=== PATIENT | female | born 1960 | race Caucasian/White ===

== ENCOUNTER 2022-10-20 10:47 | Outpatient (OUT) | payer OTHER, SELFPAY ==
--- NOTE | 2022-10-20 10:50 | MM_ITS ---
Patient: EDVIN TRISTAN Exam Date: 10/20/2022 : 1960 Gender:F Ordering : DR DYANA REINOSO M.D. Admission #: [id number] Family : Order #: [id number] CLICK HERE TO VIEW EXAM RADIOLOGY REPORT PROCEDURE: MM TOMOSYNTHESIS SCREENING BI COMPARISON: MG MAMM SCREEN 3D WILL CAD, 10/19/2021. MG MAMM SCREEN 3D WILL CAD, 10/07/2020. INDICATIONS: Calculator Name NCI Breast Cancer Risk Assessment Tool 5 Year Breast Cancer Risk 4.30% Lifetime Breast Cancer Risk 18.20% Personal Breast Cancer No Personal Ovarian Cancer No Treatments None Family Cancers None LOCATION: [facility] BREAST COMPOSITION: Heterogeneously dense,which may obscure small masses. FINDINGS: DIAGNOSTIC CATEGORY 2--BENIGN FINDING. NO CHANGE FROM COMPARISON. Scattered benign-appearing nodules are present. Scattered benign-appearing calcifications are present. Scattered benign-appearing lymph nodes are present. RIGHT BREAST: No significant suspicious finding. LEFT BREAST: No significant suspicious finding. RECOMMENDATIONS: ROUTINE MAMMOGRAM AND CLINICAL EVALUATION IN 12 MONTHS. PLEASE NOTE: A NORMAL MAMMOGRAM DOES NOT EXCLUDE THE POSSIBILITY OF BREAST CANCER. A CLINICALLY SUSPICIOUS PALPABLE LUMP SHOULD BE BIOPSIED. Dictated by: Chavez Hinojosa MD on 10/20/2022 at 14:48 Approved by: Chavez Hinojosa MD on 10/20/2022 at 14:49
== END 2022-10-20 10:48 | disposition home or self-care (01) ==
LOC: MAMMO 10:47
PROVIDERS: PCP Internal Medicine; Visit Provider Obstetrics & Gynecology
DX: Z12.31 Encounter for screening mammogram for malignant neoplasm of breast (principal)
CPT/HCPCS: 77063; 77067

== ENCOUNTER 2023-01-24 15:11 | Outpatient (OUT) | payer OTHER, SELFPAY ==
--- NOTE | 2023-01-24 | XR_ITS ---
The [address] [address] Patient Name: EDVIN TRISTAN MRN: [id number] date: 1960 Sex: F Assigned Patient Location: LAB Current Patient Location: Accession/Order Number: [id number] Exam Date: 01/24/2023 15:22 Report Date: 01/26/2023 06:42 At the request of: WYATT GARCIA Procedure: XR hip BI w PEL 1V EXAMINATION: XR hip BI w PEL 1V HISTORY: Bilateral hip pain ; no known injury COMPARISON: No relevant comparison available. FINDINGS: RIGHT FINDINGS: BONES: No significant arthropathy or acute abnormality. SOFT TISSUES: No visible soft tissue swelling. OTHER: Negative. LEFT FINDINGS: BONES: Small degenerative osteophyte along superior rim of acetabulum. No articular surface irregularity or significant joint space narrowing. SOFT TISSUES: No visible soft tissue swelling. OTHER: Negative. XR/XR hip BI w PEL 1V IMPRESSION: RIGHT CONCLUSION: No significant degenerative changes. LEFT CONCLUSION: Minimal degenerative changes. Electronically authenticated by: JONAH STANTON Date: 01/26/2023 06:42
== END 2023-01-24 15:12 | disposition home or self-care (01) ==
LOC: LAB 15:14
PROVIDERS: PCP Internal Medicine; Visit Provider Internal Medicine
DX: M25.552 Pain in left hip (principal); M25.551 Pain in right hip
CPT/HCPCS: 73523

== ENCOUNTER 2023-07-26 14:56 | Outpatient (OUT) | payer OTHER, SELFPAY ==
--- NOTE | 2023-07-26 | XR_ITS ---
The [address] [address] Patient Name: EDVIN TRISTAN MRN: [id number] date: 1960 Sex: F Assigned Patient Location: Current Patient Location: Accession/Order Number: [id number] Exam Date: 07/26/2023 14:58 Report Date: 07/28/2023 05:21 At the request of: CIRO BARKER Procedure: XR foot RT min 3V PROCEDURE: XR foot RT min 3V HISTORY: RIGHT FOOT PAIN , 5th metatarsal pain COMPARISON: None. FINDINGS: BONES:Tiny rounded ossification medial to the 5th metatarsophalangeal joint favoring sequela of remote injury. No acute fracture, dislocation, bone lesion. No significant joint space narrowing. Large calcaneal plantar spur. SOFT TISSUES:No visible soft tissue swelling. EFFUSION:None visible. OTHER: Negative. XR/XR foot RT min 3V IMPRESSION: 1. No acute bone abnormality or significant degenerative joint disease. Electronically authenticated by: JONAH STANTON Date: 07/28/2023 05:21
--- OUTSIDE RECORDS SUMMARY | 2023-07-26 15:01 | XMS_ITS | CCD ---
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 Name Role Phone UBALDO LOPEZ Unavailable Unavailable BALL, ETHAN Singh Unavailable Unavailable UBALDO LOPEZ Unavailable Unavailable BALL, ETHAN E Unavailable Unavailable Christian Celine Unavailable Ethan Hines Unavailable RADHA, DR SCHNEIDER Admitting Unavailable BALL, DR SCHNEIDER Attending Unavailable BALL, DR SCHNEIDER Consulting Unavailable BALL, DR SCHNEIDER Primary Care Unavailable BALL, DR SCHNEIDER Primary Care Unavailable BALL, DR SCHNEIDER Admitting Unavailable BALL, DR SCHNEIDER Attending Unavailable BALL, DR SCHNEIDER Consulting Unavailable KARASIK ., DR SHEEHAN Primary Care Unavailabl e BALL, DR SCHNEIDER Admitting Unavailable BALL, DR SCHNEIDER Attending Unavailable BALL, DR SCHNEIDER Consulting Unavailable ZIEBER, DR ABE Way Consulting Unavailable MISC, DR CASTRO Admitting Unavailable BALL, DR SCHNEIDER Primary Care Unavailable MISC, DR CASTRO Attending Unavailable BALL, DR SCHNEIDER Primary Care Unavailable EMILY, YOVANI Admitting Unavailable EMILY, YOVANI Attending Unavailable EMILY, YOVANI Consulting Unavailable BALL, DR SCHNEIDER Primary Care Unavailable EMILY, YOVANI Admitting Unavailable EMILY, YOVANI Attending Unavailable EMILY, YOVANI Consulting Unavailable REQUEST, NONE LISTED Attending Unavaila ble RADHA, DR SCHNEIDER Primary Care Unavailable REQUEST, NONE LISTED Consulting Unavaila ble REQUEST, DR FUNG LISTED Admitting Unavaila ble BALL, DR SCHNEIDER Primary Care Unavailable BALL, DR SCHNEIDER Consulting Unavailable REQUEST, NONE LISTED Admitting Unavaila ble REQUEST, NONE LISTED Attending Unavaila ble REQUEST, NONE LISTED Consulting Unavaila ble RADHA, DR SCHNEIDER Primary Care Unavailable REQUEST, NONE LISTED Admitting Unavaila ble REQUEST, DR FUNG LISTED Attending Unavaila ble ETHAN HINES Primary Care Physician [phone] Robin Zelaya Attending Unavailable Robin Zelaya Admitting Unavailable Allergies Allergy Classification Reported Allergen(s) Allergy Type Date of Onset Reaction(s) Facility (14 sources) traMADol Drug Allergy rash Lomography Other (1 source) Erythromycin Drug Allergy 5 [facility] Repository (1 source) Sulfonamides (Antibiotic) Drug allergy (disorder) 5 [facility] Repository (1 source) traMADol Drug Allergy 5 [facility] Repository (6 sources) Erythromycin Drug Allergy Unknown Lomography Other Medications Current Medications Medication Drug Class(es) Dates Sig (Normalized) Sig (Original) 0.5 ML tirzepatide 10 MG/ML Auto-Injector [Mounjaro] (12 sources) Start: 04-13-2022 inject 5 mg by subcutaneous injection every week Mounjaro 5 MG/0.5ML 5mg Subcutaneous weekly for 28 days Apr, Active inject 5 mg by subcu taneous injection every week Mounjaro 5 MG/0.5ML 5 MG Subcutaneous weekly Active inject 5 mg by subcu taneous injection every week Mounjaro 5 MG/0.5ML 5 MG Subcutaneous weekly for 28 days Active famotidine 20 mg oral tablet (13 sources) Histamine-2 Receptor Antagonist take 1 tablet by mouth twice daily at breakfast Famotidine 20 MG TAKE 1 TABLET BY MOUTH TWICE DAILY, AT BREAKFAST AND SUPPER Active lisinopril 5 mg oral tablet (14 sources) Angiotensin Converting Enzyme Inhibitor take 1 tablet by mouth every twenty-four hours Lisinopril 5 MG 1 tablet Orally Once a day for 30 days Active take 0.5 tablet by mouth once da rikki Lisinopril 10 MG 1/2 tablet Orally Once a day Active take 1 tablet by mouth once donna y Lisinopril 10 MG TAKE 1 TABLET BY MOUTH EVERY DAY Active Lisinopril Activ e metFORMIN hydrochloride 500 mg oral tablet (14 sources) Biguanide Start: 04-10-2022 metFORMIN HCl 500 MG 1 Orally Once a day Apr, Active mounjaro 5 mg/0.5ml solution pen-injector (1 source) inject 5 mg by subcutaneous injection every week Mounjaro 5 MG/0.5ML 5 MG Subcutaneous weekly Active nabumetone 750 mg oral tablet (2 sources) Nonsteroidal Anti-inflammatory Drug Start: 02-06-2023 take 750 mg by mouth twice daily Nabumetone 750 MG as directed Orally Twice a day for 30 days Feb, Active Completed/Discontinued Medications Medication Drug Class(es) Dates Sig (Normalized) Sig (Original) azithromycin 250 mg oral tablet (8 sources) Macrolide Antimicrobial Start: 08-10-2022 Azithromycin 250 MG as directed Orally daily for 5 days August, Not-Taking/PRN Problems Active Problems Problem Classification Problem Date Documented Da te Episodic/Chronic Calculus of urinary tract (14 sources) Unspecified renal colic; 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: [H/O: urinary stone] Onset: 04-13-2017 Episodic Diabetes mellitus with complications (20 sources) Type 2 diabetes mellitus; 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: [Type 2 diabetes mellitus with hyperglycemia] Chronic Esophageal disorders (6 sources) Gastro-esophageal reflux disease with esophagitis; 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: [Gastroesophageal reflux disease with esophagitis without hemorrhage] Chronic Essential hypertension (16 sources) Essential hypertension; 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: [Essential (primary) hypertension] Chronic Genitourinary symptoms and ill-defined conditions (3 sources) Dysuria; 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: [Frequency of micturition] Onset: 04-13-2017 Episodic Nonmalignant breast conditions (15 sources) Benign mammary dysplasia; 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: [Unspecified benign mammary dysplasia of unspecified breast] Episodic Other bone disease and musculoskeletal deformities (14 sources) Other specified disorders of bone density and structure, other site; 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: [Osteopenia of lumbar spine] Episodic Other non-traumatic joint disorders (2 sources) Pain in right hip Episodic Other non-traumatic joint disorders (2 sources) Pain in left hip Episodic Other nutritional; endocrine; and metabolic disorders (13 sources) Obesity; 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: [Obesity, unspecified] Chronic Other nutritional; endocrine; and metabolic disorders (13 sources) Body mass index 40+ - severely obese; 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: [Body mass index (BMI) 40.0-44.9, adult] Chronic Other nutritional; endocrine; and metabolic disorders (1 source) Body mass index (BMI) 40.0-44.9, adult Chronic Other screening for suspected conditions (not mental disorders or infectious disease) (5 sources) Encounter for screening mammogram for malignant neoplasm of breast; 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: [Encounter for screening for malignant neoplasm of colon] Onset: 10-19-2021 Episodic Other upper respiratory disease (14 sources) Seasonal allergic rhinitis; 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: [Other seasonal allergic rhinitis] Chronic Other upper respiratory disease (1 source) Other seasonal allergic rhinitis; 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: [Seasonal allergic rhinitis, unspecified trigger J30.2] Onset: 01-10-2021 Resolved: 01-10-2021 Chronic Other upper respiratory infections (1 source) Acute maxillary sinusitis, unspecified Episodic Rheumatoid arthritis and related disease (14 sources) Inflammatory polyarthropathy; 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: [Inflammatory polyarthropathy] Chronic Spondylosis; intervertebral disc disorders; other back problems (14 sources) Lumbosacral spondylosis without myelopathy; 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: [Spondylosis without myelopathy or radiculopathy, lumbar region] Chronic Unclassified (3 sources) CONTACT W/AND (SUSP) EXPOS COVID-19; 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: [CONTACT W/AND (SUSP) EXPOS COVID-19] Onset: 03-19-2022 Past or Other Problems Problem Classification Problem Date Documented Date Episodic/Chronic Esophageal disorders (10 sources) Esophageal disorders; 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: [Gastroesophageal reflux disease with esophagitis without hemorrhage] Immunizations and screening for infectious disease (1 source) Contact with and (suspected) exposure to other viral communicable diseases; 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: [Contact with and (suspected) exposure to other viral communicable diseases Z20.828] Onset: 01-10-2021 Resolved: 01-10-2021 Episodic Other acquired deformities (4 sources) Spondylolisthesis, lumbar region; 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: [SPONDYLOLISTHESIS LUMBAR REGION] Onset: 08-26-2021 Episodic Other aftercare (1 source) 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; 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: [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] Onset: 08-20-2021 Episodic Other connective tissue disease (1 source) Pain in right leg; 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: [PAIN IN RIGHT LEG] Onset: 10-12-2021 Episodic Residual codes; unclassified (2 sources) Other specified postprocedural states; 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: [OTH SPECIFIED POSTPROCEDURAL STATES] Onset: 08-20-2021 Episodic Spondylosis; intervertebral disc disorders; other back problems (7 sources) Dorsalgia, unspecified; 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: [Sciatica, left side] Onset: 08-18-2021 Episodic Unclassified (1 source) CONTACT W/AND (SUSP) EXPOS COVID-19; 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: [CONTACT W/AND (SUSP) EXPOS COVID-19] Onset: 03-16-2022 Unclassified (1 source) Acute bilateral low back pain without sciatica M54.50 Urinary tract infections (1 source) Acute cystitis with hematuria; 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: [Acute cystitis with hematuria] Onset: 04-13-2017 Episodic Results Test Name Value Interpretation Reference Range Facility PAP [id number] 10-18-2022 Cytology report Cyto stain Doc (Cvx/Vag) Note Invalid Interpretation Code [facility]il[facility]to [facility] Comment on above: Result Comment: TEST S RESULT FLAG UNITS REF RANGE LAB Clinician Provided Cytology Information Source.............Endocervix No. of containers..01 ThinPrep Vial DIAGNOSIS: 01 NEGATIVE FOR INTRAEPITHELIAL LESION OR MALIGNANCY. Specimen adequacy: 01 Satisfactory for evaluation. Endocervical and/or squamous metaplastic cells (endocervical component) are present. Performed by: 01 Martha Barron Special Agent Secret Service (ASCP) . 01 Note: Note 01 The Pap smear is a screening test designed to aid in the detection of premalignant and malignant conditions of the uterine cervix. It is not a diagnostic procedure and should not be used as the sole means of detecting cervical cancer. Both false-positive and false-negative reports do occur. Test Methodology: Note 01 This liquid based ThinPrep(R) pap test was screened with the use of an image guided system. FLAG LEGEND: L-Low Normal,H-High Normal,LL-Alert Low,HH-Alert High <-Panic Low,>-Panic High,A-Abnormal,AA-Critical Abnormal Performed at: [facility] [address] [id number] Edith Barnes MD, Performed By: #### 3 [id number] #### [facility] [address] [id number] HPV 16+18+31+33+35+39+45+ 51+52+56+58+59+66+68 DNA Probe+sig amp Ql (Cvx) Negative Invalid Interpretation Code Negative [facility] Comment on above: Result Comment: This nucleic acid amplification test detects fourteen high-risk HPV types (16,18,31,33,35,39,45,51,52,56,58,59,66,68) without differentiation. Performed at: [facility] [id number] MD Cameron Sharma Performed at: =[facility] [id number] MD Cameron Sharma Performed By: #### 3 [id number] #### [facility] [address] [id number] PAP [id number] 10-13-2022 Collection Technique BRUSH-SPATULA Normal F [facility] Comment on above: Performed By: #### 3 [id number] #### [facility] [address] [place] [address] Gynecological Body Site ENDOCERVIX Normal [facility] Comment on above: Performed By: #### 3 [id number] #### [facility] [address] [place] [address] Previous Treatment NONE Normal [facility] Comment on above: Performed By: #### 3 [id number] #### [facility] [address] [id number] Physician Orderon 10-12-2022 Physician Order [id number] #[id number]:127 Normal [facility] GLYCOHEMOGLOBIN A1Con 2022 ADA RECOMMENDATION SEE BELOW Normal [facility] Comment on above: Result Comment: ADA RECOMMENDED LIMIT 4.0 - 6.0 ADA THERAPEUTIC TARGET < 7.0 ACTION SUGGESTED > 7.0 Performed By: #### D ATA1C #### [facility] [address] [place] [address] Dr. María Adorno Glucose [Mass/Vol] 114 mg/dL Normal [facility] Comment on above: Performed By: #### D ATA1C #### [facility] [address] [place] [address] Dr. María Adorno HbA1c (Bld) [Mass fraction] 5.6 % Normal 4.5-6.[address] [facility] Comment on above: Performed By: #### D ATA1C #### [facility] [address] [place] [address] Dr. María Adorno GLYCOHEMOGLOBIN A1Con 2022 ADA RECOMMENDATION SEE BELOW Normal [facility] Comment on above: Result Comment: ADA RECOMMENDED LIMIT 4.0 - 6.0 ADA THERAPEUTIC TARGET < 7.0 ACTION SUGGESTED > 7.0 Performed By: #### D ATA1C #### [facility] [address] [place] [address] Dr. María Adorno Glucose [Mass/Vol] 131 mg/dL Normal [facility] Comment on above: Performed By: #### D ATA1C #### [facility] [address] [place] [address] Dr. María Adorno HbA1c (Bld) [Mass fraction] 6.2 % Normal 4.5-6.[address] [facility] Comment on above: Performed By: #### D ATA1C #### [facility] [address] [place] [address] Dr. María Adorno Covid-19 PCR (CVDTBH)on 03-03 SARS-CoV-2 (COVID-19) RNA MARIELLA+probe Ql (Unsp spec) Not detected Normal NOT DETECTED [facility] Comment on above: Result Comment: This test is not yet approved or cleared by the [place] FDA. When there are no FDA-approved or cleared tests available, and other criteria are met, FDA can make tests available under an emergency access mechanism called an Emergency Use Authorization (EUA). The EUA for this test is supported by the [employer] of Health and Human Service's (HHS's) declaration that circumstances exist to justify the emergency use of in vitro diagnostics for the detection and/or diagnosis of the virus that causes COVID-19. This EUA will remain in effect (meaning this test can be used) for the duration of the COVID-19 declaration justifying emergency of IVDs, unless it is terminated or revoked by FDA (after which the test may no longer be used). When diagnostic testing is negative, the possibility of a false negative should be considered in the context of a patient's recent exposures and the presence of clinical signs and symptoms consistent with SARS-CoV-2. Performed By: #### C VDTBH #### [facility] [address] [place] [address] Dr. María Adorno GLYCOHEMOGLOBIN A1Con 2021 ADA RECOMMENDATION SEE BELOW Normal [facility] Comment on above: Result Comment: ADA RECOMMENDED LIMIT 4.0 - 6.0 ADA THERAPEUTIC TARGET < 7.0 ACTION SUGGESTED > 7.0 Performed By: #### D ATA1C #### [facility] [address] [place] [address] Dr. María Adorno Glucose [Mass/Vol] 140 mg/dL Normal [facility] Comment on above: Performed By: #### D ATA1C #### [facility] [address] [place] [address] Dr. María Adorno HbA1c (Bld) [Mass fraction] 6.5 % Critically high 4.5-6.2 [facility] Comment on above: Performed By: #### D ATA1C #### [facility] [address] [place] [address] Dr. María Adorno [facility] CBC AUTO DIFFon 11-18-2021 BASO # 0.1 103/ul Normal 0.0-0.1 [facility] Comment on above: Performed By: #### C RP, BMP #### [facility] [address] [place] [address] Dr. María Adorno Basophils/100 WBC (Bld) 0.9 % Normal 0.2-2.[address] [facility] Comment on above: Performed By: #### C RP, BMP #### [facility] [address] [place] [address] Dr. María Adorno EO # 0.3 103/ul Normal 0.0-0.[address] [facility] Comment on above: Performed By: #### C RP, BMP #### [facility] [address] [place] [address] Dr. María Adorno Eosinophils/100 WBC (Bld) 3.0 % Normal 0.9-7.[address] [facility] Comment on above: Performed By: #### C RP, BMP #### [facility] [address] [place] [address] Dr. María Adorno Erythrocyte distribution width (RBC) [Ratio] 11.9 % Normal 11.0-15.[address] [facility] Comment on above: Performed By: #### C RP, BMP #### [facility] [address] [place] [address] Dr. María Adorno Hematocrit (Bld) [Volume fraction] 45.3 % Normal 36.0-48.[address] [facility] Comment on above: Performed By: #### C RP, BMP #### [facility] [address] [place] [address] Dr. María Adorno Hemoglobin (Bld) [Mass/Vol] 14.7 g/dL Normal 12.0-16.[address] [facility] Comment on above: Performed By: #### C RP, BMP #### [facility] [address] [place] [address] Dr. María Adorno IG # 0.04 10e3/ul Critically high 0.00-0.03 [facility] Comment on above: Performed By: #### C RP, BMP #### [facility] [address] [place] [address] Dr. María Adorno IG % 0.4 % Normal 0.0-0.5 [facility] Comment on above: Performed By: #### C RP, BMP #### [facility] [address] [place] [address] Dr. María Adorno LYMPH # 3.1 103/ul Normal 1.2-3.8 [facility] Comment on above: Performed By: #### C RP, BMP #### [facility] [address] [place] [address] Dr. María Adorno Lymphocytes/100 WBC (Bld) 32.3 % Normal 20.5-60.[address] [facility] Comment on above: Performed By: #### C RP, BMP #### [facility] [address] [place] [address] Dr. María Adorno MCH (RBC) [Entitic mass] 28.9 pg Normal 26.7-34.[address] [facility] Comment on above: Performed By: #### C RP, BMP #### [facility] [address] [place] [address] Dr. María Adorno MCHC (RBC) [Mass/Vol] 32.5 g/dL Normal 29.9-35.2 [facility] Comment on above: Performed By: #### C RP, BMP #### [facility] [address] [place] [address] Dr. María Adorno MCV (RBC) [Entitic vol] 89.2 fL Normal 81.0-99.[address] [facility] Comment on above: Performed By: #### C RP, BMP #### [facility] [address] [place] [address] Dr. María Adorno MONO # 0.8 103/ul Normal 0.3-0.[address] [facility] Comment on above: Performed By: #### C RP, BMP #### [facility] [address] [place] [address] Dr. María Adorno Monocytes/100 WBC (Bld) 8.6 % Normal 1.7-12.[address] [facility] Comment on above: Performed By: #### C RP, BMP #### [facility] [address] [place] [address] Dr. María Adorno NEUT # 5.3 103/ul Normal 1.4-6.[address] [facility] Comment on above: Performed By: #### C RP, BMP #### [facility] [address] [place] [address] Dr. María Adorno Neutrophils/100 WBC (Bld) 54.8 % Normal 43.0-75.0 [facility] Comment on above: Performed By: #### C RP, BMP #### [facility] [address] [address] [address] María Adorno Platelet mean volume (Bld) [Entitic vol] 12.2 fL Normal 9.5-13.[address] [facility] Comment on above: Performed By: #### C RP, BMP #### [facility] [address] [place] [address] Dr. María Adorno PLT 200 103/ul Normal 150-[address] [facility] Comment on above: Performed By: #### C RP, BMP #### [facility] [address] [place] [address] Dr. María Adorno RBC 5.08 106/ul Normal 4.20-5.[address] [facility] Comment on above: Performed By: #### C RP, BMP #### [facility] [address] [place] [address] Dr. María Adorno WBC 9.7 103/ul Normal 4.0-11.[address] [facility] Comment on above: Performed By: #### C RP, BMP #### [facility] [address] [place] [address] Dr. María Adorno [facility] PROFILEon 022 Albumin [Mass/Vol] 3.7 g/dL Normal 3.4-5.0 [facility] Comment on above: Performed By: #### H FPF #### [facility] [address] [place] [address] Dr. María Adorno Albumin/Globulin [Mass ratio] 1.1 {ratio} Normal [facility] Comment on above: Performed By: #### H FPF #### [facility] [address] [place] [address] Dr. María Adorno ALP [Catalytic activity/Vol] 99 U/L Normal 46-[address] [facility] Comment on above: Performed By: #### H FPF #### [facility] [address] [place] [address] Dr. María Adorno ALT [Catalytic activity/Vol] 18 U/L Normal 14-[address] [facility] Comment on above: Performed By: #### H FPF #### [facility] [address] [address] [address] María Adorno AST [Catalytic activity/Vol] 18 U/L Normal 15-[address] [facility] Comment on above: Performed By: #### H FPF #### [facility] [address] [address] [address] María Adorno Bilirubin [Mass/Vol] 0.6 mg/dL Normal 0.2-1.[address] [facility] Comment on above: Performed By: #### H FPF #### [facility] [address] [address] [address] María Adorno Calcium [Mass/Vol] 9.3 mg/dL Normal 8.5-10.1 [facility] Comment on above: Performed By: #### H FPF #### [facility] [address] [place] [address] Dr. María Adorno Chloride [Moles/Vol] 103 mmol/L Normal 98-[address] [facility] Comment on above: Performed By: #### H FPF #### [facility] [address] [place] [address] Dr. María Adorno CHOL-HDL RATIO NORM SEE BELOW Normal [facility] Comment on above: Result Comment: 3.3 - 4.4 LOW RISK 4.4 - 7.1 AVERAGE RISK 7.1 - 11.0 MODERATE RISK >11.0 HIGH RISK Performed By: #### H FPF #### [facility] [address] [address] [address] María Adorno Cholesterol [Mass/Vol] 160 mg/dL Normal <=[address] [facility] Comment on above: Performed By: #### H FPF #### [facility] [address] [place] [address] Dr. María Adorno Cholesterol in HDL [Mass/Vol] 40 mg/dL Normal 40-[address] [facility] Comment on above: Performed By: #### H FPF #### [facility] [address] [address] [address] María Adorno Cholesterol in LDL [Mass/Vol] 92.0 mg/dL Normal [facility] Comment on above: Performed By: #### H FPF #### [facility] [address] [address] [address] María Adorno Cholesterol.total/Cho lesterol in HDL [Mass ratio] 4.0 {ratio} Normal [facility] Comment on above: Performed By: #### H FPF #### [facility] [address] [address] [address] María Adorno CO2 [Moles/Vol] 24.6 mmol/L Normal 21.0-32.0 [facility] Comment on above: Performed By: #### H FPF #### [facility] [address] [place] [address] Dr. María Adorno Creatinine [Mass/Vol] 1.00 mg/dL Normal 0.55-1.[address] [facility] Comment on above: Performed By: #### H FPF #### [facility] [address] [address] [address] María Adorno Globulin (S) [Mass/Vol] 3.5 g/dL Normal [facility] Comment on above: Performed By: #### H FPF #### [facility] [address] [place] [address] Dr. María Adorno Glucose [Mass/Vol] 132 mg/dL Critically high 74-106 [facility] Comment on above: Performed By: #### H FPF #### [facility] [address] [address] [address] María Adorno HDL NORMAL > or = 60 mg/dl - LOW CARDIOVASCULAR RISK <40 mg/dl - HIGH CARDIOVASCULAR RISK Normal [facility] Comment on above: Performed By: #### H FPF #### [facility] [address] [place] [address] Dr. María Adorno LDL CALC NORMAL SEE BELOW Normal [facility] Comment on above: Result Comment: <100 mg/dl OPTIMAL 100 - 129 mg/dl NEAR OR ABOVE OPTIMAL 130 - 159 mg/dl BORDERLINE HIGH 160 - 189 mg/dl HIGH >190 mg/dl VERY HIGH Performed By: #### H FPF #### [facility] [address] [address] [address] María Adorno Potassium [Moles/Vol] 4.0 mmol/L Normal 3.5-5.[address] [facility] Comment on above: Performed By: #### H FPF #### [facility] [address] [address] [address] María Adorno Protein [Mass/Vol] 7.2 g/dL Normal 6.4-8.2 [facility] Comment on above: Performed By: #### H FPF #### [facility] [address] [address] [address] María Adorno Sodium [Moles/Vol] 138 mmol/L Normal 136-145 [facility] Comment on above: Performed By: #### H FPF #### [facility] [address] [address] [address] María Adorno Triglyceride [Mass/Vol] 140 mg/dL Normal <=[address] [facility] Comment on above: Performed By: #### H FPF #### [facility] [address] [address] [address] María Adorno TSH 2.537 uIU/mL Normal 0.358-3.740 [facility] Comment on above: Performed By: #### H FPF #### [facility] [address] [address] [address] María Adorno Urea nitrogen [Mass/Vol] 17.0 mg/dL Normal 7.0-18.[address] [facility] Comment on above: Performed By: #### H FPF #### [facility] [address] [address] [address] María Adorno Urea nitrogen/Creatinine [Mass ratio] 17.0 mg/mg Normal [facility] Comment on above: Performed By: #### H FPF #### [facility] [address] [address] [address] María Adorno VLDL CALC 28.0 mg/dL Normal [facility] Comment on above: Performed By: #### H FPF #### [facility] [address] [address] [address] María Adorno MG MAMM SCREEN 3D CHINO CADon 10-19-2021 MG MAMM SCREEN 3D CHINO CAD Patient: EDVIN TRISTAN Exam Date: 10/19/2021 : 1960 Gender:F Ordering : DR ETHAN HINES D.O. Admission #: [id number] Family : Order #: [id number] CLICK HERE TO VIEW EXAM RADIOLOGY REPORT PROCEDURE: MAMMOGRAM SCREENING 3D BILATERAL CAD COMPARISON: MG MAMM SCREEN 3D CHINO CAD, 10/07/2020. MG MAMM SCREEN CHINO W CAD, 10/03/2019. INDICATIONS: Screening mammography Calculator Name NCI Breast Cancer Risk Assessment Tool 5 Year Breast Cancer Risk 4.10% Lifetime Breast Cancer Risk 18.70% Personal Breast Cancer No Personal Ovarian Cancer No Treatments None Family Cancers None LOCATION: [facility] BREAST COMPOSITION: Heterogeneously dense,which may obscure small masses. FINDINGS: DIAGNOSTIC CATEGORY 2--BENIGN FINDING: RIGHT BREAST: No significant suspicious finding. Scattered benign-appearing calcifications are present. Stable biopsy marker clip within anterior upper-outer quadrant. No significant change has occurred. LEFT BREAST: No significant suspicious finding. Scattered benign-appearing calcifications are present. Stable scarring within posterior upper-outer quadrant. No significant change has occurred. RECOMMENDATIONS: ROUTINE MAMMOGRAM AND CLINICAL EVALUATION IN 12 MONTHS. PLEASE NOTE: A NORMAL MAMMOGRAM DOES NOT EXCLUDE THE POSSIBILITY OF BREAST CANCER. A CLINICALLY SUSPICIOUS PALPABLE LUMP SHOULD BE BIOPSIED. Dictated by: Abe Mcqueen M.D. on 10/20/2021 at 14:50 Approved by: Abe Mcqueen M.D. on 10/20/2021 at 14:56 Normal [facility] CBC AUTO DIFFon 09-28-2021 BASO # 0.1 103/ul Normal 0.0-0.1 [facility] Comment on above: Performed By: #### C BC #### [facility] [address] [address] [address] María Adorno Basophils/100 WBC (Bld) 0.8 % Normal 0.2-2.[address] [facility] Comment on above: Performed By: #### C BC #### [facility] [address] [address] [address] María Adorno EO # 0.3 103/ul Normal 0.0-0.[address] [facility] Comment on above: Performed By: #### C BC #### [facility] [address] [place] [address] Dr. María Adorno Eosinophils/100 WBC (Bld) 2.5 % Normal 0.9-7.[address] [facility] Comment on above: Performed By: #### C BC #### [facility] [address] [place] [address] Dr. María Adorno Erythrocyte distribution width (RBC) [Ratio] 12.1 % Normal 11.0-15.[address] [facility] Comment on above: Performed By: #### C BC #### [facility] [address] [place] [address] Dr. María Adorno Hematocrit (Bld) [Volume fraction] 42.6 % Normal 36.0-48.[address] [facility] Comment on above: Performed By: #### C BC #### [facility] [address] [place] [address] Dr. María Adorno Hemoglobin (Bld) [Mass/Vol] 14.1 g/dL Normal 12.0-16.[address] [facility] Comment on above: Performed By: #### C BC #### [facility] [address] [place] [address] Dr. María Adorno IG # 0.04 10e3/ul Critically high 0.00-0.03 [facility] Comment on above: Performed By: #### C BC #### [facility] [address] [place] [address] Dr. María Adorno IG % 0.3 % Normal 0.0-0.5 [facility] Comment on above: Performed By: #### C BC #### [facility] [address] [place] [address] Dr. María Adorno LYMPH # 3.3 103/ul Normal 1.2-3.[address] [facility] Comment on above: Performed By: #### C BC #### [facility] [address] [place] [address] Dr. María Adorno Lymphocytes/100 WBC (Bld) 24.4 % Normal 20.5-60.[address] [facility] Comment on above: Performed By: #### C BC #### [facility] [address] [place] [address] Dr. María Adorno MANUAL DIFF REQ NO Normal [facility] Comment on above: Performed By: #### C BC #### [facility] [address] [place] [address] Dr. María Adorno MCH (RBC) [Entitic mass] 29.6 pg Normal 26.7-34.[address] [facility] Comment on above: Performed By: #### C BC #### [facility] [address] [place] [address] Dr. María Adorno MCHC (RBC) [Mass/Vol] 33.1 g/dL Normal 29.9-35.[address] [facility] Comment on above: Performed By: #### C BC #### [facility] [address] [place] [address] Dr. María Adorno MCV (RBC) [Entitic vol] 89.5 fL Normal 81.0-99.[address] [facility] Comment on above: Performed By: #### C BC #### [facility] [address] [place] [address] Dr. María Adorno MONO # 1.0 103/ul Critically high 0.3-0.8 [facility] Comment on above: Performed By: #### C BC #### [facility] [address] [place] [address] Dr. María Adorno Monocytes/100 WBC (Bld) 7.8 % Normal 1.7-12.[address] [facility] Comment on above: Performed By: #### C BC #### [facility] [address] [place] [address] Dr. María Adorno NEUT # 8.6 103/ul Critically high 1.4-6.5 [facility] Comment on above: Performed By: #### C BC #### [facility] [address] [place] [address] Dr. María Adorno Neutrophils/100 WBC (Bld) 64.2 % Normal 43.0-75.[address] [facility] Comment on above: Performed By: #### C BC #### [facility] [address] [place] [address] Dr. María Adorno Platelet mean volume (Bld) [Entitic vol] 11.7 fL Normal 9.5-13.[address] [facility] Comment on above: Performed By: #### C BC #### [facility] [address] [place] [address] Dr. María Adorno PLT 197 103/ul Normal 150-[address] [facility] Comment on above: Performed By: #### C BC #### [facility] [address] [place] [address] Dr. María Adorno RBC 4.76 106/ul Normal 4.20-5.[address] [facility] Comment on above: Performed By: #### C BC #### [facility] [address] [place] [address] Dr. María Adorno WBC 13.3 103/ul Critically high 4.0-11.0 [facility] Comment on above: Performed By: #### C BC #### [facility] [address] [place] [address] Dr. María Adorno CRPon 09-28-2021 CRP 0.3 mg/dL Normal <=1.[address] [facility] Comment on above: Performed By: #### C RP, BMP #### [facility] [address] [place] [address] Dr. María Adorno PROF CHEM 8 (BAS METB)on Anion gap [Moles/Vol] 11.6 mmol/L Normal [facility] Comment on above: Performed By: #### C RP, BMP #### [facility] [address] [place] [address] Dr. María Adorno Calcium [Mass/Vol] 9.6 mg/dL Normal 8.5-10.1 [facility] Comment on above: Performed By: #### C RP, BMP #### [facility] [address] [place] [address] Dr. María Adorno Chloride [Moles/Vol] 105 mmol/L Normal 98-[address] [facility] Comment on above: Performed By: #### C RP, BMP #### [facility] [address] [place] [address] Dr. María Adorno CO2 [Moles/Vol] 27.6 mmol/L Normal 21.0-32.0 [facility] Comment on above: Performed By: #### C RP, BMP #### [facility] [address] [place] [address] Dr. María Adorno Creatinine [Mass/Vol] 1.12 mg/dL Critically high 0.55-1.[address] [facility] Comment on above: Performed By: #### C RP, BMP #### [facility] [address] [place] [address] Dr. María Adorno EGFR-AF SIERRA LEONEAN 60 mL/min/1.73m2 Normal >=60 [facility] Comment on above: Performed By: #### C RP, BMP #### [facility] [address] [place] [address] Dr. María Adorno EGFR-NON AF SIERRA LEONEAN 49 mL/min/1.73m2 Critically low >=[address] [facility] Comment on above: Performed By: #### C RP, BMP #### [facility] [address] [place] [address] Dr. María Adorno Glucose [Mass/Vol] 151 mg/dL Critically high 74-106 [facility] Comment on above: Performed By: #### C RP, BMP #### [facility] [address] [place] [address] Dr. María Adorno Potassium [Moles/Vol] 4.2 mmol/L Normal 3.5-5.[address] [facility] Comment on above: Performed By: #### C RP, BMP #### [facility] [address] [place] [address] Dr. María Adorno Sodium [Moles/Vol] 140 mmol/L Normal 136-145 [facility] Comment on above: Performed By: #### C RP, BMP #### [facility] [address] [place] [address] Dr. María Adorno Urea nitrogen [Mass/Vol] 19.0 mg/dL Critically high 7.0-18.[address] [facility] Comment on above: Performed By: #### C RP, BMP #### [facility] [address] [place] [address] Dr. María Adorno Urea nitrogen/Creatinine [Mass ratio] 17.0 mg/mg Normal [facility] Comment on above: Performed By: #### C RP, BMP #### [facility] [address] [place] [address] Dr. María Adorno SED RATE WESTERGRENon 2021 SED RATE 47 mm/hr Critically high <=30 [facility] Comment on above: Performed By: #### C RP, BMP #### [facility] [address] [place] [address] Dr. María Adorno CBC AUTO DIFFon 08-18-2021 BASO # 0.1 103/ul Normal 0.0-0.[address] [facility] Comment on above: Performed By: #### C RP, BMP #### [facility] [address] [place] [address] Dr. María Adorno Basophils/100 WBC (Bld) 0.7 % Normal 0.2-2.[address] [facility] Comment on above: Performed By: #### C RP, BMP #### [facility] [address] [place] [address] Dr. María Adorno EO # 0.3 103/ul Normal 0.0-0.7 [facility] Comment on above: Performed By: #### C RP, BMP #### [facility] [address] [place] [address] Dr. María Adorno Eosinophils/100 WBC (Bld) 2.4 % Normal 0.9-7.0 [facility] Comment on above: Performed By: #### C RP, BMP #### [facility] [address] [place] [address] Dr. María Adorno Erythrocyte distribution width (RBC) [Ratio] 12.4 % Normal 11.0-15.[address] [facility] Comment on above: Performed By: #### C RP, BMP #### [facility] [address] [place] [address] Dr. María Adorno Hematocrit (Bld) [Volume fraction] 40.6 % Normal 36.0-48.[address] [facility] Comment on above: Performed By: #### C RP, BMP #### [facility] [address] [place] [address] Dr. María Adorno Hemoglobin (Bld) [Mass/Vol] 13.2 g/dL Normal 12.0-16.[address] [facility] Comment on above: Performed By: #### C RP, BMP #### [facility] [address] [place] [address] Dr. María Adorno IG # 0.04 10e3/ul Critically high 0.00-0.03 [facility] Comment on above: Performed By: #### C RP, BMP #### [facility] [address] [place] [address] Dr. María Adorno IG % 0.3 % Normal 0.0-0.[address] [facility] Comment on above: Performed By: #### C RP, BMP #### [facility] [address] [place] [address] Dr. María Adorno LYMPH # 3.1 103/ul Normal 1.2-3.[address] [facility] Comment on above: Performed By: #### C RP, BMP #### [facility] [address] [place] [address] Dr. María Adorno Lymphocytes/100 WBC (Bld) 25.8 % Normal 20.5-60.[address] [facility] Comment on above: Performed By: #### C RP, BMP #### [facility] [address] [place] [address] Dr. María Adorno MANUAL DIFF REQ NO Normal [facility] Comment on above: Performed By: #### C RP, BMP #### [facility] [address] [place] [address] Dr. María Adorno MCH (RBC) [Entitic mass] 29.9 pg Normal 26.7-34.[address] [facility] Comment on above: Performed By: #### C RP, BMP #### [facility] [address] [place] [address] Dr. María Adorno MCHC (RBC) [Mass/Vol] 32.5 g/dL Normal 29.9-35.[address] [facility] Comment on above: Performed By: #### C RP, BMP #### [facility] [address] [place] [address] Dr. María Adorno MCV (RBC) [Entitic vol] 91.9 fL Normal 81.0-99.[address] [facility] Comment on above: Performed By: #### C RP, BMP #### [facility] [address] [place] [address] Dr. María Adorno MONO # 1.1 103/ul Critically high 0.3-0.8 [facility] Comment on above: Performed By: #### C RP, BMP #### [facility] [address] [place] [address] Dr. María Adorno Monocytes/100 WBC (Bld) 9.1 % Normal 1.7-12.[address] [facility] Comment on above: Performed By: #### C RP, BMP #### [facility] [address] [place] [address] Dr. María Adorno NEUT # 7.3 103/ul Critically high 1.4-6.5 [facility] Comment on above: Performed By: #### C RP, BMP #### [facility] [address] [place] [address] Dr. María Adorno Neutrophils/100 WBC (Bld) 61.7 % Normal 43.0-75.0 [facility] Comment on above: Performed By: #### C RP, BMP #### [facility] [address] [place] [address] Dr. María Adorno Platelet mean volume (Bld) [Entitic vol] 11.5 fL Normal 9.5-13.[address] [facility] Comment on above: Performed By: #### C RP, BMP #### [facility] [address] [place] [address] Dr. María Adorno PLT 198 103/ul Normal 150-450 [facility] Comment on above: Performed By: #### C RP, BMP #### [facility] [address] [place] [address] Dr. María Adorno RBC 4.42 106/ul Normal 4.20-5.[address] [facility] Comment on above: Performed By: #### C RP, BMP #### [facility] [address] [place] [address] Dr. María Adorno WBC 11.8 103/ul Critically high 4.0-11.0 [facility] Comment on above: Performed By: #### C RP, BMP #### [facility] [address] [place] [address] Dr. María Adorno CRPon 08-18-2021 CRP 1.5 mg/dL Critically high <=1.0 [facility] Comment on above: Performed By: #### B MP, CRP #### [facility] [address] [place] [address] Dr. María Adorno PROF CHEM 8 (BAS METB)on Anion gap [Moles/Vol] 12.8 mmol/L Normal [facility] Comment on above: Performed By: #### C RP, BMP #### [facility] [address] [place] [address] Dr. María Adorno Calcium [Mass/Vol] 9.2 mg/dL Normal 8.5-10.1 [facility] Comment on above: Performed By: #### C RP, BMP #### [facility] [address] [place] [address] Dr. María Adorno Chloride [Moles/Vol] 102 mmol/L Normal 98-[address] [facility] Comment on above: Performed By: #### C RP, BMP #### [facility] [address] [place] [address] Dr. María Adorno CO2 [Moles/Vol] 28.2 mmol/L Normal 21.0-32.0 [facility] Comment on above: Performed By: #### C RP, BMP #### [facility] [address] [place] [address] Dr. María Adorno Creatinine [Mass/Vol] 0.91 mg/dL Normal 0.55-1.[address] [facility] Comment on above: Performed By: #### C RP, BMP #### [facility] [address] [place] [address] Dr. María Adorno EGFR-AF SIERRA LEONEAN >60 Normal >=60 [facility] Comment on above: Performed By: #### C RP, BMP #### [facility] [address] [place] [address] Dr. María Adorno EGFR-NON AF SIERRA LEONEAN >60 Normal >=[address] [facility] Comment on above: Performed By: #### C RP, BMP #### [facility] [address] [place] [address] Dr. María Adorno Glucose [Mass/Vol] 150 mg/dL Critically high 74-106 [facility] Comment on above: Performed By: #### C RP, BMP #### [facility] [address] [place] [address] Dr. María Adorno Potassium [Moles/Vol] 4.0 mmol/L Normal 3.5-5.[address] [facility] Comment on above: Performed By: #### C RP, BMP #### [facility] [address] [place] [address] Dr. María Adorno Sodium [Moles/Vol] 139 mmol/L Normal 136-145 [facility] Comment on above: Performed By: #### C RP, BMP #### [facility] [address] [place] [address] Dr. María Adorno Urea nitrogen [Mass/Vol] 23.0 mg/dL Critically high 7.0-18.[address] [facility] Comment on above: Performed By: #### C RP, BMP #### [facility] [address] [place] [address] Dr. María Adorno Urea nitrogen/Creatinine [Mass ratio] 25.3 mg/mg Normal [facility] Comment on above: Performed By: #### C RP, BMP #### [facility] [address] [place] [address] Dr. María Adorno Orthopedic Progress Noteon 0 08-10-2021 Orthopedic Progress Note This is a preliminary report only. This report will be final only after practitioner review and authentication has occurred. [facility] Patient: EDVIN TRISTAN [address] [place], [place] [id number] MR#: [id number] PROGRESS NOTE - Orthopedic : 58 Service Date: 08/10/21 1649 Assessment and Plan - ICD10 Problem List 1. Status post lumbar spine surgery for decompression of spinal cord 2. S/P lumbar laminectomy Electronically Signed eSign Date and Time Mark Harp Normal [facility] BASIC MET PANELon 08-08-2021 Anion gap [Moles/Vol] 7 mmol/L Normal 6-18 [facility] Comment on above: Performed By: #### L 500.26739, L500.43517 ####Test performed at: [address] [address] Calcium [Mass/Vol] 8.5 mg/dL Normal 8.5-10.1 [facility] Comment on above: Performed By: #### L 500.70949, L500.54455 ####Test performed at: [address] [address] Chloride [Moles/Vol] 108 mmol/L High 98-107 [facility] Comment on above: Performed By: #### L 500.55065, L500.18353 ####Test performed at: [address] [address] CO2 [Moles/Vol] 29 mmol/L Normal 21-32 [facility] Comment on above: Performed By: #### L 500.30602, L500.86109 ####Test performed at: [address] [address] Creatinine [Mass/Vol] 0.862 mg/dL Normal 0.550-1.020 [facility] Comment on above: Performed By: #### L 500.51992, L500.92454 ####Test performed at: [address] [address] Glucose [Mass/Vol] 123 mg/dL High 70-99 [facility] Comment on above: Result Comment: Fast ing GLUCOSE reference range has been updated per (ADA) [place] [employer]'s recommendation. 06/26/2018 Performed By: #### L 500.74424, L500.22058 ####Test performed at: [address] [address] OSM 295 mosm/kg Normal 270-300 [facility] Comment on above: Performed By: #### L 500.89868, L500.97811 ####Test performed at: [address] [address] Potassium [Moles/Vol] 4.4 mmol/L Normal 3.5-5.1 [facility] Comment on above: Performed By: #### L 500.05300, L500.61270 ####Test performed at: [address] [address] Sodium [Moles/Vol] 140 mmol/L Normal 136-145 [facility] Comment on above: Performed By: #### L 500.89896, L500.51124 ####Test performed at: [address] [address] Urea nitrogen [Mass/Vol] 22 mg/dL High 7-18 [facility] Comment on above: Performed By: #### L 500.51367, L500.99100 ####Test performed at: [address] [address] CBC W/DIFFon 08-08-2021 BASO ABS 0.0 K/uL Normal 0.0-0.2 [facility] Comment on above: Performed By: #### L 200.63174 ####Test performed at: [address] [address] Basophils/100 WBC (Bld) 0.2 % Normal [facility] Comment on above: Performed By: #### L 200.58480 ####Test performed at: [address] [address] EOS ABS 0.0 K/uL Normal 0.0-0.5 [facility] Comment on above: Performed By: #### L 200.68015 ####Test performed at: [address] [address] Eosinophils/100 WBC (Bld) 0.2 % Normal [facility] Comment on above: Performed By: #### L 200.86557 ####Test performed at: [address] [address] Erythrocyte distribution width (RBC) [Ratio] 12.6 % Normal 11.5-14.5 [facility] Comment on above: Performed By: #### L 200.96149 ####Test performed at: [address] [address] Hematocrit (Bld) [Volume fraction] 32.5 % Low 36.0-48.0 [facility] Comment on above: Performed By: #### L 200.13589 ####Test performed at: [address] [address] Hemoglobin (Bld) [Mass/Vol] 10.9 g/dL Low 12.0-15.0 [facility] Comment on above: Performed By: #### L 200.84551 ####Test performed at: [address] [address] IG % 0.3 % Normal [facility] Comment on above: Performed By: #### L 200.41727 ####Test performed at: [place] [address] IG ABS 0.04 K/uL Normal 0-0.05 [facility] Comment on above: Performed By: #### L 200.21946 ####Test performed at: [address] [address] Lymphocytes (Bld) [#/Vol] 2.7 10*3/uL Normal 1.2-3.5 [facility] Comment on above: Performed By: #### L 200.08043 ####Test performed at: [place] [id number] Lymphocytes/100 WBC (Bld) 22.4 % Normal [facility] Comment on above: Performed By: #### L 200.88638 ####Test performed at: [place] [address] MCH (RBC) [Entitic mass] 29.9 pg Normal 25.4-34.6 [facility] Comment on above: Performed By: #### L 200.20282 ####Test performed at: [place] [id number] MCHC (RBC) [Mass/Vol] 33.5 g/dL Normal 31.5-36.5 [facility] Comment on above: Performed By: #### L 200.59938 ####Test performed at: [address] [address] MCV (RBC) [Entitic vol] 89.3 fL Normal 79.0-98.0 [facility] Comment on above: Performed By: #### L 200.40655 ####Test performed at: [address] [address] MONO ABS 1.1 K/uL High 0.0-1.0 [facility] Comment on above: Performed By: #### L 200.75697 ####Test performed at: [address] [address] Monocytes/100 WBC (Bld) 9.4 % Normal [facility] Comment on above: Performed By: #### L 200.63809 ####Test performed at: [address] [address] NEUTROPHIL ABS 8.1 K/uL High 1.4-6.6 [facility] Comment on above: Performed By: #### L 200.62220 ####Test performed at: [address] [address] Neutrophils/100 WBC (Bld) 67.5 % Normal [facility] Comment on above: Performed By: #### L 200.37252 ####Test performed at: [address] [address] NRBC # 0.000 K/uL Normal 0-0.012 [facility] Comment on above: Performed By: #### L 200.62695 ####Test performed at: [address] [address] NRBC % 0.0 /100 WBC Normal 0-0.2 [facility] Comment on above: Performed By: #### L 200.02487 ####Test performed at: [address] [address] Platelet mean volume (Bld) [Entitic vol] 12.5 fL High 8.7-12.4 [facility] Comment on above: Performed By: #### L 200.56397 ####Test performed at: [address] [address] Platelets (Bld) [#/Vol] 122 10*3/uL Low 140-440 [facility] Comment on above: Performed By: #### L 200.42064 ####Test performed at: [address] [place] [address] RBC (Bld) [#/Vol] 3.64 10*6/uL Normal 3.5-5.5 [facility] Comment on above: Performed By: #### L 200.47572 ####Test performed at: [address] [address] WBC (Bld) [#/Vol] 12.1 10*3/uL High 3.9-11.0 [facility] Comment on above: Performed By: #### L 200.31246 ####Test performed at: [place] [address] Discharge CCD Assessmenton 0 08-08-2021 Discharge CCD Assessment [facility] Patient: EDVIN TRISTAN [address] [place] [address] MR#: [id number] DISCHARGE CCD ASSESSMENT : 59 Service Date: 08/08/21 112 Discharge CCD Assessment Assessment Patient discharged home to continue pain control, wound care, and exercises. Electronically Signed eSign Date and Time Mark Harp 08/08/211121 Santi Roldan MD Normal [facility] GFR ESTIMATEon 08-08-2021 IF AMER > 60 Normal > 60 [facility] Comment on above: Result Comment: eGFR (Estimated GFR) Units of measure:mL/min/1.73 meters sq. *CALCULATION REVISED 01/20/2015;IDMS-traceable MDRD equation eGFR is derived from the reexpressed MDRD Study equation using the following parameters: serum creatinine, age, gender and race. An eGFR<60 mL/min/1.73m2 for >3 months is consistent with chronic kidney disease. Refer to KDOQI guidelines for clinical interpretation. Performed By: #### L 500.55010, L500.50228 ####Test performed at: [place] [address] IF non-AFR AMER > 60 Normal > 60 [facility] Comment on above: Performed By: #### L 500.78000, L500.93771 ####Test performed at: [place] [id number] [place] [address] Internal Med Progress Noteon 08-08-2021 Internal Med Progress Note [facility] Patient: EDVIN TRISTAN [address] [address] MR#: [id number] PROGRESS NOTE - Internal Medicine : 59 Service Date: 08/08/21 0716 Subjective Summary of Stay Ms. Tristan is a 60 y/o F with a PMHx of HTN, GERD and S/p cholecystectomy who is now s /p bilteral lumbar L 2-L 5 decompressive laminectomy POD# 2. Pt has [address] with 160 cc drained for the past 24 hrs. Has no uriarte. She was able to get out of bed and amultate last with PT help yesterday. C/o post back pain 5/10 with movemnt, at rest it feels sore. Passes gas, but no BM yet. Denies chest pain, shortness of breath, palpitations, nausea, vomiting, abdominal pain. Dr. Beckford had no further reccomendations regarding inrtraoperatively cardiac event. Pt has been vitally stable, SBP runs on the low 100's and 90's. Events since last encounter No acute events Subjective Pt c/o 5/10 back pain with movement. Still has the tingling in her toes B/L. General Denies Chills, Denies Night sweats, Denies Fatigue, Denies Malaise HEENT Denies Head Aches, Denies Eye Pain, Denies Sinus Congestion, Denies Post Nasal Drip, Denies Sore Throat Pulmonary Denies Dyspnea, Denies Cough, Denies Pleuritic Chest Pain Cardiovascular Denies Chest Pain, Denies Palpitations, Denies Orthnopnea, Denies Edema Gastrointestinal Constipation, Denies Nausea, Denies Vomiting, Denies Abdominal Pain, Denies Diarrhea Genitourinary Denies Dysuria, Denies Incontinence Musculoskeletal Denies Neck Pain, Denies Back Pain Neurological Denies Weakness, Denies Numbness Objective Exam Vitals and I/O Vital Signs Verdana 4d Result Date Time Pulse Ox 96 08/09 751 B/P 104/51 08/09 751 O2 Delivery ROOM AIR 08/09 751 Temp 36.4 08/09 751 Pulse 55 08/09 751 Resp 16 08/09 751 O2 Flow Rate 3 08/06 1803 Intake AND Output Verdana 4d 08/08 2300 08/07 2300 Intake Total 240 1490 Output Total 340 1920 Balance -100 -430 Intake, IV 890 Oral 240 600 utput, 40 120 rainage Output, Urine 300 1800 General Appearance Alert, Oriented X3, Cooperative, No Acute Distress HEENT Atraumatic, EOMI, Mucous Membr. moist/pink Lungs Clear to Auscultation, Normal Air Movement Neck Supple Cardiovascular Regular Rate, Normal S1, Normal S2, No Murmurs Abdomen Normal Bowel Sounds, Soft, No Tenderness Extremities No Clubbing, No Edema, Normal Pulses, No Tenderness/Swelling Skin No Significant Lesion Neurological Normal Gait, Normal Tone, Sensation Intact Psych/Mental Status Mental Status NL Assessment/Plan-Inte rnal Med Problem List 1. Status post lumbar spine surgery for decompression of spinal cord 2. S/P lumbar laminectomy Med Reasons/Tx for Con't stay S/p lumbar surgery POD # 2 Assessment # S/p bilteral lumbar L 2-L 5 decompressive laminectomy POD# 2 # Leukocytosis likley 2/2 steroid use # Acute blood loss anemia * C/o post op back pain at a 5/10 with movement and soreness. Denies chest pain, shortness of breath, palpitations, nausea, vomiting, abdominal pain. * VS: 36.4, HR 55, BP 104/51, RR 16 , SO2 96 % on RA * P/E: surgical dressing in place on lumbar area, dry and intact. 2 JUANCHO surgical drains in situ, had 160 cc drain for past 24 hrs. No Uriarte * Labs: Hgb 12.4 -> 10.9 , leukocytes 12. 4 -> 12.1 * BMP: non contributory * S/p Decadron 10 mg Q8 IV for 2 doses Plan: * Encourage incentive spirometry * Encourage ambulation * Physical therapy consult * Feratab po dialy #Pain management #Nausea and vomiting #Bowel care Perocet 1 and 2 tabs Q4 prn Tylenol 650 mg q4 prn Carioprodol 350 mg po tidprn Docusate 100 mg PO BID Milk of Magnesia 30mg QHS PRN Dulcolax 10 mg rectal QD PRN Zofran 4 mg Q8 PRN # HTN # Dropped QRS complexes intraoperatively * Itraoperatively pt developed a few missed QRS complexes, and HR dropped from 90s to 60 - >50 s. * Has no chest pain, palpitations, dizziness, no LOC. * No cardiac events on Tele monitoring * Most like 2/2 anesthesia induced * Dr. Beckford did not have any further reccomedations * SBP runs low 100's and 90's Plan: * Lisinopril 10 mg po * Vasotec PRN for SBP > 170 * Encouraged po hydration * Continuous tele monitoring. #DVT prophylaxis * Management as per Orthopedics team Be sure to note changes Be sure to note changes DVT Prophylaxis PCDs Does Patient have Central Line? No Does Patient have a Uriarte? No *Attending Attestation Attending Attestation Attending Attestation All pertinent elements of history and physical exam were confirmed by me. Agree with above documentation. The [resident's, PA's, MALTER OPERATOR's] assessment and plan reflect my input. Discussed with documenting provider and patient. Plan is as outlined above. Electronically Signed eSign Date and Time [place] Sánchez Donald E. MD 08/08/21 1603 Normal [facility] z PT Inpatient Progress Note on 08-08-2021 z PT Inpatient Progress Note [facility] Patient: EDVIN TRISTAN [facility] [place] [address] MR#: [id number] PT INPATIENT PROGRESS NOTE : 59 Service Date: 08/08/21 1050 Inpatient PT HPI Date of Service 08/08/21 Time In: 1001 Time Out: 1035 Total Treatment Time (Mins) 51 Room Number 534 Current Visit Originally in the patient room from and took the patient for a short walk, patient citing increased pain and would like CLINICAL IMPLEMENTATION SPECIALIST to return after breakfast. CLINICAL IMPLEMENTATION SPECIALIST returned at above stated times for completion of session. Surgery Type: [place] L2-S1 decompression lami Surgery Date: 08/06/21 Tx Diagnosis: LOW BACK PAIN Objective Pain Pain Scale 7 Pain Character Ache Pain Location Back Comments At initial visit pain is 7/10 down to 5/10 upon return, meds taken. Precautions Back Brace, Spinal Treatment Inpatient PT Transfers Sit to Stand Standby Assist Stand to Sit Standby Assist Weight Bearing No Restrictions Comments Patient completing multiple sit<>stand transfers from the chair with no hands on assist just increased time for completion of all. Verbal review of logroll but patient wanting to remain in the chair. Patient given min A to austen brace prior to ambulation, left on in sitting and states the support feels good. Patient also brushing teeth at supervision level. Gait Patient ambulated With Standby Assist With Assistive Device Wheeled Walker For (Feet) 50' x 2; 70' x 2 Comments Patient ambulating with a slow, reciprocal gait with decreased step height/length. Patient reports still feeling some tingling in RLE but no buckling or unsteadiness noted this session. Stairs Comments Patient states feeling comfortable with training provided. Exercises Seated Exercises Toe Raises, Long Arc Quads, Hamstring Curl Comments x10ea BLE Balance Exercises Sidestep, Retro Walking Balance Activities Good balance noted advised to continue using WW during recovery. Treatment Remained in Chair All Needs Within Reach Yes Treatment Time-Minutes Therapeutic Exercise 10 Gait Training 20 Therapeutic Activities 21 Total Treatment Time (Minutes) 51 Assessment/Plan for Inpt PT Discharge Recommendations Home-No Home Health Care Topic #1 Patient educated in gait, transfers, therex and precautions. Teaching Method: TEACHBACK Outcome: RETURN SKILL DEMO Problems Decreased Strength, Decreased Transfers, Decreased Ambulation, Decreased Balance, Decreased ROM, Difficulty with Stairs, Decreased Endurance, Pain Rehab Potential Good Treatment Tolerance Good Assessment Patient continues to make progress toward all goals. She reports her spouse has gotten her a WW for discharge. Patient appears to be more steady with ambulation this session but advised to still use the WW for safety. Patient asking numerous questions regarding POC and answered as able. Patient emotional and anxious today but appears calmer once pain is under control. Safely transfer sup to sit: MOD I (logroll) Safely transfer sit to stand: MOD I Safely Ambulate: MOD I (125'brace, AD, cont.steps) Patient will perform stairs: Supervision (3steps, brace, AD,nonrecip) Pt. will increase strength for improved lumbar protocol Pt. will have: improved balance (F+ all dynamic standing) Pt. will tolerate dynamic activity as demo by tolerating PT sessions at least 35min, VSS Patient Stated Goal: to walk better Goals discussed with: Patient Frequency of Therapy: 1-2 Follow Up sessions Duration: UNTIL DISCHARGE Patient Status ACTIVE Treatment Performed Yes Comments Continue with POC Electronically Signed eSign Date and Time [place] CLINICAL IMPLEMENTATION SPECIALIST 08/08/21 1101 Norma Diaz PT Normal [facility] Anesthesia Noteon 08-07-2021 Anesthesia Note [facility] Patient: EDVIN TRISTAN [address] [place] [address] MR#: [id number] ANESTHESIA NOTE : Service Date: 08/07/21 0755 Post-anesthesia Note Note Patient assessed post operatively for the following: [x ] Respiratory function, including respiratory rate, airway patency and oxygen saturation [x ] Cardiovascular function, including pulse rate and blood pressure [x ] Mental status [x ] Temperature [x ] Pain [x ] Nausea and vomiting [x ] Postoperative hydration [x ] No Visual Changes Due to the following condition(s) additional monitoring may be necessary: [ ] [x ] No apparent anesthesia complications noted. [x ] Status as per pre-op Electronically Signed eSign Date and Time Jon Pradhan AA 08/07/21 0755 Marsha Miller MD Normal [facility] BASIC MET PANELon 08-07-2021 Anion gap [Moles/Vol] 8 mmol/L Normal 6-18 [facility] Comment on above: Performed By: #### L 500.07919, L500.14613 ####Test performed at: [place] [address] Calcium [Mass/Vol] 8.8 mg/dL Normal 8.5-10.1 [facility] Comment on above: Performed By: #### L 500.18319, L500.94015 ####Test performed at: [place] [address] Chloride [Moles/Vol] 109 mmol/L High 98-107 [facility] Comment on above: Performed By: #### L 500.47082, L500.53554 ####Test performed at: [address] [address] CO2 [Moles/Vol] 27 mmol/L Normal 21-32 [facility] Comment on above: Performed By: #### L 500.51292, L500.70952 ####Test performed at: [address] [address] Creatinine [Mass/Vol] 0.967 mg/dL Normal 0.550-1.020 [facility] Comment on above: Performed By: #### L 500.20533, L500.34997 ####Test performed at: [address] [address] Glucose [Mass/Vol] 178 mg/dL High 70-99 [facility] Comment on above: Result Comment: Fast ing GLUCOSE reference range has been updated per (ADA) [place] [employer]'s recommendation. 06/26/2018 Performed By: #### L 500.88469, L500.28733 ####Test performed at: [address] [address] OSM 296 mosm/kg Normal 270-300 [facility] Comment on above: Performed By: #### L 500.36403, L500.96674 ####Test performed at: [address] [address] Potassium [Moles/Vol] 4.5 mmol/L Normal 3.5-5.1 [facility] Comment on above: Performed By: #### L 500.16700, L500.19612 ####Test performed at: [address] [address] Sodium [Moles/Vol] 140 mmol/L Normal 136-145 [facility] Comment on above: Performed By: #### L 500.28405, L500.81356 ####Test performed at: [address] [address] Urea nitrogen [Mass/Vol] 18 mg/dL Normal 7-18 [facility] Comment on above: Performed By: #### L 500.71217, L500.81813 ####Test performed at: [address] [address] CBC W/DIFFon 08-07-2021 BASO ABS 0.0 K/uL Normal 0.0-0.2 [facility] Comment on above: Performed By: #### L 200.02454 #### Test performed at: [address] [address] Basophils/100 WBC (Bld) 0.1 % Normal [facility] Comment on above: Performed By: #### L 200.56597 #### Test performed at: [address] [address] EOS ABS 0.0 K/uL Normal 0.0-0.5 [facility] Comment on above: Performed By: #### L 200.76652 #### Test performed at: [address] [address] Eosinophils/100 WBC (Bld) 0.0 % Normal [facility] Comment on above: Performed By: #### L 200.45755 #### Test performed at: [address] [address] Erythrocyte distribution width (RBC) [Ratio] 12.0 % Normal 11.5-14.5 [facility] Comment on above: Performed By: #### L 200.07713 #### Test performed at: [address] [address] Hematocrit (Bld) [Volume fraction] 35.2 % Low 36.0-48.0 [facility] Comment on above: Performed By: #### L 200.74247 #### Test performed at: [address] [address] Hemoglobin (Bld) [Mass/Vol] 12.1 g/dL Abnormal 12.0-15.0 [facility] Comment on above: Result Comment: Delt a: 14.9 on 08/03/21 Performed By: #### L 200.91159 #### Test performed at: [address] [address] IG % 0.5 % Normal [facility] Comment on above: Performed By: #### L 200.40871 #### Test performed at: [address] [address] IG ABS 0.06 K/uL High 0-0.05 [facility] Comment on above: Performed By: #### L 200.03628 #### Test performed at: [address] [address] Lymphocytes (Bld) [#/Vol] 1.0 10*3/uL Low 1.2-3.5 [facility] Comment on above: Performed By: #### L 200.42777 #### Test performed at: [address] [address] Lymphocytes/100 WBC (Bld) 7.7 % Normal [facility] Comment on above: Performed By: #### L 200.54397 #### Test performed at: [address] [address] MCH (RBC) [Entitic mass] 30.2 pg Normal 25.4-34.6 [facility] Comment on above: Performed By: #### L 200.00232 #### Test performed at: [address] [address] MCHC (RBC) [Mass/Vol] 34.4 g/dL Normal 31.5-36.5 [facility] Comment on above: Performed By: #### L 200.39490 #### Test performed at: [address] [address] MCV (RBC) [Entitic vol] 87.8 fL Normal 79.0-98.0 [facility] Comment on above: Performed By: #### L 200.10425 #### Test performed at: [address] [address] MONO ABS 0.3 K/uL Normal 0.0-1.0 [facility] Comment on above: Performed By: #### L 200.76551 #### Test performed at: [place] [id number] Monocytes/100 WBC (Bld) 2.7 % Normal [facility] Comment on above: Performed By: #### L 200.65723 #### Test performed at: [place] [id number] NEUTROPHIL ABS 11.0 K/uL High 1.4-6.6 [facility] Comment on above: Performed By: #### L 200.84257 #### Test performed at: [address] [address] Neutrophils/100 WBC (Bld) 89.0 % Normal [facility] Comment on above: Performed By: #### L 200.49769 #### Test performed at: [address] [address] NRBC # 0.000 K/uL Normal 0-0.012 [facility] Comment on above: Performed By: #### L 200.36157 #### Test performed at: [address] [address] NRBC % 0.0 /100 WBC Normal 0-0.2 [facility] Comment on above: Performed By: #### L 200.38407 #### Test performed at: [address] [address] Platelet mean volume (Bld) [Entitic vol] 12.1 fL Normal 8.7-12.4 [facility] Comment on above: Performed By: #### L 200.27172 #### Test performed at: [address] [address] Platelets (Bld) [#/Vol] 140 10*3/uL Normal 140-440 [facility] Comment on above: Performed By: #### L 200.53629 #### Test performed at: [address] [address] RBC (Bld) [#/Vol] 4.01 10*6/uL Normal 3.5-5.5 [facility] Comment on above: Performed By: #### L 200.09270 #### Test performed at: [address] [address] WBC (Bld) [#/Vol] 12.4 10*3/uL High 3.9-11.0 [facility] Comment on above: Performed By: #### L 200.56846 #### Test performed at: [address] [address] GFR ESTIMATEon 08-07-2021 IF AMER > 60 Normal > 60 [facility] Comment on above: Result Comment: eGFR (Estimated GFR) Units of measure:mL/min/1.73 meters sq. *CALCULATION REVISED 01/20/2015;IDMS-traceable MDRD equation eGFR is derived from the reexpressed MDRD Study equation using the following parameters: serum creatinine, age, gender and race. An eGFR<60 mL/min/1.73m2 for >3 months is consistent with chronic kidney disease. Refer to KDOQI guidelines for clinical interpretation. Performed By: #### L 500.71569, L500.21598 ####Test performed at: [place] [address] IF non-AFR AMER 59 Low > 60 [facility] Comment on above: Performed By: #### L 500.63352, L500.47442 ####Test performed at: [place] [address] Internal Med Progress Noteon 08-07-2021 Internal Med Progress Note [facility] Patient: EDVIN TRISTAN [address] [place] [address] MR#: [id number] PROGRESS NOTE - Internal Medicine : 59 Service Date: 08/07/21 0703 Subjective Summary of Stay Ms. Tristan is a 60 y/o F with a PMHx of HTN, GERD and S/p cholecystectomy who is now s /p bilteral lumbar L 2-L 5 decompressive laminectomy POD# 1. Pt has [address] with 30 cc drained overnight, uriarte was removed. She was able to get out of bed and amultate last nign. Escobar an episode of vomiting, butthis morning she denied any nausea. C/o post op pain 08/10. There were no cardiac events on the event strip overnight. Denies chest pain, shortness of breath, palpitations, nausea, vomiting, abdominal pain. Passes gas, but no BM yet. Events since last encounter Had an episode of vomiting last night Subjective c/o post op pain at a 5/10. Denies chest pain, shortness of breath, palpitations, nausea, vomiting, abdominal pain. C/o tingling in her toes B/L. General Denies Chills, Denies Night sweats, Denies Fatigue HEENT Sore Throat, Denies Head Aches, Denies Sinus Congestion, Denies Post Nasal Drip Pulmonary Denies Dyspnea, Denies Cough, Denies Pleuritic Chest Pain Cardiovascular Denies Chest Pain, Denies Palpitations, Denies Orthnopnea, Denies Paroxysmal Noc. Dyspnea, Denies Edema Gastrointestinal Denies Nausea, Denies Vomiting, Denies Abdominal Pain, Denies Diarrhea, Denies Constipation Genitourinary Denies Dysuria, Denies Retention Musculoskeletal Back Pain, Denies Neck Pain Neurological Denies Weakness, Denies Numbness Objective Exam Vitals and I/O Vital Signs Verdana 4d Result Date Time Pulse Ox 96 08/07 699 B/P 106/56 08/07 699 O2 Delivery NASAL CANNULA 08/07 699 Temp 36.6 08/07 699 Pulse 64 08/07 699 Resp 18 08/07 699 O2 Flow Rate 3 08/06 1803 Intake AND Output Verdana 4d 08/07 2300 08/06 2300 Intake Total 870 Output Total 255 Balance 615 Intake, IV 480 Oral 390 utput, 30 rainage Output, 75 mesis Output, Urine 150 Patient 109 kg eight General Appearance Alert, Oriented X3, Cooperative, No Acute Distress HEENT Atraumatic, EOMI, Mucous Membr. moist/pink Lungs Clear to Auscultation, Normal Air Movement Neck Supple, No LAD Cardiovascular Regular Rate, Normal S1, Normal S2, No Murmurs Abdomen Soft, No Tenderness Extremities No Edema, Normal Pulses, No Tenderness/Swelling Skin No Significant Lesion, Dressing is intact on lumbar area Neurological Normal Tone, Sensation Intact Psych/Mental Status Mental Status NL Results Results All Laboratory Tests 08/06 0829 Chemistry POC Glucose (70 - 99 mg/dL) 123 Assessment/Plan-Inte rnal Med Problem List 1. Status post lumbar spine surgery for decompression of spinal cord 2. S/P lumbar laminectomy Med Reasons/Tx for Con't stay S/p bilteral lumbar L 2-L 5 decompressive laminectomy POD# 1 Assessment # S/p bilteral lumbar L 2-L 5 decompressive laminectomy POD# 1 # Leukocytosis [facility] 2/2 steroid use * c/o post op pain at a 5/10. Denies chest pain, shortness of breath, palpitations, nausea, vomiting, abdominal pain. * VS: 36.6, BP 106/56, RR 18 ,SO2 96 % on 3 L NC * P/E: surgical dressing in place on lumbar area, dry and intact. 2 JUANCHO surgical drains in situ, minmal discharge. No Uriarte * labs: Hgb 14.9 -> 12.4, leukocytes 12. 1 * BMP: Creat 1.08 -> 1.09. GB 178 elevated 2/2 steroids * No cardiac events on Tele overnight * S/p Decadron 10 mg Q8 IV for 2 doses Plan: * Encourage incentive spirometry * Encourage ambulation * Physical therapy consult * Lactated Ringers @ 100ml/hr #Pain management #Nausea and vomiting #Bowel care Perocet 1 and 2 tabs Q4 prn Tylenol 650 mg q4 prn Carioprodol 350 mg po tidprn Docusate 100 mg PO BID Milk of Magnesia 30mg QHS PRN Dulcolax 10 mg rectal QD PRN Zofran 4 mg Q8 PRN # HTN # Dropped QRS complexes intraoperatively * Itraoperatively pt developed a few missed QRS complexes, and HR dropped from 90s to 60 - >50 s. * Has no chest pain, palpitations, dizziness, no LOC. * No cardiac events on Tele monitoring overnight * Most like 2/2 anesthesia induced Plan: * Resumed Lisinopril 10 mg po * Vasotec PRN for SBP > 170 * Cardiology is on board, Dr. Beckford * Continuous tele monitoring. #DVT prophylaxis * Management per Orthopedics team Be sure to note changes Be sure to note changes DVT Prophylaxis PCDs Does Patient have Central Line? No Does Patient have a Uriarte? No *Attending Attestation Attending Attestation Attending Attestation All pertinent elements of history and physical exam were confirmed by me. Agree with above documentation. The [resident's, PA's, MALTER OPERATOR's] assessment and plan reflect my input. Discussed with documenting provider and patient. Plan is as outlined above. Electronically Signed eSign Date and Time Montana Sánchez (more content not included)... Normal [facility] OT Therapy Recommendationson 08-07-2021 OT Therapy Recommendations [facility] Patient: EDVIN TRISTAN [address] [place] [address] MR#: [id number] OT THERAPY RECOMMENDATIONS : 59 Service Date: 08/07/21 1323 Therapy Recommendations Therapy Recommendations Recommendations Recommend pt d/c home with increased assist from spouse once medically cleared. Pt able to verbalize and demonstrate precautions and adapted techniques for management of ADLs. Electronically Signed eSign Date and Time Kourtney Singh 08/07/21 1324 Normal [facility] Orthopedic Progress Noteon 0 08-07-2021 Orthopedic Progress Note [facility] Patient: EDVIN TRISTAN [address] [place] [address] MR#: [id number] PROGRESS NOTE - Orthopedic : 59 Service Date: 08/07/21 1228 Subjective Summary of Stay s/p bilteral lumbar L 2-L 5 decompressive laminectomy POD#1 Events since last encounter none Subjective This is a 60 y/o F with a PMHx of HTN, GERD and S/p cholecystectomy who is now s/p bilteral lumbar L 2-L 5 decompressive laminectomy POD#1. Pt c/o post op pain at a 5/10. She states she has not ambulated much today besides getting up to go to the bathroom. Pt denied chest pain, shortness of breath, palpitations, nausea, vomiting, abdominal pain. General Denies Chills, Denies Night sweats, Denies Fatigue HEENT Denies Head Aches, Denies Visual Changes, Denies Sore Throat Pulmonary Denies Dyspnea, Denies Cough, Denies Pleuritic Chest Pain Cardiovascular Denies Chest Pain, Denies Palpitations, Denies Lt Headedness Gastrointestinal Denies Nausea, Denies Vomiting, Denies Abdominal Pain Genitourinary Denies Dysuria, Denies Frequency Musculoskeletal Back Pain, Denies Neck Pain, Denies Shoulder Pain, Denies Arm Pain, Denies Hand Pain, Denies Leg Pain, Denies Foot Pain Neurological Denies Weakness, Denies Numbness, Denies Seizures Objective Exam Vitals and I/O Vital Signs Verdana 4d Result Date Time Pulse Ox 96 08/07 699 B/P 106/56 08/07 699 O2 Delivery NASAL CANNULA 08/07 699 Temp 36.6 08/07 699 Pulse 64 08/07 699 Resp 18 08/07 699 O2 Flow Rate 3 08/06 1803 Intake AND Output Verdana 4d 08/07 2300 08/06 2300 Intake Total 1250 870 Output Total 1150 255 Balance 100 615 Intake, IV 890 480 Oral 360 390 utput, 50 30 rainage Output, 75 mesis Output, Urine 1100 150 Patient 109 kg eight General Appearance Alert, Oriented X3, Cooperative, No Acute Distress HEENT Atraumatic Lungs Normal Air Movement Neck Supple Cardiovascular Regular Rate Abdomen No Tenderness Extremities Normal Pulses Skin No Rashes, No Breakdown Neurological Normal Tone, Sensation Intact Psych/Mental Status Mental Status NL, Mood NL Assessment and Plan - ICD10 Problem List 1. Status post lumbar spine surgery for decompression of spinal cord 2. S/P lumbar laminectomy Med Reasons/Tx for Con't stay Continue to progress towards mobility goals with PT/OT Assessment Assessment: Pt sitting up comfortably in chair. A AND Ox3. Lumbar surgical dressing to back with JUANCHO drains (2) incorporated. Mariana. Dorsi/plantarflexion /. Neurovascularly intact. Sensations intact. Plan: Pt to stay another night tocontinue to progress towards mobility goals with PT/OT. Pt will be reassessed tomorrow morning with plans for possible discharge at that time. Pt and Dr. Roldan are both aware and agree to this plan. IM: continue monitoring PT/OT: continue evaluating and treating DVT PPx: ankle pumps, ambulation, SCDs Pain control: Percocet Electronically Signed eSign Date and Time Mark Harp 08/07/21 1235 Santi Roldan MD Normal [facility] z OT Inpatient Evaluationon 08-07-2021 z OT Inpatient Evaluation [facility] Patient: EDVIN TRISTAN [address] [place] [address] MR#: [id number] OT INPATIENT EVALUATION : 59 Inpatient OT HPI Date of Service 08/07/21 Time In: 1053 Time Out: 1137 Total Treatment Time (Mins) 42 Visit Reason LUMBAR STENOSIS Surgery Type/Date s/p bilAteral lumbar L 2-L 5 decompressive laminectomy Referral Date 08/06/21 Tx Diagnosis: LOW BACK PAIN Insurance Name [facility] This is a 60 y/o F with a PMHx of HTN, GERD and S/p cholecystectomy who is now s/p bilteral lumbar L 2-L 5 decompressive laminectomy POD#1. Pt c/o post op pain at a 08/10. She states she has not ambulated much today besides getting up to go to the bathroom. Pt denied chest pain, shortness of breath, palpitations, nausea, vomiting, abdominal pain. Past Medical/Social History Problem List Surgical Problems S/P lumbar laminectomy Status post lumbar spine surgery for decompression of spinal cord Living Arrangements Home Lives With Spouse Steps to Enter House 4 Stairs Inside House 10 Railings None Adaptive Equipment Single Point Cane ADL Equipment Hand Held Shower Hose, Shower Chair Bedroom Location 1st Floor Bathroom Location 1st Floor Shower Tub Comments Pt with 4 ITALO at front w/o rail, 2 + 1 at side with rail, however this pathway blocked by camper and difficult to navigate. Pt states she recently purchased shower chair for tub, laundry in basement. 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 Pt has large dog and spouse works FT, no other assist available. Uses wall/ furniture for ambulating. Objective Precautions Back Brace, Lumbar Spine Pain Scale 4 Pain Character Ache Pain Location Back Comments Pt states pain is tolerable, back feels pulling sensation Equipment Drain, Peripheral IV Orientation Person, Place, Time, Situation Behavior Within Functional Limits Comments Pt states feelings of numbness and tingling in BLE, R worse than L, both worse than baseline. Coordination Fine Motor Coordination Within Functional Limits Gross Motor Coordination Within Functional Limits ROM RUE ROM Within Functional Limits LUE ROM Within Functional Limits Strength RUE Strength Within Functional Limits LUE Strength Within Functional Limits Outcome Measures Tyler Score Tyler Score Response Value Feeding Independent 10 Bathing Needs Help 0 Grooming Independent 5 Dressing Needs Help/Half unaided 5 Bowels Continent 10 Bladder Continent 10 Toilet Independent 10 ransfer(Bed to Chair and Back) Minor Help 10 obility (On Level Surfaces) Walks w/Help of 1 Person 10 tairs Needs Help 5 otal 75 AM-PAC Inpt Daily Activity AM-PAC Inpt Daily Activity Response Value Lower Body Clothing A Little 3 Bathing A Little 3 Toileting None 4 Upper Body Clothing None 4 Personal Grooming None 4 Eating Meals None 4 Total 22 Comments 25 % disability based on the Tyler Index ADL Function ADL Function Upper Body Dressing Setup Lower Body Dressing Min Assist Lower Body Bathing Min Assist Toileting Standby Assist Grooming Setup Transfers Transfers Supine to Sit Contact Guard Assist Sit to Stand Contact Guard Assist Stand to Sit Contact Guard Assist Bed to Chair Contact Guard Assist Treatment Additional Minutes of Tx Performed 27 Remained in Chair All Needs Within Reach Yes Comments pt completed LB ADLs including bathing and dressing. Pt completed bed mobility, STS transfers, functional mobility, and demo log roll technique. Assessment/Plan for Inpt OT DC Recommendations Home-No Home Health Care, Family Assistance Recommendations recommend pt return home once medically cleared, with increased family assist Topic #1 Rehabilitation Techniques Precautions Log roll Safety Use of back brace Adapted ADL techniques Functional mobility Transfers Discharge recommendations Importance of OOB in hospital Role of OT Teaching Method: TEACHBACK Teaching Method: VERBAL EXPLANATION Teaching Method: WRITTEN MATERIALS Outcome: NEEDS REINFORCEMENT Comments Post Op precautions/issued packet with home going instructions and information regarding adaptive equipment and bathroom DME. Problems ADL Skills, Activity Tolerance, Functional Mobility, Functional Balance Rehab Potential Good Treatment Tolerance Good Assessment Patient demonstrates limitations and decline from functional baseline due to post operative pain, weakness, and precautions. Skilled OT services are indicated to address patient deficits and to increase patient safety/independence with ADL management and functional mobility tasks. Patient was pleasant, alert, and cooperativ (more content not included)... Normal [facility] z PT Inpatient Evaluationon 08-07-2021 z PT Inpatient Evaluation [facility] Patient: EDVIN TRISTAN [address] [place] [address] MR#: [id number] PT INPATIENT EVALUATION : 59 Service Date: 08/07/21 1127 Inpatient PT HPI Date of Service 08/07/21 Time In: 0945 Time Out: 1025 Total Treatment Time (Mins) 40 Room Number 534 Visit Reason LUMBAR STENOSIS Surgery Type: [place] L2-S1 decompression lami Surgery Date: 08/06/21 Referral Date 08/06/21 Tx Diagnosis: LOW BACK PAIN Insurance Name [facility] 60 y.o female at [facility] for above sx d/t lumbar stenosis /c neurogenic claudication. Cardiology consulted d/t intraoperatively pt developed a few missed QRS complexes, and HR dropped from 90s to 60 ->50 s. Per cardio: Irregular rhythm 2/2 ectopic atrial beats/ premature atrial contractions, plan to monitor on tele floor. PT orders received eval/tx, encourage ambulation, logroll, ad saba /c assist, brace OOR. Pt sitting in chair, agreeable to session. Past Medical/Social History Problem List Surgical Problems S/P lumbar laminectomy Status post lumbar spine surgery for decompression of spinal cord Living Arrangements Home Lives With Spouse Mobility Aids Single Point Cane ADL Equipment Shower Chair Steps to Enter House 3 Stairs Inside House 0 Railings None Functional Level Pt denies AD use prior, but has access to above. Reports 1 fall in April d/t misjudging a step in the snow. +drives. Mod I /c ADL/IADLs, but increased time/effort 2nd back pain. Pt reports her spouse still works, but can provide some assist upon d/c and her alevism friends may assist /c some meals. Objective Vital Signs HR 67 BP 112/55 Comments sitting;pt reports slight wooziness Pain Pain Scale 4 Pain Character Ache Pain Location Back Comments Pt reports constant pain, states pain meds recently received. End of session pt assisted / c repositioning in bed/sidelying and reports some pain relief Precautions Back Brace, Spinal Equipment Drain, Peripheral IV, Telemetry Dynamic Sitting Balance Good Dynamic Standing Balance Fair Orientation Person, Place, Time, Situation Behavior Cooperative Sensation Impaired Endurance Fair Posture Rounded Shoulders (5'4 240#) Wound/Skin WFL;lumbar dressing and drains x2 in place Comments Pt cooperative throughout. Reports slight wooziness, states she has been sitting up awhile. Reports her legs feel weak since sx. Pt reports some n/t to chino feet while seated in chair. Coordination Coordination Within Functional Limits ROM Comments WFL Strength Comments At least 3/5 throughout Outcome Measures AM-PAC Inpatient Mobility AM-PAC Inpatient Mobility Response Value Turn Back/Side While Flat WO Bedrails None 4 Move From Lying to Side of Bed WO Bedrails None 4 Move To/From Bed to Chair A Little 3 Stand Up From Chair Using Arms None 4 alk in Hospital Room A Little 3 limb 3-5 Steps W Railing A Little 3 otal 21 Mobility Transfers Sit to Supine Standby Assist Sit to Stand Contact Guard Assist, Standby Assist Stand to Sit Standby Assist Rolling Standby Assist Weight Bearing No Restrictions Comments Sit-stands from chair and EOB, all /c min VCs for technique. Pt /c wide MAGDI, slight increase in forward lean and use of momentum to assist. Pt assisted in fitting and donning of brace at EOB, states understanding of doff/donning and when to wear the brace. Sit-supine /c min VCs for logroll;good return demo. Pt remains in R sidelying, pillows placed for comfort. Gait Patient ambulated With Contact Guard Assist With Assistive Device Wheeled Walker For (Feet) 5 Comments Pt ambulating at bedside /c foot flat pattern, step to gait, slightly guarded posture, cautious movements. Pt cued for eyes open, relaxation breathing;fair return demo. Pt reports everything feels stiff. Distance limited d/t low BP and pt s/s. Pt may benefit from AD being vended prior to home going. Will continue to trial. Treatment Additional Minutes of Tx Performed 25 Remained in Bed All Needs Within Reach Yes Comments Pt instructed on postop protocol, precautions, logroll, POC. Pt completed seated BLE antiembolics x10 /c review of written handout. Additional discussion of activity recs, posture, walking schedule upon d/c. All pt questions addressed as able. Assessment/Plan for Inpt PT Discharge Recommendations Home-No Home Health Care Topic #1 Role of PT, HEP, precautions Teaching Method: TEACHBACK Outcome: NEEDS REINFORCEMENT Problems Decreased Strength, Decreased Transfers, Decreased Ambulation, Decreased Balance, Decreased ROM, Difficulty with Stairs, Decreased Endurance, Pain Rehab Potential Good Treatment Tolerance Good Assessment Pt presents /c above problem list s/p lumbar sx /c postop pain, precautions, deconditioning and altered mobility patterns. After instruction pt demonstrates ability to (more content not included)... Normal [facility] z PT Inpatient Progress Note on 08-07-2021 z PT Inpatient Progress Note [facility] Patient: EDVIN TRISTAN [address] [place] [address] MR#: [id number] PT INPATIENT PROGRESS NOTE : 59 Service Date: 08/07/21 1304 Inpatient PT HPI Date of Service 08/07/21 Time In: 1150 Time Out: 1215 Total Treatment Time (Mins) 25 Room Number 534 Current Visit Patient is seated in the bedside chair upon arrival and pleasant. Patient is cleared for PT by nursing and identified by name and . Surgery Type: Ch[place] L2-S1 decompression lami Surgery Date: 08/06/21 Tx Diagnosis: LOW BACK PAIN Objective Pain Pain Scale 7 Pain Character Ache Pain Location Back Comments Patient c/o increased pain and tingling in BLE but R>L. Meds not due for another hr. Precautions Back Brace, Spinal Treatment Inpatient PT Transfers Sit to Stand Contact Guard Assist, Standby Assist Stand to Sit Contact Guard Assist, Standby Assist Weight Bearing No Restrictions Comments Patient is mildly unsteady with transfers but denies dizziness. Patient given CGA for safety with verbal cues for technique. Patient needing min A to austen brace in standing due to need to hold onto the WW. Gait Patient ambulated With Contact Guard Assist, With Standby Assist With Assistive Device Wheeled Walker For (Feet) 60' x 2 Comments Patient ambulating with a slow, reciprocal gait with decreased step height/length. Patient c/o RLE tingling throughout gait and mildly unsteady but no LOB or buckling noted. Stairs Steps Up 2 Inch Steps 6 Steps Down 2 Inch Steps 6 Device Wheeled Walker Pattern Non-Reciprocating Assistance Required With Contact Guard Assist Comments Patient completing stair training with use of WW to mimic handrail stating she does have an entrance with two steps and one handrail. Exercises Seated Exercises Toe Raises, Long Arc Quads, Hamstring Curl Comments x10ea BLE with verbal review of supine ther ex. Balance Exercises Sidestep, Retro Walking Balance Activities Patient has times of mild unsteadiness noted but no overt LOB or buckling noted this session. Patient advised to use a WW for time being until BLE feel stronger. Treatment Remained in Chair All Needs Within Reach Yes Treatment Time-Minutes Therapeutic Exercise 8 Gait Training 9 Therapeutic Activities 8 Total Treatment Time (Minutes) 25 Assessment/Plan for Inpt PT Discharge Recommendations Home-No Home Health Care Topic #1 Patient educated in gait, transfers, ther ex, stair training and precautions. Teaching Method: TEACHBACK Outcome: NEEDS REINFORCEMENT Problems Decreased Strength, Decreased Transfers, Decreased Ambulation, Decreased Balance, Decreased ROM, Difficulty with Stairs, Decreased Endurance, Pain Rehab Potential Good Treatment Tolerance Good Assessment Patient is making progress toward goals but having occasional instances of mild unsteadiness. Patient c/o BLE feeling tingly but R>L. Patient given education for HEP and precautions. Patient also inquiring about need for WW and advised at this time to use for increased safety until BLE feel stronger. Patient is able to complete stair training with minimal assist and states spouse is available to help. Per ortho patient to stay an additional night for drainage and further PT. Safely transfer sup to sit: MOD I (logroll) Safely transfer sit to stand: MOD I Safely Ambulate: MOD I (125'brace, AD, cont.steps) Patient will perform stairs: Supervision (3steps, brace, AD,nonrecip) Pt. will increase strength for improved lumbar protocol Pt. will have: improved balance (F+ all dynamic standing) Pt. will tolerate dynamic activity as demo by tolerating PT sessions at least 35min, VSS Patient Stated Goal: to walk better Goals discussed with: Patient Frequency of Therapy: 1-2 Follow Up sessions Duration: UNTIL DISCHARGE Patient Status ACTIVE Treatment Performed Yes Comments Continue with POC Electronically Signed eSign Date and Time [place] CLINICAL IMPLEMENTATION SPECIALIST 08/07/21 1315 Norma Diaz PT Normal [facility] Cardiology Consultationon Cardiology Consultation [facility] Patient: EDVIN TRISTAN [address] [place] [address] MR#: [id number] CONSULTATION - Cardiology : Service Date: 08/06/21 1550 History of Present Illness Referring Physician Santi Roldan MD Consulted Physician Tim Beckford MD HPI This is a 60 YO female patient with PMHx of HTN who is s/p bilteral lumbar L 2-L 5 decompressive laminectomy (POD 0). Cardiology was consulted as telemetry during the surgery showed irregular beats. Surgery was done under general anesthesia which was well tolerated, EBL was 425 cc in which 210 were returned via cell saver. Patient was seen and examined in PACU, she was sleepy but arousable, she denied chest pain, SOB or palpitations. EKG showed inverted P waves, regular rhythm, no ST-T wave changes Medical/Surgical History Past Medical History Transfusion Status CONSERVATION Allergies/Home Medications Allergies Coded Allergies: TRAMADOL (Intermediate, NAUSEA, VOMITING 08/06/21) SULFA (SULFONAMIDE ANTIBIOTICS) (08/06/21) Reconcile Medications Scheduled Medications Lisinopril * (Prinivil *) 10 MG TABLET 10 MG PO DAILY@12N, Ref 0 (Reported) Entered as Reported by GA ATKINSON on 08/06/21 0708 Last Action: Continued on 08/06/21 1500 by MONTANA SÁNCHEZ Review of Systems Review of Systems Constitutional Denies: Fever, Fatigue, Chills. EENT Denies: Dysphagia, Odynophagia. Cardiovascular Denies: Chest Pain, Orthopnea, Palpitations. Pulmonary Denies: Pleuritic Chest Pain, Dyspnea, Cough. GI Denies: Abdominal Pain, Nausea, Vomiting. Musculoskeletal Reports: Back Pain. Skin Reports: Back Pain. Peripheral Venous/Lymphatics Denies Leg Swelling Neuro Denies: Numbness, Weakness. Physical Exam Vital Signs Vital Signs Vital Signs Verdana 4d Result Date Time Pulse Ox 100 08/06 713 B/P 117/57 08/06 713 Temp 36.0 08/06 713 Pulse 68 08/06 713 Resp 20 08/06 713 Appearance Appearance Appears well, Awake, Alert, No distress Cm: 162.56 Wt-K.000 BMI 41 Patient is Morbidly Obese Pain Scale 0 Neck Neck Normal inspection CVS Cardiovascular Rate WNL, Rhythm regular, Normal heart sounds, Pulses full, equal Neuro * Document results of Cranial Nerve Asmt for all pts. Assessment/Plan Lab Laboratory Tests 08/06 08/06 1000 0829 Chemistry POC Glucose (70 - 99 mg/dL) 123 H Hemoglobin A1c (%) 6.1 Assessment and Plan #Irregular rhythm 2/2 ectopic atrial beats/premature atrial contractions -VS: afebrile, pulse rate 60s, RR 20, BP 117/57, SO2 100% -CBC: WNL -Chemistry: electrolytes and kidney function are WNL -EKG showed inverted p waves, no ST-T wave changes -Plan: monitor patient at telemtry floor, will continue to follow Electronically Signed eSign Date and Time Cassandra Caruso RES, Robert J. MD 08/07/21 1100 Normal [facility] EKGon 08-06-2021 Electrocardiogram Acquired on 08/06/2021 1411 Vent. Rate : 101 BPM Atrial Rate : 101 BPM P-R Int : 000 ms QRS Dur : 086 ms QT Int : 356 ms P-R-T Axes : 126 -05 -02 degrees QTc Int : 461 ms Poor data quality, interpretation may be adversely affected Unusual P axis, possible ectopic atrial tachycardia Septal infarct Possible Inferior infarct Abnormal ECG No previous ECGs available Confirmed by EDUARDO MARCELO, BRUNO León ([id number]) on 08/12/2021 2:43:36 PM Referred By: QUINCY Confirmed By:BRUNO CLARK MD [id number] 2021 --- [facility] PT NAME: EDVIN TRISTAN MR#: [id number] [address] [place] [address] ACCT: [id number] : 59 EKG REPORT Normal [facility] GLUCOSE METERon 08-06-2021 Glucose [Mass/Vol] 123 mg/dL High 70-99 [facility] Comment on above: Result Comment: Fast ing GLUCOSE reference range has been updated per (ADA) [place] [employer]'s recommendation. 06/26/2018 Performed By: #### L [id number] #### Test performed at: [place] [address] GLYCO HEMOon 08-06-2021 HbA1c (Bld) [Mass fraction] 6.1 % Normal [facility] Comment on above: Order Comment: CBN: YES Comments To Phleb: WILL DRAW IN PACU AFTER SURGERY [place]: MAIN Result Comment: Maximino cash Diagnosis HbA1c (%) --------- Diabetic > 6.4 Prediabetes 5.7-6.4 Normal < 5.7 Performed By: #### L [id number] #### Test performed at: [place] [address] Internal Medicine Consultati onon 08-06-2021 Internal Medicine Consultation [facility] Patient: EDVIN TRISTAN [address], [place] [id number] MR#: [id number] CONSULTATION - Internal Medicine : 59 Service Date: 08/06/21 1433 History of Present Illness Referring Physician Santi Roldan MD Consulted Physician Paulo Paul MD Reason for Consult post op management HPI This is a60 y/o F with a PMHx of HTN, GERD and S/p cholecystectomy who is now s/p bilteral lumbar L 2-L 5 decompressive laminectomy POD#0. Internal medicine was consulted for postoperative medical management. The procedure was performed under GA and was tolerated well. Intraoperative EBL was 425cc, 210 returned through cell saver. Received 2800 cc IVF. Post-op drainage is minimal, has [address], uriarte in place. Pt is borderline tachycardic, and c/o post op pain at a 7 /10. Itraoperatively pt developed a few missed QRS complexes, and HR dropped from 90s to 60 -> 50 s. In pacu patient denied chest pain, shortness of breath, palpitations, nausea, vomiting, abdominal pain. Medical/Surgical History Past Medical History Transfusion Status CONSERVATION Allergies/Home Medications Allergies Coded Allergies: TRAMADOL (Intermediate, NAUSEA, VOMITING 08/06/21) SULFA (SULFONAMIDE ANTIBIOTICS) (08/06/21) Reconcile Medications Scheduled Medications Lisinopril * (Prinivil *) 10 MG TABLET 10 MG PO DAILY@12N, Ref 0 (Reported) Entered as Reported by GA ATKINSON on 08/06/21 0708 Last Action: Continued on 08/06/21 1500 by MONTANA SÁNCHEZ Review of Systems Review of Systems Constitutional Denies: Fever, Fatigue, Chills. EENT Denies: Dysphagia, Odynophagia. Cardiovascular Denies: Chest Pain, Orthopnea, Palpitations. Pulmonary Denies: Pleuritic Chest Pain, Dyspnea, Cough. GI Denies: Abdominal Pain, Nausea, Vomiting. Musculoskeletal Reports: Back Pain. Skin Reports: Back Pain. Peripheral Venous/Lymphatics Denies Leg Swelling Neuro Denies: Numbness, Weakness. Physical Exam Vital Signs Vital Signs Vital Signs Verdana 4d Result Date Time Pulse Ox 100 08/06 713 B/P 117/57 08/06 713 Temp 36.0 08/06 713 Pulse 68 08/06 713 Resp 20 08/06 713 Appearance Appearance Alert, Recovering from anesthesia, drowsy, in moderate distress due to pain Cm: 162.56 Wt-K.000 BMI 41 Patient is Morbidly Obese Pain Scale 0 Neck Neck Normal inspection, No JVD, Supple HEENT HEENT Head atraumatic, No signs of dehydration, Mucosa moist Respiratory Respiratory Lungs sound clear, Respirations non-labored CVS Cardiovascular Tachicardic Neuro * Document results of Cranial Nerve Asmt for all pts. Neurological No motor deficit, No sensory deficit, Drowsy Add Neuro Comment Has [address] Abdomen/Pelvis Abdomen Abdomen soft, Non-tender Extremity Extremity Normal appearance Assessment/Plan Lab Laboratory Tests 08/06 08/06 1000 0829 Chemistry POC Glucose (70 - 99 mg/dL) 123 H Hemoglobin A1c (%) 6.1 Problem List 1. Status post lumbar spine surgery for decompression of spinal cord 2. S/P lumbar laminectomy Assessment and Plan # S/p bilteral lumbar L 2-L 5 decompressive laminectomy POD#0 * The patient was seen and examined in the PACU while recovering from anesthesia. * c/o post op pain at a 7 /10. * In pacu patient denied chest pain, shortness of breath, palpitations, nausea, vomiting, abdominal pain. * Bedside VS: pulse low 100's, BP 134/71, RR 19 ,SO2 99 % on 8 L face mask. * Pre op labs: H AND H 14.9/44.5 * BUN 16, Creat 1.08 * PE: surgical dressing in place on lumbar area 2 JUANCHO surgical drains in situ. Pt has * Pre-op EKG: was poor quality, showed NSR, no blocks, no ST changes. * EKG in PACU: No ST -T wave abnormalities, low voltage EKG. Possible led error. Will repeat one on the floor. * CXR: Mild cardiomegaly Plan: * Encourage incentive spirometry * Encourage ambulation * Physical therapy consult * Post-operative antibiotics: Cefazolin 2g x2 doses * Decadron 10 mg Q8 IV * Lactated Ringers @ 100ml/hr * Labs in the AM #Pain management #Nausea and vomiting #Bowel care Monitoring closely Perocet 1 and 2 tabs Q4 prn Tylenol 650 mg q4 prn Carioprodol 350 mg po tidprn Docusate 100 mg PO BID Milk of Magnesia 30mg QHS PRN Dulcolax 10 mg rectal QD PRN Zofran 4 mg Q8 PRN # HTN # Dropped QRS complexes intraoperatively * Itraoperatively pt developed a few missed QRS complexes, and HR dropped from 90s to 60 - >50 s. * VS were stable in PACU * Pt denied any chest apin or SOB, but she is also on pain medication Plan: * resumed Lisinopril 10 mg po starting tomorrow * Vasotec PRN for SBP > 170 * Cardiology was consulted Dr. Beckford, waiting for further reccomendations * Continuous tele monitoring. #DVT prophylaxis * Management per Orthopedics team *Attending Attestation Attending Attestation Attending Attest (more content not included)... Normal [facility] OPERATIVE REPORTon OPERATIVE REPORT NAME: EDVIN TRISTAN MR#: [id number] SURGEON: Santi Roldan MD DATE OF SURGERY: 08/06/2021 OPERATIVE REPORT PREOPERATIVE DIAGNOSIS: Stenosis with neurogenic claudication. POSTOPERATIVE DIAGNOSIS: Stenosis with neurogenic claudication. PROCEDURE: Bilateral L2-3, L3-4, L4-5, and L5-S1 decompressive laminectomy. FLOORWALKER: Bettie. PROCEDURE IN DETAIL: After anesthesia, the patient was placed prone on a spine frame. Care was taken to avoid injury to the eyes, the axillae, and the median and ulnar nerves. The back was prepped and draped in usual fashion. The incision was planned using needles and C-arm. A longitudinal midline incision was made with sharp dissection of subcutaneous tissues and fascia. Hemostasis was maintained with electrocautery. The paraspinal muscles were elevated subperiosteally. A Gilmar was then used to mynor the interspinous process ligament at L2-3 and L3-4, and x-ray confirmed this. The rongeur was used to mynor these and we developed L4-5 and L5-S1. The spine was then skeletonized and hemostasis achieved. Beginning at L5-S1, the spinous process of L5 was removed with a rongeur. The lamina and medial facets were thinned with a isela. Beginning on the right side, the laminectomy was performed with Kerrison rongeurs. Lysis of adhesions was performed with curette. Partial medial facetectomy was performed with chisel and Kerrison rongeurs. The superior aspect of the S1 lamina was removed with Kerrison rongeurs. The ligamentum was dissected free from the dura, removed with Kerrison rongeurs. Foraminotomy was performed on the right with straight and curved Kerrison rongeurs. The lateral recess was decompressed with straight and curved Kerrison rongeurs. After thorough decompression on the right at L5-S1, the epidural space was palpated with a Eden hook. The foramen was patent. The exiting L5 root well decompressed. The lateral recess was well decompressed and the traversing S1 root was well decompressed. The L4 spinous process was then removed with a rongeur. The lamina and medial facets were thinned with a isela. Beginning on the right side, the laminectomy was performed with Kerrison rongeurs. The ligamentum was dissected free with curettes with lysis of adhesions and removed Kerrison rongeurs. Partial medial facetectomy was performed with chisel and Kerrison rongeurs. Foraminotomy was performed with straight and curved Kerrison rongeurs and the lateral recess was decompressed with straight and curved Kerrison rongeurs. After thorough decompression on the right at L4-5, the epidural space was palpated with a Eden hook. The foramen was patent. The exiting L4 root well decompressed. The lateral recess was well decompressed and the traversing L5 root was well decompressed. [facility] PT NAME: EDVIN TRISTAN MR#: [id number] [address] [place] [address] ACCT: [id number] : 58 OPERATIVE REPORT At L3-4, the spinous process of L3 was removed with a rongeur. The lamina and medial facets were thinned with a isela. Laminectomy performed on the right with Kerrison rongeurs. The lysis of adhesions was performed with curettes and the ligamentum was removed with Kerrison rongeurs. Partial medial facetectomy was performed with chisel and Kerrison rongeurs. Foraminotomy was performed with straight and curved Kerrison rongeurs. The lateral recess was decompressed with straight and curved Kerrison rongeurs. After thorough decompression on the right at L3-4, the epidural space was palpated with a Eden hook. The foramen was patent. The exiting L3 root well decompressed. The lateral recess was well decompressed and the traversing L4 root was well decompressed. At L2-3, a subtotal removal of the spinous process was performed. The medial facets were thinned with a isela. Subtotal laminectomy performed on the right with Kerrison rongeurs. The ligamentum was dissected free with lysis of adhesions, removed with Kerrison rongeurs. Partial medial facetectomy was performed with a chisel and Kerrison rongeurs. Foraminotomies were performed with straight and curved Kerrison rongeurs and the lateral recess was decompressed with straight and curved Kerrison rongeurs. After thorough decompression on the right, the epidural space was palpated with a Eden hook. The foramen was patent and the exiting L2 root was well decompressed. The lateral recess was well decompressed and the traversing L3 root was well decompressed. Attention was then turned to the left side where at L5-S1, the remaining lamina was removed with Kerrison rongeurs. The ligamentum was dissected free with lysis of adhesions using curettes and removed with Kerrison rongeurs. A partial medial facetectomy was performed with chisel and Kerrison rongeurs. Foraminotomy was performed with straight and curved Kerrison rongeurs. The lateral recess was decompressed with st (more content not included)... Normal [facility] Primary Residenton 2 Primary Resident [facility] Pt Name: EDVIN TRISTAN MR#: [id number] [address] [place] [address] ACCT: [id number] [place] [address] : 58 Service Date: 08/06/21 1433 Primary Resident/Call Primary Resident: [id number] Princess After Hours Call: [phone] Blue Team Electronically Signed eSign Date and Time [place] Sánchez Resident 08/06/21 1433 Normal [facility] LUMBAR SPINE 2 OR 3 VIEWSon 08-05-2021 LUMBAR SPINE 2 OR 3 VIEWS STUDY: LUMBAR SPINE 2 OR 3 VIEWS; 08/06/2021 12:51 pm INDICATION: L2-S1 DECOMPRESSION, LAMINECTOMY. COMPARISON: None. ACCESSION NUMBER(S): [id number] ORDERING CLINICIAN: Santi Roldan FINDINGS: Intraoperative fluoroscopy lumbar spine for localization. IMPRESSION: As above Normal [facility] CBC W/DIFFon 08-03-2021 BASO ABS 0.1 K/uL Normal 0.0-0.2 [facility] Comment on above: Performed By: #### L 200.02699 #### Test performed at: [address] [address] Basophils/100 WBC (Bld) 0.9 % Normal [facility] Comment on above: Performed By: #### L 200.20126 #### Test performed at: [address] [address] EOS ABS 0.2 K/uL Normal 0.0-0.5 [facility] Comment on above: Performed By: #### L 200.37628 #### Test performed at: [address] [address] Eosinophils/100 WBC (Bld) 3.0 % Normal [facility] Comment on above: Performed By: #### L 200.23905 #### Test performed at: [address] [address] Erythrocyte distribution width (RBC) [Ratio] 12.3 % Normal 11.5-14.5 [facility] Comment on above: Performed By: #### L 200.46873 #### Test performed at: [address] [address] Hematocrit (Bld) [Volume fraction] 44.5 % Normal 36.0-48.0 [facility] Comment on above: Performed By: #### L 200.88611 #### Test performed at: [address] [address] Hemoglobin (Bld) [Mass/Vol] 14.9 g/dL Normal 12.0-15.0 [facility] Comment on above: Performed By: #### L 200.56444 #### Test performed at: [place] [id number] IG % 0.3 % Normal [facility] Comment on above: Performed By: #### L 200.35511 #### Test performed at: [place] [id number] IG ABS 0.02 K/uL Normal 0-0.05 [facility] Comment on above: Performed By: #### L 200.17371 #### Test performed at: [address] [address] Lymphocytes (Bld) [#/Vol] 2.0 10*3/uL Normal 1.2-3.5 [facility] Comment on above: Performed By: #### L 200.44901 #### Test performed at: [address] [address] Lymphocytes/100 WBC (Bld) 27.0 % Normal [facility] Comment on above: Performed By: #### L 200.53005 #### Test performed at: [address] [address] MCH (RBC) [Entitic mass] 29.7 pg Normal 25.4-34.6 [facility] Comment on above: Performed By: #### L 200.89261 #### Test performed at: [address] [address] MCHC (RBC) [Mass/Vol] 33.5 g/dL Normal 31.5-36.5 [facility] Comment on above: Performed By: #### L 200.67729 #### Test performed at: [address] [address] MCV (RBC) [Entitic vol] 88.8 fL Normal 79.0-98.0 [facility] Comment on above: Performed By: #### L 200.49346 #### Test performed at: [address] [address] MONO ABS 0.7 K/uL Normal 0.0-1.0 [facility] Comment on above: Performed By: #### L 200.15033 #### Test performed at: [address] [address] Monocytes/100 WBC (Bld) 8.9 % Normal [facility] Comment on above: Performed By: #### L 200.73458 #### Test performed at: [place] [id number] NEUTROPHIL ABS 4.5 K/uL Normal 1.4-6.6 [facility] Comment on above: Performed By: #### L 200.00032 #### Test performed at: [address] [address] Neutrophils/100 WBC (Bld) 59.9 % Normal [facility] Comment on above: Performed By: #### L 200.27496 #### Test performed at: [address] [address] NRBC # 0.000 K/uL Normal 0-0.012 [facility] Comment on above: Performed By: #### L 200.69571 #### Test performed at: [address] [address] NRBC % 0.0 /100 WBC Normal 0-0.2 [facility] Comment on above: Performed By: #### L 200.26871 #### Test performed at: [address] [address] Platelet mean volume (Bld) [Entitic vol] 12.4 fL Normal 8.7-12.4 [facility] Comment on above: Performed By: #### L 200.41900 #### Test performed at: [address] [address] Platelets (Bld) [#/Vol] 180 10*3/uL Normal 140-440 [facility] Comment on above: Performed By: #### L 200.10144 #### Test performed at: [address] [address] RBC (Bld) [#/Vol] 5.01 10*6/uL Normal 3.5-5.5 [facility] Comment on above: Performed By: #### L 200.90812 #### Test performed at: [address] [address] WBC (Bld) [#/Vol] 7.6 10*3/uL Normal 3.9-11.0 [facility] Comment on above: Performed By: #### L 200.08720 #### Test performed at: [address] [address] CHEST PA/AP & LATERALon CHEST PA/AP & LATERAL STUDY: CHEST PA/AP LATERAL; 08/03/2021 2:07 pm INDICATION: PREOP. COMPARISON: None. ACCESSION NUMBER(S): [id number] ORDERING CLINICIAN: Sari Bueno FINDINGS: The lungs are clear without apparent pleural effusion. Mild cardiomegaly. Otherwise unremarkable mediastinum, lamin, and pulmonary vasculature. IMPRESSION: No active disease in the chest. Normal [facility] COMP META PANELon 08-03-2021 Albumin [Mass/Vol] 3.6 g/dL Normal 3.4-5.0 [facility] Comment on above: Performed By: #### L 500.94049, L500.46088 #### Test performed at: [address] [address] ALK PHOS TOTAL 102 U/L Normal 45-117 [facility] Comment on above: Performed By: #### L 500.98037, L500.10046 #### Test performed at: [address] [address] ALT [Catalytic activity/Vol] 29 U/L Normal 13-61 [facility] Comment on above: Performed By: #### L 500.28638, L500.49048 #### Test performed at: [address] [address] AST [Catalytic activity/Vol] 19 U/L Normal 15-37 [facility] Comment on above: Performed By: #### L 500.38239, L500.22305 #### Test performed at: [address] [address] BILI TOTAL 0.5 mg/dL Normal 0.2-1.0 [facility] Comment on above: Performed By: #### L 500.73394, L500.06533 #### Test performed at: [address] [address] Calcium [Mass/Vol] 9.4 mg/dL Normal 8.5-10.1 [facility] Comment on above: Performed By: #### L 500.17845, L500.96177 #### Test performed at: [address] [address] Chloride [Moles/Vol] 108 mmol/L High 98-107 [facility] Comment on above: Performed By: #### L 500.79835, L500.96153 #### Test performed at: [address] [address] CO2 [Moles/Vol] 29 mmol/L Normal 21-32 [facility] Comment on above: Performed By: #### L 500.94695, L500.04420 #### Test performed at: [address] [address] Creatinine [Mass/Vol] 1.080 mg/dL High 0.550-1.020 [facility] Comment on above: Performed By: #### L 500.90200, L500.69094 #### Test performed at: [address] [address] Glucose [Mass/Vol] 169 mg/dL High 70-99 [facility] Comment on above: Result Comment: Fast ing GLUCOSE reference range has been updated per (ADA) [place] [employer]'s recommendation. 06/26/2018 Performed By: #### L 500.73780, L500.86874 #### Test performed at: [address] [address] Potassium [Moles/Vol] 4.2 mmol/L Normal 3.5-5.1 [facility] Comment on above: Performed By: #### L 500.06945, L500.81826 #### Test performed at: [address] [address] Protein [Mass/Vol] 7.0 g/dL Normal 6.4-8.2 [facility] Comment on above: Performed By: #### L 500.86914, L500.67462 #### Test performed at: [address] [address] Sodium [Moles/Vol] 140 mmol/L Normal 136-145 [facility] Comment on above: Performed By: #### L 500.78717, L500.23456 #### Test performed at: [address] [address] Urea nitrogen [Mass/Vol] 16 mg/dL Normal 7-18 [facility] Comment on above: Performed By: #### L 500.68235, L500.81399 #### Test performed at: [place] [id number] [place] [address] CONSULTATION REPORTon 2021 CONSULTATION REPORT NAME: EDVIN TRISTAN MR#: [id number] MANUFACTURING ENGINEER PAINT: Sari Bueno MD DATE OF CONSULTATION: 08/03/2021 CONSULTATION HISTORY OF PRESENT ILLNESS: Ms. Tristan is a 60-year-old female and I have been consulted by Dr. Roldan for preoperative clearance before undergoing bilateral L2-L3, L3-L4, L4-L5, and L5-S1 decompression laminectomy. She has been having a lot of back pain radiating to the legs and she is going for surgery and she is coming here for medical clearance. Her functional capacity is around 4 METS. She has history of hypertension. She denies chest pain, shortness of breath, nausea, vomiting, diarrhea, or constipation. No blood in the stools or black stools. PAST HISTORY: Significant for chronic back pain and hypertension. SOCIAL HISTORY: She denies smoking, alcohol, or drugs. ALLERGIES: Tramadol and sulfa. She does not have sleep apnea. MEDICATION LIST: Includes lisinopril 10 mg daily. PREVIOUS SURGERIES: Include cholecystectomy and right knee meniscus repair. PHYSICAL EXAMINATION: VITAL SIGNS: She is 5 feet 4 inches tall, 240 pounds. 98.2, 74, 18, 100/70, pulse ox is 98% on room air. HEENT: Atraumatic head. Pupils are equal and reactive. Oral mucosa is normal. NECK: Supple. No thyromegaly. No carotid bruit. LUNGS: Clear. HEART: S1, S2 present. Regular rate and rhythm. ABDOMEN: Soft, nontender. Bowel sounds are present. She has her gallbladder removed. NEUROLOGIC: She is awake, alert, oriented x3. Cranial nerves, motor, sensory, reflexes, cerebellum are within normal limits. She has chronic back pain radiating to the right leg also. DIAGNOSTIC DATA: EKG reviewed, normal sinus rhythm. No acute ST-T changes, within normal limits. IMPRESSION: Preop clearance for L2-S1 decompressive laminectomy and hypertension. PLANS: The patient's EKG is within normal limits. I am going to do a chest x- [facility] PT NAME: EDVIN TRISTAN MR#: [id number] [address] [place], [place] [address] ACCT: [id number] : 58 CONSULTATION ray, CBC and diff, and a CMP on her and her functional capacity is around 4 METS. Surgical risk is [id number], higher exam is within acceptable limits. Pending the labs, she is cleared for anesthesia with acceptable risk. Thank you for the courtesy of this consultation. SARI BUENO MD MS/MODL/[id number] E/S: Sari Bueno MD 08/04/21 1514 Electronically Signed [facility] PT NAME: EDVIN TRISTAN MR#: [id number] [address] [place], [place] [address] ACCT: [id number] : 58 CONSULTATION Normal [facility] CORONAVIRUSon 08-03-2021 SARS-CoV-2 (COVID-19) RNA MARIELLA+probe Ql (Unsp spec) Methodology: PCR Negative results do not preclude SARS-CoV-2 infection and should not be used as the sole basis for patient management decisions. Negative results must be combined with clinical observations, patient history, and epidemiological information. False-negative results may occur if the viruses are present at a level that is below the analytical sensitivity of the assay or if the virus has genomic mutations, insertions, deletions, or rearrangements or if performed very early in the course of illness. Results may be affected by the quality of the sample collected. Simplexa COVID-19 Direct is only for use under the Food and Drug Administration's Emergency Use Authorization. The Simplexa COVID-19 Direct Letter of Authorization, along with the authorized Fact Sheet for Healthcare Providers, the authorized Fact Sheet for Patients, and authorized labeling are available on the FDA website: https://www.fda.gov/ MedicalDevices/Safet y/ EmergencySituations/ qdq204338.htm COVID-19 Negative for COVID-19 (SARS-CoV-2 RNA) Normal [facility] Comment on above: Order Comment: CBN: YES [place]: MAIN COVID Testing: PRE-OP/PROCEDURE SCREEN AGE at Spec DOMI 60 Report age at specimen DOMI? Y First test: YES Employed in Healthcare: NO Symptomatic as defined by CDC: NO Hospitalized for COVID-19? NO ICU: NO Resident in a Congregated Care Setting: NO Order Date: 08/03/21 : Not Performed By: #### M 400.32438 #### Test performed at: [place] [address] GFR ESTIMATEon 08-03-2021 IF AMER > 60 Normal > 60 [facility] Comment on above: Result Comment: eGFR (Estimated GFR) Units of measure:mL/min/1.73 meters sq. *CALCULATION REVISED 01/20/2015;IDMS-traceable MDRD equation eGFR is derived from the reexpressed MDRD Study equation using the following parameters: serum creatinine, age, gender and race. An eGFR<60 mL/min/1.73m2 for >3 months is consistent with chronic kidney disease. Refer to KDOQI guidelines for clinical interpretation. Performed By: #### L 500.41799, L500.24131 #### Test performed at: [place] [address] IF non-AFR AMER 52 Low > 60 [facility] Comment on above: Performed By: #### L 500.31272, L500.20959 #### Test performed at: [place] [address] COVID Quick Testingon 2020 Result Negative Lomography Other Cult,Urine,CCon 07-25-2017 Cult,Urine,CC Specimen Description .URINE Performed at [address] [place] [address] Special Requests .CLEAN CATCH URINE Performed at [address] [place] [address] Culture NO SIGNIFICANT GROWTH Performed at [facility] [address] [place] [address] Report Status FINAL 07/25/2017 [facility] Comment on above: Performed By: #### C LAISHA ####[place] [address] [place] [phone] [place] [address] Progress Noteon 07-25-2017 HIM IP Note OR [facility] [place] Normal [facility] Urinalysis w/ Microon 2017 ----- Normal [facility] Comment on above: Performed By: #### U AMIC ####[address] [place] [address] Acetaminophen mass conc Negative Normal NEG [facility] Comment on above: Performed By: #### U AMIC ####[address] [place] [address] Bilirubin (direct) Negative Normal NEG [facility] Comment on above: Performed By: #### U AMIC ####[address] [place] [address] Hemoglobin mass conc (Bld) Negative Normal NEG [facility] Comment on above: Performed By: #### U AMIC ####[address] [place] [address] Nitrite,Ur Negative Normal NEG [facility] Comment on above: Performed By: #### U AMIC ####[address] [place] [address] Turbidity TURBID Abnormal CLEAR [facility] Comment on above: Performed By: #### U AMIC ####[address] [place] [address] Urine WBC's 0 TO 2 Normal 0-5 [facility] Comment on above: Performed By: #### U AMIC ####[address] [place] [address] Urine, amorphous sediment presence in sediment 4+ Abnormal NONE [facility] Comment on above: Result Comment: Perf ormed at [address] [place] [address] Performed By: #### U AMIC ####[address] [place] [address] Urine, color YELLOW Normal YEL [facility] Comment on above: Performed By: #### U AMIC ####[address] [place] [address] Urine, epithelial cells in sediment 0 TO 2 Normal 0-25 [facility] Comment on above: Performed By: #### U AMIC ####[address] [place] [address] Urine, erythrocytes None Normal 0-2 [facility] Comment on above: Performed By: #### U AMIC ####[address] [place] [address] Urine, glucose presence Negative Normal NEG [facility] Comment on above: Performed By: #### U AMIC ####[address] [place] [address] Urine, leukocyte esterase presence Negative Normal NEG [facility] Comment on above: Performed By: #### U AMIC ####[address] [place] [address] Urine, pH 6.0 [pH] Normal 5.0-9.0 [facility] Comment on above: Performed By: #### U AMIC ####[address] [place] [address] Urine, protein presence Negative Normal NEG [facility] Comment on above: Performed By: #### U AMIC ####[address] [place] [address] Urine, specific gravity >1.030 High 1.010-1.020 [facility] Comment on above: Performed By: #### U AMIC ####[address] [place] [address] Urobilinogen,Ur Normal Normal NORM [facility] Comment on above: Performed By: #### U AMIC ####[address] [place] [address] Comment NOT REPORTED Normal [facility] Comment on above: Performed By: #### U AMIC ####[address] [place] [address] Epithelial, Renal NOT REPORTED Normal 0 [facility] Comment on above: Performed By: #### U AMIC ####[address] [place] [address] Mucus Strands NOT REPORTED Normal NONE [facility] Comment on above: Performed By: #### U AMIC ####[address] [place] [address] Other Observations NOT REPORTED Normal NREQ [facility] Comment on above: Performed By: #### U AMIC ####[address] [place] [address] Trichomonas NOT REPORTED Normal NONE [facility] Comment on above: Performed By: #### U AMIC ####[address] [place] [address] Urine, bacteria in sediment NOT REPORTED Normal NONE [facility] Comment on above: Performed By: #### U AMIC ####[address] [place] [address] Urine, casts in sediment NOT REPORTED Normal [facility] Comment on above: Performed By: #### U AMIC ####[address] [place] [address] Urine, crystals in sediment NOT REPORTED Normal NONE [facility] Comment on above: Performed By: #### U AMIC ####[address] [place] [address] Urine, yeast presence in sediment NOT REPORTED Normal NONE [facility] Comment on above: Performed By: #### U AMIC ####[address] [place] [address] Cult,Urine,CCon 04-14-2017 Cult,Urine,CC Specimen Description .URINE Performed at [address] [place] [address] Special Requests .CLEAN CATCH URINE Performed at [address] [place] [address] Culture NO SIGNIFICANT GROWTH Performed at [address] [address] Report Status FINAL 04/14/2017 Normal [facility] Comment on above: Performed By: #### C LAISHA ####[address] [id number] [place] [address] Progress Noteon 04-14-2017 HIM IP Note OR [employer] [place] Normal [facility] Urinalysis w/ Microon 2017 ----- Normal [facility] Comment on above: Performed By: #### U AMIC ####[address] [place] [address] Acetaminophen mass conc Negative Normal NEG [facility] Comment on above: Performed By: #### U AMIC ####[address] [place] [address] Bilirubin (direct) Negative Normal NEG [facility] Comment on above: Performed By: #### U AMIC ####[address] [place] [address] Hemoglobin mass conc (Bld) Negative Normal NEG [facility] Comment on above: Performed By: #### U AMIC ####[address] [place] [address] Nitrite,Ur Negative Normal NEG [facility] Comment on above: Performed By: #### U AMIC ####[address] [place] [address] Turbidity CLEAR Normal CLEAR [facility] Comment on above: Performed By: #### U AMIC ####[address] [place] [address] Urine WBC's 0 TO 2 Normal 0-5 [facility] Comment on above: Performed By: #### U AMIC ####[address] [place] [address] Urine, bacteria in sediment TRACE Abnormal NONE [facility] Comment on above: Result Comment: Perf ormed at [address] [place] [address] Performed By: #### U AMIC ####[address] [place] [address] Urine, color YELLOW Normal YEL [facility] Comment on above: Performed By: #### U AMIC ####[address] [place] [address] Urine, epithelial cells in sediment 2 TO 5 Normal 0-25 [facility] Comment on above: Performed By: #### U AMIC ####[address] [place] [address] Urine, erythrocytes None Normal 0-2 [facility] Comment on above: Performed By: #### U AMIC ####[address] [place] [address] Urine, glucose presence Negative Normal NEG [facility] Comment on above: Performed By: #### U AMIC ####[address] [place] [address] Urine, leukocyte esterase presence Negative Normal NEG [facility] Comment on above: Performed By: #### U AMIC ####[address] [place] [address] Urine, pH 6.5 [pH] Normal 5.0-9.0 [facility] Comment on above: Performed By: #### U AMIC ####[address] [place] [address] Urine, protein presence Negative Normal NEG [facility] Comment on above: Performed By: #### U AMIC ####[address] [place] [address] Urine, specific gravity 1.020 Normal 1.010-1.020 [facility] Comment on above: Performed By: #### U AMIC ####[address] [place] [address] Urobilinogen,Ur Normal Normal NORM [facility] Comment on above: Performed By: #### U AMIC ####[address] [place] [address] Comment NOT REPORTED Normal [facility] Comment on above: Performed By: #### U AMIC ####[address] [place] [address] Epithelial, Renal NOT REPORTED Normal 0 [facility] Comment on above: Performed By: #### U AMIC ####[address] [place] [address] Mucus Strands NOT REPORTED Normal NONE [facility] Comment on above: Performed By: #### U AMIC ####[address] [place] [address] Other Observations NOT REPORTED Normal NREQ [facility] Comment on above: Performed By: #### U AMIC ####[facility] [place] [address] Trichomonas NOT REPORTED Normal [facility] Comment on above: Performed By: #### U AMIC ####[address] [place] [address] Urine, amorphous sediment presence in sediment NOT REPORTED Normal [facility] Comment on above: Performed By: #### U AMIC ####[address] [place] [address] Urine, casts in sediment NOT REPORTED Normal [facility] Comment on above: Performed By: #### U AMIC ####[address] [place] [address] Urine, crystals in sediment NOT REPORTED Normal [facility] Comment on above: Performed By: #### U AMIC ####[address] [place] [address] Urine, yeast presence in sediment NOT REPORTED Normal [facility] Comment on above: Performed By: #### U AMIC ####[address] [place] [address] Vital Signs Date Time Vital Sign Value Performing Clinician Facility 02-06-2023 15:30-0500 Body height 163.83 cm [facility] [employer] Other [facility] [employer] Other 02-06-2023 15:30-0500 Body mass index (BMI) [Ratio] 37.24 kg/m2 [employer] Other [facility] [employer] Other 02-06-2023 15:30-0500 Body weight 99.97 kg [employer] Other [facility] [employer] Other 02-06-2023 15:30-0500 Diastolic blood pressure 68 mm[Hg] Ethan Ball Other [facility] Other 02-06-2023 15:30-0500 Respiratory rate 16 /min Ethan Ball Other [facility] Other 02-06-2023 15:30-0500 Systolic blood pressure 112 mm[Hg] Ethan Ball Other [facility] Other 01-11-2023 11:45-0400 Body height 163.83 cm Ehtan Ball Other [facility] Other 01-11-2023 11:45-0400 Body mass index (BMI) [Ratio] 36.74 kg/m2 Ethan Ball Other [facility] Other 01-11-2023 11:45-0400 Body weight 98.61 kg Ethan Ball Other [facility] Other 01-11-2023 11:45-0400 Diastolic blood pressure 75 mm[Hg] Ethan Ball Other [facility] Other 01-11-2023 11:45-0400 Respiratory rate 12 /min Ethan Ball Other [facility] Other 01-11-2023 11:45-0400 Systolic blood pressure 112 mm[Hg] Ethan Ball Other [facility] Other 04-11-2022 16:30-0500 Body height 163.83 cm Ethan Ball Other [facility] Other 04-11-2022 16:30-0500 Body mass index (BMI) [Ratio] 39.78 kg/m2 Ethan Ball Other [facility] Other 04-11-2022 16:30-0500 Body weight 106.78 kg Ethan Hines Other [facility] Other 04-11-2022 16:30-0500 Diastolic blood pressure 74 mm[Hg] Ethan Ball Other [facility] Other 04-11-2022 16:30-0500 Respiratory rate 12 /min Ethan Ball Other [facility] Other 04-11-2022 16:30-0500 Systolic blood pressure 112 mm[Hg] Ethan Hines Other [facility] Other 01-10-2021 13:30-0400 Body temperature 96.7 [degF] Celine Christian Other [facility] Other 01-10-2021 13:30-0400 SaO2% (BldA) [Mass fraction] 97 % Celine Gonzales Other [facility] Other Encounters Encounter Date Encounter Type Care Provider Facility Start: 04-12-2023 End: 04-12-2023 ambulatory Ethan Hines Other [employer] Other Start: 04-12-2023 Telephone encounter Ethan Ball [facility] Start: 02-06-2023 End: 02-06-2023 ambulatory Ethan Ball Other [employer] Other Start: 02-06-2023 Office outpatient vi sit 15 minutes Ethan Ball [facility] Start: 01-30-2023 End: 01-30-2023 ambulatory Ethan Ball Other [facility] Other Start: 01-30-2023 Telephone encounter Ethan Ball [facility] Start: 01-26-2023 End: 01-26-2023 ambulatory Ethan Ball Other [facility] Other Start: 01-26-2023 Telephone encounter Ethan Hines [facility] Start: 01-11-2023 End: 01-11-2023 ambulatory Ethan Hines Other [facility] Other Start: 01-11-2023 Encounter for genera l adult medical examination without abnormal findings Ethan Hines [facility] Start: 01-11-2023 Periodic preventive med est patient 40-64yrs Ethan Hines [facility] Start: 01-11-2023 Telephone encounter Ethan Hines [facility] Start: 10-12-2022 End: 10-13-2022 ambulatory Robin Zelaya Facility:[facility] Start: 10-12-2022 End: 10-12-2022 Lab Drop off Robin Zelaya [facility] Start: 09-07-2022 End: 09-07-2022 ambulatory Ethan Hines Other [facility] Other Start: 09-07-2022 Telephone encounter Ethan Hines [facility] Start: 08-10-2022 End: 08-10-2022 ambulatory Ethan Hines Other [facility] Other Start: 08-10-2022 Office outpatient vi sit 15 minutes Ethan Hines [facility] Start: 08-02-2022 End: 08-03-[address] NONE LISTED REQUEST Facility: Start: 07-04-2022 End: 07-04-2022 ambulatory Ethan Hines Other [facility] Other Start: 07-04-2022 Telephone encounter Ethan Hines [facility] Start: 05-09-2022 End: 05-09-2022 ambulatory Ethan Hines Other [facility] Other Start: 05-09-2022 Telephone encounter Ethan Hines [facility] Start: 04-13-2022 End: 04-13-2022 ambulatory Ethan Ball Other [facility] Other Start: 04-13-2022 Telephone encounter Ethan CARTER [facility] Start: 04-11-2022 End: 04-11-2022 ambulatory Ethan Hines Other [facility] Other Start: 04-11-2022 Office outpatient vi sit 25 minutes Ethan Hines [facility] Start: 04-10-2022 End: 04-10-2022 ambulatory Ethan Hines Other [facility] Other Start: 04-10-2022 Telephone encounter Ethan Hines RAUL [facility] Start: 04-05-2022 End: 04-06-[address] ETHAN HINES Facility:[facility] Start: 03-16-2022 End: 03-16-[address] ETHAN HINES Facility:[facility] Start: 11-22-2021 End: 11-23-[address] K[place]ON [place] REQUEST Facility:[facility] Start: 11-18-2021 End: 11-19-[address] ETHAN HINES Facility:[facility] Start: 10-19-2021 End: 10-20-[address] SISSY DASILVA . Facility:[facility] Start: 09-28-2021 End: 09-28-[address] ETHAN HINES Facility:[facility] Start: 08-26-2021 End: 10-22-[address] DOCTOR BE Facility:[facility] Start: 08-18-2021 End: 08-18-[address] ETHAN HINES Facility:[facility] Start: 01-10-2021 Office outpatient vi sit 15 minutes Celine Gonzales [facility] Start: 07-24-2017 End: 07-25-2017 Ambulatory [facility] Start: 04-13-2017 End: 04-14-2017 Ambulatory [facility] Procedures Date Procedure Procedure Detail Performing Clinician Start: 07-24-2017 URINE CULTURE CLEAN CATCH UBALDO LOPEZ Start: 07-24-2017 URINALYSIS WITH MICROSCOPIC UBALDO LOPEZ Start: 04-13-2017 URINE CULTURE CLEAN CATCH UBALDO PARSELL Start: 04-13-2017 URINALYSIS WITH MICROSCOPIC UBALDO LOPEZ Payers Date Payer Category Payer Unknown [id number] 2.16.84 [id number] 1960 Unknown [id number] 2.16.84 [id number] 1959 Unknown [id number] 2.16.84 [id number] 1959 Unknown [id number] 2.16.84 [id number] 1959 Unknown [id number] 2.16.84 [id number] 1959 Unknown [id number] 2.16.8 [id number] 1960 Self-pay 1960 Self-pay [id number] 1959 Unknown [id number] Unknown [id number] 2.16.84 [id number] Unknown [id number] 2.16.84 [id number] Unknown [id number] 2.16.84 [id number] Unknown [id number] 2.16.84 [id number] Social History Date Type Detail Facility Sex Assigned At [facility] Tobacco smoking status No Smoking Status Entered [facility] Clinical Notes 01-10-2021 to 02-06-2023 Note Date & Type Note Facility 02-06-2023 Evaluation note Encounter Date Diagnosis Assessment Notes Feb, Acute bilateral low back pain without sciatica (ICD-10 - M54.50) The patient is instructed to avoid bending, twisting or lifting. They are to use intermittent heat and ice as needed. They may schedule a massage or gentle manipulation. They may safely use Tylenol as needed. Instructed to use Salon Pas patches at bedtime. Instructed to use Tylenol 1000mg tid Initiate Nabumetone bid for next two weeks Feb, Type 2 diabetes mellitus with hyperglycemia, without long-term current use of insulin (ICD-10 - E11.65) This patient is following a comprehensive diabetic treatment plan. They are checking their feet daily for calluses and nonhealing ulcers. They are being seen for yearly dilated eye examinations. Goals: SBP less than 130, LDL less than 100, FBS less than 140, A1C less than 7%. They are checking their BS daily, will which are reviewed at the office visit. Continue regular routine monitoring of A1C,] Microalbumin, Dilated eye exam and Foot exam Discussed possible GLP-1 as cause of back pain. - unlikely Feb, Primary hypertension (ICD-10 - I10) This patient is instructed to consume a healthy, low-fat, low-salt diet. They are also encouraged to continue exercise to achieve/maintain a normal BMI. DIscussed lowering her Lisinopril to 5mg and monitoring BP closely [facility] Other 10-11-2023 Evaluation note* Encounter Date Diagnosis Assessment Notes Treatment Notes Treatment Clinical Notes Jan, Primary hypertension (ICD-10 - I10) This patient is instructed to consume a healthy, low-fat, low-salt diet. They are also encouraged to continue exercise to achieve/maintain a normal BMI. Jan, Wellness examination (ICD-10 - Z00.00) Healthy diet and exercise. Reviewed age-appropriate preventive testing recommended. Jan, Type 2 diabetes mellitus with hyperglycemia, without long-term current use of insulin (ICD-10 - E11.65) This patient is following a comprehensive diabetic treatment plan. They are checking their feet daily for calluses and nonhealing ulcers. They are being seen for yearly dilated eye examinations. Goals: SBP less than 130, LDL less than 100, FBS less than 140, A1C less than 7%. They are checking their BS daily, will which are reviewed at the office visit. Continue regular routine monitoring of A1C,] Microalbumin, Dilated eye exam and Foot exam Jan, Gastroesophageal reflux disease with esophagitis without hemorrhage (ICD-10 - K21.00) Diet instructions: Smaller portions, avoid eating and laying flat, avoid eating or drinking prior to bedtime. Weight loss. Jan, Osteopenia of lumbar spine (ICD-10 - M85.88) Continue Ca and Vit D supplements along w/ weight bearing exercises. Jan, Atypical lobular hyperplasia (ALH) of breast (ICD-10 - N60.99) Instructed patient on monthly SBE and yearly mammograms. Jan, Pain in right hip (ICD-10 - M25.551) Continue ROM exercises, ice/heat and Voltaren Gel XR to assess joint space Jan, Pain in left hip (ICD-10 - M25.552) Continue ROM exercises, ice/heat and Voltaren Gel XR to assess joint space Jan, Colon cancer screeni ng (ICD-10 - Z12.11) [facility] Other 05-10-2023 Evaluation note* Encounter Date Diagnosis Assessment Notes Treatment Notes Treatment Clinical Notes August, Type 2 diabetes mellitus with hyperglycemia, without long-term current use of insulin (ICD-10 - E11.65) This patient is following a comprehensive diabetic treatment plan. They are checking their feet daily for calluses and nonhealing ulcers. They are being seen for yearly dilated eye examinations. Goals: SBP less than 130, LDL less than 100, FBS less than 140, AC and A1C less than 7%. They are checking their BS daily, will which are reviewed at the office visit. August, Acute non-recurrent maxillary sinusitis (ICD-10 - J01.00) Instructed to use Robitussin or Mucinex for cough, saline or Flonase NS for congestion, Tylenol for pain and fever. August, Pain in right hip (ICD-10 - M25.551) Heat/ice and Tylenol Continue w/ weight reduction Recheck at IP visit August, Pain in left hip (ICD-10 - M25.552) [facility] Other 02-06-2023 Evaluation note* Encounter Date Diagnosis Assessment Notes Treatment Notes Treatment Clinical Notes May, Type 2 diabetes mellitus with hyperglycemia, without long-term current use of insulin (ICD-10 - E11.65) [facility] Other 01-11-2023 Evaluation note* Encounter Date Diagnosis Assessment Notes Treatment Notes Treatment Clinical Notes Apr, Gastroesophageal ref lux disease with esophagitis without hemorrhage (ICD-10 - K21.00) Apr, Type 2 diabetes mellitus with hyperglycemia, without long-term current use of insulin (ICD-10 - E11.65) [facility] Other 01-09-2023 Evaluation note* Encounter Date Diagnosis Assessment Notes Treatment Notes Treatment Clinical Notes Apr, Type 2 diabetes mellitus with hyperglycemia, without long-term current use of insulin (ICD-10 - E11.65) This patient is following a comprehensive diabetic treatment plan. They are checking their feet daily for calluses and nonhealing ulcers. They are being seen for yearly dilated eye examinations. Goals: SBP less than 130, LDL less than 100, FBS less than 140, AC and A1C less than 7%. They are checking their BS daily, will which are reviewed at the office visit. Apr, Primary hypertension (ICD-10 - I10) This patient is instructed to consume a healthy, low-fat, low-salt diet. They are also encouraged to continue exercise to achieve/maintain a normal BMI. Apr, Morbid obesity with BMI of 40.0-44.9, adult (ICD-10 - Z68.41) This patient has been instructed on a low-fat, high-fiber diet. They are instructed to reduce calories, portion sizes and snacks. It is recommended that they exercise for 30 minutes, 3-5 times weekly. Apr, Gastroesophageal reflux disease with esophagitis without hemorrhage (ICD-10 - K21.00) Diet instructions: Smaller portions, avoid eating and laying flat, avoid eating or drinking prior to bedtime. Weight loss. 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 They are to use intermittent heat and ice as needed. They may schedule a massage or gentle manipulation. They may safely use Tylenol as needed. Apr, Inflammatory polyarthropathy (ICD-10 - M06.4) ROM exercises, Voltaren Gel as needed Apr, Atypical lobular hyperplasia (ALH) of breast (ICD-10 - N60.99) Close f/u w/ Oncology [facility] Other 01-08-2023 Evaluation note* Encounter Date Diagnosis Assessment Notes Treatment Notes Treatment Clinical Notes Apr, Type 2 diabetes mellitus with hyperglycemia, without long-term current use of insulin (ICD-10 - E11.65) [facility] Other 05-06-2022 NoteNAME: EDVIN TRISTAN MR#: [id number] ADMIT DATE: 08/06/2021 DISCHARGE DATE: 08/08/2021 DISCHARGE SUMMARY HISTORY OF PRESENT ILLNESS: The patient is a 60-year-old female, who is admitted for lumbar spine surgery. For further details of her admitting history, past medical and surgical history, please refer to admitting surgical assessment. HOSPITAL COURSE: The patient was admitted with a diagnosis of lumbar stenosis, neurogenic claudication. Surgical procedure, risks, benefits, complications, and alternatives were discussed with the patient and consent was obtained to perform surgery, bilateral L2-L3, L3-L4, L4-L5, L5-S1 decompression laminectomy were performed on 08/06/2021, under general endotracheal anesthesia. She tolerated the procedure well and recovered satisfactorily. Postoperatively, she was complaining of pain around surgical site, rated 5/10, which was well controlled with pain medications. The patient was also evaluated by Physical Therapy, Occupational Therapy, and other medical doctors. Her condition improved gradually. Currently, the patient is pleasant, tolerating diet, ambulating and has good sensation and strength to bilateral lower extremities. The patient is able to plantar and dorsiflex with good strength. Incision is well approximated with no drainage, edema, or erythema noted. She denies any numbness, tingling sensation, fever, chills, nausea, vomiting, chest pain, shortness of breath, or headache. Overall, she is substantially improved. She was evaluated by the treatment team and judged to be appropriate for discharge. LABORATORY AND TEST RESULTS: The patient had all the routine lab work done and any abnormalities were taken into consideration and were addressed. DIAGNOSES: 1. Lumbar stenosis. 2. Neurogenic claudication. DISCHARGE INSTRUCTIONS: The vessel was instructed to call 911 or to present to the nearest emergency room in case of any emergencies. She is being discharged on following medications: 1. Soma 350 mg tablet per oral 3 times daily as needed. 2. Percocet 5 mg/325 mg tablet 1 each per oral every 4 to 6 hours p.r.n. 3. Keflex 500 mg tablet per oral 4 times a day. 4. Lisinopril 10 mg tablet per oral every day at 12 noon. She was advised to abstain from alcohol, drink lots of fluids, eat fresh fruits and vegetables, walk every hour, and perform incentive spirometer 10 [facility] PT NAME: EDVIN TRISTAN MR#: [id number] [address] [place], [place] [id number] ACCT: [id number] : 58 DISCHARGE SUMMARY times per hour while awake. She was also advised to get all of her prescriptions filled as soon as possible and continue taking all of her medications as directed and keep all of her outpatient followup appointment as scheduled. She is being discharged back to her home with self-care. MD CARIDAD MILLER/MODL/[id number] E/S: Santi Roldan MD 09/15/21 1121 Electronically Signed [facility] PT NAME: EDVIN TRISTAN MR#: [id number] [address] [place], [place] [id number] ACCT: [id number] : 58 [facility] Encounter Date Diagnosis Assessment Notes Treatment Notes Treatment Clinical Notes Jan, Contact with and (suspected) exposure to other viral communicable diseases (ICD-10 - Z20.828) Today test was performed in office. Results are currently negative. That does not mean that you will not develop COVID or do not currently have a low viral count of COVID. The rapid test works best if symptoms have been over 72 hours and the results can vary if you are asymptomatic There is a higher chance of false negative results to occur if testing is performed too soon. It is recommended that even if results are negative and you have been exposed to someone that has COVID that you follow current CDC recommendations. These can be found at CDC.GOV. Follow up with primary care provider if symptoms persist or do not improve patient became very upset when after asking for antibiotics for yellow mucus and being told that her symptoms did not indicate the need for them at this time. Tried to explain that we don't give antibiotics for viral or environmental symptoms. Patient did become upset. Jan, Seasonal allergic rhinitis, unspecified trigger (ICD-10 - J30.2) Take OTC allrgy medications as directed.. Use saline nasal spray may help with symptom relief. Follow up with primary care provider if symptoms persist as a therapy plan may need to be made. Jan, Other Additional time spent conducting pre-visit phone call, screening for symptoms, instructions on social distancing, application and removal of PPE, and cleaning of examination room, equipment and supplies was preformed. Patient education given for testing methodology and results. Patient care instructions given in writting by [facility] Care At Home document. [facility] Other Evaluation + Plan note No data available for this section [facility] noteNo InformationNortSelect [facility] [employer] Other History general Narrative - Reported* Type Description Date Medical History Atypical lobular hyperplasia (AL H) of breast Medical History Gastroesophageal ref lux disease with esophagitis without hemorrhage Medical History H/O renal calculi Medical History Inflammatory polyarthropathy Medical History Degenerative arthritis of lumbar spine Medical History Morbid obesity with BMI of 40.0- 44.9, adult Medical History Obesity (BMI 30.0-34.9) Medical History Osteopenia of lumbar spine Medical History Controlled type 2 diabetes melli tus with hyperglycemia Surgical History decompression laminectomy of aminta mbar spine Surgical History endometrial biopsy Surgical History partial mastectomy Surgical History right breast biopsy Surgical History cholecystectomy Surgical History endometrial biopsy Hospitalization History see surgical history Lomography Other Hospital Discharge instructions No data [facility] for this [facility] data available for this section [facility] Summary Purpose Family History No Family History Records FoundNo Family History Records FoundNo Family History Records FoundNo Family History Records Found Advance Directives No Advanced Directives Records FoundNo Advanced Directives Records FoundNo Advanced Directives Records FoundNo Advanced Directives Records Found Additional Source Comments INFORMATION SOURCE (unrecogn ized section and content) DATE CREATED AUTHOR 09/21/2017 Elma noble DATE CREATED AUTHOR AUTHOR'S ORGANIZ ATION 09/16/2021 [facility] DATE CREATED AUTHOR AUTHOR'S ORGANIZ ATION 08/03/2022 [facility] DATE CREATED AUTHOR AUTHOR'S ORGANIZ ATION 10/19/2022 [facility] REASON FOR VISIT (unrecogniz ed section and content) #15 MAROON CAR- SINUS, COUGH PRODUCTIVE COUGH , EARS, CHEST CONGESTION, COVID Provider VisitNo Information5 MONTH BJMedicationNo InformationRefill3 month Follow up, congestion sinuses allergiesWeight CheckNo InformationwellnessXray resultsHip injectiontrochanteric bursitis injectionrefill Patient Care team informatio n (unrecognized section and content) Personnel Name: ETHAN HINES DO Address: Address: [address] [facility] [facility] [place], [place] [address] FOR RECORDS PERTAINING TO PATIENTS WHO ARE OR HAVE BEEN ENROLLED IN A CHEMICAL DEPENDENCY/SUBSTANCEABUSE PROGRAM, SOME INFORMATION MAY BE OMITTED. This clinical summary was aggregated from multiple sources. Caution should be exercised in using it in the provision of clinical care. This summary normalizes information from multiple sources, and as a consequence, information in this document may materially change the coding, format and clinical context of patient data. In addition, data may be omitted in some cases. CLINICAL DECISIONS SHOULD BE BASED ON THE PRIMARY CLINICAL RECORDS. [facility] [employer] provides no warranty or guarantee of the accuracy or completeness of information in this document.
== END 2023-07-26 14:57 | disposition home or self-care (01) ==
LOC: EC 14:57
PROVIDERS: PCP Internal Medicine; Visit Provider Podiatrist Foot & Ankle Surgery
DX: M79.671 Pain in right foot (principal)
CPT/HCPCS: 73630

== ENCOUNTER 2023-09-11 13:55 | Outpatient (OUT) | payer OTHER, SELFPAY ==
--- NOTE | 2023-09-11 14:00 | CA_ITS ---
Patient Name: EDVIN TRISTAN MR#: [id number] : 1960 Exam Date: 09/11/2023 Ordering Doctor: DR Ethan Hines D.O. ECHOCARDIOGRAM REPORT PROCEDURE: CA ECHO DOPPLER COMPLETE INDICATIONS: Cardiac murmur COMPARISON: None. DESCRIPTION: COMPLETE ECHOCARDIOGRAM Real-time transthoracic echocardiography with 2D, M-mode, spectral and color flow Doppler performed. QUALITY: Technical quality was good. LEFT VENTRICLE: Normal chamber size. Mild concentric left ventricular hypertrophy. Global left ventricular systolic function is normal. LV EF: Visual estimation of left ventricular ejection fraction is 55-60% DIASTOLIC: Normal diastolic function. ATRIAL SEPTUM: LEFT ATRIUM: Normal chamber size. RIGHT ATRIUM: Mild dilatation. RIGHT VENTRICLE: Normal chamber size. Normal right ventricular systolic function. TRICUSPID VALVE: Normal mobility and thickness. No stenosis with trivial regurgitation. Unable to assess right-sided pressures due to lack of measurable tricuspid regurgitation. MITRAL VALVE: Normal mobility and thickness. No evidence of mitral valve stenosis. There is no mitral annular calcification. Trivial mitral regurgitation. AORTIC VALVE: Normal trileaflet appearance. No visible sclerosis. Normal leaflet mobility. No evidence of aortic valve stenosis. No aortic regurgitation. AORTIC ROOT: Normal diameter and appearance. PULMONIC VALVE: Normal thickness and mobility. No stenosis. Trivial regurgitation. PERICARDIUM: No evidence of pericardial effusion. IVC: Collapses with inspirations. Normal size. PLEURA: CONCLUSION: 1. Mild concentric left ventricular hypertrophy with normal systolic function. Estimated LVEF is 55 to 60%. 2. Normal diastolic function. 3. Normal right ventricular size and systolic function. 4. No significant valvular dysfunction. 5. Unable to assess right-sided pressures due to lack of measurable tricuspid regurgitation. Adult Echocardiography Procedure Report Left Ventricle LVEDD (3.7 - 5.6 cm): 4.48 cm LVESD (2.2 - 4.0 cm): 3.15 cm LVIVS thickness (0.6 - 1.2 cm): 1.27 cm LVPW thickness (0.5 - 1.0 cm): 1.24 cm e': 0.13 m/s E - e': 6.26 LVOT Max Gradient: 4.60 mm[Hg] LVOT Area (cm2): 1.07 m/s Peak Velocity (LVOT): 1.07 m/s Mean Velocity (LVOT): 0.70 m/s LVOT Diameter 1.94 cm Left Ventricular Ejection Fraction: 55-60 % Left Atrium LA Volume Index (2D A2C): 32.98 ml/m2 Left Atrium Systolic Dimension: 3.56 cm Mitral Valve MV E to A Ratio: 0.95 Mitral Valve A-Wave Peak Velocity: 0.87 m/s Mitral Valve E-Wave Peak Velocity: 0.83 m/s Right Ventricle RV Internal Diastolic Dimension: 3.26 cm Aorta AO Root Diam: 2.74 cm Ascending Ao Diam: 3.04 cm Aortic Valve AoV Area (Peak Melecio): 1.72 cm2, 1.72 cm2 AoV Area (VTI): 1.96 cm2, 1.96 cm2 Peak Velocity(Antegrade Flow): 1.85 m/s Peak Gradient(Antegrade Flow): 13.67 mm[Hg] Mean Velocity(Antegrade Flow): 1.10 m/s Mean Gradient(Antegrade Flow): 5.66 mm[Hg] Velocity Time Integral: 34.42 cm Tricuspid Valve Peak Velocity (Regurgitant Flow): 2.16 m/s, 2.76 m/s Pulmonic Valve Mean Gradient: 4.04 mm[Hg], 4.04 mm[Hg], 3.46 mm[Hg] Mean Velocity: 0.94 m/s, 0.95 m/s, 0.86 m/s Peak Velocity: 1.33 m/s Peak Gradient: 7.50 mm[Hg], 7.06 mm[Hg], 6.72 mm[Hg] Right Atrium Right Atrium Systolic Pressure: 39.21 ml, 39.21 ml Dictated by: Donnie Cartagena M.D. on 09/11/2023 at 19:23 Approved by: Donnie Cartagena M.D. on 09/11/2023 at 19:27
--- OUTSIDE RECORDS SUMMARY | 2023-09-11 14:17 | XMS_ITS ---
Patient Summarization (C-CDA 2.1 CCD) Created on: September 11, 2023 Edvin Tristan : 1960 Sex: Female Author Organization Sample organization Care Team Providers Care Phytochemistry Professor Name Role Phone UBALDO LOPEZ Unavailable Unavailable DONNY, ETHAN Singh Unavailable Unavailable UBALDO LOPEZ Unavailable Unavailable BALL, ETHAN Singh Unavailable Unavailable Celine Gonzales Unavailable Ethan Hines Unavailable DONNY, DR SCHNEIDER Admitting Unavailable BALL, DR SCHNEIDER [...] Attending Unavailable EMILY, YOVANI Consulting Unavailable REQUEST, DR FUNG LISTED Attending Unavaila ble BALL, DR SCHNEIDER Primary Care Unavailable REQUEST, DR FUNG LISTED Consulting Unavaila ble REQUEST, DR FUNG LISTED Admitting Unavaila ble BALL, DR SCHNEIDER Primary Care Unavailable BALL, DR SCHNEIDER Consulting Unavailable REQUEST, DR FUNG LISTED Admitting Unavaila ble REQUEST, DR FUNG LISTED Attending Unavaila ble REQUEST, DR FUNG LISTED Consulting Unavaila ble BALL, DR SCHNEIDER Primary Care Unavailable REQUEST, NONE LISTED Admitting Unavaila ble REQUEST, DR FUNG LISTED Attending Unavaila ble BALLETHAN Primary Care Physician Robin Zelaya Attending Unavailable Robin Zelaya Admitting Unavailable Allergies Allergy Classification Reported Allergen(s) Allergy Type Date of Onset Reaction(s) Facility (16 sources) [facility] Drug Allergy 4 rash [facility] (3 sources) Erythromycin Drug Allergy 5 Unknown Reaction [facility] (1 source) Sulfonamides (Antibiotic) Drug allergy (disorder) 5 [facility] (1 source) traMADol Drug Allergy 5 [facility] (6 sources) Erythromycin Drug Allergy Unknown [email or web address] Other Encounters Encounter Date Encounter Type Care Provider Facility Start: 08-25-2023 End: 08-25-2023 ambulatory [facility] Work Phone: Start: 08-25-2023 End: 08-25-2023 Patient encounter procedure [facility] Physician [facility] Work Phone: Start: 08-09-2023 End: 08-09-2023 [facility] Work Phone: Start: 08-09-2023 End: 08-09-2023 Patient encounter procedure [facility] Physician [facility] Work Phone: Start: 08-04-2023 Non-patient / Non-visit [facility] Physician [facility] Work Phone: Start: 07-28-2023 Non-patient / Non-visit [facility] Physician [facility] Work Phone: Start: 04-12-2023 End: 04-12-2023 ambulatory Ethan Hines Other [email or web address] Other Start: 04-12-2023 Telephone encounter Ethan Hines [facility] Start: 02-06-2023 End: 02-06-2023 ambulatory Ethan Donny Other [email or web address] Other Start: 02-06-2023 Office outpatient vi sit 15 minutes Ethan Hines [facility] Start: 01-30-2023 End: 01-30-2023 ambulatory Ethan Donny Other [email or web address] Other Start: 01-30-2023 Telephone encounter Ethan Ball [facility] Start: 01-26-2023 End: 01-26-2023 ambulatory Ethan Hines Other [email or web address] Other Start: 01-26-2023 Telephone encounter Ethan Hines [facility] Start: 01-11-2023 End: 01-11-2023 ambulatory Ethan Hines Other [email or web address] Other Start: 01-11-2023 Encounter for genera l adult medical examination without abnormal findings Ethan Ball [facility] Start: 01-11-2023 Periodic preventive med est patient 40-64yrs Ethan Ball [facility] Start: 01-11-2023 Telephone encounter Ethan Ball FP [facility] Start: 10-12-2022 End: 10-13-2022 ambulatory Robin Zelaya Facility:[facility] Start: 10-12-2022 End: 10-12-2022 Lab Drop off Robin Zelaya [facility] Start: 09-07-2022 End: 09-07-2022 ambulatory Ethan Hines Other [email or web address] Other Start: 09-07-2022 Telephone encounter Ethan Ball [facility] Start: 08-10-2022 End: 08-10-2022 ambulatory Ethan Hines Other [email or web address] Other Start: 08-10-2022 Office outpatient vi sit 15 minutes Ethan Ball [facility] Start: 08-02-2022 End: 08-03-[address] NONE LISTED REQUEST Facility: Start: 07-04-2022 End: 07-04-2022 ambulatory Ethan Ball Other [email or web address] Other Start: 07-04-2022 Telephone encounter Ethan Ball [facility] Start: 05-09-2022 End: 05-09-2022 ambulatory Ethan Ball Other [email or web address] Other Start: 05-09-2022 Telephone encounter Ethan Hines [facility] Start: 04-13-2022 End: 04-13-2022 ambulatory Ethan Donny Other [email or web address] Other Start: 04-13-2022 Telephone encounter Ethan Donny [facility] Start: 04-11-2022 End: 04-11-2022 ambulatory Ethan Hines Other [email or web address] Other Start: 04-11-2022 Office outpatient vi sit 25 minutes Ethan Hines [facility] Start: 04-10-2022 End: 04-10-2022 ambulatory Ethan Donny Other [email or web address] Other Start: 04-10-2022 Telephone encounter Ethan Hines [facility] Start: 04-05-2022 End: 04-06-[address] ETHAN HINES Facility:[facility] Start: 03-16-2022 End: 03-16-[address] ETHAN HINES Facility:[facility] Start: 11-22-2021 End: 11-23-[address] FUNG LISTED REQUEST Facility:[facility] Start: 11-18-2021 End: 11-19-2021 ambulatory [...] Start: 07-24-2017 End: 07-25-2017 Ambulatory [facility] Start: 04-13-2017 End: 04-14-2017 Ambulatory UBALDO [facility] Medications Current Medications Medication Drug Class(es) Dates [...] days Active famotidine 20 mg oral tablet (15 sources) Histamine-2 Receptor Antagonist Start: 08-09-2023 take 20 mg by mouth twice daily Famotidine Active 20 MG PO Twice daily August 09, 2023 12:00am take 1 tablet by johnie th twice daily at breakfast Famotidine 20 MG TAKE 1 TABLET BY MOUTH TWICE DAILY, AT BREAKFAST AND SUPPER Active lisinopril 5 mg oral tablet (16 sources) Angiotensin Converting Enzyme Inhibitor Start: 08-09-2023 take 5 mg by mouth once daily Lisinopril Active 5 MG PO Daily August 09, 2023 12:00am take 1 tablet by johnie th every twenty-four hours Lisinopril 5 MG 1 [...] weekly Active nabumetone 750 mg oral tablet (4 sources) Nonsteroidal Anti-inflammatory Drug Start: 08-09-2023 take 750 mg by mouth twice daily Nabumetone Active 750 MG PO Twice daily August 09, 2023 12:00am Start: 02-06-2023 take 750 mg by mouth twice daily Nabumetone 750 MG as directed Orally Twice a day for 30 days Feb, Active Tirzepatide (4 sources) Start: 07-28-2023 Tirzepatide (M montrellntonro) 5 mg/0.5 mL pen injector Active 5 MG SUBCUT every week 05 31July 28, 2023 4:58pm Start: 07-28-2023 End: 07-28-2023 Tirzepatide (Leighro) 5 mg/ 0.5 mL pen injector Discontinued 5 MG SUBCUT every week July 28, 2023 12:00am July 28, 2023 4:58pm Completed/Discontinued Medications Medication Drug Class(es) Dates Sig (Normalized) Sig (Original) azithromycin 250 mg oral tablet (8 sources) Macrolide Antimicrobial Start: 08-10-2022 Azithromycin 250 MG as directed Orally daily for 5 days August, Not-Taking/PRN Payers Date Payer Category Payer Unknown [id number] 2.16.84 [id number] 1960 Unknown [id number] 2.16.84 [id number] 1960 Unknown [id number] 2.16.84 [id number] 1960 Unknown [id number] 2.16.84 [id number] 1960 Unknown [id number] 2.16.84 [id number] 1960 Unknown [id number] 2.16.8 [id number] 1960 Self-pay 1960 Self-pay [id number] 1960 Unknown [id number] Unknown [id number] 2.16.84 [id number] Unknown [id number] 2.16.84 [id number] Unknown [id number] 2.16.84 [id number] Unknown [id number] 2.16.84 [id number] Unknown Other1 (STD) [id number] Plan of Treatment Date Care Activity Detail Author US Heart Transthor[facility] Problems Active Problems Problem Classification Problem Date Documented Da te Episodic/Chronic Calculus of urinary tract (14 sources) Unspecified renal colic; 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: [H/O: urinary stone] Onset: 04-13-2017 Episodic Diabetes mellitus with complications (20 sources) Type 2 diabetes mellitus; 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: [Type 2 diabetes mellitus with hyperglycemia] Chronic Esophageal disorders (8 sources) Gastro-esophageal reflux disease with esophagitis; 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: [Gastroesophageal reflux disease with esophagitis without hemorrhage] 08-08-2023 Chronic Essential hypertension (20 sources) Essential hypertension; 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: [Essential (primary) hypertension] Chronic Genitourinary symptoms and ill-defined conditions (3 sources) Dysuria; 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: [Frequency of micturition] Onset: 04-13-2017 Episodic Heart valve disorders (3 sources) Heart murmur; 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: [Cardiac murmur, unspecified] 08-09-2023 Episodic Nonmalignant breast conditions (15 sources) Benign mammary dysplasia; 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: [Unspecified benign mammary dysplasia of unspecified breast] Episodic Other bone disease and musculoskeletal deformities (14 sources) Other specified disorders of bone density and structure, other site; 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: [Osteopenia of lumbar spine] Episodic Other bone disease and musculoskeletal deformities (2 sources) Osteopenia; 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: [Other specified disorders of bone density and structure, unspecified site] 08-08-2023 Episodic Other non-traumatic joint disorders (2 sources) [...] unspecified Episodic Rheumatoid arthritis and related disease (16 sources) Inflammatory polyarthropathy; 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: [Inflammatory polyarthropathy] Chronic Spondylosis; intervertebral disc disorders; other back problems (14 sources) Lumbosacral spondylosis without myelopathy; 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: [Spondylosis without myelopathy or radiculopathy, lumbar region] Chronic Substance-related disorders (4 sources) Nicotine dependence; 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: [Nicotine dependence, unspecified, uncomplicated] 08-08-2023 Chronic Unclassified (3 sources) CONTACT W/AND (SUSP) [...] 08-26-2021 Episodic Other aftercare (1 source) Other fci (current) drug therapy; 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: [OTH PRISON CURRENT DRUG THERAPY] Onset: 08-20-2021 Episodic Other [...] [Acute cystitis with hematuria] Onset: 04-13-2017 Episodic Procedures Date Procedure Procedure Detail Performing Clinician Start: 07-24-2017 URINE CULTURE CLEAN CATCH UBALDO PARSELL Start: 07-24-2017 URINALYSIS WITH MICROSCOPIC UBALDO PARSELL Start: 04-13-2017 URINE CULTURE CLEAN CATCH UBALDO PARSELL Start: 04-13-2017 URINALYSIS WITH MICROSCOPIC UBALDO PARSELL Results Test Name Value Interpretation Reference Range Facility Glucose mean value [Mass/vol ume] in Blood Estimated from glycated hemoglobinon 08-04-2023 Average glucose Estimated from glycated hemoglobin (Bld) [Mass/Vol] 111 mg/dL [facility] - Hematology and Cell countson 08-04-2023 HbA1c (Bld) [Mass fraction] 5.5 % 4.5-6.2 [facility] Comment on above: ADA RECOMMENDED LIMI T 4.0 - 6.0ADA THERAPEUTIC TARGET < 7.0ACTION SUGGESTED> 7.0 PAP [id number] 10-18-2022 Cytology report Cyto stain Doc (Cvx/Vag) Note Invalid Interpretation Code [facility] Comment on above: Result Comment: TEST S RESULT FLAG UNITS REF RANGE LAB Clinician Provided Cytology Information Source.............End[employer]ix No. of containers..01 ThinPrep Vial DIAGNOSIS: 01 NEGATIVE FOR INTRAEPITHELIAL LESION OR MALIGNANCY. Specimen adequacy: 01 Satisfactory for evaluation. Endocervical and/or squamous metaplastic cells (endocervical component) are present. Performed by: 01 Martha Barron, Lottery Manager (ASCP) . 01 Note: Note 01 The [...] High <-Panic Low,>-Panic High,A-Abnormal,AA-Critical Abnormal Performed at: [address] [facility] [address] [id number] Edith Barnes MD, Performed By: #### 3 [id number] #### [facility] [address] [place] [id number] HPV 16+18+31+33+35+39+45+ 51+52+56+58+59+66+68 DNA Probe+sig amp Ql (Cvx) Negative Invalid Interpretation Code Negative [facility] Comment on above: Result Comment: This nucleic acid amplification test detects fourteen high-risk HPV types (16,18,31,33,35,39,45,51,52,56,58,59,66,68) without differentiation. Performed at: [facility] [place] [id number] MD Cameron Sharma Performed at: [facility] [place] [id number] MD Cameron Sharma Performed By: #### 3 [id number] #### [facility] [address] [place] [address] PAP [id number] 10-13-2022 Collection Technique BRUSH-SPATULA Normal [facility] Comment on above: Performed By: #### 3 [id number] #### [facility] [address] [place] [address] Gynecological Body Site ENDOCERVIX Normal [facility] Comment on above: Performed By: #### 3 [id number] #### [facility] [address] [place] [address] Previous Treatment NONE Normal [facility] Comment on above: Performed By: #### 3 [id number] #### [facility] [address] [place] [address] Physician Orderon 10-12-2022 Physician Order [id number]:[id number] Normal [facility] GLYCOHEMOGLOBIN A1Con 2022 ADA RECOMMENDATION SEE BELOW Normal [facility] Comment on above: Result Comment: ADA RECOMMENDED LIMIT 4.0 - 6.0 ADA THERAPEUTIC TARGET < 7.0 ACTION SUGGESTED > 7.0 Performed By: #### D ATA1C #### [facility] [address] [place] [address] Dr. María Adorno Glucose [Mass/Vol] 114 mg/dL Normal [facility] Comment on above: Performed By: #### D ATA1C #### [facility] [address] [address] [address] María Adorno HbA1c (Bld) [Mass fraction] 5.6 % Normal 4.5-6.2 [facility] Comment on above: Performed By: #### D ATA1C #### [facility] [address] [place] [address] Dr. María Adorno GLYCOHEMOGLOBIN A1Con 2022 ADA RECOMMENDATION SEE BELOW Normal [facility] Comment on above: Result Comment: ADA RECOMMENDED LIMIT 4.0 - 6.0 ADA THERAPEUTIC TARGET < 7.0 ACTION SUGGESTED > 7.0 Performed By: #### D ATA1C #### [facility] [address] [address] [address] María Adorno Glucose [Mass/Vol] 131 mg/dL Normal [facility] Comment on above: Performed By: #### D ATA1C #### [facility] [address] [address] [address] María Adorno HbA1c (Bld) [Mass fraction] 6.2 % Normal 4.5-6.2 [facility] Comment on above: Performed By: #### D ATA1C #### [facility] [address] [place] [address] Dr. María Adorno Covid-19 PCR ([facility])on 03-03 SARS-CoV-2 (COVID-19) RNA MARIELLA+probe Ql (Unsp spec) Not detected Normal NOT DETECTED [facility] Comment on above: Result Comment: This test is not yet approved or cleared by the [place] FDA. When there are no FDA-approved or cleared tests available, and other criteria are met, FDA can make tests available under an emergency access mechanism called an Emergency Use Authorization (EUA). The EUA for this test is supported by the Business Performance Manager of Health and Human Service's (HHS's) declaration [...] SARS-CoV-2. Performed By: #### C VDTBH #### [facility] [address] [place] [address] Dr. María Adorno GLYCOHEMOGLOBIN A1Con 2021 ADA RECOMMENDATION SEE BELOW Normal [facility] Comment on above: Result Comment: ADA RECOMMENDED LIMIT 4.0 - 6.0 ADA THERAPEUTIC TARGET < 7.0 ACTION SUGGESTED > 7.0 Performed By: #### D ATA1C #### [facility] [address] [place] [address] Dr. María Adorno Glucose [Mass/Vol] 140 mg/dL Normal [facility] Comment on above: Performed By: #### D ATA1C #### [facility] [address] [place] [address] Dr. María Adorno HbA1c (Bld) [Mass fraction] 6.5 % Critically high 4.5-6.2 [facility] Comment on above: Performed By: #### D ATA1C #### [facility] [address] [place] [address] Dr. María Adorno [facility] CBC AUTO DIFFon 11-18-2021 BASO # 0.1 103/ul Normal 0.0-0.1 [facility] Comment on above: Performed By: #### C RP, BMP #### [facility] [address] [place] [address] Dr. María Adorno Basophils/100 WBC (Bld) 0.9 % Normal 0.2-2.0 [facility] Comment on above: Performed By: #### C RP, BMP #### [facility] [address] [place] [address] Dr. María Adorno EO # 0.3 103/ul Normal 0.0-0.7 [facility] Comment on above: Performed By: #### C RP, BMP #### [facility] [address] [place] [address] Dr. María Adorno Eosinophils/100 WBC (Bld) 3.0 % Normal 0.9-7.0 [facility] Comment on above: Performed By: #### C RP, BMP #### [facility] [address] [place] [address] Dr. María Adorno Erythrocyte distribution width (RBC) [Ratio] 11.9 % Normal 11.0-15.0 [facility] Comment on above: Performed By: #### C RP, BMP #### [facility] [address] [place] [address] Dr. María Adorno Hematocrit (Bld) [Volume fraction] 45.3 % Normal 36.0-48.0 [facility] Comment on above: Performed By: #### C RP, BMP #### [facility] [address] [place] [address] Dr. María Adorno Hemoglobin (Bld) [Mass/Vol] 14.7 g/dL Normal 12.0-16.0 [facility] Comment on above: Performed By: #### C RP, BMP #### [facility] [address] [place] [address] Dr. María Adorno IG # 0.04 10e3/ul Critically high 0.00-0.03 [facility] Comment on above: Performed By: #### C RP, BMP #### [facility] [address] [place] [address] Dr. María Adorno IG % 0.4 % Normal 0.0-0.5 [facility] Comment on above: Performed By: #### C RP, BMP #### [facility] [address] [place] [address] Dr. María Adorno LYMPH # 3.1 103/ul Normal 1.2-3.8 [facility] Comment on above: Performed By: #### C RP, BMP #### [facility] [address] [place] [address] Dr. María Adorno Lymphocytes/100 WBC (Bld) 32.3 % Normal 20.5-60.0 [facility] Comment on above: Performed By: #### C RP, BMP #### [facility] [address] [place] [address] Dr. María Adorno MCH (RBC) [Entitic mass] 28.9 pg Normal 26.7-34.0 [facility] Comment on above: Performed By: #### C RP, BMP #### [facility] [address] [place] [address] Dr. María Adorno MCHC (RBC) [Mass/Vol] 32.5 g/dL Normal 29.9-35.2 [facility] Comment on above: Performed By: #### C RP, BMP #### [facility] [address] [place] [address] Dr. María Adorno MCV (RBC) [Entitic vol] 89.2 fL Normal 81.0-99.0 [facility] Comment on above: Performed By: #### C RP, BMP #### [facility] [address] [place] [address] Dr. María Adorno MONO # 0.8 103/ul Normal 0.3-0.8 [facility] Comment on above: Performed By: #### C RP, BMP #### [facility] [address] [place] [address] Dr. María Adorno Monocytes/100 WBC (Bld) 8.6 % Normal 1.7-12.0 [facility] Comment on above: Performed By: #### C RP, BMP #### [facility] [address] [place] [address] Dr. María Adorno NEUT # 5.3 103/ul Normal 1.4-6.5 [facility] Comment on above: Performed By: #### C RP, BMP #### [facility] [address] [place] [address] Dr. María Adorno Neutrophils/100 WBC (Bld) 54.8 % Normal 43.0-75.0 [facility] Comment on above: Performed By: #### C RP, BMP #### [facility] [address] [place] [address] Dr. María Adorno Platelet mean volume (Bld) [Entitic vol] 12.2 fL Normal 9.5-13.5 [facility] Comment on above: Performed By: #### C RP, BMP #### [facility] [address] [place] [address] Dr. María Adorno PLT 200 103/ul Normal 150-450 [facility] Comment on above: Performed By: #### C RP, BMP #### [facility] [address] [place] [address] Dr. María Adorno RBC 5.08 106/ul Normal 4.20-5.40 [facility] Comment on above: Performed By: #### C RP, BMP #### [facility] [address] [place] [address] Dr. María Adorno WBC 9.7 103/ul Normal 4.0-11.0 [facility] Comment on above: Performed By: #### C RP, BMP #### [facility] [address] [place] [address] Dr. María Adorno [facility] PROFILEon 022 Albumin [Mass/Vol] 3.7 g/dL Normal 3.4-5.0 [facility] Comment on above: Performed By: #### H FPF #### [facility] [address] [place] [address] Dr. María Adorno Albumin/Globulin [Mass ratio] 1.1 {ratio} Normal [facility] Comment on above: Performed By: #### H FPF #### [facility] [address] [place] [address] Dr. María Adorno ALP [Catalytic activity/Vol] 99 U/L Normal 46-116 [facility] Comment on above: Performed By: #### H FPF #### [facility] [address] [place] [address] Dr. María Adorno ALT [Catalytic activity/Vol] 18 U/L Normal 14-59 [facility] Comment on above: Performed By: #### H FPF #### [facility] [address] [place] [address] Dr. María Adorno AST [Catalytic activity/Vol] 18 U/L Normal 15-37 [facility] Comment on above: Performed By: #### H FPF #### [facility] [address] [place] [address] Dr. María Adorno Bilirubin [Mass/Vol] 0.6 mg/dL Normal 0.2-1.0 [facility] Comment on above: Performed By: #### H FPF #### [facility] [address] [place] [address] Dr. María Adorno Calcium [Mass/Vol] 9.3 mg/dL Normal 8.5-10.1 [facility] Comment on above: Performed By: #### H FPF #### [facility] [address] [address] [address] María Adorno Chloride [Moles/Vol] 103 mmol/L Normal 98-107 [facility] Comment on above: Performed By: #### H FPF #### [facility] [address] [address] [address] María Adorno CHOL-HDL RATIO NORM SEE BELOW Normal [facility] Comment on above: Result Comment: 3.3 - 4.4 LOW RISK 4.4 - 7.1 AVERAGE RISK 7.1 - 11.0 MODERATE RISK >11.0 HIGH RISK Performed By: #### H FPF #### [facility] [address] [address] [address] María Adorno Cholesterol [Mass/Vol] 160 mg/dL Normal <=200 [facility] Comment on above: Performed By: #### H FPF #### [facility] [address] [address] [address] María Adorno Cholesterol in HDL [Mass/Vol] 40 mg/dL Normal 40-60 [facility] Comment on above: Performed By: #### H FPF #### [facility] [address] [address] [address] María Adorno Cholesterol in LDL [Mass/Vol] 92.0 mg/dL Normal [facility] Comment on above: Performed By: #### H FPF #### [facility] [address] [address] [address] María Adorno Cholesterol.total/Cho lesterol in HDL [Mass ratio] 4.0 {ratio} Normal [facility] Comment on above: Performed By: #### H FPF #### [facility] [address] [address] [address] María Adorno CO2 [Moles/Vol] 24.6 mmol/L Normal 21.0-32.0 [facility] Comment on above: Performed By: #### H FPF #### [facility] [address] [address] [address] María Adorno Creatinine [Mass/Vol] 1.00 mg/dL Normal 0.55-1.02 [facility] Comment on above: Performed By: #### H FPF #### [facility] [address] [address] [address] María Adorno Globulin (S) [Mass/Vol] 3.5 g/dL Normal [facility] [facility] Comment [facility] above: Performed By: #### H FPF #### [facility] [address] [address] [address] María Adorno Glucose [Mass/Vol] 132 mg/dL Critically high 74-106 [facility] Comment on above: Performed By: #### H FPF #### [facility] [address] [address] [address] María Adorno HDL NORMAL > or = 60 mg/dl - LOW CARDIOVASCULAR RISK <40 mg/dl - HIGH CARDIOVASCULAR RISK Normal [facility] Comment on above: Performed By: #### H FPF #### [facility] [address] [place] [address] Dr. María Adorno LDL CALC NORMAL SEE BELOW Normal [facility] Comment on above: Result Comment: <100 mg/dl OPTIMAL 100 - 129 mg/dl NEAR OR ABOVE OPTIMAL 130 - 159 mg/dl BORDERLINE HIGH 160 - 189 mg/dl HIGH >190 mg/dl VERY HIGH Performed By: #### H FPF #### [facility] [address] [place] [address] Dr. María Adorno Potassium [Moles/Vol] 4.0 mmol/L Normal 3.5-5.1 [facility] Comment on above: Performed By: #### H FPF #### [facility] [address] [address] [address] María Adorno Protein [Mass/Vol] 7.2 g/dL Normal 6.4-8.2 [facility] Comment on above: Performed By: #### H FPF #### [facility] [address] [place] [address] Dr. María Adorno Sodium [Moles/Vol] 138 mmol/L Normal 136-145 [facility] Comment on above: Performed By: #### H FPF #### [facility] [address] [address] [address] María Adorno Triglyceride [Mass/Vol] 140 mg/dL Normal <=150 [facility] Comment on above: Performed By: #### H FPF #### [facility] [address] [address] [address] María Adorno TSH 2.537 uIU/mL Normal 0.358-3.740 [facility] Comment on above: Performed By: #### H FPF #### [facility] [address] [address] [address] María Adorno Urea nitrogen [Mass/Vol] 17.0 mg/dL Normal 7.0-18.0 [facility] Comment on above: Performed By: #### H FPF #### [facility] [address] [address] [address] María Adorno Urea nitrogen/Creatinine [Mass ratio] 17.0 mg/mg Normal [facility] Comment on above: Performed By: #### H FPF #### [facility] [address] [address] [address] María Adorno VLDL CALC 28.0 mg/dL Normal [facility] Comment on above: Performed By: #### H FPF #### [facility] [address] [address] [address] Mraía Adorno MG MAMM SCREEN 3D CHINO CADon 10-19-2021 MG MAMM SCREEN 3D CHINO CAD Patient: EDVIN TRISTAN Exam Date: 10/19/2021 : 1960 Gender:F Ordering : DR ETHAN HINES D.O. Admission #: [id number] Family : Order #: [id number] CLICK HERE TO VIEW EXAM RADIOLOGY REPORT [...] Treatments None Family Cancers None LOCATION: [facility] BREAST COMPOSITION: Heterogeneously dense,which may obscure small [...] M.D. on 10/20/2021 at 14:56 Normal [facility] CBC AUTO DIFFon 09-28-2021 BASO # 0.1 103/ul Normal 0.0-0.1 [facility] Comment on above: Performed By: #### C BC #### [facility] [address] [place] [address] Dr. María Adorno Basophils/100 WBC (Bld) 0.8 % Normal 0.2-2.0 [facility] Comment on above: Performed By: #### C BC #### [facility] [address] [place] [address] Dr. María Adorno EO # 0.3 103/ul Normal 0.0-0.7 [facility] Comment on above: Performed By: #### C BC #### [facility] [address] [address] [address] María Adorno Eosinophils/100 WBC (Bld) 2.5 % Normal 0.9-7.0 [facility] Comment on above: Performed By: #### C BC #### [facility] [address] [place] [address] Dr. María Adorno Erythrocyte distribution width (RBC) [Ratio] 12.1 % Normal 11.0-15.0 [facility] Comment on above: Performed By: #### C BC #### [facility] [address] [place] [address] Dr. María Adorno Hematocrit (Bld) [Volume fraction] 42.6 % Normal 36.0-48.0 [facility] Comment on above: Performed By: #### C BC #### [facility] [address] [place] [address] Dr. María Adorno Hemoglobin (Bld) [Mass/Vol] 14.1 g/dL Normal 12.0-16.0 [facility] Comment on above: Performed By: #### C BC #### [facility] [address] [place] [address] Dr. María Adorno IG # 0.04 10e3/ul Critically high 0.00-0.03 [facility] Comment on above: Performed By: #### C BC #### [facility] [address] [place] [address] Dr. María Adorno IG % 0.3 % Normal 0.0-0.5 [facility] Comment on above: Performed By: #### C BC #### [facility] [address] [place] [address] Dr. María Adorno LYMPH # 3.3 103/ul Normal 1.2-3.8 [facility] Comment on above: Performed By: #### C BC #### [facility] [address] [place] [address] Dr. María Adorno Lymphocytes/100 WBC (Bld) 24.4 % Normal 20.5-60.0 [facility] Comment on above: Performed By: #### C BC #### [facility] [address] [place] [address] Dr. María Adorno MANUAL DIFF REQ NO Normal [facility] Comment on above: Performed By: #### C BC #### [facility] [address] [place] [address] Dr. María Adorno MCH (RBC) [Entitic mass] 29.6 pg Normal 26.7-34.0 [facility] Comment on above: Performed By: #### C BC #### [facility] [address] [place] [address] Dr. María Adorno MCHC (RBC) [Mass/Vol] 33.1 g/dL Normal 29.9-35.2 [facility] Comment on above: Performed By: #### C BC #### [facility] [address] [address] [address] María Adorno MCV (RBC) [Entitic vol] 89.5 fL Normal 81.0-99.0 [facility] Comment on above: Performed By: #### C BC #### [facility] [address] [address] [address] María Adorno MONO # 1.0 103/ul Critically high 0.3-0.8 [facility] Comment on above: Performed By: #### C BC #### [facility] [address] [address] [address] María Adorno Monocytes/100 WBC (Bld) 7.8 % Normal 1.7-12.0 [facility] Comment on above: Performed By: #### C BC #### [facility] [address] [place] [address] Dr. María Adorno NEUT # 8.6 103/ul Critically high 1.4-6.5 [facility] Comment on above: Performed By: #### C BC #### [facility] [address] [place] [address] Dr. María Adorno Neutrophils/100 WBC (Bld) 64.2 % Normal 43.0-75.0 [facility] Comment on above: Performed By: #### C BC #### [facility] [address] [place] [address] Dr. María Adorno Platelet mean volume (Bld) [Entitic vol] 11.7 fL Normal 9.5-13.5 [facility] Comment on above: Performed By: #### C BC #### [facility] [address] [address] [address] María Adorno PLT 197 103/ul Normal 150-450 [facility] Comment on above: Performed By: #### C BC #### [facility] [address] [address] [address] María Adorno RBC 4.76 106/ul Normal 4.20-5.40 [facility] Comment on above: Performed By: #### C BC #### [facility] [address] [address] [address] María Adorno WBC 13.3 103/ul Critically high 4.0-11.0 [facility] Comment on above: Performed By: #### C BC #### [facility] [address] [address] [address] María Adorno CRPon 09-28-2021 CRP 0.3 mg/dL Normal <=1.0 [facility] Comment on above: Performed By: #### C RP, BMP #### [facility] [address] [address] [address] María Adorno PROF CHEM 8 (BAS METB)on Anion gap [Moles/Vol] 11.6 mmol/L Normal [facility] Comment on above: Performed By: #### C RP, BMP #### [facility] [address] [place] [address] Dr. María Adorno Calcium [Mass/Vol] 9.6 mg/dL Normal 8.5-10.1 [facility] Comment on above: Performed By: #### C RP, BMP #### [facility] [address] [address] [address] María Adorno Chloride [Moles/Vol] 105 mmol/L Normal 98-107 [facility] Comment on above: Performed By: #### C RP, BMP #### [facility] [address] [address] [address] María Adorno CO2 [Moles/Vol] 27.6 mmol/L Normal 21.0-32.0 [facility] Comment on above: Performed By: #### C RP, BMP #### [facility] [address] [address] [address] María Adorno Creatinine [Mass/Vol] 1.12 mg/dL Critically high 0.55-1.02 [facility] Comment on above: Performed By: #### C RP, BMP #### [facility] [address] [address] [address] María Adorno EGFR-AF TUNISIAN 60 mL/min/1.73m2 Normal >=60 [facility] Comment on above: Performed By: #### C RP, BMP #### [facility] [address] [address] [address] María Adorno EGFR-NON AF TUNISIAN 49 mL/min/1.73m2 Critically low >=60 [facility] Comment on above: Performed By: #### C RP, BMP #### [facility] [address] [address] [address] María Adorno Glucose [Mass/Vol] 151 mg/dL Critically high 74-106 [facility] Comment on above: Performed By: #### C RP, BMP #### [facility] [address] [address] [address] Maraí Adorno Potassium [Moles/Vol] 4.2 mmol/L Normal 3.5-5.1 [facility] Comment on above: Performed By: #### C RP, BMP #### [facility] [address] [address] [address] María Adorno Sodium [Moles/Vol] 140 mmol/L Normal 136-145 [facility] Comment on above: Performed By: #### C RP, BMP #### [facility] [address] [address] [address] María Adorno Urea nitrogen [Mass/Vol] 19.0 mg/dL Critically high 7.0-18.0 [facility] Comment on above: Performed By: #### C RP, BMP #### [facility] [address] [place] [address] Dr. María Adorno Urea nitrogen/Creatinine [Mass ratio] 17.0 mg/mg Normal [facility] Comment on above: Performed By: #### C RP, BMP #### [facility] [address] [address] [address] María Adorno SED RATE WESTERGRENon 2021 SED RATE 47 mm/hr Critically high <=30 [facility] Comment on above: Performed By: #### C RP, BMP #### [facility] [address] [address] [address] María Adorno CBC AUTO DIFFon 08-18-2021 BASO # 0.1 103/ul Normal 0.0-0.1 [facility] Comment on above: Performed By: #### C RP, BMP #### [facility] [address] [place] [address] Dr. María Adorno Basophils/100 WBC (Bld) 0.7 % Normal 0.2-2.0 [facility] Comment on above: Performed By: #### C RP, BMP #### [facility] [address] [place] [address] Dr. María Adorno EO # 0.3 103/ul Normal 0.0-0.7 [facility] Comment on above: Performed By: #### C RP, BMP #### [facility] [address] [place] [address] Dr. María Adorno Eosinophils/100 WBC (Bld) 2.4 % Normal 0.9-7.0 [facility] Comment on above: Performed By: #### C RP, BMP #### [facility] [address] [place] [address] Dr. María Adorno Erythrocyte distribution width (RBC) [Ratio] 12.4 % Normal 11.0-15.0 [facility] Comment on above: Performed By: #### C RP, BMP #### [facility] [address] [place] [address] Dr. María Adorno Hematocrit (Bld) [Volume fraction] 40.6 % Normal 36.0-48.0 [facility] Comment on above: Performed By: #### C RP, BMP #### [facility] [address] [place] [address] Dr. María Adorno Hemoglobin (Bld) [Mass/Vol] 13.2 g/dL Normal 12.0-16.0 [facility] Comment on above: Performed By: #### C RP, BMP #### [facility] [address] [place] [address] Dr. María Adorno IG # 0.04 10e3/ul Critically high 0.00-0.03 [facility] Comment on above: Performed By: #### C RP, BMP #### [facility] [address] [place] [address] Dr. María Adorno IG % 0.3 % Normal 0.0-0.5 [facility] Comment on above: Performed By: #### C RP, BMP #### [facility] [address] [place] [address] Dr. María Adorno LYMPH # 3.1 103/ul Normal 1.2-3.8 [facility] Comment on above: Performed By: #### C RP, BMP #### [facility] [address] [place] [address] Dr. María Adorno Lymphocytes/100 WBC (Bld) 25.8 % Normal 20.5-60.0 [facility] Comment on above: Performed By: #### C RP, BMP #### [facility] [address] [place] [address] Dr. María Adorno MANUAL DIFF REQ NO Normal [facility] Comment on above: Performed By: #### C RP, BMP #### [facility] [address] [place] [address] Dr. María Adorno MCH (RBC) [Entitic mass] 29.9 pg Normal 26.7-34.0 [facility] Comment on above: Performed By: #### C RP, BMP #### [facility] [address] [place] [address] Dr. María Adorno MCHC (RBC) [Mass/Vol] 32.5 g/dL Normal 29.9-35.2 [facility] Comment on above: Performed By: #### C RP, BMP #### [facility] [address] [place] [address] Dr. María Adorno MCV (RBC) [Entitic vol] 91.9 fL Normal 81.0-99.0 [facility] Comment on above: Performed By: #### C RP, BMP #### [facility] [address] [place] [address] Dr. María Adorno MONO # 1.1 103/ul Critically high 0.3-0.8 [facility] Comment on above: Performed By: #### C RP, BMP #### [facility] [address] [place] [address] Dr. María Adorno Monocytes/100 WBC (Bld) 9.1 % Normal 1.7-12.0 [facility] Comment on above: Performed By: #### C RP, BMP #### [facility] [address] [place] [address] Dr. María Adorno NEUT # 7.3 103/ul Critically high 1.4-6.5 [facility] Comment on above: Performed By: #### C RP, BMP #### [facility] [address] [place] [address] Dr. María Adorno Neutrophils/100 WBC (Bld) 61.7 % Normal 43.0-75.0 [facility] Comment on above: Performed By: #### C RP, BMP #### [facility] [address] [place] [address] Dr. María Adorno Platelet mean volume (Bld) [Entitic vol] 11.5 fL Normal 9.5-13.5 [facility] Comment on above: Performed By: #### C RP, BMP #### [facility] [address] [place] [address] Dr. María Adorno PLT 198 103/ul Normal 150-450 [facility] Comment on above: Performed By: #### C RP, BMP #### [facility] [address] [place] [address] Dr. María Adorno RBC 4.42 106/ul Normal 4.20-5.40 [facility] Comment on above: Performed By: #### C RP, BMP #### [facility] [address] [place] [address] Dr. María Adorno WBC 11.8 103/ul Critically high 4.0-11.0 [facility] Comment on above: Performed By: #### C RP, BMP #### [facility] [address] [place] [address] Dr. María Adorno CRPon 08-18-2021 CRP 1.5 mg/dL Critically high <=1.0 [facility] Comment on above: Performed By: #### B MP, CRP #### [facility] [address] [address] [address] María Adorno PROF CHEM 8 (BAS METB)on Anion gap [Moles/Vol] 12.8 mmol/L Normal [facility] Comment on above: Performed By: #### C RP, BMP #### [facility] [address] [place] [address] Dr. María Adorno Calcium [Mass/Vol] 9.2 mg/dL Normal 8.5-10.1 [facility] Comment on above: Performed By: #### C RP, BMP #### [facility] [address] [place] [address] Dr. María Adorno Chloride [Moles/Vol] 102 mmol/L Normal 98-107 [facility] Comment on above: Performed By: #### C RP, BMP #### [facility] [address] [place] [address] Dr. María Adorno CO2 [Moles/Vol] 28.2 mmol/L Normal 21.0-32.0 [facility] Comment on above: Performed By: #### C RP, BMP #### [facility] [address] [place] [address] Dr. María Adorno Creatinine [Mass/Vol] 0.91 mg/dL Normal 0.55-1.02 [facility] Comment on above: Performed By: #### C RP, BMP #### [facility] [address] [place] [address] Dr. María Adorno EGFR-AF TUNISIAN >60 Normal >=60 [facility] Comment on above: Performed By: #### C RP, BMP #### [facility] [address] [place] [address] Dr. María Adorno EGFR-NON AF TUNISIAN >60 Normal >=60 [facility] Comment on above: Performed By: #### C RP, BMP #### [facility] [address] [place] [address] Dr. María Adorno Glucose [Mass/Vol] 150 mg/dL Critically high 74-106 [facility] Comment on above: Performed By: #### C RP, BMP #### [facility] [address] [address] [address] María Adorno Potassium [Moles/Vol] 4.0 mmol/L Normal 3.5-5.1 [facility] Comment on above: Performed By: #### C RP, BMP #### [facility] [address] [address] [address] María Adoron Sodium [Moles/Vol] 139 mmol/L Normal 136-145 [facility] Comment on above: Performed By: #### C RP, BMP #### [facility] [address] [address] [address] María Adorno Urea nitrogen [Mass/Vol] 23.0 mg/dL Critically high 7.0-18.0 [facility] Comment on above: Performed By: #### C RP, BMP #### [facility] [address] [address] [address] María Adorno Urea nitrogen/Creatinine [Mass ratio] 25.3 mg/mg Normal [facility] Comment on above: Performed By: #### C RP, BMP #### [facility] [address] [place] [address] Dr. María Adorno Orthopedic Progress Noteon 0 08-10-2021 Orthopedic Progress Note This is a preliminary report only. This report will be final only after practitioner review and authentication has occurred. [facility] Patient: EDVIN TRISTAN [address] [place] [address] MR#: [id number] PROGRESS NOTE - Orthopedic : 58 Service Date: 08/10/21 1649 Assessment and Plan - ICD10 Problem List 1. Status post lumbar spine surgery for decompression of spinal cord 2. S/P lumbar laminectomy Electronically Signed eSign Date and Time Mark Harp Normal [facility] BASIC MET PANELon 08-08-2021 Anion gap [Moles/Vol] 7 mmol/L Normal 6-18 [facility] Comment on above: Performed By: #### L 500.79190, L500.59673 ####Test performed at: [address] [address] Calcium [Mass/Vol] 8.5 mg/dL Normal 8.5-10.1 [facility] Comment on above: Performed By: #### L 500.94166, L500.55523 ####Test performed at: [address] [address] Chloride [Moles/Vol] 108 mmol/L High 98-107 [facility] Comment on above: Performed By: #### L 500.29167, L500.65565 ####Test performed at: [address] [address] CO2 [Moles/Vol] 29 mmol/L Normal 21-32 [facility] Comment on above: Performed By: #### L 500.85418, L500.56090 ####Test performed at: [address] [address] Creatinine [Mass/Vol] 0.862 mg/dL Normal 0.550-1.020 [facility] Comment on above: Performed By: #### L 500.48337, L500.38585 ####Test performed at: [address] [address] Glucose [Mass/Vol] 123 mg/dL High 70-99 [facility] Comment on above: Result Comment: Fast ing GLUCOSE reference range has been updated per (ADA) [place] [employer]'s recommendation. 06/26/2018 Performed By: #### L 500.63547, L500.84064 ####Test performed at: [address] [address] OSM 295 mosm/kg Normal 270-300 [facility] Comment on above: Performed By: #### L 500.96174, L500.59383 ####Test performed at: [place] [address] [address] Potassium [Moles/Vol] 4.4 mmol/L Normal 3.5-5.1 [facility] Comment on above: Performed By: #### L 500.75058, L500.71392 ####Test performed at: [address] [address] Sodium [Moles/Vol] 140 mmol/L Normal 136-145 [facility] Comment on above: Performed By: #### L 500.61586, L500.34705 ####Test performed at: [address] [address] Urea nitrogen [Mass/Vol] 22 mg/dL High 7-18 [facility] Comment on above: Performed By: #### L 500.06266, L500.43765 ####Test performed at: [address] [address] CBC W/DIFFon 08-08-2021 BASO ABS 0.0 K/uL Normal 0.0-0.2 [facility] Comment on above: Performed By: #### L 200.76675 ####Test performed at: [address] [address] Basophils/100 WBC (Bld) 0.2 % Normal [facility] Comment on above: Performed By: #### L 200.69881 ####Test performed at: [address] [address] EOS ABS 0.0 K/uL Normal 0.0-0.5 [facility] Comment on above: Performed By: #### L 200.00565 ####Test performed at: [address] [address] Eosinophils/100 WBC (Bld) 0.2 % Normal [facility] Comment on above: Performed By: #### L 200.99734 ####Test performed at: [address] [address] Erythrocyte distribution width (RBC) [Ratio] 12.6 % Normal 11.5-14.5 [facility] Comment on above: Performed By: #### L 200.75996 ####Test performed at: [address] [address] Hematocrit (Bld) [Volume fraction] 32.5 % Low 36.0-48.0 [facility] Comment on above: Performed By: #### L 200.07709 ####Test performed at: [place] [id number] Hemoglobin (Bld) [Mass/Vol] 10.9 g/dL Low 12.0-15.0 [facility] Comment on above: Performed By: #### L 200.98097 ####Test performed at: [place] [id number] IG % 0.3 % Normal [facility] Comment on above: Performed By: #### L 200.57264 ####Test performed at: [place] [id number] IG ABS 0.04 K/uL Normal 0-0.05 [facility] Comment on above: Performed By: #### L 200.77653 ####Test performed at: [address] [address] Lymphocytes (Bld) [#/Vol] 2.7 10*3/uL Normal 1.2-3.5 [facility] Comment on above: Performed By: #### L 200.27066 ####Test performed at: [address] [address] Lymphocytes/100 WBC (Bld) 22.4 % Normal [facility] Comment on above: Performed By: #### L 200.99480 ####Test performed at: [address] [address] MCH (RBC) [Entitic mass] 29.9 pg Normal 25.4-34.6 [facility] Comment on above: Performed By: #### L 200.32664 ####Test performed at: [address] [address] MCHC (RBC) [Mass/Vol] 33.5 g/dL Normal 31.5-36.5 [facility] Comment on above: Performed By: #### L 200.96977 ####Test performed at: [address] [address] MCV (RBC) [Entitic vol] 89.3 fL Normal 79.0-98.0 [facility] Comment on above: Performed By: #### L 200.94404 ####Test performed at: [address] [address] MONO ABS 1.1 K/uL High 0.0-1.0 [facility] Comment on above: Performed By: #### L 200.19502 ####Test performed at: [address] [address] Monocytes/100 WBC (Bld) 9.4 % Normal [facility] Comment on above: Performed By: #### L 200.46654 ####Test performed at: [address] [address] NEUTROPHIL ABS 8.1 K/uL High 1.4-6.6 [facility] Comment on above: Performed By: #### L 200.38886 ####Test performed at: [address] [address] Neutrophils/100 WBC (Bld) 67.5 % Normal [facility] Comment on above: Performed By: #### L 200.24089 ####Test performed at: [address] [address] NRBC # 0.000 K/uL Normal 0-0.012 [facility] Comment on above: Performed By: #### L 200.94116 ####Test performed at: [address] [address] NRBC % 0.0 /100 WBC Normal 0-0.2 [facility] Comment on above: Performed By: #### L 200.67189 ####Test performed at: [address] [address] Platelet mean volume (Bld) [Entitic vol] 12.5 fL High 8.7-12.4 [facility] Comment on above: Performed By: #### L 200.03801 ####Test performed at: [address] [address] Platelets (Bld) [#/Vol] 122 10*3/uL Low 140-440 [facility] Comment on above: Performed By: #### L 200.89793 ####Test performed at: [address] [address] RBC (Bld) [#/Vol] 3.64 10*6/uL Normal 3.5-5.5 [facility] Comment on above: Performed By: #### L 200.98625 ####Test performed at: [address] [address] WBC (Bld) [#/Vol] 12.1 10*3/uL High 3.9-11.0 [facility] Comment on above: Performed By: #### L 200.22511 ####Test performed at: [address] [address] Discharge CCD Assessmenton 0 08-08-2021 Discharge CCD Assessment [facility] Patient: EDVIN TRISTAN [address] [place] [address] MR#: [id number] DISCHARGE CCD ASSESSMENT : 58 Service Date: 08/08/211120 Discharge CCD Assessment Assessment Patient discharged home to continue pain control, wound care, and exercises. Electronically Signed eSign Date and Time Mark Harp 08/08/211121 Noy Millan MD Normal [facility] GFR ESTIMATEon 08-08-2021 IF AMER > 60 Normal > 60 [facility] Comment on above: Result Comment: eGFR (Estimated GFR) Units of measure:mL/min/1.73 meters sq. *CALCULATION REVISED 01/20/2015;IDMS-traceable MDRD equation eGFR is derived from the reexpressed MDRD Study equation using the following parameters: serum creatinine, age, gender and race. An eGFR<60 mL/min/1.73m2 for >3 months is consistent with chronic kidney disease. Refer to KDOQI guidelines for clinical interpretation. Performed By: #### L 500.73399, L500.65508 ####Test performed at: [place] [address] IF non-AFR AMER > 60 Normal > 60 [facility] Comment on above: Performed By: #### L 500.44465, L500.78279 ####Test performed at: [place] [address] Internal Med Progress Noteon 08-08-2021 Internal Med Progress Note [facility] Patient: EDVIN TRISTAN [address] [place] [address] MR#: [id number] PROGRESS NOTE - Internal Medicine : 58 [...] PT help yesterday. C/o post back pain 08/10 with movemnt, at rest it feels sore. Passes gas, but no BM yet. Denies chest pain, shortness of breath, palpitations, nausea, vomiting, abdominal pain. Dr. Beckford had no further reccomendations regarding inrtraoperatively cardiac event. Pt has been vitally stable, SBP runs on the low 100's and 90's. Events since last encounter No acute events Subjective Pt c/o 5 back pain with movement. Still has the [...] 4d Result Date Time Pulse Ox 96 08/08 0752 B/P 104/51 08/08 0752 O2 Delivery ROOM AIR 08/08 0752 Temp 36.4 / 0752 Pulse 55 08/08 0752 Resp 16 08/08 0752 O2 Flow Rate 3 /06 1803 Intake AND Output Verdana 4d 08/08 2300 / 2300 Intake Total 240 1490 Output Total [...] Agree with above documentation. The [resident's, PA's, HR BUSINESS PARTNER CONSULTANT's] assessment and plan reflect my input. Discussed with documenting provider and patient. Plan is as outlined above. Electronically Signed eSign Date and Time Montana Sánchez Donald E. MD 08/08/21 1603 Normal [facility] z PT Inpatient Progress Note on 08-08-2021 z PT Inpatient Progress Note [facility] Patient: EDVIN TRISTAN [address] [place] [address] MR#: [id number] PT INPATIENT PROGRESS NOTE : 58 Service Date: 08/08/21 1050 Inpatient PT HPI Date of Service 08/08/21 Time In: 1001 Time Out: 1035 Total Treatment Time (Mins) 51 Room Number 534 Current Visit Originally in the patient room from and took the patient for a short walk, patient citing increased pain and would like HOG FEEDER to return after breakfast. HOG FEEDER returned at above stated times for completion [...] Signed eSign Date and Time [place] HOG FEEDER 08/08/21 1101 Norma Diaz PT Normal [facility] Anesthesia Noteon 08-07-2021 Anesthesia Note [facility] Patient: EDVIN TRISTAN [address] [place] [id number] MR#: [id number] ANESTHESIA NOTE : Service Date: 08/07/21 0755 [...] Signed eSign Date and Time Jon Pradhan 08/07/21 0755 Marsha Miller MD Normal [facility] BASIC MET PANELon 08-07-2021 Anion gap [Moles/Vol] 8 mmol/L Normal 6-18 [facility] Comment on above: Performed By: #### L 500.52987, L500.38659 ####Test performed at: [address] [address] Calcium [Mass/Vol] 8.8 mg/dL Normal 8.5-10.1 [facility] Comment on above: Performed By: #### L 500.59142, L500.73553 ####Test performed at: [address] [address] Chloride [Moles/Vol] 109 mmol/L High 98-107 [facility] Comment on above: Performed By: #### L 500.01681, L500.50759 ####Test performed at: [address] [address] CO2 [Moles/Vol] 27 mmol/L Normal 21-32 [facility] Comment on above: Performed By: #### L 500.93933, L500.69840 ####Test performed at: [address] [address] Creatinine [Mass/Vol] 0.967 mg/dL Normal 0.550-1.020 [facility] Comment on above: Performed By: #### L 500.56202, L500.45473 ####Test performed at: [address] [address] Glucose [Mass/Vol] 178 mg/dL High 70-99 [facility] Comment on above: Result Comment: Fast ing GLUCOSE reference range has been updated per (ADA) [place] [employer]'s recommendation. 06/26/2018 Performed By: #### L 500.13424, L500.42200 ####Test performed at: [address] [address] OSM 296 mosm/kg Normal 270-300 [facility] Comment on above: Performed By: #### L 500.30978, L500.15733 ####Test performed at: [place] [address] Potassium [Moles/Vol] 4.5 mmol/L Normal 3.5-5.1 [facility] Comment on above: Performed By: #### L 500.95917, L500.56049 ####Test performed at: [address] [address] Sodium [Moles/Vol] 140 mmol/L Normal 136-145 [facility] Comment on above: Performed By: #### L 500.20814, L500.67020 ####Test performed at: [address] [address] Urea nitrogen [Mass/Vol] 18 mg/dL Normal 7-18 [facility] Comment on above: Performed By: #### L 500.29655, L500.41766 ####Test performed at: [address] [address] CBC W/DIFFon 08-07-2021 BASO ABS 0.0 K/uL Normal 0.0-0.2 [facility] Comment on above: Performed By: #### L 200.27311 #### Test performed at: [address] [address] Basophils/100 WBC (Bld) 0.1 % Normal [facility] Comment on above: Performed By: #### L 200.73989 #### Test performed at: [address] [address] EOS ABS 0.0 K/uL Normal 0.0-0.5 [facility] Comment on above: Performed By: #### L 200.76587 #### Test performed at: [place] [address] Eosinophils/100 WBC (Bld) 0.0 % Normal [facility] Comment on above: Performed By: #### L 200.39189 #### Test performed at: [address] [address] Erythrocyte distribution width (RBC) [Ratio] 12.0 % Normal 11.5-14.5 [facility] Comment on above: Performed By: #### L 200.40091 #### Test performed at: [address] [address] Hematocrit (Bld) [Volume fraction] 35.2 % Low 36.0-48.0 [facility] Comment on above: Performed By: #### L 200.47835 #### Test performed at: [place] [address] Hemoglobin (Bld) [Mass/Vol] 12.1 g/dL Abnormal 12.0-15.0 [facility] Comment on above: Result Comment: Delt a: 14.9 on 08/03/21-2855 Performed By: #### L 200.13353 #### Test performed at: [address] [address] IG % 0.5 % Normal [facility] Comment on above: Performed By: #### L 200.06311 #### Test performed at: [address] [place] [address] IG ABS 0.06 K/uL High 0-0.05 [facility] Comment on above: Performed By: #### L 200.06286 #### Test performed at: [address] [address] Lymphocytes (Bld) [#/Vol] 1.0 10*3/uL Low 1.2-3.5 [facility] Comment on above: Performed By: #### L 200.91062 #### Test performed at: [address] [address] Lymphocytes/100 WBC (Bld) 7.7 % Normal [facility] Comment on above: Performed By: #### L 200.86603 #### Test performed at: [place] [address] MCH (RBC) [Entitic mass] 30.2 pg Normal 25.4-34.6 [facility] Comment on above: Performed By: #### L 200.97041 #### Test performed at: [address] [address] MCHC (RBC) [Mass/Vol] 34.4 g/dL Normal 31.5-36.5 [facility] Comment on above: Performed By: #### L 200.06880 #### Test performed at: [address] [address] MCV (RBC) [Entitic vol] 87.8 fL Normal 79.0-98.0 [facility] Comment on above: Performed By: #### L 200.62197 #### Test performed at: [address] [address] MONO ABS 0.3 K/uL Normal 0.0-1.0 [facility] Comment on above: Performed By: #### L 200.97364 #### Test performed at: [place] [address] Monocytes/100 WBC (Bld) 2.7 % Normal [facility] Comment on above: Performed By: #### L 200.57362 #### Test performed at: [address] [address] NEUTROPHIL ABS 11.0 K/uL High 1.4-6.6 [facility] Comment on above: Performed By: #### L 200.52885 #### Test performed at: [address] [address] Neutrophils/100 WBC (Bld) 89.0 % Normal [facility] Comment on above: Performed By: #### L 200.42961 #### Test performed at: [address] [address] NRBC # 0.000 K/uL Normal 0-0.012 [facility] Comment on above: Performed By: #### L 200.46231 #### Test performed at: [address] [address] NRBC % 0.0 /100 WBC Normal 0-0.2 [facility] Comment on above: Performed By: #### L 200.83400 #### Test performed at: [address] [address] Platelet mean volume (Bld) [Entitic vol] 12.1 fL Normal 8.7-12.4 [facility] Comment on above: Performed By: #### L 200.21294 #### Test performed at: [address] [address] Platelets (Bld) [#/Vol] 140 10*3/uL Normal 140-440 [facility] Comment on above: Performed By: #### L 200.68930 #### Test performed at: [address] [address] RBC (Bld) [#/Vol] 4.01 10*6/uL Normal 3.5-5.5 [facility] Comment on above: Performed By: #### L 200.11782 #### Test performed at: [place] [address] WBC (Bld) [#/Vol] 12.4 10*3/uL High 3.9-11.0 [facility] Comment on above: Performed By: #### L 200.43114 #### Test performed at: [place] [address] GFR ESTIMATEon 08-07-2021 IF AMER > 60 Normal > 60 [facility] Comment on above: Result Comment: eGFR (Estimated GFR) Units of measure:mL/min/1.73 meters sq. *CALCULATION REVISED 01/20/2015;IDMS-traceable MDRD equation eGFR is derived from the reexpressed MDRD Study equation using the following parameters: serum creatinine, age, gender and race. An eGFR<60 mL/min/1.73m2 for >3 months is consistent with chronic kidney disease. Refer to KDOQI guidelines for clinical interpretation. Performed By: #### L 500.41411, L500.53006 ####Test performed at: [place] [address] IF non-AFR AMER 59 Low > 60 [facility] Comment on above: Performed By: #### L 500.15614, L500.83003 ####Test performed at: [place] [address] Internal Med Progress Noteon 08-07-2021 Internal Med Progress Note [facility] Patient: EDVIN TRISTAN [address] [place] [address] MR#: [id number] PROGRESS NOTE - Internal Medicine : 58 Service Date: 08/07/21 07 Subjective Summary of Stay Ms. Tristan is [...] Subjective c/o post op pain at a 08/10. Denies chest pain, shortness of breath, palpitations, [...] 5 decompressive laminectomy POD# 1 # Leukocytosis likley 2/2 steroid use * c/o post op [...] Agree with above documentation. The [resident's, PA's, HR BUSINESS PARTNER CONSULTANT's] assessment and plan reflect my input. Discussed with documenting provider and patient. Plan is as outlined above. Electronically Signed eSign Date and Time Montana Sánchez (more content not included)... Normal [facility] OT Therapy Recommendationson 08-07-2021 OT Therapy Recommendations [facility] Patient: EDVIN TRISTAN [address] [place] [id number] MR#: [id number] OT THERAPY RECOMMENDATIONS : 58 Service Date: 08/07/21 1323 Therapy Recommendations Therapy Recommendations Recommendations Recommend pt d/c home with increased assist from spouse once medically cleared. Pt able to verbalize and demonstrate precautions and adapted techniques for management of ADLs. Electronically Signed eSign Date and Time Kourtney Singh 08/07/21 1324 Normal [facility] Orthopedic Progress Noteon 0 08-07-2021 Orthopedic Progress Note [facility] Patient: EDVIN TRISTAN [address] [place] [id number] MR#: [id number] PROGRESS NOTE - Orthopedic : 58 Service Date: 08/07/21 1228 Subjective Summary of Stay s/p bilteral lumbar L 2-L 5 decompressive laminectomy POD#1 Events since last encounter none Subjective This is a 60 y/o F with a PMHx of HTN, GERD and S/p cholecystectomy who is now s/p bilteral lumbar L 2-L 5 decompressive laminectomy POD#1. Pt c/o post op pain at a /10. She states she has not ambulated much [...] Intake AND Output Verdana 4d 08/07 2300 05 2300 Intake Total 1250 870 Output Total [...] with JUANCHO drains (2) incorporated. [place]. Dorsi/plantarflexion 5/5. Neurovascularly intact. Sensations intact. Plan: Pt to stay another night tocontinue to progress towards mobility goals with PT/OT. Pt will be reassessed tomorrow morning with plans for possible discharge at that time. Pt and Dr. Millan are both aware and agree to this plan. IM: continue monitoring PT/OT: continue evaluating and treating DVT PPx: ankle pumps, ambulation, SCDs Pain control: Percocet Electronically Signed eSign Date and Time Mark Harp 08/07/21 1235 Noy Millan MD Normal [facility] z OT Inpatient Evaluationon 08-07-2021 z OT Inpatient Evaluation [facility] Patient: EDVIN TRISTAN [address] [place] [address] MR#: [id number] OT INPATIENT EVALUATION : 58 Inpatient OT HPI Date of Service 08/07/21 Time In: 1053 Time Out: 1137 Total Treatment Time (Mins) 42 Visit Reason LUMBAR STENOSIS Surgery Type/Date s/p bilAteral lumbar L 2-L 5 decompressive laminectomy Referral Date 08/06/21 Tx Diagnosis: LOW BACK PAIN Insurance Name [facility] Hospital Course This is a 60 y/o [...] and IADLs, 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 Pt has large dog and spouse [...] and cooperativ (more content not included)... Normal [facility] z PT Inpatient Evaluationon 08-07-2021 z PT Inpatient Evaluation [facility] Patient: EDVIN TRISTAN [address] [place] [address] MR#: [id number] PT INPATIENT EVALUATION : 58 Service Date: 08/07/21 1127 Inpatient PT HPI Date of Service 08/07/21 Time In: 0945 Time Out: 1025 Total Treatment Time (Mins) 40 Room Number 534 Visit Reason LUMBAR STENOSIS Surgery Type: [place] L2-S1 decompression lami Surgery Date: 08/06/21 Referral Date 08/06/21 Tx Diagnosis: LOW BACK PAIN Insurance Name [facility] Hospital Course 60 y.o female at [facility] for above sx d/t lumbar stenosis /c [...] provide some assist upon d/c and her restorationist friends may assist /c some meals. Objective [...] ability to (more content not included)... Normal [facility] z PT Inpatient Progress Note on 08-07-2021 z PT Inpatient Progress Note [facility] Patient: EDVIN TRISTAN [address] [place] [address] MR#: [id number] PT INPATIENT PROGRESS NOTE : 58 Service [...] Signed eSign Date and Time [place] HOG FEEDER 08/07/21 1315 Norma Diaz PT Normal [facility] Cardiology Consultationon Cardiology Consultation [facility] Patient: EDVIN TRISTAN [address] [place] [address] MR#: [id number] CONSULTATION - Cardiology : Service Date: 08/06/21 1550 History of Present Illness Referring Physician Noy Millan MD Consulted Physician Tim Beckford MD HPI [...] 713 Pulse 68 08/06 713 Resp 20 05/06 0714 Appearance Appearance Appears well, Awake, Alert, No [...] RES, Robert J. MD 08/07/21 1100 Normal [facility] EKGon 08-06-2021 Electrocardiogram Acquired on 08/06/2021 [...] ECG No previous ECGs available Confirmed by BRUNO CLARK MD ([id number]) on 08/12/2021 2:43:36 PM Referred By: QUINCY Confirmed By:BRUNO CLARK MD [phone] 2021 --- [facility] PT NAME: EDVIN TRISTAN MR#: [id number] [address] [place] [address] ACCT: [id number] : 58 EKG REPORT Normal [facility] GLUCOSE METERon 08-06-2021 Glucose [Mass/Vol] 123 mg/dL High 70-99 [facility] Comment on above: Result Comment: Fast ing GLUCOSE reference range has been updated per (ADA) [place] Diabetes [employer]'s recommendation. 06/26/2018 Performed By: #### L 500.36851 #### Test performed at: [place] [address] GLYCO HEMOon 08-06-2021 HbA1c (Bld) [Mass fraction] 6.1 % Normal [facility] Comment on above: Order Comment: CBN: YES Comments To Phleb: WILL DRAW IN PACU AFTER SURGERY [place]: MAIN Result Comment: Maximino cash Diagnosis HbA1c (%) --------- Diabetic > 6.4 Prediabetes 5.7-6.4 Normal < 5.7 Performed By: #### L 500.36835 #### Test performed at: [place] [address] Internal Medicine Consultati onon 08-06-2021 Internal Medicine Consultation [facility] Patient: EDVIN TRISTAN [address] [place] [address] MR#: [id number] CONSULTATION - Internal Medicine : 58 Service Date: 08/06/21 1433 History of Present Illness Referring Physician Noy Millan MD Consulted Physician Paulo Paul MD Reason [...] IVF. Post-op drainage is minimal, has [address], uriarte in place. Pt [...] Extremity Normal appearance Assessment/Plan Lab Laboratory Tests 05/06 05/06 1000 0829 Chemistry POC Glucose (70 - [...] Attending Attest (more content not included)... Normal [facility] OPERATIVE REPORTon OPERATIVE REPORT NAME: EDVIN TRISTAN MR#: [id number] SURGEON: Noy Millan MD DATE OF SURGERY: 08/06/2021 OPERATIVE REPORT PREOPERATIVE DIAGNOSIS: Stenosis with neurogenic claudication. POSTOPERATIVE DIAGNOSIS: Stenosis with neurogenic claudication. PROCEDURE: Bilateral L2-3, L3-4, L4-5, and L5-S1 decompressive laminectomy. PMP CERTIFIED PROJECT MANAGER: Bettie. PROCEDURE IN DETAIL: After anesthesia, the [...] the traversing L5 root was well decompressed. [facility] PT NAME: EDVIN TRISTAN MR#: [id number] [address] [place] [address] ACCT: [id number] : 58 OPERATIVE REPORT At L3-4, the [...] with st (more content not included)... Normal [facility] Primary Residenton 2 Primary Resident [facility] Pt Name: EDVIN TRISTAN MR#: [id number] [address] [place] [address] ACCT: [id number] [place] [address] : 58 Service Date: 08/06/21 1433 Primary Resident/Call Primary Resident: [id number] [place] After Hours Call: [phone] Blue Team Electronically Signed eSign Date and Time Montana Sánchez Resident 08/06/21 1433 Normal [facility] LUMBAR SPINE 2 OR 3 VIEWSon 08-05-2021 LUMBAR SPINE 2 OR 3 VIEWS STUDY: LUMBAR SPINE 2 OR 3 VIEWS; 08/06/2021 12:51 pm INDICATION: L2-S1 DECOMPRESSION, LAMINECTOMY. COMPARISON: None. ACCESSION NUMBER(S): [id number] ORDERING CLINICIAN: Noy Millan FINDINGS: Intraoperative fluoroscopy lumbar spine for localization. IMPRESSION: As above Normal [facility] CBC W/DIFFon 08-03-2021 BASO ABS 0.1 K/uL Normal 0.0-0.2 [facility] Comment on above: Performed By: #### L 200.27363 #### Test performed at: [place] [address] Basophils/100 WBC (Bld) 0.9 % Normal [facility] Comment on above: Performed By: #### L 200.49285 #### Test performed at: [address] [address] EOS ABS 0.2 K/uL Normal 0.0-0.5 [facility] Comment on above: Performed By: #### L 200.95449 #### Test performed at: [address] [address] Eosinophils/100 WBC (Bld) 3.0 % Normal [facility] Comment on above: Performed By: #### L 200.88044 #### Test performed at: [address] [address] Erythrocyte distribution width (RBC) [Ratio] 12.3 % Normal 11.5-14.5 [facility] Comment on above: Performed By: #### L 200.70695 #### Test performed at: [address] [address] Hematocrit (Bld) [Volume fraction] 44.5 % Normal 36.0-48.0 [facility] Comment on above: Performed By: #### L 200.18876 #### Test performed at: [address] [address] Hemoglobin (Bld) [Mass/Vol] 14.9 g/dL Normal 12.0-15.0 [facility] Comment on above: Performed By: #### L 200.94488 #### Test performed at: [address] [address] IG % 0.3 % Normal [facility] Comment on above: Performed By: #### L 200.95076 #### Test performed at: [address] [address] IG ABS 0.02 K/uL Normal 0-0.05 [facility] Comment on above: Performed By: #### L 200.28629 #### Test performed at: [address] [address] Lymphocytes (Bld) [#/Vol] 2.0 10*3/uL Normal 1.2-3.5 [facility] Comment on above: Performed By: #### L 200.93752 #### Test performed at: [address] [address] Lymphocytes/100 WBC (Bld) 27.0 % Normal [facility] Comment on above: Performed By: #### L 200.18847 #### Test performed at: [address] [address] MCH (RBC) [Entitic mass] 29.7 pg Normal 25.4-34.6 [facility] Comment on above: Performed By: #### L 200.42568 #### Test performed at: [address] [address] MCHC (RBC) [Mass/Vol] 33.5 g/dL Normal 31.5-36.5 [facility] Comment on above: Performed By: #### L 200.82704 #### Test performed at: [address] [address] MCV (RBC) [Entitic vol] 88.8 fL Normal 79.0-98.0 [facility] Comment on above: Performed By: #### L 200.57852 #### Test performed at: [address] [address] MONO ABS 0.7 K/uL Normal 0.0-1.0 [facility] Comment on above: Performed By: #### L 200.31479 #### Test performed at: [address] [address] Monocytes/100 WBC (Bld) 8.9 % Normal [facility] Comment on above: Performed By: #### L 200.24830 #### Test performed at: [address] [address] NEUTROPHIL ABS 4.5 K/uL Normal 1.4-6.6 [facility] Comment on above: Performed By: #### L 200.18964 #### Test performed at: [address] [address] Neutrophils/100 WBC (Bld) 59.9 % Normal [facility] Comment on above: Performed By: #### L 200.97399 #### Test performed at: [address] [address] NRBC # 0.000 K/uL Normal 0-0.012 [facility] Comment on above: Performed By: #### L 200.66522 #### Test performed at: [address] [address] NRBC % 0.0 /100 WBC Normal 0-0.2 [facility] Comment on above: Performed By: #### L 200.52951 #### Test performed at: [address] [address] Platelet mean volume (Bld) [Entitic vol] 12.4 fL Normal 8.7-12.4 [facility] Comment on above: Performed By: #### L 200.18936 #### Test performed at: [address] [address] Platelets (Bld) [#/Vol] 180 10*3/uL Normal 140-440 [facility] Comment on above: Performed By: #### L 200.19896 #### Test performed at: [address] [address] RBC (Bld) [#/Vol] 5.01 10*6/uL Normal 3.5-5.5 [facility] Comment on above: Performed By: #### L 200.85038 #### Test performed at: [address] [address] WBC (Bld) [#/Vol] 7.6 10*3/uL Normal 3.9-11.0 [facility] Comment on above: Performed By: #### L 200.18361 #### Test performed at: [address] [address] CHEST PA/AP & LATERALon 05- CHEST PA/AP & LATERAL STUDY: CHEST PA/AP LATERAL; 08/03/2021 2:07 pm INDICATION: PREOP. COMPARISON: None. ACCESSION NUMBER(S): [id number] ORDERING CLINICIAN: Sari Bueno FINDINGS: The lungs are clear without apparent pleural effusion. Mild cardiomegaly. Otherwise unremarkable mediastinum, lamin, and pulmonary vasculature. IMPRESSION: No active disease in the chest. Normal [facility] COMP META PANELon 08-03-2021 Albumin [Mass/Vol] 3.6 g/dL Normal 3.4-5.0 [facility] Comment on above: Performed By: #### L 500.34070, L500.17207 #### Test performed at: [address] [address] ALK PHOS TOTAL 102 U/L Normal 45-117 [facility] Comment on above: Performed By: #### L 500.62215, L500.66892 #### Test performed at: [address] [address] ALT [Catalytic activity/Vol] 29 U/L Normal 13-61 [facility] Comment on above: Performed By: #### L 500.20058, L500.99324 #### Test performed at: [address] [address] AST [Catalytic activity/Vol] 19 U/L Normal 15-37 [facility] Comment on above: Performed By: #### L 500.03976, L500.09507 #### Test performed at: [address] [address] BILI TOTAL 0.5 mg/dL Normal 0.2-1.0 [facility] Comment on above: Performed By: #### L 500.38559, L500.57872 #### Test performed at: [address] [address] Calcium [Mass/Vol] 9.4 mg/dL Normal 8.5-10.1 [facility] Comment on above: Performed By: #### L 500.01896, L500.58883 #### Test performed at: [address] [address] Chloride [Moles/Vol] 108 mmol/L High 98-107 [facility] Comment on above: Performed By: #### L 500.94605, L500.32176 #### Test performed at: [address] [address] CO2 [Moles/Vol] 29 mmol/L Normal 21-32 [facility] Comment on above: Performed By: #### L 500.89508, L500.10083 #### Test performed at: [address] [address] Creatinine [Mass/Vol] 1.080 mg/dL High 0.550-1.020 [facility] Comment on above: Performed By: #### L 500.37043, L500.56003 #### Test performed at: [address] [address] Glucose [Mass/Vol] 169 mg/dL High 70-99 [facility] Comment on above: Result Comment: Fast ing GLUCOSE reference range has been updated per (ADA) [place] [employer]'s recommendation. 06/26/2018 Performed By: #### L 500.71389, L500.65997 #### Test performed at: [address] [address] Potassium [Moles/Vol] 4.2 mmol/L Normal 3.5-5.1 [facility] Comment on above: Performed By: #### L 500.19218, L500.31504 #### Test performed at: [address] [address] Protein [Mass/Vol] 7.0 g/dL Normal 6.4-8.2 [facility] Comment on above: Performed By: #### L 500.36380, L500.22485 #### Test performed at: [address] [address] Sodium [Moles/Vol] 140 mmol/L Normal 136-145 [facility] Comment on above: Performed By: #### L 500.34788, L500.16667 #### Test performed at: [address] [address] Urea nitrogen [Mass/Vol] 16 mg/dL Normal 7-18 [facility] Comment on above: Performed By: #### L 500.59586, L500.72525 #### Test performed at: [place] [id number] CONSULTATION REPORTon 2021 CONSULTATION REPORT NAME: EDVIN TRISTAN MR#: [id number] DYNAMOMETER TESTER ENGINE: Sari Bueno MD DATE OF CONSULTATION: 08/03/2021 CONSULTATION HISTORY OF PRESENT ILLNESS: Ms. Tristan is a 60-year-old female and I have been consulted by Dr. Millan for preoperative clearance before undergoing bilateral L2-L3, [...] am going to do a chest x- [facility] PT NAME: EDVIN TRISTAN MR#: [id number] [address] [place] [address] ACCT: [id number] : 58 CONSULTATION ray, CBC and diff, and a CMP on her and her functional capacity is around 4 METS. Surgical risk is [id number], higher exam is within acceptable limits. Pending the labs, she is cleared for anesthesia with acceptable risk. Thank you for the courtesy of this consultation. SARI BUENO MD MS/MODL/[id number] E/S: Sari Bueno MD 08/04/21 1514 Electronically Signed [facility] PT NAME: EDVIN TRISTAN MR#: [id number] [address] [place] [address] ACCT: [id number] : 58 CONSULTATION Normal [facility] CORONAVIRUSon 08-03-2021 SARS-CoV-2 (COVID-19) RNA MARIELLA+probe [...] the FDA website: https://www.fda.gov/ MedicalDevices/Safet y/ EmergencySituations/ iiu055344.htm COVID-19 Negative for COVID-19 (SARS-CoV-2 RNA) Normal [facility] Comment on above: Order Comment: CBN: YES [place]: MAIN COVID Testing: PRE-OP/PROCEDURE SCREEN AGE at Spec DOMI 60 Report age at specimen DOMI? Y First test: YES Employed in Healthcare: NO Symptomatic as defined by CDC: NO Hospitalized for COVID-19? NO ICU: NO Resident in a Congregated Care Setting: NO Order Date: 08/03/21 : Not Performed By: #### M 400.75333 #### Test performed at: [place] [address] GFR ESTIMATEon 08-03-2021 IF AMER > 60 Normal > 60 [facility] Comment on above: Result Comment: eGFR (Estimated GFR) Units of measure:mL/min/1.73 meters sq. *CALCULATION REVISED 01/20/2015;IDMS-traceable MDRD equation eGFR is derived from the reexpressed MDRD Study equation using the following parameters: serum creatinine, age, gender and race. An eGFR<60 mL/min/1.73m2 for >3 months is consistent with chronic kidney disease. Refer to KDOQI guidelines for clinical interpretation. Performed By: #### L 500.56748, L500.72343 #### Test performed at: [address] [address] IF non-AFR AMER 52 Low > 60 [facility] Comment on above: Performed By: #### L 500.00983, L500.56412 #### Test performed at: [place] [address] COVID Quick Testingon 2020 Result Negative [email or web address] Other Cult,Urine,CCon 07-25-2017 Cult,Urine,CC Specimen Description .URINE Performed at [address] [place] [address] ([phone] Special Requests .CLEAN CATCH URINE Performed at [address] [place] [id number] ([phone] Culture NO SIGNIFICANT GROWTH Performed at [address] [id number] [phone] Report Status FINAL 07/25/2017 Normal [facility] Comment on above: Performed By: #### C LAISHA ####[address] [phone] [id number] Progress Noteon 07-25-2017 HIM IP Note OR Flux Tube Attendant Normal [facility] Urinalysis w/ Microon 2017 ----- Normal [facility] Comment on above: Performed By: #### U AMIC ####[address] [place] [address] Acetaminophen mass conc Negative Normal NEG [facility] Comment on above: Performed By: #### U AMIC ####[address] [place] [address] Bilirubin (direct) Negative Normal NEG [facility] Comment on above: Performed By: #### U AMIC ####[address] [place] [address] Comment NOT REPORTED Normal [facility] Comment on above: Performed By: #### U AMIC ####[address] [place] [address] Epithelial, Renal NOT REPORTED Normal 0 [facility] Comment on above: Performed By: #### U AMIC ####[address] [place] [address] Hemoglobin mass conc (Bld) Negative Normal NEG [facility] Comment on above: Performed By: #### U AMIC ####[address] [place] [address] Mucus Strands NOT REPORTED Normal NONE [facility] Comment on above: Performed By: #### U AMIC ####[address] [place] [address] Nitrite,Ur Negative Normal NEG [facility] Comment on above: Performed By: #### U AMIC ####[address] [place] [address] Other Observations NOT REPORTED Normal NREQ [facility] Comment on above: Performed By: #### U AMIC ####[address] [place] [address] Trichomonas NOT REPORTED Normal NONE [facility] Comment on above: Performed By: #### U AMIC ####[address] [place] [address] Turbidity TURBID Abnormal CLEAR [facility] Comment on above: Performed By: #### U AMIC ####[address] [place] [address] Urine WBC's 0 TO 2 Normal 0-5 [facility] Comment on above: Performed By: #### U AMIC ####[address] [place] [address] Urine, amorphous sediment presence in sediment 4+ Abnormal NONE [facility] Comment on above: Result Comment: Perf ormed at [facility] [address] [place] [address] Performed By: #### U AMIC ####[address] [place] [address] Urine, bacteria in sediment NOT REPORTED Normal [facility] Comment on above: Performed By: #### U AMIC ####[address] [place] [address] Urine, casts in sediment NOT REPORTED Normal [facility] Comment on above: Performed By: #### U AMIC ####[address] [place] [address] Urine, color YELLOW [facility] on above: Performed By: #### U AMIC ####[address] [place] [address] Urine, crystals in sediment NOT REPORTED Normal [facility] Comment on above: Performed By: #### U AMIC ####[address] [place] [address] Urine, epithelial cells in sediment 0 TO 2 Normal 0-25 [facility] Comment on above: Performed By: #### U AMIC ####[address] [place] [address] Urine, erythrocytes None Normal 0-2 [facility] Comment on above: Performed By: #### U AMIC ####[address] [place] [address] Urine, glucose presence Negative Normal NEG [facility] Comment on above: Performed By: #### U AMIC ####[address] [place] [address] Urine, leukocyte esterase presence Negative Normal NEG [facility] Comment on above: Performed By: #### U AMIC ####[address] [place] [address] Urine, pH 6.0 [pH] Normal 5.0-9.0 [facility] Comment on above: Performed By: #### U AMIC ####[address] [place] [address] Urine, protein presence Negative Normal NEG [facility] Comment on above: Performed By: #### U AMIC ####[address] [place] [address] Urine, specific gravity >1.030 High 1.010-1.020 [facility] Comment on above: Performed By: #### U AMIC ####[address] [place] [address] Urine, yeast presence in sediment NOT REPORTED Normal NONE [facility] Comment on above: Performed By: #### U AMIC ####[address] [place] [address] Urobilinogen,Ur Normal Normal NORM [facility] Comment on above: Performed By: #### U AMIC ####[address] [place] [address] Cult,Urine,CCon 04-14-2017 Cult,Urine,CC Specimen Description .URINE Performed at [address] [place] [address] Special Requests .CLEAN CATCH URINE Performed at [address] [place] [address] Culture NO SIGNIFICANT GROWTH Performed at [facility] [address] [place] [address] Report Status FINAL 04/14/2017 Normal [facility] Comment on above: Performed By: #### C LAISHA ####[place] [address] [place] [phone] [place] [address] Progress Noteon 04-14-2017 HIM IP Note OR Flux Tube Attendant Normal [facility] Urinalysis w/ Microon 2017 ----- Normal [facility] Comment on above: Performed By: #### U AMIC ####[address] [place] [address] Acetaminophen mass conc Negative Normal NEG [facility] Comment on above: Performed By: #### U AMIC ####[address] [place] [address] Bilirubin (direct) Negative Normal NEG [facility] Comment on above: Performed By: #### U AMIC ####[address] [place] [address] Comment NOT REPORTED Normal [facility] Comment on above: Performed By: #### U AMIC ####[address] [place] [address] Epithelial, Renal NOT REPORTED Normal 0 [facility] Comment on above: Performed By: #### U AMIC ####[address] [place] [address] Hemoglobin mass conc (Bld) Negative Normal NEG [facility] Comment on above: Performed By: #### U AMIC ####[address] [place] [address] Mucus Strands NOT REPORTED Normal NONE [facility] Comment on above: Performed By: #### U AMIC ####[address] [place] [address] Nitrite,Ur Negative Normal NEG [facility] Comment on above: Performed By: #### U AMIC ####[address] [place] [address] Other Observations NOT REPORTED Normal NREQ [facility] Comment on above: Performed By: #### U AMIC ####[address] [place] [address] Trichomonas NOT REPORTED Normal NONE [facility] Comment on above: Performed By: #### U AMIC ####[address] [place] [address] Turbidity CLEAR Normal CLEAR [facility] Comment on above: Performed By: #### U AMIC ####[address] [place] [address] Urine WBC's 0 TO 2 Normal 0-5 [facility] Comment on above: Performed By: #### U AMIC ####[address] [place] [address] Urine, amorphous sediment presence in sediment NOT REPORTED Normal NONE [facility] Comment on above: Performed By: #### U AMIC ####[address] [place] [address] Urine, bacteria in sediment TRACE Abnormal NONE [facility] Comment on above: Result Comment: Perf ormed at [address] [place] [address] Performed By: #### U AMIC ####[address] [place] [address] Urine, casts in sediment NOT REPORTED Normal [facility] Comment on above: Performed By: #### U AMIC ####[address] [place] [address] Urine, color YELLOW Normal YEL [facility] Comment on above: Performed By: #### U AMIC ####[address] [place] [address] Urine, crystals in sediment NOT REPORTED Normal NONE [facility] Comment on above: Performed By: #### U AMIC ####[address] [place] [address] Urine, epithelial cells in sediment 2 TO 5 Normal 0-25 [facility] Comment on above: Performed By: #### U AMIC ####[address] [place] [address] Urine, erythrocytes None Normal 0-2 [facility] Comment on above: Performed By: #### U AMIC ####[address] [place] [address] Urine, glucose presence Negative Normal NEG [facility] Comment on above: Performed By: #### U AMIC ####[address] [place] [address] Urine, leukocyte esterase presence Negative Normal NEG [facility] Comment on above: Performed By: #### U AMIC ####[address] [place] [address] Urine, pH 6.5 [pH] Normal 5.0-9.0 [facility] Comment on above: Performed By: #### U AMIC ####[address] [place] [address] Urine, protein presence Negative Normal NEG [facility] Comment on above: Performed By: #### U AMIC ####[address] [place] [address] Urine, specific gravity 1.020 Normal 1.010-1.020 [facility] Comment on above: Performed By: #### U AMIC ####[address] [place] [address] Urine, yeast presence in sediment NOT REPORTED Normal NONE [facility] Comment on above: Performed By: #### U AMIC ####[address] [place] [address] Urobilinogen,Ur Normal Normal NORM [facility] Comment on above: Performed By: #### U AMIC ####[address] [place] [address] Social History Date Type Detail Facility Start: 1960 Sex Assigned At Female F [facility] Sex Assigned At [facility] Tobacco smoking status No Smokin g Status Entered [facility] Vital Signs Date Time Vital Sign Value Performing Clinician Facility 08-25-2023 10:21-0400 Body height 163.83 cm [facility] 08-25-2023 10:21-0400 Body mass index (BMI) [Ratio] 39.2 kg/m2 [facility] 08-25-2023 10:21-0400 Body weight 105.46 kg [facility] 08-25-2023 10:21-0400 Diastolic blood pressure 63 mm[Hg] [facility] 08-25-2023 10:21-0400 Heart rate 61 /min [facility] 08-25-2023 10:21-0400 Respiratory rate 20 /min [facility] 08-25-2023 10:21-0400 Systolic blood pressure 116 mm[Hg] [facility] 08-09-2023 15:10-0400 Body height 163.83 cm [facility] 08-09-2023 15:10-0400 Body mass index (BMI) [Ratio] 39.2 kg/m2 [facility] 08-09-2023 15:100400 Body weight 105.29 kg [facility] 08-09-2023 15:10-0400 Diastolic blood pressure 69 mm[Hg] [facility] 08-09-2023 15:10-0400 Heart rate 65 /min [facility] 08-09-2023 15:10-0400 Respiratory rate 20 /min [facility] 08-09-2023 15:10-0400 Systolic blood pressure 127 mm[Hg] [facility] 02-06-2023 15:30-0500 Body height 163.83 cm Ethan Ball Other [email or web address] Other 02-06-2023 15:30-0500 Body mass index (BMI) [Ratio] 37.24 kg/m2 Ethan Ball Other [email or web address] Other 02-06-2023 15:30-0500 Body weight 99.97 kg Ethan Ball Other [email or web address] Other 02-06-2023 15:30-0500 Diastolic blood pressure 68 mm[Hg] Ethan Ball Other [email or web address] Other 02-06-2023 15:30-0500 Respiratory rate 16 /min Ethan Ball Other [email or web address] Other 02-06-2023 15:30-0500 Systolic blood pressure 112 mm[Hg] Ethan Ball Other [email or web address] Other 01-11-2023 11:45-0400 Body height 163.83 cm Ethan Ball Other [email or web address] Other 01-11-2023 11:45-0400 Body mass index (BMI) [Ratio] 36.74 kg/m2 Ethan Ball Other [email or web address] Other 01-11-2023 11:45-0400 Body weight 98.61 kg Ethan Ball Other [email or web address] Other 01-11-2023 11:45-0400 Diastolic blood pressure 75 mm[Hg] Ethan Ball Other [email or web address] Other 01-11-2023 11:45-0400 Respiratory rate 12 /min Ethan Ball Other [email or web address] Other 01-11-2023 11:45-0400 Systolic blood pressure 112 mm[Hg] Ethan Ball Other [email or web address] Other 04-11-2022 16:30-0500 Body height 163.83 cm Ethan Ball Other [email or web address] Other 04-11-2022 16:30-0500 Body mass index (BMI) [Ratio] 39.78 kg/m2 Ethan Ball Other [email or web address] Other 04-11-2022 16:30-0500 Body weight 106.78 kg Ethan Ball Other [email or web address] Other 04-11-2022 16:30-0500 Diastolic blood pressure 74 mm[Hg] Ethan Ball Other [email or web address] Other 04-11-2022 16:30-0500 Respiratory rate 12 /min Ethan Ball Other [email or web address] Other 04-11-2022 16:30-0500 Systolic blood pressure 112 mm[Hg] Ethan Ball Other [email or web address] Other 01-10-2021 13:30-0400 Body temperature 96.7 [degF] Celine Christian Other [email or web address] Other 01-10-2021 13:30-0400 SaO2% (BldA) [Mass fraction] 97 % Celine Gonzales Other [email or web address] Other Clinical Notes 01-10-2021 to 02-06-2023 Note Date [...] Lisinopril to 5mg and monitoring BP closely [email or web address] Other 10-11-2023 Evaluation note* Encounter Date Diagnosis [...] Colon cancer screeni ng (ICD-10 - Z12.11) [email or web address] Other 05-10-2023 Evaluation note* Encounter Date Diagnosis [...] Pain in left hip (ICD-10 - M25.552) [email or web address] Other 02-06-2023 Evaluation note* Encounter Date Diagnosis Assessment Notes Treatment Notes Treatment Clinical Notes May, Type 2 diabetes mellitus with hyperglycemia, without long-term current use of insulin (ICD-10 - E11.65) [email or web address] Other 01-11-2023 Evaluation note* Encounter Date Diagnosis Assessment Notes Treatment Notes Treatment Clinical Notes Apr, Gastroesophageal ref lux disease with esophagitis without hemorrhage (ICD-10 - K21.00) Apr, Type 2 diabetes mellitus with hyperglycemia, without long-term current use of insulin (ICD-10 - E11.65) [email or web address] Other 01-09-2023 Evaluation note* Encounter Date Diagnosis [...] (ICD-10 - N60.99) Close f/u w/ Oncology [email or web address] Other 01-08-2023 Evaluation note* Encounter Date Diagnosis Assessment Notes Treatment Notes Treatment Clinical Notes Apr, Type 2 diabetes mellitus with hyperglycemia, without long-term current use of insulin (ICD-10 - E11.65) [email or web address] Other 05-06-2022 NoteNAME: EDVIN TRISTAN MR#: [id number] ADMIT DATE: 08/06/2021 DISCHARGE DATE: 08/08/2021 DISCHARGE [...] every hour, and perform incentive spirometer 10 [facility] PT NAME: EDVIN TRISTAN MR#: [id number] [address] [place], [place] [address] ACCT: [id number] : 58 DISCHARGE SUMMARY times per hour while awake. She was also advised to get all of her prescriptions filled as soon as possible and continue taking all of her medications as directed and keep all of her outpatient followup appointment as scheduled. She is being discharged back to her home with self-care. NOY MILLAN MD MB/MODL/[id number] E/S: Noy Millan MD 09/15/21 1121 Electronically Signed [facility] PT NAME: EDVIN TRISTAN MR#: [id number] [address] [place], [place] [address] ACCT: [id number] : 58 [facility]* Encounter Date Diagnosis Assessment [...] Patient care instructions given in writting by [facility] Care At Home document. [facility] [employer] Other Evaluation + Plan note No data available for this section [facility] [employer] Other Evaluation note* Diagnosis Onset Date Resolution Status Hypertension acute Nicotine addiction acute Type 2 diabetes mellitus with hyperglycemia [facility] Work Phone: Evaluation note* Diagnosis Onset Date Resolution Status Cardiac murmur acute Hypertension acute Nicotine addiction acute Type 2 diabetes mellitus with hyperglycemia [facility] Work Phone: History general Narrative - Reported* Type Description [...] spine Medical History Controlled type 2 diabetes juan a jimenez with hyperglycemia Surgical History decompression laminectomy of aminta mbar spine Surgical History endometrial biopsy Surgical History partial mastectomy Surgical History right breast biopsy Surgical History cholecystectomy Surgical History endometrial biopsy Hospitalization History see surgical history [email or web address] Other Hospital Discharge instructions No data available for this section [facility] No data available for this section [facility] Summary Purpose Family History No Family History Records FoundNo Family History Records FoundNo Family History Records FoundNo Family History Records Found Advance Directives Advance Directive Response Recorded Date/ Time Advance Directives No May 10:45am Chief Complaint and Reason for Visit Chief Complaint Amb Documentation discuss diabetic medication Reason for Visit Hypertension Nicotine addiction Type 2 diabetes mellitus with hyperglycemia Chief Complaint Amb Documentation discuss diabetic medication swollen tounge, dysphagia Reason for Visit Cardiac murmur Hypertension Nicotine addiction Type 2 diabetes mellitus with hyperglycemia Additional Source Comments INFORMATION SOURCE (unrecogn ized section and content) DATE CREATED AUTHOR 09/21/2017 [facility] DATE CREATED AUTHOR AUTHOR'S ORGANIZ ATION 09/16/2021 [facility] DATE CREATED AUTHOR AUTHOR'S ORGANIZ ATION 08/03/2022 [facility] DATE CREATED AUTHOR AUTHOR'S ORGANIZ ATION 10/19/2022 [facility] REASON FOR VISIT (unrecogniz ed section and content) #15 MAROON CAR- SINUS, COUGH PRODUCTIVE COUGH , EARS, CHEST CONGESTION, COVID Provider VisitNo Information5 MONTH BJMedicationNo InformationRefill3 month Follow up, congestion sinuses allergiesWeight CheckNo InformationwellnessXray resultsHip injectiontrochanteric bursitis injectionrefill Patient Care team informatio n (unrecognized section and content) Team Status: Active Member Role Status Dates Ethan Hines DO Primary Care Provider Active Team Status: Active Member Role Status Dates Ethan iHnes DO Primary Care Provider Active Start: July 28, 2023 ARMOND Cardona Attending Provider Active Start : July 28, 2023 Team Status: Active Member Role Status Dates Ethan Hines DO Primary Care Provide r, Attending Provider Active Start: August 04, 2023 Team Status: Inactive Member Role Status Dates Ethan Hines DO Primary Care Provide r, Attending Provider Active Start: August 09, 2023 End: August 09, 2023 Team Status: Inactive Member Role Status Dates Ethan Hines , DO Primary Care Provide r, Attending Provider Active Start: August 25, 2023 End: August 25, 2023 Goals (unrecognized section and content) Goals may be documented in a n alternate section FOR RECORDS PERTAINING TO PATIENTS WHO ARE [...] BE BASED ON THE PRIMARY CLINICAL RECORDS. [employer] provides no warranty or guarantee of the accuracy or completeness of information in this document.
== END 2023-09-11 13:56 | disposition home or self-care (01) ==
LOC: CARD 13:55
PROVIDERS: PCP Internal Medicine; Visit Provider Internal Medicine
DX: R01.1 Cardiac murmur, unspecified (principal)
CPT/HCPCS: 93306

== ENCOUNTER 2023-10-26 11:19 | Outpatient (OUT) | payer OTHER, SELFPAY ==
--- NOTE | 2023-10-26 11:21 | MM_ITS ---
Patient Name: EDVIN TRISTAN MR#: [id number] : 1960 Exam Date: 10/26/2023 Ordering Doctor: DR DYANA REINOSO M.D. RADIOLOGY REPORT PROCEDURE: MM TOMOSYNTHESIS SCREENING BI COMPARISON: MG MAMM SCREEN 3D WILL CAD, 10/19/2021. MM TOMOSYNTHESIS SCREENING BI, 10/20/2022. INDICATIONS: Screening Calculator Name NCI Breast Cancer Risk Assessment Tool 5 Year Breast Cancer Risk 4.50% Lifetime Breast Cancer Risk 17.10% Personal Breast Cancer No Personal Ovarian Cancer No Treatments None Family Cancers None LOCATION: [facility] BREAST COMPOSITION: The breasts are heterogeneously dense,which may obscure small masses. FINDINGS: DIAGNOSTIC CATEGORY 2--BENIGN FINDING. NO CHANGE FROM COMPARISON. Scattered benign-appearing nodules are present. Scattered benign-appearing calcifications are present. RIGHT BREAST: No significant suspicious finding. Stable micro clip marker upper outer quadrant, anterior breast LEFT BREAST: No significant suspicious finding. RECOMMENDATIONS: ROUTINE MAMMOGRAM AND CLINICAL EVALUATION IN 12 MONTHS. PLEASE NOTE: A NORMAL MAMMOGRAM DOES NOT EXCLUDE THE POSSIBILITY OF BREAST CANCER. A CLINICALLY SUSPICIOUS PALPABLE LUMP SHOULD BE BIOPSIED. Dictated by: Chavez Hinojosa MD on 10/26/2023 at 13:57 Approved by: Chavez Hinojosa MD on 10/26/2023 at 14:00
--- OUTSIDE RECORDS SUMMARY | 2023-10-26 11:41 | XMS_ITS | CCD ---
Author Organization [facility] Care Team Providers Care Inspector Scales Name Role Phone UBALDO LOPEZ Unavailable Unavailable BALL, ETHAN E Unavailable Unavailable UBALDO LOPEZ Unavailable Unavailable BALL, ETHAN E Unavailable Unavailable Celine Gonzales Unavailable Ethan Hines [...] Unavailable REQUEST, NONE LISTED Attending Unavaila ble DONNY, DR SCHNEIDER Primary Care Unavailable REQUEST, DR FUNG LISTED Consulting Unavaila ble REQUEST, DR FUNG LISTED Admitting Unavaila ble BALL, DR SCHNEIDER Primary Care Unavailable BALL, DR SCHNEIDER Consulting Unavailable REQUEST, NONE LISTED Admitting Unavaila ble REQUEST, NONE LISTED Attending Unavaila ble REQUEST, DR FUNG LISTED Consulting Unavaila ble BALL, DR SCHNEIDER Primary Care Unavailable REQUEST, NONE LISTED Admitting Unavaila ble REQUEST, DR FUNG LISTED Attending Unavaila ble ETHAN HINES Primary Care Physician Robin Zelaya Attending Unavailable Robin Zelaya Admitting Unavailable Allergies Allergy Classification Reported Allergen(s) Allergy Type Date of Onset Reaction(s) Facility [facility]io[facility]onists (1 source) traMADol Drug Allergy 4 [facility] (18 sources) traMADol Drug Allergy 4 [facility] (6 sources) Erythromycin Drug Allergy 5 Unknown Reaction [facility] (1 source) Sulfonamides (Antibiotic) Drug allergy (disorder) 5 [facility] (1 source) traMADol Drug Allergy 5 [facility] (6 sources) Erythromycin Drug Allergy Unknown [facility] Other Medications Current Medications Medication Drug Class(es) [...] days Active famotidine 20 mg oral tablet (18 sources) Histamine-2 Receptor Antagonist Start: 08-09-2023 take 20 mg by mouth twice daily Famotidine Active 20 MG PO Twice daily August 09, 2023 12:00am take 1 tablet by johnie th twice daily at breakfast Famotidine 20 MG TAKE 1 TABLET BY MOUTH TWICE DAILY, AT BREAKFAST AND SUPPER Active lisinopril 5 mg oral tablet (19 sources) Angiotensin Converting Enzyme Inhibitor Start: 08-09-2023 [...] weekly Active nabumetone 750 mg oral tablet (7 sources) Nonsteroidal Anti-inflammatory Drug Start: 08-09-2023 take 750 mg by mouth twice daily Nabumetone Active 750 MG PO Twice daily August 09, 2023 12:00am Start: 02-06-2023 take 750 mg by mouth twice daily Nabumetone 750 MG as directed Orally Twice a day for 30 days Feb, Active phentermine hydrochloride 37.5 mg oral tablet (2 sources) Sympathomimetic Amine Anorectic Start: 09-25-2023 take 1 tablet by mouth once daily 30 minutes after breakfast Phentermine (Adipex-P) 37.5 mg tablet Active 37.5 MG PO Daily September 25, 2023 12:00am must administer 30 minutes before or 1-2 hours after breakfast predniSONE 20 mg oral tablet (3 sources) Start: 08-25-2023 Prednisone Active 20 MG PO As Directed 6 August 25, 2023 12:00am 1 tab bid w/ food x 2 days, then qd w/ food x 2 days Tirzepatide (10 sources) Start: 07-28-2023 Tirzepatide (Mounjaro) 5 mg/0.5 mL pen injector Active 5 MG SUBCUT every week 2 July 28, 2023 4:58pm Start: 07-28-2023 End: 07-28-2023 Tirzepatide (Mounjaro) 5 mg/ 0.5 mL pen injector Discontinued 5 MG SUBCUT every week July 28, 2023 12:00am July 28, 2023 4:58pm valACYclovir 1000 mg oral tablet (3 sources) Herpesvirus Nucleoside Analog DNA Polymerase Inhibitor, Herpes Simplex Virus Nucleoside Analog DNA Polymerase Inhibitor, Herpes Zoster Virus Nucleoside Analog DNA Polymerase Inhibitor Start: 08-25-2023 take 1000 mg by mouth three times daily Valacyclovir Active 1000 MG PO Three times daily 15 5 August 25, 2023 12:00am Completed/Discontinued Medications Medication Drug Class(es) Dates Sig [...] [Type 2 diabetes mellitus with hyperglycemia] Chronic Diseases of mouth; excluding dental (3 sources) Recurrent oral aphthae; 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: [Oral aphthae] 08-25-2023 Episodic Esophageal disorders (11 sources) Gastro-esophageal reflux disease with esophagitis; 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: [Gastroesophageal reflux disease with esophagitis without hemorrhage] 08-08-2023 Chronic Essential hypertension (20 sources) Essential hypertension; 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: [Essential (primary) hypertension] Chronic Genitourinary symptoms and ill-defined conditions (3 sources) Dysuria; 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: [Frequency of micturition] Onset: 04-13-2017 Episodic Heart valve disorders (6 sources) Heart murmur; 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: [Cardiac murmur, unspecified] 08-09-2023 Episodic Nonmalignant breast conditions (15 sources) Benign mammary dysplasia; 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: [Unspecified benign mammary dysplasia of unspecified breast] Episodic Other bone disease and musculoskeletal deformities (14 sources) Other specified disorders of bone density and structure, other site; 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: [Osteopenia of lumbar spine] Episodic Other bone disease and musculoskeletal deformities (5 sources) Osteopenia; 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: [Other specified disorders of bone density and structure, unspecified site] 08-08-2023 Episodic Other gastrointestinal disorders (3 sources) Dysphagia, unspecified; 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: [Dysphagia, unspecified] 08-25-2023 Episodic Other non-traumatic joint disorders (2 sources) Pain in right hip Episodic Other non-traumatic joint disorders (2 sources) Pain in left hip Episodic Other nutritional; endocrine; and metabolic disorders (15 sources) Obesity; 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: [Obesity, unspecified] 09-25-2023 Chronic Other nutritional; endocrine; and metabolic disorders (13 sources) Body mass index 40+ - severely obese; 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: [Body mass index (BMI) 40.0-44.9, adult] Chronic Other nutritional; endocrine; and metabolic disorders (1 source) Body mass index (BMI) 40.0-44.9, adult Chronic Other nutritional; endocrine; and metabolic disorders (1 source) Obesity, unspecified; 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: [Obesity, unspecified] 09-25-2023 Chronic Other screening for suspected conditions (not [...] unspecified Episodic Rheumatoid arthritis and related disease (19 sources) Inflammatory polyarthropathy; 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: [Inflammatory polyarthropathy] Chronic Spondylosis; intervertebral disc disorders; other back problems (14 sources) Lumbosacral spondylosis without myelopathy; 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: [Spondylosis without myelopathy or radiculopathy, lumbar region] Chronic Substance-related disorders (11 sources) Nicotine dependence; 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: [Nicotine dependence, unspecified, [...] 08-26-2021 Episodic Other aftercare (1 source) Other alf (current) drug therapy; 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: [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] Onset: 08-20-2021 Episodic Other [...] Test Name Value Interpretation Reference Range Facility Laboratory - Chemistry and C hemistry - challengeon 09-13-2023 Bilirubin Ql (U) Negative [facility] Glucose (U) [Mass/Vol] Negative [facility] Ketones Ql (U) 5 [facility] pH (U) 5.0 [pH] [facility] Specific gravity (U) [Rel density] 1.030 [facility] Urobilinogen (U) [Mass/Vol] 0.2 mg/dL [facility] Laboratory - Specimen inform ationon 09-13-2023 Appearance (U) clear [facility] Color (U) darkyellow [facility] Laboratory - Urinalysison Leukocyte esterase Test strip Ql (U) Negative [facility] Nitrite Ql (U) Negative [facility] Protein Ql (U) + [facility] No Panel Informationon 09-12 Urine Occult Blood Negative [facility] Glucose mean value [Mass/vol ume] in Blood Estimated from glycated hemoglobinon 08-04-2023 Average glucose Estimated from glycated hemoglobin (Bld) [Mass/Vol] 111 mg/dL [facility] Laboratory - Hematology and Cell countson 08-04-2023 HbA1c (Bld) [Mass fraction] 5.5 % 4.5-6.2 [facility] Comment on above: ADA RECOMMENDED LIMI T 4.0 - 6.0ADA THERAPEUTIC TARGET < 7.0ACTION SUGGESTED> 7.0 PAP [id number] 10-18-2022 Cytology report Cyto stain Doc (Cvx/Vag) [...] are present. Performed by: 01 Martha Barron Jerker (ASCP) . 01 Note: Note 01 The [...] High <-Panic Low,>-Panic High,A-Abnormal,AA-Critical Abnormal Performed at: [facility] [place] [address] Edith Barnes MD, Performed By: #### 3 [id number] #### [facility] [address] [id number] HPV 16+18+31+33+35+39+45+ 51+52+56+58+59+66+68 DNA Probe+sig amp Ql (Cvx) Negative Invalid Interpretation Code Negative [facility] Comment on above: Result Comment: This nucleic acid amplification test detects fourteen high-risk HPV types (16,18,31,33,35,39,45,51,52,56,58,59,66,68) without differentiation. Performed at: [facility] [id number] MD Cameron Sharma Performed at: [facility] [address] [place], [place] [id number] MD Cameron Sharma Performed By: #### 3 [id number] #### [facility] [address] [id number] PAP [id number] 10-13-2022 Collection Technique BRUSH-SPATULA Normal F [facility] Comment on above: Performed By: #### 3 [id number] #### [facility] [address] [id number] Gynecological Body Site ENDOCERVIX Normal [facility] Comment on above: Performed By: #### 3 [id number] #### [facility] [address] [place] [address] Previous Treatment NONE Normal [facility] Comment on above: Performed By: #### 3 [id number] #### [facility] [address] [place] [address] Physician Orderon 10-12-2022 Physician Order [id number] Normal [facility] GLYCOHEMOGLOBIN A1Con 2022 ADA RECOMMENDATION SEE BELOW Normal [facility] Comment on above: Result Comment: ADA RECOMMENDED LIMIT 4.0 - 6.0 ADA THERAPEUTIC TARGET < 7.0 ACTION SUGGESTED > 7.0 Performed By: #### D ATA1C #### [facility] [address] [address] [address] María Adorno Glucose [Mass/Vol] 114 mg/dL Normal [facility] Comment on above: Performed By: #### D ATA1C #### [facility] [address] [place] [address] Dr. María Adorno HbA1c (Bld) [Mass fraction] 5.6 % Normal 4.5-6.2 [facility] Comment on above: Performed By: #### D ATA1C #### [facility] [address] [place] [address] Dr. María Adorno GLYCOHEMOGLOBIN A1Con 2022 ADA RECOMMENDATION SEE BELOW Normal [facility] Comment on above: Result Comment: ADA RECOMMENDED LIMIT 4.0 - 6.0 ADA THERAPEUTIC TARGET < 7.0 ACTION SUGGESTED > 7.0 Performed By: #### D ATA1C #### [facility] [address] [place] [address] Dr. María Adorno Glucose [Mass/Vol] 131 mg/dL Normal [facility] Comment on above: Performed By: #### D ATA1C #### [facility] [address] [place] [address] Dr. María Adorno HbA1c (Bld) [Mass fraction] 6.2 % Normal 4.5-6.2 [facility] Comment on above: Performed By: #### D ATA1C #### [facility] [address] [place] [address] Dr. María Adorno Covid-19 PCR (CVDTB)on 03-03 SARS-CoV-2 (COVID-19) RNA MARIELLA+probe Ql (Unsp spec) Not detected Normal NOT DETECTED [facility] Comment on above: Result Comment: This test is not yet approved or cleared by the [place] FDA. When there are no FDA-approved or cleared tests available, and other criteria are met, FDA can make tests available under an emergency access mechanism called an Emergency Use Authorization (EUA). The EUA for this test is supported by the [place] of Health and Human Service's (HHS's) declaration [...] consistent with SARS-CoV-2. Performed By: #### C VDTB #### [facility] [address] [place] [address] Dr. María Adorno GLYCOHEMOGLOBIN A1Con 2021 ADA RECOMMENDATION SEE BELOW Normal [facility] Comment on above: Result Comment: ADA RECOMMENDED LIMIT 4.0 - 6.0 ADA THERAPEUTIC TARGET < 7.0 ACTION SUGGESTED > 7.0 Performed By: #### D ATA1C #### [facility] [address] [place] [address] Dr. María Adorno Glucose [Mass/Vol] 140 mg/dL Normal [facility] Comment on above: Performed By: #### D ATA1C #### [facility] [address] [place] [address] Dr. María Adorno HbA1c (Bld) [Mass fraction] 6.5 % Critically high 4.5-6.2 [facility] Comment on above: Performed By: #### D ATA1C #### [facility] [address] [place] [address] Dr. María Adorno [facility] CBC AUTO DIFFon 11-18-2021 BASO # 0.1 103/ul Normal 0.0-0.1 [facility] Comment on above: Performed By: #### C RP, BMP #### [facility] [address] [place] [address] Dr. María Adorno Basophils/100 WBC (Bld) 0.9 % Normal 0.2-2.0 [facility] Comment on above: Performed By: #### C RP, BMP #### [facility] [address] [place] [address] Dr. María Adorno EO # 0.3 103/ul Normal 0.0-0.7 [facility] Comment on above: Performed By: #### C RP, BMP #### [facility] [address] [place] [address] Dr. María Adorno Eosinophils/100 WBC (Bld) 3.0 % Normal 0.9-7.0 [facility] Comment on above: Performed By: #### C RP, BMP #### [facility] [address] [place] [address] Dr. María Adorno Erythrocyte distribution width (RBC) [Ratio] 11.9 % Normal 11.0-15.0 [facility] Comment on above: Performed By: #### C RP, BMP #### [facility] [address] [place] [address] Dr. María Adorno Hematocrit (Bld) [Volume fraction] 45.3 % Normal 36.0-48.0 [facility] Comment on above: Performed By: #### C RP, BMP #### [facility] [address] [place] [address] Dr. María Adorno Hemoglobin (Bld) [Mass/Vol] 14.7 g/dL Normal 12.0-16.0 [facility] Comment on above: Performed By: #### C RP, BMP #### [facility] [address] [place] [address] Dr. María Adorno IG # 0.04 10e3/ul Critically high 0.00-0.03 [facility] Comment on above: Performed By: #### C RP, BMP #### [facility] [address] [place] [address] Dr. María Adorno IG % 0.4 % Normal 0.0-0.5 [facility] Comment on above: Performed By: #### C RP, BMP #### [facility] [address] [place] [address] Dr. María Adorno LYMPH # 3.1 103/ul Normal 1.2-3.8 [facility] Comment on above: Performed By: #### C RP, BMP #### [facility] [address] [place] [address] Dr. María Adorno Lymphocytes/100 WBC (Bld) 32.3 % Normal 20.5-60.0 [facility] Comment on above: Performed By: #### C RP, BMP #### [facility] [address] [place] [address] Dr. María Adorno MCH (RBC) [Entitic mass] 28.9 pg Normal 26.7-34.0 [facility] Comment on above: Performed By: #### C RP, BMP #### [facility] [address] [place] [address] Dr. María Adorno MCHC (RBC) [Mass/Vol] 32.5 g/dL Normal 29.9-35.2 [facility] Comment on above: Performed By: #### C RP, BMP #### [facility] [address] [place] [address] Dr. María Adorno MCV (RBC) [Entitic vol] 89.2 fL Normal 81.0-99.0 [facility] Comment on above: Performed By: #### C RP, BMP #### [facility] [address] [place] [address] Dr. María Adorno MONO # 0.8 103/ul Normal 0.3-0.8 [facility] Comment on above: Performed By: #### C RP, BMP #### [facility] [address] [place] [address] Dr. María Adorno Monocytes/100 WBC (Bld) 8.6 % Normal 1.7-12.0 [facility] Comment on above: Performed By: #### C RP, BMP #### [facility] [address] [place] [address] Dr. María Adorno NEUT # 5.3 103/ul Normal 1.4-6.5 [facility] Comment on above: Performed By: #### C RP, BMP #### [facility] [address] [place] [address] Dr. María Adorno Neutrophils/100 WBC (Bld) 54.8 % Normal 43.0-75.0 [facility] Comment on above: Performed By: #### C RP, BMP #### [facility] [address] [address] [address] María Adorno Platelet mean volume (Bld) [Entitic vol] 12.2 fL Normal 9.5-13.5 [facility] Comment on above: Performed By: #### C RP, BMP #### [facility] [address] [place] [address] Dr. María Adorno PLT 200 103/ul Normal 150-450 [facility] Comment on above: Performed By: #### C RP, BMP #### [facility] [address] [place] [address] Dr. María Adorno RBC 5.08 106/ul Normal 4.20-5.40 [facility] Comment on above: Performed By: #### C RP, BMP #### [facility] [address] [place] [address] Dr. María Adorno WBC 9.7 103/ul Normal 4.0-11.0 [facility] Comment on above: Performed By: #### C RP, BMP #### [facility] [address] [place] [address] Dr. María Adorno [facility] PROFILEon 022 Albumin [Mass/Vol] 3.7 g/dL Normal 3.4-5.0 [facility] Comment on above: Performed By: #### H FPF #### [facility] [address] [place] [address] Dr. María Adorno Albumin/Globulin [Mass ratio] 1.1 {ratio} Normal [facility] Comment on above: Performed By: #### H FPF #### [facility] [address] [place] [address] Dr. María Adorno ALP [Catalytic activity/Vol] 99 U/L Normal 46-116 [facility] Comment on above: Performed By: #### H FPF #### [facility] [address] [place] [address] Dr. María Adorno ALT [Catalytic activity/Vol] 18 U/L Normal 14-59 [facility] Comment on above: Performed By: #### H FPF #### [facility] [address] [address] [address] María Adorno AST [Catalytic activity/Vol] 18 U/L Normal 15-37 [facility] Comment on above: Performed By: #### H FPF #### [facility] [address] [address] [address] María Adorno Bilirubin [Mass/Vol] 0.6 mg/dL Normal 0.2-1.0 [facility] Comment on above: Performed By: #### H FPF #### [facility] [address] [address] [address] María Adorno Calcium [Mass/Vol] 9.3 mg/dL Normal 8.5-10.1 [facility] Comment on above: Performed By: #### H FPF #### [facility] [address] [address] [address] María Adorno Chloride [Moles/Vol] 103 mmol/L Normal 98-107 [facility] Comment on above: Performed By: #### H FPF #### [facility] [address] [address] [address] María Adorno CHOL-HDL RATIO NORM SEE BELOW Normal [facility] Comment on above: Result Comment: 3.3 - 4.4 LOW RISK 4.4 - 7.1 AVERAGE RISK 7.1 - 11.0 MODERATE RISK >11.0 HIGH RISK Performed By: #### H FPF #### [facility] [address] [address] [address] María Adorno Cholesterol [Mass/Vol] 160 mg/dL Normal <=200 [facility] Comment on above: Performed By: #### H FPF #### [facility] [address] [address] [address] María Adorno Cholesterol in HDL [Mass/Vol] 40 mg/dL Normal 40-60 [facility] Comment on above: Performed By: #### H FPF #### [facility] [address] [address] [address] María Adorno Cholesterol in LDL [Mass/Vol] 92.0 mg/dL Normal [facility] Comment on above: Performed By: #### H FPF #### [facility] [address] [address] [address] María Adorno Cholesterol.total/Cho lesterol in HDL [Mass ratio] 4.0 {ratio} Normal [facility] Comment on above: Performed By: #### H FPF #### [facility] [address] [place] [address] Dr. María Adorno CO2 [Moles/Vol] 24.6 mmol/L Normal 21.0-32.0 [facility] Comment on above: Performed By: #### H FPF #### [facility] [address] [place] [address] Dr. María Adorno Creatinine [Mass/Vol] 1.00 mg/dL Normal 0.55-1.02 [facility] Comment on above: Performed By: #### H FPF #### [facility] [address] [place] [address] Dr. María Adorno Globulin (S) [Mass/Vol] 3.5 g/dL Normal [facility] Comment on above: Performed By: #### H FPF #### [facility] [address] [place] [address] Dr. María Adorno Glucose [Mass/Vol] 132 mg/dL Critically high 74-106 T [facility] Comment on above: Performed By: #### H FPF #### [facility] [address] [place] [address] Dr. María Adorno HDL NORMAL > or = 60 mg/dl - LOW CARDIOVASCULAR RISK <40 mg/dl - HIGH CARDIOVASCULAR RISK Normal [facility] Comment on above: Performed By: #### H FPF #### [facility] [address] [place] [address] Dr. María Adorno LDL CALC NORMAL SEE BELOW Normal [facility] Comment on above: Result Comment: <100 mg/dl OPTIMAL 100 - 129 mg/dl NEAR OR ABOVE OPTIMAL 130 - 159 mg/dl BORDERLINE HIGH 160 - 189 mg/dl HIGH >190 mg/dl VERY HIGH Performed By: #### H FPF #### [facility] [address] [address] [address] María Adorno Potassium [Moles/Vol] 4.0 mmol/L Normal 3.5-5.1 [facility] Comment on above: Performed By: #### H FPF #### [facility] [address] [address] [address] María Adorno Protein [Mass/Vol] 7.2 g/dL Normal 6.4-8.2 [facility] Comment on above: Performed By: #### H FPF #### [facility] [address] [address] [address] María Adorno Sodium [Moles/Vol] 138 mmol/L Normal 136-145 [facility] Comment on above: Performed By: #### H FPF #### [facility] [address] [address] [address] María Adorno Triglyceride [Mass/Vol] 140 mg/dL Normal <=150 [facility] Comment on above: Performed By: #### H FPF #### [facility] [address] [address] [address] María Adorno TSH 2.537 uIU/mL Normal 0.358-3.740 [facility] Comment on above: Performed By: #### H FPF #### [facility] [address] [address] [address] María Adorno Urea nitrogen [Mass/Vol] 17.0 mg/dL Normal 7.0-18.0 [facility] Comment on above: Performed By: #### H FPF #### [facility] [address] [address] [address] María Adorno Urea nitrogen/Creatinine [Mass ratio] 17.0 mg/mg Normal [facility] Comment on above: Performed By: #### H FPF #### [facility] [address] [address] [address] María Adorno VLDL CALC 28.0 mg/dL Normal [facility] Comment on above: Performed By: #### H FPF #### [facility] [address] [address] [address] María Adorno MG MAMM SCREEN 3D CHINO CADon 10-19-2021 MG MAMM SCREEN 3D CHINO CAD Patient: EDVIN TRISTAN Exam Date: 10/19/2021 : 1960 Gender:F Ordering : DR ETHAN HINES D.O. Admission #: [id number] Family : Order #: [id number] CLICK HERE TO VIEW EXAM RADIOLOGY REPORT [...] Treatments None Family Cancers None LOCATION: [facility] BREAST COMPOSITION: Heterogeneously dense,which may obscure small [...] M.D. on 10/20/2021 at 14:56 Normal [facility] CBC AUTO DIFFon 09-28-2021 BASO # 0.1 103/ul Normal 0.0-0.1 [facility] Comment on above: Performed By: #### C BC #### [facility] [address] [address] [address] María Adorno Basophils/100 WBC (Bld) 0.8 % Normal 0.2-2.0 [facility] Comment on above: Performed By: #### C BC #### [facility] [address] [address] [address] María Adorno EO # 0.3 103/ul Normal 0.0-0.7 [facility] Comment on above: Performed By: #### C BC #### [facility] [address] [place] [address] Dr. María Adorno Eosinophils/100 WBC (Bld) 2.5 % Normal 0.9-7.0 [facility] Comment on above: Performed By: #### C BC #### [facility] [address] [place] [address] Dr. María Adorno Erythrocyte distribution width (RBC) [Ratio] 12.1 % Normal 11.0-15.0 [facility] Comment on above: Performed By: #### C BC #### [facility] [address] [place] [address] Dr. María Adorno Hematocrit (Bld) [Volume fraction] 42.6 % Normal 36.0-48.0 [facility] Comment on above: Performed By: #### C BC #### [facility] [address] [place] [address] Dr. María Adorno Hemoglobin (Bld) [Mass/Vol] 14.1 g/dL Normal 12.0-16.0 [facility] Comment on above: Performed By: #### C BC #### [facility] [address] [place] [address] Dr. María Adorno IG # 0.04 10e3/ul Critically high 0.00-0.03 [facility] Comment on above: Performed By: #### C BC #### [facility] [address] [place] [address] Dr. María Adorno IG % 0.3 % Normal 0.0-0.5 [facility] Comment on above: Performed By: #### C BC #### [facility] [address] [place] [address] Dr. María Adorno LYMPH # 3.3 103/ul Normal 1.2-3.8 [facility] Comment on above: Performed By: #### C BC #### [facility] [address] [place] [address] Dr. Maíra Adorno Lymphocytes/100 WBC (Bld) 24.4 % Normal 20.5-60.0 [facility] Comment on above: Performed By: #### C BC #### [facility] [address] [place] [address] Dr. María Adorno MANUAL DIFF REQ NO Normal [facility] Comment on above: Performed By: #### C BC #### [facility] [address] [place] [address] Dr. María Adorno MCH (RBC) [Entitic mass] 29.6 pg Normal 26.7-34.0 [facility] Comment on above: Performed By: #### C BC #### [facility] [address] [place] [address] Dr. María Adorno MCHC (RBC) [Mass/Vol] 33.1 g/dL Normal 29.9-35.2 [facility] Comment on above: Performed By: #### C BC #### [facility] [address] [place] [address] Dr. María Adorno MCV (RBC) [Entitic vol] 89.5 fL Normal 81.0-99.0 [facility] Comment on above: Performed By: #### C BC #### [facility] [address] [place] [address] Dr. María Adorno MONO # 1.0 103/ul Critically high 0.3-0.8 [facility] Comment on above: Performed By: #### C BC #### [facility] [address] [place] [address] Dr. María Adorno Monocytes/100 WBC (Bld) 7.8 % Normal 1.7-12.0 [facility] Comment on above: Performed By: #### C BC #### [facility] [address] [place] [address] Dr. María Adorno NEUT # 8.6 103/ul Critically high 1.4-6.5 [facility] Comment on above: Performed By: #### C BC #### [facility] [address] [place] [address] Dr. María Adorno Neutrophils/100 WBC (Bld) 64.2 % Normal 43.0-75.0 [facility] Comment on above: Performed By: #### C BC #### [facility] [address] [address] [address] María Adorno Platelet mean volume (Bld) [Entitic vol] 11.7 fL Normal 9.5-13.5 [facility] Comment on above: Performed By: #### C BC #### [facility] [address] [address] [address] María Adorno PLT 197 103/ul Normal 150-450 [facility] Comment on above: Performed By: #### C BC #### [facility] [address] [address] [address] María Adorno RBC 4.76 106/ul Normal 4.20-5.40 [facility] Comment on above: Performed By: #### C BC #### [facility] [address] [address] [address] María Adorno WBC 13.3 103/ul Critically high 4.0-11.0 [facility] Comment on above: Performed By: #### C BC #### [facility] [address] [address] [address] María Adorno CRPon 09-28-2021 CRP 0.3 mg/dL Normal <=1.0 [facility] Comment on above: Performed By: #### C RP, BMP #### [facility] [address] [place] [address] Dr. María Adorno PROF CHEM 8 (BAS METB)on Anion gap [Moles/Vol] 11.6 mmol/L Normal [facility] Comment on above: Performed By: #### C RP, BMP #### [facility] [address] [place] [address] Dr. María Adorno Calcium [Mass/Vol] 9.6 mg/dL Normal 8.5-10.1 [facility] Comment on above: Performed By: #### C RP, BMP #### [facility] [address] [address] [address] María Adorno Chloride [Moles/Vol] 105 mmol/L Normal 98-107 [facility] Comment on above: Performed By: #### C RP, BMP #### [facility] [address] [place] [address] Dr. María Adorno CO2 [Moles/Vol] 27.6 mmol/L Normal 21.0-32.0 [facility] Comment on above: Performed By: #### C RP, BMP #### [facility] [address] [place] [address] Dr. María Adorno Creatinine [Mass/Vol] 1.12 mg/dL Critically high 0.55-1.02 [facility] Comment on above: Performed By: #### C RP, BMP #### [facility] [address] [place] [address] Dr. María Adorno EGFR-AF BULGARIAN 60 mL/min/1.73m2 Normal >=60 [facility] Comment on above: Performed By: #### C RP, BMP #### [facility] [address] [place] [address] Dr. María Adorno EGFR-NON AF BULGARIAN 49 mL/min/1.73m2 Critically low >=60 [facility] Comment on above: Performed By: #### C RP, BMP #### [facility] [address] [place] [address] Dr. María Adorno Glucose [Mass/Vol] 151 mg/dL Critically high 74-106 [facility] Comment on above: Performed By: #### C RP, BMP #### [facility] [address] [place] [address] Dr. María Adorno Potassium [Moles/Vol] 4.2 mmol/L Normal 3.5-5.1 [facility] Comment on above: Performed By: #### C RP, BMP #### [facility] [address] [place] [address] Dr. María Adorno Sodium [Moles/Vol] 140 mmol/L Normal 136-145 [facility] Comment on above: Performed By: #### C RP, BMP #### [facility] [address] [place] [address] Dr. María Adorno Urea nitrogen [Mass/Vol] 19.0 mg/dL Critically high 7.0-18.0 [facility] Comment on above: Performed By: #### C RP, BMP #### [facility] [address] [place] [address] Dr. María Adorno Urea nitrogen/Creatinine [Mass ratio] 17.0 mg/mg Normal [facility] Comment on above: Performed By: #### C RP, BMP #### [facility] [address] [place] [address] Dr. María Adorno SED RATE WESTERGRENon 2021 SED RATE 47 mm/hr Critically high <=30 [facility] Comment on above: Performed By: #### C RP, BMP #### [facility] [address] [place] [address] Dr. María Adorno CBC AUTO DIFFon 08-18-2021 BASO # 0.1 103/ul Normal 0.0-0.1 [facility] Comment on above: Performed By: #### C RP, BMP #### [facility] [address] [place] [address] Dr. María Adorno Basophils/100 WBC (Bld) 0.7 % Normal 0.2-2.0 [facility] Comment on above: Performed By: #### C RP, BMP #### [facility] [address] [place] [address] Dr. María Adorno EO # 0.3 103/ul Normal 0.0-0.7 [facility] Comment on above: Performed By: #### C RP, BMP #### [facility] [address] [place] [address] Dr. María Adorno Eosinophils/100 WBC (Bld) 2.4 % Normal 0.9-7.0 [facility] Comment on above: Performed By: #### C RP, BMP #### [facility] [address] [place] [address] Dr. María Adorno Erythrocyte distribution width (RBC) [Ratio] 12.4 % Normal 11.0-15.0 [facility] Comment on above: Performed By: #### C RP, BMP #### [facility] [address] [place] [address] Dr. María Adorno Hematocrit (Bld) [Volume fraction] 40.6 % Normal 36.0-48.0 [facility] Comment on above: Performed By: #### C RP, BMP #### [facility] [address] [place] [address] Dr. María Adorno Hemoglobin (Bld) [Mass/Vol] 13.2 g/dL Normal 12.0-16.0 [facility] Comment on above: Performed By: #### C RP, BMP #### [facility] [address] [place] [address] Dr. María Adorno IG # 0.04 10e3/ul Critically high 0.00-0.03 [facility] Comment on above: Performed By: #### C RP, BMP #### [facility] [address] [place] [address] Dr. María Adorno IG % 0.3 % Normal 0.0-0.5 [facility] Comment on above: Performed By: #### C RP, BMP #### [facility] [address] [place] [address] Dr. María Adorno LYMPH # 3.1 103/ul Normal 1.2-3.8 [facility] Comment on above: Performed By: #### C RP, BMP #### [facility] [address] [place] [address] Dr. María Adorno Lymphocytes/100 WBC (Bld) 25.8 % Normal 20.5-60.0 [facility] Comment on above: Performed By: #### C RP, BMP #### [facility] [address] [place] [address] Dr. Maíra Adorno MANUAL DIFF REQ NO Normal [facility] Comment on above: Performed By: #### C RP, BMP #### [facility] [address] [place] [address] Dr. María Adorno MCH (RBC) [Entitic mass] 29.9 pg Normal 26.7-34.0 [facility] Comment on above: Performed By: #### C RP, BMP #### [facility] [address] [address] [address] María Adorno MCHC (RBC) [Mass/Vol] 32.5 g/dL Normal 29.9-35.2 [facility] Comment on above: Performed By: #### C RP, BMP #### [facility] [address] [place] [address] Dr. María Adorno MCV (RBC) [Entitic vol] 91.9 fL Normal 81.0-99.0 [facility] Comment on above: Performed By: #### C RP, BMP #### [facility] [address] [place] [address] Dr. María Adorno MONO # 1.1 103/ul Critically high 0.3-0.8 [facility] Comment on above: Performed By: #### C RP, BMP #### [facility] [address] [place] [address] Dr. María Adorno Monocytes/100 WBC (Bld) 9.1 % Normal 1.7-12.0 [facility] Comment on above: Performed By: #### C RP, BMP #### [facility] [address] [place] [address] Dr. María Adorno NEUT # 7.3 103/ul Critically high 1.4-6.5 [facility] Comment on above: Performed By: #### C RP, BMP #### [facility] [address] [place] [address] Dr. María Adorno Neutrophils/100 WBC (Bld) 61.7 % Normal 43.0-75.0 [facility] Comment on above: Performed By: #### C RP, BMP #### [facility] [address] [place] [address] Dr. María Adorno Platelet mean volume (Bld) [Entitic vol] 11.5 fL Normal 9.5-13.5 [facility] Comment on above: Performed By: #### C RP, BMP #### [facility] [address] [place] [address] Dr. María Adorno PLT 198 103/ul Normal 150-450 [facility] Comment on above: Performed By: #### C RP, BMP #### [facility] [address] [place] [address] Dr. María Adorno RBC 4.42 106/ul Normal 4.20-5.40 [facility] Comment on above: Performed By: #### C RP, BMP #### [facility] [address] [place] [address] Dr. María Adorno WBC 11.8 103/ul Critically high 4.0-11.0 [facility] Comment on above: Performed By: #### C RP, BMP #### [facility] [address] [place] [address] Dr. María Adorno CRPon 08-18-2021 CRP 1.5 mg/dL Critically high <=1.0 [facility] Comment on above: Performed By: #### B MP, CRP #### [facility] [address] [place] [address] Dr. María Adorno PROF CHEM 8 (BAS METB)on Anion gap [Moles/Vol] 12.8 mmol/L Normal [facility] Comment on above: Performed By: #### C RP, BMP #### [facility] [address] [place] [address] Dr. María Adorno Calcium [Mass/Vol] 9.2 mg/dL Normal 8.5-10.1 [facility] Comment on above: Performed By: #### C RP, BMP #### [facility] [address] [place] [address] Dr. María Adorno Chloride [Moles/Vol] 102 mmol/L Normal 98-107 [facility] Comment on above: Performed By: #### C RP, BMP #### [facility] [address] [place] [address] Dr. María Adorno CO2 [Moles/Vol] 28.2 mmol/L Normal 21.0-32.0 [facility] Comment on above: Performed By: #### C RP, BMP #### [facility] [address] [place] [address] Dr. María Adorno Creatinine [Mass/Vol] 0.91 mg/dL Normal 0.55-1.02 [facility] Comment on above: Performed By: #### C RP, BMP #### [facility] [address] [place] [address] Dr. María Adorno EGFR-AF BULGARIAN >60 Normal >=60 [facility] Comment on above: Performed By: #### C RP, BMP #### [facility] [address] [place] [address] Dr. María Adorno EGFR-NON AF BULGARIAN >60 Normal >=60 [facility] Comment on above: Performed By: #### C RP, BMP #### [facility] [address] [address] [address] María Adorno Glucose [Mass/Vol] 150 mg/dL Critically high 74-106 [facility] Comment on above: Performed By: #### C RP, BMP #### [facility] [address] [place] [address] Dr. María Adorno Potassium [Moles/Vol] 4.0 mmol/L Normal 3.5-5.1 [facility] Comment on above: Performed By: #### C RP, BMP #### [facility] [address] [place] [address] Dr. María Adorno Sodium [Moles/Vol] 139 mmol/L Normal 136-145 [facility] Comment on above: Performed By: #### C RP, BMP #### [facility] [address] [place] [address] Dr. María Adorno Urea nitrogen [Mass/Vol] 23.0 mg/dL Critically high 7.0-18.0 [facility] Comment on above: Performed By: #### C RP, BMP #### [facility] [address] [place] [address] Dr. María Adorno Urea nitrogen/Creatinine [Mass ratio] 25.3 mg/mg Normal [facility] Comment on above: Performed By: #### C RP, BMP #### [facility] [address] [place] [address] Dr. María Adorno Orthopedic Progress Noteon 0 08-10-2021 Orthopedic Progress Note This is a preliminary report only. This report will be final only after practitioner review and authentication has occurred. [facility] Patient: EDVIN TRISTAN [address] [place] [address] MR#: [id number] PROGRESS NOTE - Orthopedic : 58 Service Date: 08/10/21 1649 Assessment and Plan - ICD10 Problem List 1. Status post lumbar spine surgery for decompression of spinal cord 2. S/P lumbar laminectomy Electronically Signed eSign Date and Time Mark Harp Normal [facility] BASIC MET PANELon 08-08-2021 Anion gap [Moles/Vol] 7 mmol/L Normal 6-18 [facility] Comment on above: Performed By: #### L 500.15117, L500.77363 ####Test performed at: [place] [address] Calcium [Mass/Vol] 8.5 mg/dL Normal 8.5-10.1 [facility] Comment on above: Performed By: #### L 500.16316, L500.60412 ####Test performed at: [address] [address] Chloride [Moles/Vol] 108 mmol/L High 98-107 [facility] Comment on above: Performed By: #### L 500.15638, L500.59788 ####Test performed at: [address] [address] CO2 [Moles/Vol] 29 mmol/L Normal 21-32 [facility] Comment on above: Performed By: #### L 500.00786, L500.35336 ####Test performed at: [address] [address] Creatinine [Mass/Vol] 0.862 mg/dL Normal 0.550-1.020 [facility] Comment on above: Performed By: #### L 500.72626, L500.79604 ####Test performed at: [address] [address] Glucose [Mass/Vol] 123 mg/dL High 70-99 [facility] Comment on above: Result Comment: Fast ing GLUCOSE reference range has been updated per (ADA) [place] [employer]'s recommendation. 06/26/2018 Performed By: #### L 500.21391, L500.04235 ####Test performed at: [address] [address] OSM 295 mosm/kg Normal 270-300 [facility] Comment on above: Performed By: #### L 500.21804, L500.74959 ####Test performed at: [address] [address] Potassium [Moles/Vol] 4.4 mmol/L Normal 3.5-5.1 [facility] Comment on above: Performed By: #### L 500.96356, L500.83560 ####Test performed at: [address] [address] Sodium [Moles/Vol] 140 mmol/L Normal 136-145 [facility] Comment on above: Performed By: #### L 500.09603, L500.56723 ####Test performed at: [address] [address] Urea nitrogen [Mass/Vol] 22 mg/dL High 7-18 [facility] Comment on above: Performed By: #### L 500.97720, L500.43345 ####Test performed at: [address] [address] CBC W/DIFFon 08-08-2021 BASO ABS 0.0 K/uL Normal 0.0-0.2 [facility] Comment on above: Performed By: #### L 200.59832 ####Test performed at: [address] [address] Basophils/100 WBC (Bld) 0.2 % Normal [facility] Comment on above: Performed By: #### L 200.09692 ####Test performed at: [address] [address] EOS ABS 0.0 K/uL Normal 0.0-0.5 [facility] Comment on above: Performed By: #### L 200.16094 ####Test performed at: [address] [address] Eosinophils/100 WBC (Bld) 0.2 % Normal [facility] Comment on above: Performed By: #### L 200.51735 ####Test performed at: [place] [id number] Erythrocyte distribution width (RBC) [Ratio] 12.6 % Normal 11.5-14.5 [facility] Comment on above: Performed By: #### L 200.92844 ####Test performed at: [address] [address] Hematocrit (Bld) [Volume fraction] 32.5 % Low 36.0-48.0 [facility] Comment on above: Performed By: #### L 200.20679 ####Test performed at: [address] [address] Hemoglobin (Bld) [Mass/Vol] 10.9 g/dL Low 12.0-15.0 [facility] Comment on above: Performed By: #### L 200.49729 ####Test performed at: [address] [address] IG % 0.3 % Normal [facility] Comment on above: Performed By: #### L 200.37038 ####Test performed at: [address] [address] IG ABS 0.04 K/uL Normal 0-0.05 [facility] Comment on above: Performed By: #### L 200.42688 ####Test performed at: [address] [address] Lymphocytes (Bld) [#/Vol] 2.7 10*3/uL Normal 1.2-3.5 [facility] Comment on above: Performed By: #### L 200.25242 ####Test performed at: [address] [address] Lymphocytes/100 WBC (Bld) 22.4 % Normal [facility] Comment on above: Performed By: #### L 200.55152 ####Test performed at: [place] [id number] MCH (RBC) [Entitic mass] 29.9 pg Normal 25.4-34.6 [facility] Comment on above: Performed By: #### L 200.80359 ####Test performed at: [address] [address] MCHC (RBC) [Mass/Vol] 33.5 g/dL Normal 31.5-36.5 [facility] Comment on above: Performed By: #### L 200.40552 ####Test performed at: [address] [address] MCV (RBC) [Entitic vol] 89.3 fL Normal 79.0-98.0 [facility] Comment on above: Performed By: #### L 200.57032 ####Test performed at: [address] [address] MONO ABS 1.1 K/uL High 0.0-1.0 [facility] Comment on above: Performed By: #### L 200.26040 ####Test performed at: [address] [address] Monocytes/100 WBC (Bld) 9.4 % Normal [facility] Comment on above: Performed By: #### L 200.91573 ####Test performed at: [address] [address] NEUTROPHIL ABS 8.1 K/uL High 1.4-6.6 [facility] Comment on above: Performed By: #### L 200.84352 ####Test performed at: [address] [address] Neutrophils/100 WBC (Bld) 67.5 % Normal [facility] Comment on above: Performed By: #### L 200.49816 ####Test performed at: [address] [address] NRBC # 0.000 K/uL Normal 0-0.012 [facility] Comment on above: Performed By: #### L 200.40981 ####Test performed at: [address] [address] NRBC % 0.0 /100 WBC Normal 0-0.2 [facility] Comment on above: Performed By: #### L 200.48999 ####Test performed at: [address] [address] Platelet mean volume (Bld) [Entitic vol] 12.5 fL High 8.7-12.4 [facility] Comment on above: Performed By: #### L 200.12341 ####Test performed at: [address] [address] Platelets (Bld) [#/Vol] 122 10*3/uL Low 140-440 [facility] Comment on above: Performed By: #### L 200.58468 ####Test performed at: [address] [address] RBC (Bld) [#/Vol] 3.64 10*6/uL Normal 3.5-5.5 [facility] Comment on above: Performed By: #### L 200.41175 ####Test performed at: [place] [address] WBC (Bld) [#/Vol] 12.1 10*3/uL High 3.9-11.0 [facility] Comment on above: Performed By: #### L 200.38462 ####Test performed at: [place] [address] Discharge CCD Assessmenton 0 08-08-2021 Discharge CCD Assessment [facility] Patient: EDVIN TRISTAN [address] [place] [address] MR#: [id number] DISCHARGE CCD ASSESSMENT : 58 Service Date: 08/08/21 112 Discharge CCD Assessment Assessment Patient discharged home to continue pain control, wound care, and exercises. Electronically Signed eSign Date and Time Mark Harp 08/08/211121 Santi Roldan MD Normal [facility] GFR ESTIMATEon 08-08-2021 IF AMER > 60 Normal > 60 [facility] Comment on above: Result Comment: eGFR (Estimated GFR) Units of measure:mL/min/1.73 meters sq. *CALCULATION REVISED 01/20/2015;IDMS-traceable MDRD equation eGFR is derived from the reexpressed MDRD Study equation using the following parameters: serum creatinine, age, gender and race. An eGFR<60 mL/min/1.73m2 for >3 months is consistent with chronic kidney disease. Refer to KDOQI guidelines for clinical interpretation. Performed By: #### L 500.32846, L500.32401 ####Test performed at: [place] [address] IF non-AFR AMER > 60 Normal > 60 [facility] Comment on above: Performed By: #### L 500.18211, L500.53367 ####Test performed at: [place] [address] Internal Med Progress Noteon 08-08-2021 Internal Med Progress Note [facility] Patient: EDVIN TRISTAN [address] [id number] MR#: [id number] PROGRESS NOTE - Internal Medicine : 58 Service Date: 08/08/[address] Subjective Summary of Stay Ms. Tristan is [...] 104/51 08/08 0752 O2 Delivery ROOM AIR 08/09 751 Temp 36.4 08/09 751 Pulse 55 08/08 075 Resp 16 08/08 075 O2 Flow Rate 3 08/06 1803 Intake [...] Agree with above documentation. The [resident's, PA's, PIPE LINE INSPECTOR's] assessment and plan reflect my input. Discussed with documenting provider and patient. Plan is as outlined above. Electronically Signed eSign Date and Time [place] Sánchez Donald E. MD 08/08/21 1603 Normal [facility] z PT Inpatient Progress Note on 08-08-2021 z PT Inpatient Progress Note [facility] Patient: EDVIN TRISTAN [address] [place] [address] MR#: [id number] PT INPATIENT PROGRESS NOTE : 58 Service Date: 08/08/21 1050 Inpatient PT HPI Date of Service 08/08/21 Time In: 1001 Time Out: 1035 Total Treatment Time (Mins) 51 Room Number 534 Current Visit Originally in the patient room from and took the patient for a short walk, patient citing increased pain and would like MACHINE CLEANER to return after breakfast. MACHINE CLEANER returned at above stated times for completion [...] Signed eSign Date and Time [place] MACHINE CLEANER 08/08/21 1101 Norma Diaz PT Normal [facility] Anesthesia Noteon 08-07-2021 Anesthesia Note [facility] Patient: EDVIN TRISTAN [address] [place] [address] MR#: [id number] ANESTHESIA NOTE : Service Date: 08/07/21 075 Post-anesthesia Note Note Patient assessed post operatively [...] eSign Date and Time Jon Pradhan AA 08/07/215 Marsha Miller MD Normal [facility] BASIC MET PANELon 08-07-2021 Anion gap [Moles/Vol] 8 mmol/L Normal 6-18 [facility] Comment on above: Performed By: #### L 500.75286, L500.17469 ####Test performed at: [place] [address] Calcium [Mass/Vol] 8.8 mg/dL Normal 8.5-10.1 [facility] Comment on above: Performed By: #### L 500.97142, L500.44789 ####Test performed at: [place] [address] Chloride [Moles/Vol] 109 mmol/L High 98-107 [facility] Comment on above: Performed By: #### L 500.03720, L500.54310 ####Test performed at: [address] [address] CO2 [Moles/Vol] 27 mmol/L Normal 21-32 [facility] Comment on above: Performed By: #### L 500.85195, L500.15627 ####Test performed at: [address] [address] Creatinine [Mass/Vol] 0.967 mg/dL Normal 0.550-1.020 [facility] Comment on above: Performed By: #### L 500.39417, L500.23480 ####Test performed at: [address] [address] Glucose [Mass/Vol] 178 mg/dL High 70-99 [facility] Comment on above: Result Comment: Fast ing GLUCOSE reference range has been updated per (ADA) [place] [employer]'s recommendation. 06/26/2018 Performed By: #### L 500.58380, L500.63708 ####Test performed at: [address] [address] OSM 296 mosm/kg Normal 270-300 [facility] Comment on above: Performed By: #### L 500.36866, L500.86181 ####Test performed at: [address] [address] Potassium [Moles/Vol] 4.5 mmol/L Normal 3.5-5.1 [facility] Comment on above: Performed By: #### L 500.14894, L500.57065 ####Test performed at: [address] [address] Sodium [Moles/Vol] 140 mmol/L Normal 136-145 [facility] Comment on above: Performed By: #### L 500.50176, L500.40420 ####Test performed at: [address] [address] Urea nitrogen [Mass/Vol] 18 mg/dL Normal 7-18 [facility] Comment on above: Performed By: #### L 500.25179, L500.97883 ####Test performed at: [address] [address] CBC W/DIFFon 08-07-2021 BASO ABS 0.0 K/uL Normal 0.0-0.2 [facility] Comment on above: Performed By: #### L 200.01999 #### Test performed at: [address] [address] Basophils/100 WBC (Bld) 0.1 % Normal [facility] Comment on above: Performed By: #### L 200.94280 #### Test performed at: [address] [address] EOS ABS 0.0 K/uL Normal 0.0-0.5 [facility] Comment on above: Performed By: #### L 200.52384 #### Test performed at: [address] [address] Eosinophils/100 WBC (Bld) 0.0 % Normal [facility] Comment on above: Performed By: #### L 200.48314 #### Test performed at: [address] [address] Erythrocyte distribution width (RBC) [Ratio] 12.0 % Normal 11.5-14.5 [facility] Comment on above: Performed By: #### L 200.27235 #### Test performed at: [address] [address] Hematocrit (Bld) [Volume fraction] 35.2 % Low 36.0-48.0 [facility] Comment on above: Performed By: #### L 200.59422 #### Test performed at: [address] [address] Hemoglobin (Bld) [Mass/Vol] 12.1 g/dL Abnormal 12.0-15.0 [facility] Comment on above: Result Comment: Delt a: 14.9 on 08/03/21 Performed By: #### L 200.94608 #### Test performed at: [address] [address] IG % 0.5 % Normal [facility] Comment on above: Performed By: #### L 200.99068 #### Test performed at: [address] [address] IG ABS 0.06 K/uL High 0-0.05 [facility] Comment on above: Performed By: #### L 200.41882 #### Test performed at: [address] [address] Lymphocytes (Bld) [#/Vol] 1.0 10*3/uL Low 1.2-3.5 [facility] Comment on above: Performed By: #### L 200.32735 #### Test performed at: [address] [address] Lymphocytes/100 WBC (Bld) 7.7 % Normal [facility] Comment on above: Performed By: #### L 200.13215 #### Test performed at: [address] [address] MCH (RBC) [Entitic mass] 30.2 pg Normal 25.4-34.6 [facility] Comment on above: Performed By: #### L 200.76312 #### Test performed at: [address] [address] MCHC (RBC) [Mass/Vol] 34.4 g/dL Normal 31.5-36.5 [facility] Comment on above: Performed By: #### L 200.98731 #### Test performed at: [address] [address] MCV (RBC) [Entitic vol] 87.8 fL Normal 79.0-98.0 [facility] Comment on above: Performed By: #### L 200.09933 #### Test performed at: [address] [address] MONO ABS 0.3 K/uL Normal 0.0-1.0 [facility] Comment on above: Performed By: #### L 200.06732 #### Test performed at: [address] [address] Monocytes/100 WBC (Bld) 2.7 % Normal [facility] Comment on above: Performed By: #### L 200.33671 #### Test performed at: [address] [address] NEUTROPHIL ABS 11.0 K/uL High 1.4-6.6 [facility] Comment on above: Performed By: #### L 200.26466 #### Test performed at: [address] [address] Neutrophils/100 WBC (Bld) 89.0 % Normal [facility] Comment on above: Performed By: #### L 200.73984 #### Test performed at: [address] [address] NRBC # 0.000 K/uL Normal 0-0.012 [facility] Comment on above: Performed By: #### L 200.21340 #### Test performed at: [address] [address] NRBC % 0.0 /100 WBC Normal 0-0.2 [facility] Comment on above: Performed By: #### L 200.22864 #### Test performed at: [address] [address] Platelet mean volume (Bld) [Entitic vol] 12.1 fL Normal 8.7-12.4 [facility] Comment on above: Performed By: #### L 200.87555 #### Test performed at: [address] [address] Platelets (Bld) [#/Vol] 140 10*3/uL Normal 140-440 [facility] Comment on above: Performed By: #### L 200.83104 #### Test performed at: [address] [address] RBC (Bld) [#/Vol] 4.01 10*6/uL Normal 3.5-5.5 [facility] Comment on above: Performed By: #### L 200.68259 #### Test performed at: [address] [address] WBC (Bld) [#/Vol] 12.4 10*3/uL High 3.9-11.0 [facility] Comment on above: Performed By: #### L 200.92171 #### Test performed at: [address] [address] GFR ESTIMATEon 08-07-2021 IF AMER > 60 Normal > 60 [facility] Comment on above: Result Comment: eGFR (Estimated GFR) Units of measure:mL/min/1.73 meters sq. *CALCULATION REVISED 01/20/2015;IDMS-traceable MDRD equation eGFR is derived from the reexpressed MDRD Study equation using the following parameters: serum creatinine, age, gender and race. An eGFR<60 mL/min/1.73m2 for >3 months is consistent with chronic kidney disease. Refer to KDOQI guidelines for clinical interpretation. Performed By: #### L 500.50979, L500.27591 ####Test performed at: [place] [address] IF non-AFR AMER 59 Low > 60 [facility] Comment on above: Performed By: #### L 500.97175, L500.54063 ####Test performed at: [place] [address] Internal Med Progress Noteon 08-07-2021 Internal Med Progress Note [facility] Patient: EDVIN TRISTAN [address] [place] [address] MR#: [id number] PROGRESS NOTE - Internal Medicine : 58 [...] Agree with above documentation. The [resident's, PA's, PIPE LINE INSPECTOR's] assessment and plan reflect my input. Discussed with documenting provider and patient. Plan is as outlined above. Electronically Signed eSign Date and Time Montana Sánchez (more content not included)... Normal [facility] OT Therapy Recommendationson 08-07-2021 OT Therapy Recommendations [facility] Patient: EDVIN TRISTAN [address] [place] [address] MR#: [id number] OT THERAPY RECOMMENDATIONS : 58 Service Date: 08/07/21 1323 Therapy Recommendations Therapy Recommendations Recommendations Recommend pt d/c home with increased assist from spouse once medically cleared. Pt able to verbalize and demonstrate precautions and adapted techniques for management of ADLs. Electronically Signed eSign Date and Time Kourtney Singh 08/07/21 1324 Normal [facility] Orthopedic Progress Noteon 0 08-07-2021 Orthopedic Progress Note [facility] Patient: EDVIN TRISTAN [address] [place] [id number] MR#: [id number] PROGRESS NOTE - Orthopedic : 58 Service [...] Temp 36.6 08/07 699 Pulse 64 08/07 07 Resp 18 08/07 699 O2 Flow Rate 3 08/06 1803 Intake AND Output Verdana 4d 08/07 2300 05/ 2300 Intake Total 1250 870 Output Total [...] Harp 08/07/21 1235 Santi Roldan MD Normal [facility] z OT Inpatient Evaluationon 08-07-2021 z OT Inpatient Evaluation [facility] Patient: EDVIN TRISTAN [address] [place] [address] MR#: [id number] OT INPATIENT EVALUATION : 58 Inpatient OT HPI Date of Service 08/07/21 Time In: 1053 Time Out: 1137 Total Treatment Time (Mins) 42 Visit Reason LUMBAR STENOSIS Surgery Type/Date s/p bilAteral lumbar L 2-L 5 decompressive laminectomy Referral Date 08/06/21 Tx Diagnosis: LOW BACK PAIN Insurance Name [employer] Hospital Course This is a 60 y/o [...] and IADLs, 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 Pt has large dog and spouse [...] and cooperativ (more content not included)... Normal [facility] z PT Inpatient Evaluationon 08-07-2021 z PT Inpatient Evaluation [facility] Patient: EDVIN TRISTAN [address] [place] [address] MR#: [id number] PT INPATIENT EVALUATION : 58 Service Date: 08/07/21 1127 Inpatient PT HPI Date of Service 08/07/21 Time In: 0945 Time Out: 1025 Total Treatment Time (Mins) 40 Room Number 534 Visit Reason LUMBAR STENOSIS Surgery Type: [place] L2-S1 decompression lami Surgery Date: 08/06/21 Referral Date 08/06/21 Tx Diagnosis: LOW BACK PAIN [facility] 60 y.o female at [facility] for above sx d/t lumbar stenosis [...] provide some assist upon d/c and her tenriism friends may assist /c some meals. Objective [...] ability to (more content not included)... 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 MD 08/07/21 1100 Normal [facility] EKGon 08-06-2021 Electrocardiogram Acquired on 08/06/2021 1411 [...] Referred By: QUINCY Confirmed By:BRUNO CLARK MD [id number] 2021 --- [facility] PT NAME: EDVIN TRISTAN MR#: [id number] [address] [place] [address] ACCT: [id number] : 58 EKG REPORT Normal [facility] GLUCOSE METERon 08-06-2021 Glucose [Mass/Vol] 123 mg/dL High 70-99 [facility] Comment on above: Result Comment: Fast ing GLUCOSE reference range has been updated per (ADA) [place] Diabetes [employer]'s recommendation. 06/26/2018 Performed By: #### L 500.73348 #### Test performed at: [place] [address] GLYCO HEMOon 08-06-2021 HbA1c (Bld) [Mass fraction] 6.1 % Normal [facility] Comment on above: Order Comment: CBN: YES Comments To Phleb: WILL DRAW IN PACU AFTER SURGERY [place]: MAIN Result Comment: Maximino cash Diagnosis HbA1c (%) --------- Diabetic > 6.4 Prediabetes 5.7-6.4 Normal < 5.7 Performed By: #### L 500.62326 #### Test performed at: [place] [address] Internal Medicine Consultati onon 08-06-2021 Internal Medicine Consultation [facility] Patient: EDVIN TRISTAN [address] [place] [address] MR#: [id number] CONSULTATION - Internal Medicine : 58 Service [...] Attending Attest (more content not included)... Normal [facility] OPERATIVE REPORTon OPERATIVE REPORT NAME: EDVIN TRISTAN MR#: [id number] SURGEON: Santi Roldan MD DATE OF SURGERY: 08/06/2021 OPERATIVE REPORT PREOPERATIVE DIAGNOSIS: Stenosis with neurogenic claudication. POSTOPERATIVE DIAGNOSIS: Stenosis with neurogenic claudication. PROCEDURE: Bilateral L2-3, L3-4, L4-5, and L5-S1 decompressive laminectomy. BROKERAGE CLERK: Bettie. PROCEDURE IN DETAIL: After anesthesia, the [...] the traversing L5 root was well decompressed. [facility] PT NAME: EDVIN TRISTAN MR#: [id number] [address] [place] [address] ACCT: [id number] : 58 OPERATIVE REPORT At L3-4, the [...] with st (more content not included)... Normal [facility] Primary Residenton 2 Primary Resident [facility] Pt Name: EDVIN TRISTAN MR#: [id number] [address] [place] [address] ACCT: [id number] [place] [address] : 58 Service Date: 08/06/21 1433 Primary Resident/Call Primary Resident: [id number] [place] After Hours Call: [phone] Blue Team Electronically Signed eSign Date and Time Montana Sánchez 08/06/21 1433 Normal [facility] LUMBAR SPINE 2 OR 3 VIEWSon 08-05-2021 LUMBAR SPINE 2 OR 3 VIEWS STUDY: LUMBAR SPINE 2 OR 3 VIEWS; 08/06/2021 12:51 pm INDICATION: L2-S1 DECOMPRESSION, LAMINECTOMY. COMPARISON: None. ACCESSION NUMBER(S): [id number] ORDERING CLINICIAN: Santi Roldan FINDINGS: Intraoperative fluoroscopy lumbar spine for localization. IMPRESSION: As above Normal [facility] CBC W/DIFFon 08-03-2021 BASO ABS 0.1 K/uL Normal 0.0-0.2 [facility] Comment on above: Performed By: #### L 200.15160 #### Test performed at: [address] [address] Basophils/100 WBC (Bld) 0.9 % Normal [facility] Comment on above: Performed By: #### L 200.72485 #### Test performed at: [address] [address] EOS ABS 0.2 K/uL Normal 0.0-0.5 [facility] Comment on above: Performed By: #### L 200.27658 #### Test performed at: [address] [address] Eosinophils/100 WBC (Bld) 3.0 % Normal [facility] Comment on above: Performed By: #### L 200.07829 #### Test performed at: [address] [address] Erythrocyte distribution width (RBC) [Ratio] 12.3 % Normal 11.5-14.5 [facility] Comment on above: Performed By: #### L 200.93061 #### Test performed at: [address] [address] Hematocrit (Bld) [Volume fraction] 44.5 % Normal 36.0-48.0 [facility] Comment on above: Performed By: #### L 200.87055 #### Test performed at: [address] [address] Hemoglobin (Bld) [Mass/Vol] 14.9 g/dL Normal 12.0-15.0 [facility] Comment on above: Performed By: #### L 200.65640 #### Test performed at: [address] [address] IG % 0.3 % Normal [facility] Comment on above: Performed By: #### L 200.09414 #### Test performed at: [address] [address] IG ABS 0.02 K/uL Normal 0-0.05 [facility] Comment on above: Performed By: #### L 200.00653 #### Test performed at: [address] [address] Lymphocytes (Bld) [#/Vol] 2.0 10*3/uL Normal 1.2-3.5 [facility] Comment on above: Performed By: #### L 200.79740 #### Test performed at: [address] [address] Lymphocytes/100 WBC (Bld) 27.0 % Normal [facility] Comment on above: Performed By: #### L 200.45644 #### Test performed at: [address] [address] MCH (RBC) [Entitic mass] 29.7 pg Normal 25.4-34.6 [facility] Comment on above: Performed By: #### L 200.79824 #### Test performed at: [address] [address] MCHC (RBC) [Mass/Vol] 33.5 g/dL Normal 31.5-36.5 [facility] Comment on above: Performed By: #### L 200.81131 #### Test performed at: [address] [address] MCV (RBC) [Entitic vol] 88.8 fL Normal 79.0-98.0 [facility] Comment on above: Performed By: #### L 200.66665 #### Test performed at: [address] [address] MONO ABS 0.7 K/uL Normal 0.0-1.0 [facility] Comment on above: Performed By: #### L 200.94100 #### Test performed at: [place] [address] Monocytes/100 WBC (Bld) 8.9 % Normal [facility] Comment on above: Performed By: #### L 200.42685 #### Test performed at: [place] [address] NEUTROPHIL ABS 4.5 K/uL Normal 1.4-6.6 [facility] Comment on above: Performed By: #### L 200.29176 #### Test performed at: [address] [address] Neutrophils/100 WBC (Bld) 59.9 % Normal [facility] Comment on above: Performed By: #### L 200.92627 #### Test performed at: [address] [address] NRBC # 0.000 K/uL Normal 0-0.012 [facility] Comment on above: Performed By: #### L 200.26361 #### Test performed at: [address] [address] NRBC % 0.0 /100 WBC Normal 0-0.2 [facility] Comment on above: Performed By: #### L 200.16989 #### Test performed at: [address] [address] Platelet mean volume (Bld) [Entitic vol] 12.4 fL Normal 8.7-12.4 [facility] Comment on above: Performed By: #### L 200.91309 #### Test performed at: [address] [address] Platelets (Bld) [#/Vol] 180 10*3/uL Normal 140-440 [facility] Comment on above: Performed By: #### L 200.71720 #### Test performed at: [address] [address] RBC (Bld) [#/Vol] 5.01 10*6/uL Normal 3.5-5.5 [facility] Comment on above: Performed By: #### L 200.96028 #### Test performed at: [address] [address] WBC (Bld) [#/Vol] 7.6 10*3/uL Normal 3.9-11.0 [facility] Comment on above: Performed By: #### L 200.96245 #### Test performed at: [address] [address] CHEST PA/AP & LATERALon CHEST PA/AP & LATERAL STUDY: CHEST PA/AP LATERAL; 08/03/2021 2:07 pm INDICATION: PREOP. COMPARISON: None. ACCESSION NUMBER(S): [id number] ORDERING CLINICIAN: Sari Bueno FINDINGS: The lungs are clear without apparent pleural effusion. Mild cardiomegaly. Otherwise unremarkable mediastinum, lamin, and pulmonary vasculature. IMPRESSION: No active disease in the chest. Normal [facility] COMP META PANELon 08-03-2021 Albumin [Mass/Vol] 3.6 g/dL Normal 3.4-5.0 [facility] Comment on above: Performed By: #### L 500.91039, L500.02166 #### Test performed at: [address] [address] ALK PHOS TOTAL 102 U/L Normal 45-117 [facility] Comment on above: Performed By: #### L 500.67980, L500.76725 #### Test performed at: [address] [address] ALT [Catalytic activity/Vol] 29 U/L Normal 13-61 [facility] Comment on above: Performed By: #### L 500.38967, L500.79876 #### Test performed at: [address] [address] AST [Catalytic activity/Vol] 19 U/L Normal 15-37 [facility] Comment on above: Performed By: #### L 500.46271, L500.34716 #### Test performed at: [address] [address] BILI TOTAL 0.5 mg/dL Normal 0.2-1.0 [facility] Comment on above: Performed By: #### L 500.90888, L500.61463 #### Test performed at: [address] [address] Calcium [Mass/Vol] 9.4 mg/dL Normal 8.5-10.1 [facility] Comment on above: Performed By: #### L 500.34751, L500.66400 #### Test performed at: [address] [address] Chloride [Moles/Vol] 108 mmol/L High 98-107 [facility] Comment on above: Performed By: #### L 500.67114, L500.55440 #### Test performed at: [address] [address] CO2 [Moles/Vol] 29 mmol/L Normal 21-32 [facility] Comment on above: Performed By: #### L 500.28117, L500.30340 #### Test performed at: [address] [address] Creatinine [Mass/Vol] 1.080 mg/dL High 0.550-1.020 [facility] Comment on above: Performed By: #### L 500.70882, L500.50873 #### Test performed at: [address] [address] Glucose [Mass/Vol] 169 mg/dL High 70-99 [facility] Comment on above: Result Comment: Fast ing GLUCOSE reference range has been updated per (ADA) [place] [employer]'s recommendation. 06/26/2018 Performed By: #### L 500.09610, L500.60792 #### Test performed at: [address] [address] Potassium [Moles/Vol] 4.2 mmol/L Normal 3.5-5.1 [facility] Comment on above: Performed By: #### L 500.07219, L500.13794 #### Test performed at: [address] [address] Protein [Mass/Vol] 7.0 g/dL Normal 6.4-8.2 [facility] Comment on above: Performed By: #### L 500.89884, L500.71546 #### Test performed at: [address] [address] Sodium [Moles/Vol] 140 mmol/L Normal 136-145 [facility] Comment on above: Performed By: #### L 500.58157, L500.68541 #### Test performed at: [address] [address] Urea nitrogen [Mass/Vol] 16 mg/dL Normal 7-18 [facility] Comment on above: Performed By: #### L 500.03434, L500.81262 #### Test performed at: [place] [address] [place] [address] CONSULTATION REPORTon 2021 CONSULTATION REPORT NAME: EDVIN TRISTAN MR#: [id number] SPRAGGER: Sari Bueno MD DATE OF CONSULTATION: 08/03/2021 [...] am going to do a chest x- [facility] PT NAME: EDVIN TRISTAN MR#: [id number] [address] [place], [place] [address] ACCT: [id number] : 58 CONSULTATION ray, CBC and diff, and a CMP on her and her functional capacity is around 4 METS. Surgical risk is ydwc-co-mnmxyraw, higher exam is within acceptable limits. Pending the labs, she is cleared for anesthesia with acceptable risk. Thank you for the courtesy of this consultation. SARI BUENO MD MS/MODL/[id number] E/S: Sari Bueno MD 08/04/21 1514 Electronically Signed [facility] PT NAME: EDVIN TRISTAN MR#: [id number] [address] [place], [place] [address] ACCT: [id number] : 58 CONSULTATION Normal [facility] CORONAVIRUSon 08-03-2021 SARS-CoV-2 (COVID-19) RNA MARIELLA+probe Ql [...] the FDA website: https://www.fda.gov/ MedicalDevices/Safet y/ EmergencySituations/ jan132419.htm COVID-19 Negative for COVID-19 (SARS-CoV-2 RNA) Normal [facility] Comment on above: Order Comment: CBN: YES [place]: MAIN COVID Testing: PRE-OP/PROCEDURE SCREEN AGE at Spec DOMI 60 Report age at specimen DOMI? Y First test: YES Employed in Healthcare: NO Symptomatic as defined by CDC: NO Hospitalized for COVID-19? NO ICU: NO Resident in a Congregated Care Setting: NO Order Date: 08/03/21 : Not Performed By: #### M [id number] #### Test performed at: [place] [address] GFR ESTIMATEon 08-03-2021 IF AMER > 60 Normal > 60 [facility] Comment on above: Result Comment: eGFR (Estimated GFR) Units of measure:mL/min/1.73 meters sq. *CALCULATION REVISED 01/20/2015;IDMS-traceable MDRD equation eGFR is derived from the reexpressed MDRD Study equation using the following parameters: serum creatinine, age, gender and race. An eGFR<60 mL/min/1.73m2 for >3 months is consistent with chronic kidney disease. Refer to KDOQI guidelines for clinical interpretation. Performed By: #### L [id number], L500.87246 #### Test performed at: [place] [address] IF non-AFR AMER 52 Low > 60 [facility] Comment on above: Performed By: #### L 500.30791, L500.19807 #### Test performed at: [place] [address] COVID Quick Testingon 2020 Result Negative [facility] Other Cult,Urine,CCon 07-25-2017 Cult,Urine,CC Specimen Description .URINE Performed at [address] [place] [address] ([phone] Special Requests .CLEAN CATCH URINE Performed at [address] 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 Normal [facility] Urinalysis w/ Microon 2017 ----- Normal [facility] Comment on above: Performed By: #### U AMIC ####[address] [place] [address] Acetaminophen mass conc Negative Normal NEG [facility] Comment on above: Performed By: #### U AMIC ####[address] [place] [address] Bilirubin (direct) Negative Normal NEG [facility] Comment on above: Performed By: #### U AMIC ####[address] [place] [address] Hemoglobin mass conc (Bld) Negative Normal NEG [facility] Comment on above: Performed By: #### U AMIC ####[address] [place] [address] Nitrite,Ur Negative Normal NEG [facility] Comment on above: Performed By: #### U AMIC ####[address] [place] [address] Turbidity TURBID Abnormal CLEAR [facility] Comment on above: Performed By: #### U AMIC ####[address] [place] [address] Urine WBC's 0 TO 2 Normal 0-5 [facility] Comment on above: Performed By: #### U AMIC ####[address] [place] [address] Urine, amorphous sediment presence in sediment 4+ Abnormal NONE [facility] Comment on above: Result Comment: Perf ormed at [facility] [address] [place] [address] Performed By: #### U AMIC ####[address] [place] [address] Urine, color YELLOW Normal YEL [facility] Comment on above: Performed By: #### U AMIC ####[address] [place] [address] Urine, epithelial cells in sediment 0 TO 2 Normal 0-25 [facility] Comment on above: Performed By: #### U AMIC ####[address] [place] [address] Urine, erythrocytes None Normal 0-2 [facility] Comment on above: Performed By: #### U AMIC ####[address] [place] [address] Urine, glucose presence Negative Normal NEG [facility] Comment on above: Performed By: #### U AMIC ####[address] [place] [address] Urine, leukocyte esterase presence Negative Normal NEG [facility] Comment on above: Performed By: #### U AMIC ####[address] [place] [address] Urine, pH 6.0 [pH] Normal 5.0-9.0 [facility] Comment on above: Performed By: #### U AMIC ####[address] [place] [address] Urine, protein presence Negative Normal NEG [facility] Comment on above: Performed By: #### U AMIC ####[address] [place] [address] Urine, specific gravity >1.030 High 1.010-1.020 [facility] Comment on above: Performed By: #### U AMIC ####[address] [place] [address] Urobilinogen,Ur Normal Normal NORM [facility] Comment on above: Performed By: #### U AMIC ####[address] [place] [address] Comment NOT REPORTED Normal [facility] Comment on above: Performed By: #### U AMIC ####[address] [place] [address] Epithelial, Renal NOT REPORTED Normal 0 [facility] Comment on above: Performed By: #### U AMIC ####[address] [place] [address] Mucus Strands NOT REPORTED Normal NONE [facility] Comment on above: Performed By: #### U AMIC ####[address] [place] [address] Other Observations NOT REPORTED Normal NREQ [facility] Comment on above: Performed By: #### U AMIC ####[address] [place] [address] Trichomonas NOT REPORTED Normal NONE [facility] Comment on above: Performed By: #### U AMIC ####[address] [place] [address] Urine, bacteria in sediment NOT REPORTED Normal NONE [facility] Comment on above: Performed By: #### U AMIC ####[address] [place] [address] Urine, casts in sediment NOT REPORTED Normal [facility] Comment on above: Performed By: #### U AMIC ####[address] [place] [address] Urine, crystals in sediment NOT REPORTED Normal NONE [facility] Comment on above: Performed By: #### U AMIC ####[address] [place] [address] Urine, yeast presence in sediment NOT REPORTED Normal NONE [facility] Comment on above: Performed By: #### U AMIC ####[address] [place] [address] Cult,Urine,CCon 04-14-2017 Cult,Urine,CC Specimen Description .URINE Performed at [address] [place] [address] Special Requests .CLEAN CATCH URINE Performed at [address] [place] [address] Culture NO SIGNIFICANT GROWTH Performed at [address] [address] Report Status FINAL 04/14/2017 Normal [facility] Comment on above: Performed By: #### C LAISHA ####[address] [phone] [place] [address] Progress Noteon 04-14-2017 HIM IP Note OR Cryogenic Transport Driver Normal [facility] Urinalysis w/ Microon 2017 ----- Normal [facility] Comment on above: Performed By: #### U AMIC ####[address] [place] [address] Acetaminophen mass conc Negative Normal NEG [facility] Comment on above: Performed By: #### U AMIC ####[address] [place] [address] Bilirubin (direct) Negative Normal NEG [facility] Comment on above: Performed By: #### U AMIC ####[address] [place] [address] Hemoglobin mass conc (Bld) Negative Normal NEG [facility] Comment on above: Performed By: #### U AMIC ####[address] [place] [address] Nitrite,Ur Negative Normal NEG [facility] Comment on above: Performed By: #### U AMIC ####[address] [place] [address] Turbidity CLEAR Normal CLEAR [facility] Comment on above: Performed By: #### U AMIC ####[address] [place] [address] Urine WBC's 0 TO 2 Normal 0-5 [facility] Comment on above: Performed By: #### U AMIC ####[address] [place] [address] Urine, bacteria in sediment TRACE Abnormal NONE [facility] Comment on above: Result Comment: Perf ormed at [address] [place] [address] Performed By: #### U AMIC ####[address] [place] [address] Urine, color YELLOW Normal YEL [facility] Comment on above: Performed By: #### U AMIC ####[address] [place] [address] Urine, epithelial cells in sediment 2 TO 5 Normal 0-25 [facility] Comment on above: Performed By: #### U AMIC ####[address] [place] [address] Urine, erythrocytes None Normal 0-2 [facility] Comment on above: Performed By: #### U AMIC ####[address] [place] [address] Urine, glucose presence Negative Normal NEG [facility] Comment on above: Performed By: #### U AMIC ####[address] [place] [address] Urine, leukocyte esterase presence Negative Normal NEG [facility] Comment on above: Performed By: #### U AMIC ####[address] [place] [address] Urine, pH 6.5 [pH] Normal 5.0-9.0 [facility] Comment on above: Performed By: #### U AMIC ####[address] [place] [address] Urine, protein presence Negative Normal NEG [facility] Comment on above: Performed By: #### U AMIC ####[address] [place] [address] Urine, specific gravity 1.020 Normal 1.010-1.020 [facility] Comment on above: Performed By: #### U AMIC ####[address] [place] [address] Urobilinogen,Ur Normal Normal NORM [facility] Comment on above: Performed By: #### U AMIC ####[address] [place] [address] Comment NOT REPORTED Normal [facility] Comment on above: Performed By: #### U AMIC ####[address] [place] [address] Epithelial, Renal NOT REPORTED Normal 0 [facility] Comment on above: Performed By: #### U AMIC ####[address] [place] [address] Mucus Strands NOT REPORTED Normal NONE [facility] Comment on above: Performed By: #### U AMIC ####[address] [place] [address] Other Observations NOT REPORTED Normal NREQ [facility] Comment on above: Performed By: #### U AMIC ####[address] [place] [address] Trichomonas NOT REPORTED Normal [facility] Comment on above: Performed By: #### U AMIC ####[address] [place] [address] Urine, amorphous sediment presence in sediment NOT REPORTED Normal [facility] Comment on above: Performed By: #### U AMIC ####[address] [place] [address] Urine, casts in sediment NOT REPORTED Normal [facility] Comment on above: Performed By: #### U AMIC ####[address] [place] [address] Urine, crystals in sediment NOT REPORTED Normal [facility] Comment on above: Performed By: #### U AMIC ####[address] [place] [address] Urine, yeast presence in sediment NOT REPORTED Normal [facility] Comment on above: Performed By: #### U AMIC ####[address] [place] [address] Vital Signs Date Time Vital Sign Value Performing Clinician Facility 10-10-2023 13: Body height 163.83 cm [facility] 10-10-2023 13:040 Body mass index (BMI) [Ratio] 39.7 kg/m2 [facility] 10-10-2023 13: Body weight 106.65 kg [facility] 10-10-2023 13: Diastolic blood pressure 79 mm[Hg] [facility] 10-10-2023 13:040 Heart rate 65 /min [facility] 10-10-2023 13:040 Respiratory rate 12 /min [facility] 10-10-2023 13:27-0400 Systolic blood pressure 129 mm[Hg] [facility] 09-25-2023 15:110400 Body height 163.83 cm [facility] 09-25-2023 15:11-0400 Body mass index (BMI) [Ratio] 39.6 kg/m2 [facility] 09-25-2023 15:110400 Body weight 106.31 kg [facility] 09-25-2023 15:11-0400 Diastolic blood pressure 79 mm[Hg] [facility] 09-25-2023 15:11-0400 Heart rate 65 /min [facility] 09-25-2023 15:11-0400 Respiratory rate 12 /min [facility] 09-25-2023 15:11-0400 Systolic blood pressure 122 mm[Hg] [facility] 08-25-2023 10:21-0400 Body height 163.83 cm [facility] 08-25-2023 10:21-0400 Body mass index (BMI) [Ratio] 39.2 kg/m2 [facility] 08-25-2023 10:21-0400 Body weight 105.46 kg [facility] 08-25-2023 10:21-0400 Diastolic blood pressure 63 mm[Hg] [facility] 08-25-2023 10:21-0400 Heart rate 61 /min [facility] 08-25-2023 10:21-0400 Respiratory rate 20 /min [facility] 08-25-2023 10:21-0400 Systolic blood pressure 116 mm[Hg] [facility] 08-09-2023 15:10-0400 Body height 163.83 cm [facility] 08-09-2023 15:10-0400 Body mass index (BMI) [Ratio] 39.2 kg/m2 [facility] 08-09-2023 15:10-0400 Body weight 105.29 kg [facility] 08-09-2023 15:10-0400 Diastolic blood pressure 69 mm[Hg] [facility] 08-09-2023 15:10-0400 Heart rate 65 /min [facility] 08-09-2023 15:10-0400 Respiratory rate 20 /min [facility] 08-09-2023 15:10-0400 Systolic blood pressure 127 mm[Hg] [facility] 02-06-2023 15:30-0500 Body height 163.83 cm Ethan Ball Other [facility] Other 02-06-2023 15:30-0500 Body mass index (BMI) [Ratio] 37.24 kg/m2 Ethan Ball Other [facility] Other 02-06-2023 15:30-0500 Body weight 99.97 kg Ethan Ball Other [facility] Other 02-06-2023 15:30-0500 Diastolic blood pressure 68 mm[Hg] Ethan Ball Other [facility] Other 02-06-2023 15:30-0500 Respiratory rate 16 /min Ethan Ball Other [facility] Other 02-06-2023 15:30-0500 Systolic blood pressure 112 mm[Hg] Ethan Ball Other [facility] Other 01-11-2023 11:45-0400 Body height 163.83 cm Ethan Ball Other [facility] Other 01-11-2023 11:45-0400 Body mass index (BMI) [Ratio] 36.74 kg/m2 Ethan Ball Other [facility] Other 01-11-2023 11:45-0400 Body weight 98.61 kg Ethan Ball Other [facility] Other 01-11-2023 11:45-0400 Diastolic blood pressure 75 mm[Hg] Ethan Ball Other [facility] Other 01-11-2023 11:45-0400 Respiratory rate 12 /min Ethan Ball Other [facility] Other 01-11-2023 11:45-0400 Systolic blood pressure 112 mm[Hg] Ethan Ball Other [facility] Other 04-11-2022 16:30-0500 Body height 163.83 cm Ethan Ball Other [facility] Other 04-11-2022 16:30-0500 Body mass index (BMI) [Ratio] 39.78 kg/m2 Ethan Ball Other [facility] Other 04-11-2022 16:30-0500 Body weight 106.78 kg Ethan Ball Other [facility] Other 04-11-2022 16:30-0500 Diastolic blood pressure 74 mm[Hg] Ethan Ball Other [facility] Other 04-11-2022 16:30-0500 Respiratory rate 12 /min Ethan Ball Other [facility] Other 04-11-2022 16:30-0500 Systolic blood pressure 112 mm[Hg] Ethan Ball Other [facility] Other 01-10-2021 13:30-0400 Body temperature 96.7 [degF] Celine Gonzales Other [facility] Other 01-10-2021 13:30-0400 SaO2% (BldA) [Mass fraction] 97 % Celine Gonzales Other [facility] Other Encounters Encounter Date Encounter Type Care Provider Facility Start: 10-10-2023 End: 10-10-2023 ambulatory [facility] Work Phone: Start: 10-10-2023 End: 10-10-2023 Patient encounter procedure [facility] Work Phone: Start: 09-25-2023 End: 09-25-2023 ambulatory [facility] Work Phone: Start: 09-25-2023 End: 09-25-2023 Patient encounter procedure [facility] Work Phone: Start: 09-13-2023 End: 09-13-2023 ambulatory [facility] Work Phone: Start: 09-13-2023 End: 09-13-2023 Patient encounter procedure [facility] Work Phone: Start: 08-25-2023 End: 08-25-2023 ambulatory [facility] Work Phone: Start: 08-25-2023 End: 08-25-2023 Patient encounter procedure [facility] Work Phone: Start: 08-09-2023 End: 08-09-2023 ambulatory [facility] Work Phone: Start: 08-09-2023 End: 08-09-2023 Patient encounter procedure [facility] Work Phone: Start: 08-04-2023 Non-patient / Non-visit [facility] Work Phone: Start: 07-28-2023 Non-patient / Non-visit [facility] Work Phone: Start: 04-12-2023 End: 04-12-2023 ambulatory Ethan Donny Other [facility] Other Start: 04-12-2023 Telephone encounter Ethan Hines [facility] Start: 02-06-2023 End: 02-06-2023 ambulatory Ethan Hines Other [facility] Other Start: 02-06-2023 Office outpatient vi sit 15 minutes Ethan Hines [facility] Start: 01-30-2023 End: 01-30-2023 ambulatory Ethan Hines Other [facility] Other Start: 01-30-2023 Telephone encounter [facility] Start: 01-26-2023 End: 01-26-2023 ambulatory Ethan Hines Other [facility] Other Start: 01-26-2023 Telephone encounter [facility] Start: 01-11-2023 End: 01-11-2023 ambulatory Ethan Hines Other [facility] Other Start: 01-11-2023 Encounter for genera l adult medical examination without abnormal findings Ethan Hines [facility] Start: 01-11-2023 Periodic preventive med est patient 40-64yrs Ethan Hines [facility] Start: 01-11-2023 Telephone encounter [facility] Start: 10-12-2022 End: 10-13-2022 ambulatory Robin Zelaya Facility[facility] Start: 10-12-2022 End: 10-12-2022 Lab Drop off Robin Zelaya [facility] Start: 09-07-2022 End: 09-07-2022 ambulatory Ethan Hines Other [facility] Other Start: 09-07-2022 Telephone encounter [facility] Start: 08-10-2022 End: 08-10-2022 ambulatory Ethan Hines Other [facility] Other Start: 08-10-2022 Office outpatient vi sit 15 minutes Ethan Hines [facility] Start: 08-02-2022 End: 08-03-2022 ambulatory NONE LISTED REQUEST Facility:[facility] Start: 07-04-2022 End: 07-04-2022 ambulatory Ethan Hines Other [facility] Other Start: 07-04-2022 Telephone encounter Ethan Hines [facility] Start: 05-09-2022 End: 05-09-2022 ambulatory Ethan Hines Other [facility] Other Start: 05-09-2022 Telephone encounter Ethan Donny [facility] Start: 04-13-2022 End: 04-13-2022 ambulatory Ethan Hines Other [facility] Other Start: 04-13-2022 Telephone encounter Ethan Donny [facility] Start: 04-11-2022 End: 04-11-2022 ambulatory Ethan Hines Other [facility] Other Start: 04-11-2022 Office outpatient vi sit 25 minutes Ethan Hines [facility] Start: 04-10-2022 End: 04-10-2022 ambulatory Ethan Hines Other [facility] Other Start: 04-10-2022 Telephone encounter Ethan Hines [facility] Start: 04-05-2022 End: 04-06-[address] ETHAN HINES Facility:[facility] Start: 03-16-2022 End: 03-16-[address] ETHAN HINES Facility:[facility] Start: 11-22-2021 End: 11-23-2021 ambulatory NONE LISTED REQUEST Facility:[facility] Start: 11-18-2021 End: 11-19-[address] ETHAN HINES Facility:[facility] Start: 10-19-2021 End: 10-20-[address] SISSY DASILVA . Facility:[facility] Start: 09-28-2021 End: 09-28-[address] ETHAN HINES Facility:[facility] Start: 08-26-2021 End: 10-22-[address] DOCTOR CASSIDY Facility:[facility] Start: 08-18-2021 End: 08-18-[address] ETHAN HINES Facility:[facility] Start: 01-10-2021 Office outpatient vi sit 15 minutes Celine Gonzales [facility] Start: 07-24-2017 End: 07-25-2017 Ambulatory [facility] Start: 04-13-2017 End: 04-14-2017 [facility] Procedures Date Procedure Procedure Detail Performing Clinician Start: 07-24-2017 URINE CULTURE CLEAN CATCH UBALDO LOPEZ Start: 07-24-2017 URINALYSIS WITH MICROSCOPIC UBALDO LOPEZ Start: 04-13-2017 URINE CULTURE CLEAN CATCH UBALDO LOPEZ Start: 04-13-2017 URINALYSIS WITH MICROSCOPIC UBALDO LOPEZ Plan of Treatment Date Care Activity Detail Author [facility] Payers Date Payer Category Payer Unknown [id number] 2.16.84 [id number] 1960 Unknown [id number] 2.16.84 [id number] 1959 Unknown [id number] 2.16.84 [id number] 1959 Unknown [id number] 2.16.84 [id number] 1959 Unknown [id number] 2.16.84 [id number] 1959 Unknown [id number] 2.16.8 [id number] 1960 Self-pay 1960 Self-pay [id number] 1960 Unknown [id number] Unknown [id number] 2.16.84 [id number] Unknown [id number] 2.16.84 [id number] Unknown [id number] 2.16.84 [id number] Unknown [id number] 2.16.84 [id number] Unknown Other1 (STD) [id number] Social History Date Type Detail Facility Sex Assigned At [facility] Tobacco smoking status No Smokin g Status Entered [facility] Start: 1960 Sex Assigned At Female F [facility] Clinical Notes 01-10-2021 to 02-06-2023 Note [...] Lisinopril to 5mg and monitoring BP closely [facility] Other 10-11-2023 Evaluation note* Encounter Date Diagnosis [...] Colon cancer screeni ng (ICD-10 - Z12.11) [facility] Other 05-10-2023 Evaluation note* Encounter Date Diagnosis [...] Pain in left hip (ICD-10 - M25.552) [facility] Other 02-06-2023 Evaluation note* Encounter Date Diagnosis Assessment Notes Treatment Notes Treatment Clinical Notes May, Type 2 diabetes mellitus with hyperglycemia, without long-term current use of insulin (ICD-10 - E11.65) [facility] Other 01-11-2023 Evaluation note* Encounter Date Diagnosis Assessment Notes Treatment Notes Treatment Clinical Notes Apr, Gastroesophageal ref lux disease with esophagitis without hemorrhage (ICD-10 - K21.00) Apr, Type 2 diabetes mellitus with hyperglycemia, without long-term current use of insulin (ICD-10 - E11.65) [facility] Other 01-09-2023 Evaluation note* Encounter Date Diagnosis [...] (ICD-10 - N60.99) Close f/u w/ Oncology [facility] Other 01-08-2023 Evaluation note* Encounter Date Diagnosis Assessment Notes Treatment Notes Treatment Clinical Notes Apr, Type 2 diabetes mellitus with hyperglycemia, without long-term current use of insulin (ICD-10 - E11.65) [facility] Other 05-06-2022 NoteNAME: EDVIN TRISTAN MR#: [id number] ADMIT DATE: 08/06/2021 DISCHARGE DATE: 08/08/2021 DISCHARGE [...] every hour, and perform incentive spirometer 10 [facility] PT NAME: EDVIN TRISTAN MR#: [id number] [address] [place] [address] ACCT: [id number] : 58 DISCHARGE SUMMARY times per hour while awake. She was also advised to get all of her prescriptions filled as soon as possible and continue taking all of her medications as directed and keep all of her outpatient followup appointment as scheduled. She is being discharged back to her home with self-care. MD CARIDAD MILLER/SALOME/[id number] E/S: Santi Roldan MD 09/15/21 1121 Electronically Signed [facility] PT NAME: EDVIN TRISTAN MR#: [id number] [address] [place] [address] ACCT: [id number] : 58 [facility] Evaluation note* Encounter Date Diagnosis Assessment Notes [...] Patient care instructions given in writting by [facility] Care At Home document. [place] [employer] Other Evaluation + Plan note No data available for this section [facility] noteNo [facility] Other Evaluation note* Diagnosis Onset Date Resolution Status Hypertension acute Nicotine addiction acute Type 2 diabetes mellitus with hyperglycemia [facility] Work Phone: Evaluation note* Diagnosis Onset Date Resolution Status Cardiac murmur acute Hypertension acute Nicotine addiction acute Type 2 diabetes mellitus with hyperglycemia acute [facility] Work Phone: Evaluation note* Diagnosis Onset Date Resolution Status Hypertension acute Nicotine addiction acute Type 2 diabetes mellitus with hyperglycemia acute Aphthous stomatitis noneacti ve Odynophagia noneactive [facility] Work Phone: Evaluation note* Diagnosis Onset Date Resolution Status Hypertension acute Nicotine addiction acute Type 2 diabetes mellitus with hyperglycemia acute Aphthous stomatitis noneacti ve Odynophagia noneactive Hypertension acute Nicotine addiction acute Type 2 diabetes mellitus with hyperglycemia acute [facility] Work Phone: Evaluation note* Diagnosis Onset Date Resolution Status Hypertension acute Nicotine addiction acute Type 2 diabetes mellitus with hyperglycemia acute Aphthous stomatitis noneacti ve Odynophagia noneactive Hypertension acute Obesity acute Type 2 diabetes mellitus with hyperglycemia acute [facility] Work Phone: History general Narrative - Reported* [...] with hyperglycemia Surgical History decompression laminectomy of amnita mbar spine Surgical History endometrial biopsy Surgical History partial mastectomy Surgical History right breast biopsy Surgical History cholecystectomy Surgical History endometrial biopsy Hospitalization History see surgical history [facility] Discharge instructions No data [facility] for this [facility] No data available for this section [facility] Summary Purpose Family History No Family History [...] Documentation discuss diabetic medication swollen tounge, dysphagia UA Reason for Visit Hypertension Nicotine addiction Type 2 diabetes mellitus with hyperglycemia Aphthous stomatitis Odynophagia Chief Complaint Amb Documentation discuss diabetic medication swollen tounge, dysphagia UA medication discussion Reason for Visit Hypertension Nicotine addiction Type 2 diabetes mellitus with hyperglycemia Aphthous stomatitis Odynophagia Hypertension Nicotine addiction Type 2 diabetes mellitus with hyperglycemia Chief Complaint Amb Documentation discuss diabetic medication swollen tounge, dysphagia UA medication discussion Dizziness, Ear pain Reason for Visit Hypertension Nicotine addiction Type 2 diabetes mellitus with hyperglycemia Aphthous stomatitis Odynophagia Hypertension Obesity Type 2 diabetes mellitus with hyperglycemia Additional Source Comments INFORMATION SOURCE (unrecogn ized section and content) DATE CREATED AUTHOR 09/21/2017 [facility] DATE CREATED AUTHOR AUTHOR'S ORGANIZ ATION 09/16/2021 [facility] DATE CREATED AUTHOR AUTHOR'S ORGANIZ ATION 08/03/2022 [facility] DATE CREATED AUTHOR AUTHOR'S ORGANIZ ATION 10/19/2022 [facility] REASON FOR VISIT (unrecogniz ed section [...] Ethan Hines DO Primary Care Provider Active Start: July [...] August 25, 2023 End: August 25, 2023 Team Status: Inactive Member Role Status Dates Ethan Hines DO Primary Care Provide r, Attending Provider Active Start: September 13, 2023 End: September 13, 2023 Team Status: Inactive Member Role Status Dates Ethan Hines , Primary Care Provide r, Attending Provider Active Start: September 25, 2023 End: September 25, 2023 Team Status: Inactive Member Role Status Dates Ethan Hines DO Primary Care Provide r, Attending Provider Active Start: October 10, 2023 End: October 10, 2023 Goals (unrecognized section and content) Goals [...] BE BASED ON THE PRIMARY CLINICAL RECORDS. [facility] [facility]. provides no warranty or guarantee of the accuracy or completeness of information in this document.
== END 2023-10-26 11:20 | disposition home or self-care (01) ==
LOC: MAMMO 11:19
PROVIDERS: PCP Internal Medicine; Visit Provider Obstetrics & Gynecology
DX: Z12.31 Encounter for screening mammogram for malignant neoplasm of breast (principal)
CPT/HCPCS: 77063; 77067

== ENCOUNTER 2024-08-13 07:03 | Outpatient (OUT) | payer OTHER, SELFPAY ==
--- NOTE | 2024-08-13 | US_ITS ---
The [address] [address] Patient Name: EDVIN TRISTAN MRN: [id number] date: 1960 Sex: F Assigned Patient Location: [place] Current Patient Location: [place] Accession/Order Number: [id number] Exam Date: 08/13/2024 10:14 Report Date: 08/13/2024 10:18 At the request of: WYATT GARCIA DO Procedure: US renal BI BILATERAL RENAL AND BLADDER ULTRASOUND CLINICAL HISTORY: Right flank pain,R10.31 COMPARISON: None Estimation of renal size is approximately 10.7 cm on the right and 10.3 cm on the left. No shadowing hydronephrosis is identified. A small cyst is present at the upper pole the left kidney measuring 17 x 16 x 16 mm. There is a small hyperechoic area at the cortex of the lower pole of the left kidney measuring 8 x 7 x 9 mm. It is uncertain if this is an area of scarring with interposed fat or possibly angiomyolipoma. A renal stone is thought less likely. There is no perinephric fluid. The urinary bladder is partially distended with a volume of 171 mL. No contour or intraluminal abnormalities are seen. US/US renal BI IMPRESSION: NO OBSTRUCTIVE UROPATHY. LEFT RENAL CYST AND HYPERECHOIC AREA, DESCRIBED. Impression dictated by: Olga Rodriguez M.D. 08/13/2024 10:18 AM Dictation Location: [place] [address] Electronically authenticated by: [id number] Y Date: 08/13/2024 10:18
--- OUTSIDE RECORDS SUMMARY | 2024-08-13 07:10 | XMS_ITS | CCD ---
Author Organization [facility] Care Team Providers Care Director Medical Surgical Name Role Phone UBALDO LOPEZ Unavailable Unavailable [...] Unavaila ble ETHAN HINES Primary Care Physician [phone] Robin Zelaya Attending Unavailable Robin Zelaya Admitting Unavailable Allergies Allergy Classification Reported Allergen(s) Allergy Type Date of Onset Reaction(s) Facility [facility] (1 source) traMADol Drug Allergy 4 [facility] (20 sources) traMADol Drug Allergy 4 [facility] (9 sources) Erythromycin Drug Allergy 5 Unknown Reaction [facility] (1 source) Sulfonamides (Antibiotic) Drug allergy (disorder) 5 [facility] (1 source) traMADol Drug Allergy 5 [facility] (6 sources) Erythromycin Drug Allergy Unknown [employer] Other Medications Current Medications Medication Drug Class(es) [...] MG Subcutaneous weekly for 28 days Active lisinopril 5 mg oral tablet (20 sources) Angiotensin Converting Enzyme Inhibitor Start: 08-09-2023 End: 03-26-2024 take 1 tablet by mouth once daily Lisinopril 5 mg tablet Active 5 MG PO Daily March 26, 2024 10:50am take 1 tablet by johnie th every [...] 5 MG/0.5ML 5 MG Subcutaneous weekly Active Tirzepatide (4 sources) Start: 08-07-2024 Tirzepatide 10 mg/0.5 mL pen injector Active 10 MG SUBCUT every week 2 August 07, 2024 3:21pm Start: 06-10-2024 End: 07-15-2024 Tirzepatide 10 mg/0.5 mL pen injector Discontinued 10 MG SUBCUT every week 2 June 10, 2024 4:30pm July 15, 2024 5:29pm for 4 weeks Start: 06-10-2024 Tirzepatide 10 mg/0.5 mL pen injector Active 10 MG SUBCUT every week 2 June 10, 2024 4:30pm for 4 weeks Completed/Discontinued Medications Medication Drug Class(es) Dates Sig (Normalized) Sig (Original) azithromycin 250 mg oral tablet (8 sources) Macrolide Antimicrobial Start: 08-10-2022 Azithromycin 250 MG as directed Orally daily for 5 days August, Not-Taking/PRN famotidine 20 mg oral tablet (20 sources) Histamine-2 Receptor Antagonist Start: 08-09-2023 End: 02-27-2024 take 1 tablet by mouth twice daily Famotidine 20 mg tablet Discontinued 20 MG PO Twice daily August 09, 2023 12:00am February 27, 2024 1:05pm take 1 tablet by johnie twice daily at breakfast Famotidine 20 MG TAKE 1 TABLET BY MOUTH TWICE DAILY, AT BREAKFAST AND SUPPER Active nabumetone 750 mg oral tablet (10 sources) Nonsteroidal Anti-inflammatory Drug Start: 08-09-2023 End: 02-27-2024 take 1 tablet by mouth twice daily Nabumetone 750 mg tablet Discontinued 750 MG PO Twice daily August 09, 2023 12:00am February 27, 2024 1:05pm Start: 02-06-2023 take 750 mg by mouth twice daily Nabumetone 750 MG as directed Orally Twice a day for 30 days Feb, Active phentermine hydrochloride 37.5 mg oral tablet (5 sources) Sympathomimetic Amine Anorectic Start: 09-25-2023 End: 02-27-2024 take 1 tablet by mouth once daily 30 minutes after breakfast Phentermine (Adipex-P) 37.5 mg tablet Discontinued 37.5 MG PO Daily September 25, 2023 12:00am February 27, 2024 1:05pm must administer 30 minutes before or 1-2 hours after breakfast predniSONE 20 mg oral tablet (9 sources) Start: 08-25-2023 End: 03-26-2024 Prednisone 20 mg tablet Discontinued 20 MG PO .COMPLEX 15 February 27, 2024 1:06pm March 26, 2024 10:23am 20 mg orally; 1 tab bid w/ food x 5 days, then qd w/ food x 5 days Tirzepatide (19 sources) Start: 04-12-2024 End: 05-15-2024 Tirzepatide 5 mg/0.5 mL pen injector Discontinued 5 MG SUBCUT every week 2 April 12, 2024 11:19am May 15, 2024 10:59am for 4 weeks Start: 07-28-2023 End: 02-27-2024 Tirzepatide (Mounjaro) 5 mg/ 0.5 mL pen injector Discontinued 5 MG SUBCUT every week 2 July 28, 2023 4:58pm February 27, 2024 1:06pm Start: 07-28-2023 Tirzepatide (M ounjaro) 5 mg/0.5 mL pen injector Active 5 MG SUBCUT every week 2 July 28, 2023 4:58pm Start: 07-28-2023 End: 07-28-2023 Tirzepatide (Mounjaro) 5 mg/ 0.5 mL pen injector Discontinued 5 MG SUBCUT every week July 28, 2023 12:00am July 28, 2023 4:58pm Tirzepatide (3 sources) Start: 05-15-2024 End: 06-10-2024 Tirzepatide 7.5 mg/0.5 mL pe n injector Discontinued 7.5 MG SUBCUT every week 2 May 15, 2024 10:58am June 10, 2024 4:30pm for 4 weeks Tirzepatide (3 sources) Start: 03-26-2024 End: 04-12-2024 Tirzepatide (Mounjaro) 2.5 m g/0.5 mL pen injector Discontinued 2.5 MG SUBCUT every week 2 March 26, 2024 1:00am April 12, 2024 11:20am for 4 weeks Tirzepatide (2 sources) Start: 07-15-2024 End: 08-07-2024 Tirzepatide 12.5 mg/0.5 mL p en injector Discontinued 12.5 MG SUBCUT every week 2 July 15, 2024 5:28pm August 07, 2024 3:23pm Start: 07-15-2024 Tirzepatide 12 .5 mg/0.5 mL pen injector Active 12.5 MG SUBCUT every week 2 July 15, 2024 5:28pm valACYclovir 1000 mg oral tablet (6 sources) Herpesvirus Nucleoside Analog DNA Polymerase Inhibitor, Herpes Simplex Virus Nucleoside Analog DNA Polymerase Inhibitor, Herpes Zoster Virus Nucleoside Analog DNA Polymerase Inhibitor Start: 08-25-2023 End: 02-27-2024 Valacyclovir 1 gram tablet Discontinued 1000 MG PO Three times daily 15 08August 25, 2023 12:00am February 27, 2024 1:06pm Start: 08-25-2023 take 1000 mg by mout h three times daily Valacyclovir Active 1000 MG PO Three times daily 15 08August 25, 2023 12:00am Problems Active Problems Problem Classification Problem Date Documented Da te Episodic/Chronic Abdominal pain (2 sources) Abdominal pain; 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: [Unspecified abdominal pain] 08-07-2024 Episodic Calculus of urinary tract (14 sources) Unspecified renal colic; 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: [H/O: urinary stone] Onset: 04-13-2017 Episodic Conditions associated with dizziness or vertigo (3 sources) Benign paroxysmal positional vertigo; 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: [Benign paroxysmal vertigo, unspecified ear] 10-10-2023 Episodic Diabetes mellitus with complications (20 sources) Type 2 diabetes mellitus; 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: [Type 2 diabetes mellitus with hyperglycemia] Chronic Diseases of mouth; excluding dental (3 sources) Recurrent oral aphthae; 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: [Oral aphthae] 08-25-2023 Episodic Esophageal disorders (16 sources) Gastro-esophageal reflux disease with esophagitis; 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: [Gastroesophageal reflux disease with esophagitis without hemorrhage] 08-08-2023 Chronic Essential hypertension (20 sources) Essential hypertension; 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: [Essential (primary) hypertension] Chronic Comment on above: Echo: LVEF 60%, norm al RV size/function, no significant valvular disease. - 09/2023 Genitourinary symptoms and ill-defined conditions (3 sources) Dysuria; 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: [Frequency of micturition] Onset: 04-13-2017 Episodic Gout and other crystal arthropathies (3 sources) Acute gout; 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: [Gout, unspecified] 02-27-2024 Chronic Heart valve disorders (9 sources) Heart murmur; 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: [Cardiac murmur, unspecified] 08-09-2023 Episodic Nonmalignant breast conditions (15 sources) Benign mammary dysplasia; 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: [Unspecified benign mammary dysplasia of unspecified breast] Episodic Other bone disease and musculoskeletal deformities (14 sources) Other specified disorders of bone density and structure, other site; 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: [Osteopenia of lumbar spine] Episodic Other bone disease and musculoskeletal deformities (8 sources) Osteopenia; 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: [Other specified disorders of bone density and structure, unspecified site] 08-08-2023 Episodic Other gastrointestinal disorders (3 sources) Dysphagia, unspecified; 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: [Dysphagia, unspecified] 08-25-2023 Episodic Other non-traumatic joint disorders (2 sources) Pain in right hip Episodic Other non-traumatic joint disorders (2 sources) Pain in left hip Episodic Other nutritional; endocrine; and metabolic disorders (18 sources) Obesity; 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: [Obesity, unspecified] 09-25-2023 Chronic Other nutritional; endocrine; and metabolic disorders (13 sources) Body mass index 40+ - severely obese; 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: [Body mass index (BMI) 40.0-44.9, adult] Chronic Other nutritional; endocrine; and metabolic disorders (1 source) Body mass index (BMI) 40.0-44.9, adult Chronic Other nutritional; endocrine; and metabolic disorders (3 sources) Obesity, unspecified; 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: [Obesity, unspecified] 09-25-2023 Chronic [...] (1 source) Acute maxillary sinusitis, unspecified Episodic Otitis media and related conditions (4 sources) Dysfunction of eustachian tube; 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: [Unspecified Eustachian tube disorder, unspecified ear] 07-02-2024 Episodic Rheumatoid arthritis and related disease (20 sources) Inflammatory polyarthropathy; 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: [Inflammatory polyarthropathy] Chronic [...] 08-26-2021 Episodic Other aftercare (1 source) 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; 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: [OTH [facility] CURRENT DRUG THERAPY] Onset: 08-20-2021 Episodic Other [...] - challengeon 09-13-2023 Bilirubin Ql (U) Negative [facility] Glucose (U) [Mass/Vol] Negative [facility] Ketones Ql (U) 5 [facility] pH (U) 5.0 [pH] [facility] Specific gravity (U) [Rel density] 1.030 [facility] Urobilinogen (U) [Mass/Vol] 0.2 mg/dL [facility] Laboratory - Specimen inform ationon 09-13-2023 Appearance (U) clear [facility] Color (U) darkyellow [facility] Laboratory - Urinalysison Leukocyte esterase Test strip Ql (U) Negative [facility] Nitrite Ql (U) Negative [facility] Protein Ql (U) + [facility] No Panel Informationon 09-12 Urine Occult Blood Negative [facility] Glucose mean value [Mass/vol ume] in Blood Estimated from glycated hemoglobinon 08-04-2023 Average glucose Estimated from glycated hemoglobin (Bld) [Mass/Vol] 111 mg/dL [facility] Laboratory - Hematology and Cell countson 08-04-2023 HbA1c (Bld) [Mass fraction] 5.5 % 4.5-6.2 [facility] Comment on above: ADA RECOMMENDED LIMI T 4.0 - 6.0ADA THERAPEUTIC TARGET < 7.0ACTION SUGGESTED> 7.0 PAP [id number] 10-18-2022 Cytology report Cyto stain Doc (Cvx/Vag) Note Invalid Interpretation Code [facility] Comment on above: Result Comment: TEST S RESULT FLAG UNITS REF RANGE LAB Clinician Provided Cytology Information Source.............Endocervix No. of containers..01 ThinPrep Vial DIAGNOSIS: 01 NEGATIVE FOR INTRAEPITHELIAL LESION OR MALIGNANCY. Specimen adequacy: 01 Satisfactory for evaluation. Endocervical and/or squamous metaplastic cells (endocervical component) are present. Performed by: 01 Martha Barron Production Cloth Cutter (ASCP) . 01 Note: Note 01 The [...] <-Panic Low,>-Panic High,A-Abnormal,AA-Critical Abnormal Performed at: [address] [id number] Edith Barnes MD, Performed By: #### 3 [id number] #### [facility] [address] [place] [address] HPV 16+18+31+33+35+39+45+ 51+52+56+58+59+66+68 DNA Probe+sig amp Ql (Cvx) Negative Invalid Interpretation Code Negative [facility] Comment on above: Result Comment: This nucleic acid amplification test detects fourteen high-risk HPV types (16,18,31,33,35,39,45,51,52,56,58,59,66,68) without differentiation. Performed at: WB [facility] [address] [place], [place] [id number] MD Cameron Sharma Performed at: =G [facility] [place] [address] [place], [place] [id number] MD Cameron Sharma Performed By: #### 3 [id number] #### [facility] [address] [place] [address] PAP [id number] 10-13-2022 Collection Technique BRUSH-SPATULA Normal F [facility] Comment on above: Performed By: #### 3 [id number] #### [facility] [address] [place] [address] Gynecological Body Site ENDOCERVIX Normal [facility] Comment on above: Performed By: #### 3 [id number] #### [facility] [address] [place] [address] Previous Treatment NONE Normal [facility] Comment on above: Performed By: #### 3 [id number] #### [facility] [address] [place] [address] Physician Orderon 10-12-2022 Physician Order [id number] #[id number]:[id number] Normal [facility] GLYCOHEMOGLOBIN A1Con 2022 ADA RECOMMENDATION SEE BELOW Normal [facility] Comment on above: Result Comment: ADA RECOMMENDED LIMIT 4.0 - 6.0 ADA THERAPEUTIC TARGET < 7.0 ACTION SUGGESTED > 7.0 Performed By: #### D ATA1C #### [facility] [address] [address] [address] María Adorno Glucose [Mass/Vol] 114 mg/dL Normal [facility] Comment on above: Performed By: #### D ATA1C #### [facility] [address] [address] [address] María Adorno HbA1c (Bld) [Mass fraction] 5.6 % Normal 4.5-6.2 [facility] Comment on above: Performed By: #### D ATA1C #### [facility] [address] [address] [address] María Adorno GLYCOHEMOGLOBIN A1Con 2022 ADA RECOMMENDATION SEE BELOW Normal [facility] Comment on above: Result Comment: ADA RECOMMENDED LIMIT 4.0 - 6.0 ADA THERAPEUTIC TARGET < 7.0 ACTION SUGGESTED > 7.0 Performed By: #### D ATA1C #### [facility] [address] [address] [address] María Adorno Glucose [Mass/Vol] 131 mg/dL Normal [facility] Comment on above: Performed By: #### D ATA1C #### [facility] [address] [address] [address] María Adorno HbA1c (Bld) [Mass fraction] 6.2 % Normal 4.5-6.2 [facility] Comment on above: Performed By: #### D ATA1C #### [facility] [address] [place] [address] Dr. María Adorno Covid-19 PCR (CVDTBH)on 03-03 SARS-CoV-2 (COVID-19) RNA MARIELLA+probe Ql (Unsp spec) Not detected Normal NOT DETECTED [facility] Comment on above: Result Comment: This test is not yet approved or cleared by the [place] FDA. When there are no FDA-approved or cleared tests available, and other criteria are met, FDA can make tests available under an emergency access mechanism called an Emergency Use Authorization (EUA). The EUA for this test is supported by the [employer] Teacher of Health and Human Service's (HHS's) declaration [...] SARS-CoV-2. Performed By: #### C VDTBH #### [facility] [address] [place] [address] Dr. María Adorno GLYCOHEMOGLOBIN A1Con 2021 ADA RECOMMENDATION SEE BELOW Normal [facility] Comment on above: Result Comment: ADA RECOMMENDED LIMIT 4.0 - 6.0 ADA THERAPEUTIC TARGET < 7.0 ACTION SUGGESTED > 7.0 Performed By: #### D ATA1C #### [facility] [address] [place] [address] Dr. María Adorno Glucose [Mass/Vol] 140 mg/dL Normal [facility] Comment on above: Performed By: #### D ATA1C #### [facility] [address] [place] [address] Dr. María Adorno HbA1c (Bld) [Mass fraction] 6.5 % Critically high 4.5-6.2 [facility] Comment on above: Performed By: #### D ATA1C #### [facility] [address] [place] [address] Dr. María Adorno [facility] CBC AUTO DIFFon 11-18-2021 BASO # 0.1 103/ul Normal 0.0-0.1 [facility] Comment on above: Performed By: #### C RP, BMP #### [facility] [address] [place] [address] Dr. María Adorno Basophils/100 WBC (Bld) 0.9 % Normal 0.2-2.0 [facility] Comment on above: Performed By: #### C RP, BMP #### [facility] [address] [place] [address] Dr. María Adorno EO # 0.3 103/ul Normal 0.0-0.7 [facility] Comment on above: Performed By: #### C RP, BMP #### [facility] [address] [place] [address] Dr. María Adorno Eosinophils/100 WBC (Bld) 3.0 % Normal 0.9-7.0 [facility] Comment on above: Performed By: #### C RP, BMP #### [facility] [address] [place] [address] Dr. María Adorno Erythrocyte distribution width (RBC) [Ratio] 11.9 % Normal 11.0-15.0 [facility] Comment on above: Performed By: #### C RP, BMP #### [facility] [address] [place] [address] Dr. María Adorno Hematocrit (Bld) [Volume fraction] 45.3 % Normal 36.0-48.0 [facility] Comment on above: Performed By: #### C RP, BMP #### [facility] [address] [place] [address] Dr. María Adorno Hemoglobin (Bld) [Mass/Vol] 14.7 g/dL Normal 12.0-16.0 [facility] Comment on above: Performed By: #### C RP, BMP #### [facility] [address] [place] [address] Dr. María Adorno IG # 0.04 10e3/ul Critically high 0.00-0.03 [facility] Comment on above: Performed By: #### C RP, BMP #### [facility] [address] [place] [address] Dr. María Adorno IG % 0.4 % Normal 0.0-0.5 [facility] Comment on above: Performed By: #### C RP, BMP #### [facility] [address] [place] [address] Dr. María Adorno LYMPH # 3.1 103/ul Normal 1.2-3.8 [facility] Comment on above: Performed By: #### C RP, BMP #### [facility] [address] [place] [address] Dr. María Adorno Lymphocytes/100 WBC (Bld) 32.3 % Normal 20.5-60.0 [facility] Comment on above: Performed By: #### C RP, BMP #### [facility] [address] [place] [address] Dr. María Adorno MCH (RBC) [Entitic mass] 28.9 pg Normal 26.7-34.0 [facility] Comment on above: Performed By: #### C RP, BMP #### [facility] [address] [place] [address] Dr. María Adorno MCHC (RBC) [Mass/Vol] 32.5 g/dL Normal 29.9-35.2 [facility] Comment on above: Performed By: #### C RP, BMP #### [facility] [address] [place] [address] Dr. María Adorno MCV (RBC) [Entitic vol] 89.2 fL Normal 81.0-99.0 [facility] Comment on above: Performed By: #### C RP, BMP #### [facility] [address] [place] [address] Dr. María Adorno MONO # 0.8 103/ul Normal 0.3-0.8 [facility] Comment on above: Performed By: #### C RP, BMP #### [facility] [address] [place] [address] Dr. María Adorno Monocytes/100 WBC (Bld) 8.6 % Normal 1.7-12.0 [facility] Comment on above: Performed By: #### C RP, BMP #### [facility] [address] [place] [address] Dr. María Adorno NEUT # 5.3 103/ul Normal 1.4-6.5 [facility] Comment on above: Performed By: #### C RP, BMP #### [facility] [address] [place] [address] Dr. María Adorno Neutrophils/100 WBC (Bld) 54.8 % Normal 43.0-75.0 [facility] Comment on above: Performed By: #### C RP, BMP #### [facility] [address] [place] [address] Dr. María Adorno Platelet mean volume (Bld) [Entitic vol] 12.2 fL Normal 9.5-13.5 [facility] Comment on above: Performed By: #### C RP, BMP #### [facility] [address] [place] [address] Dr. María Adorno PLT 200 103/ul Normal 150-450 [facility] Comment on above: Performed By: #### C RP, BMP #### [facility] [address] [place] [address] Dr. María Adorno RBC 5.08 106/ul Normal 4.20-5.40 [facility] Comment on above: Performed By: #### C RP, BMP #### [facility] [address] [place] [address] Dr. María Adorno WBC 9.7 103/ul Normal 4.0-11.0 [facility] Comment on above: Performed By: #### C RP, BMP #### [facility] [address] [place] [address] Dr. María Adorno [employer] PROFILEon 022 Albumin [Mass/Vol] 3.7 g/dL Normal 3.4-5.0 [facility] Comment on above: Performed By: #### H FPF #### [facility] [address] [place] [address] Dr. María Adorno Albumin/Globulin [Mass ratio] 1.1 {ratio} Normal [facility] Comment on above: Performed By: #### H FPF #### [facility] [address] [place] [address] Dr. María Adorno ALP [Catalytic activity/Vol] 99 U/L Normal 46-116 [facility] Comment on above: Performed By: #### H FPF #### [facility] [address] [place] [address] Dr. María Adorno ALT [Catalytic activity/Vol] 18 U/L Normal 14-59 [facility] Comment on above: Performed By: #### H FPF #### [facility] [address] [place] [address] Dr. María Adorno AST [Catalytic activity/Vol] 18 U/L Normal 15-37 [facility] Comment on above: Performed By: #### H FPF #### [facility] [address] [place] [address] Dr. María Adorno Bilirubin [Mass/Vol] 0.6 mg/dL Normal 0.2-1.0 [facility] Comment on above: Performed By: #### H FPF #### [facility] [address] [address] [address] María Adorno Calcium [Mass/Vol] 9.3 mg/dL Normal 8.5-10.1 [facility] Comment on above: Performed By: #### H FPF #### [facility] [address] [address] [address] María Adorno Chloride [Moles/Vol] 103 mmol/L Normal 98-107 [facility] Comment on above: Performed By: #### H FPF #### [facility] [address] [address] [address] María Adorno CHOL-HDL RATIO NORM SEE BELOW Normal [facility] Comment on above: Result Comment: 3.3 - 4.4 LOW RISK 4.4 - 7.1 AVERAGE RISK 7.1 - 11.0 MODERATE RISK >11.0 HIGH RISK Performed By: #### H FPF #### [facility] [address] [address] [address] María Adorno Cholesterol [Mass/Vol] 160 mg/dL Normal <=200 [facility] Comment on above: Performed By: #### H FPF #### [facility] [address] [address] [address] María Adorno Cholesterol in HDL [Mass/Vol] 40 mg/dL Normal 40-60 [facility] Comment on above: Performed By: #### H FPF #### [facility] [address] [address] [address] María Adorno Cholesterol in LDL [Mass/Vol] 92.0 mg/dL Normal [facility] Comment on above: Performed By: #### H FPF #### [facility] [address] [address] [address] María Adorno Cholesterol.total/Cho lesterol in HDL [Mass ratio] 4.0 {ratio} Normal [facility] Comment on above: Performed By: #### H FPF #### [facility] [address] [address] [address] María Adorno CO2 [Moles/Vol] 24.6 mmol/L Normal 21.0-32.0 [facility] Comment on above: Performed By: #### H FPF #### [facility] [address] [address] [address] María Adorno Creatinine [Mass/Vol] 1.00 mg/dL Normal 0.55-1.02 [facility] Comment on above: Performed By: #### H FPF #### [facility] [address] [address] [address] María Adorno Globulin (S) [Mass/Vol] 3.5 g/dL Normal [facility] Comment on above: Performed By: #### H FPF #### [facility] [address] [address] [address] María Adorno Glucose [Mass/Vol] 132 mg/dL Critically high 74-106 [facility] Comment on above: Performed By: #### H FPF #### [facility] [address] [address] [address] María Adorno HDL NORMAL > or = 60 mg/dl - LOW CARDIOVASCULAR RISK <40 mg/dl - HIGH CARDIOVASCULAR RISK Normal [facility] Comment on above: Performed By: #### H FPF #### [facility] [address] [address] [address] María Adorno LDL CALC NORMAL SEE BELOW Normal [facility] Comment on above: Result Comment: <100 mg/dl OPTIMAL 100 - 129 mg/dl NEAR OR ABOVE OPTIMAL 130 - 159 mg/dl BORDERLINE HIGH 160 - 189 mg/dl HIGH >190 mg/dl VERY HIGH Performed By: #### H FPF #### [facility] [address] [address] [address] María Adorno Potassium [Moles/Vol] 4.0 mmol/L Normal 3.5-5.1 [facility] Comment on above: Performed By: #### H FPF #### [facility] [address] [address] [address] María Adorno Protein [Mass/Vol] 7.2 g/dL Normal 6.4-8.2 [facility] Comment on above: Performed By: #### H FPF #### [facility] [address] [address] [address] María Adorno Sodium [Moles/Vol] 138 mmol/L Normal 136-145 [facility] Comment on above: Performed By: #### H FPF #### [facility] [address] [address] [address] María Adorno Triglyceride [Mass/Vol] 140 mg/dL Normal <=150 [facility] Comment on above: Performed By: #### H FPF #### [facility] [address] [address] [address] María Adorno TSH 2.537 uIU/mL Normal 0.358-3.740 [facility] Comment on above: Performed By: #### H FPF #### [facility] [address] [place] [address] Dr. María Adorno Urea nitrogen [Mass/Vol] 17.0 mg/dL Normal 7.0-18.0 [facility] Comment on above: Performed By: #### H FPF #### [facility] [address] [place] [address] Dr. María Adorno Urea nitrogen/Creatinine [Mass ratio] 17.0 mg/mg Normal [facility] Comment on above: Performed By: #### H FPF #### [facility] [address] [place] [address] Dr. María Adorno VLDL CALC 28.0 mg/dL Normal [facility] Comment on above: Performed By: #### H FPF #### [facility] [address] [place] [address] Dr. María Adorno MG MAMM SCREEN 3D CHINO CADon 10-19-2021 MG MAMM SCREEN 3D CHINO CAD Patient: EDVIN TRISTAN Exam Date: 10/19/2021 : 1960 Gender:F Ordering : DR ETHAN HINES D.O. Admission #: [id number] Family : Order #: [id number] CLICK HERE TO VIEW EXAM RADIOLOGY REPORT [...] Treatments None Family Cancers None LOCATION: [facility] BREAST COMPOSITION: Heterogeneously dense,which may obscure small [...] M.D. on 10/20/2021 at 14:56 Normal [facility] CBC AUTO DIFFon 09-28-2021 BASO # 0.1 103/ul Normal 0.0-0.1 [facility] Comment on above: Performed By: #### C BC #### [facility] [address] [address] [address] María Adorno Basophils/100 WBC (Bld) 0.8 % Normal 0.2-2.0 [facility] Comment on above: Performed By: #### C BC #### [facility] [address] [address] [address] María Adorno EO # 0.3 103/ul Normal 0.0-0.7 [facility] Comment on above: Performed By: #### C BC #### [facility] [address] [address] [address] María Adorno Eosinophils/100 WBC (Bld) 2.5 % Normal 0.9-7.0 [facility] Comment on above: Performed By: #### C BC #### [facility] [address] [address] [address] María Adorno Erythrocyte distribution width (RBC) [Ratio] 12.1 % Normal 11.0-15.0 [facility] Comment on above: Performed By: #### C BC #### [facility] [address] [place] [address] Dr. María Adorno Hematocrit (Bld) [Volume fraction] 42.6 % Normal 36.0-48.0 [facility] Comment on above: Performed By: #### C BC #### [facility] [address] [place] [address] Dr. María Adorno Hemoglobin (Bld) [Mass/Vol] 14.1 g/dL Normal 12.0-16.0 [facility] Comment on above: Performed By: #### C BC #### [facility] [address] [place] [address] Dr. María Adorno IG # 0.04 10e3/ul Critically high 0.00-0.03 [facility] Comment on above: Performed By: #### C BC #### [facility] [address] [place] [address] Dr. María Adorno IG % 0.3 % Normal 0.0-0.5 [facility] Comment on above: Performed By: #### C BC #### [facility] [address] [place] [address] Dr. María Adorno LYMPH # 3.3 103/ul Normal 1.2-3.8 [facility] Comment on above: Performed By: #### C BC #### [facility] [address] [place] [address] Dr. María Adorno Lymphocytes/100 WBC (Bld) 24.4 % Normal 20.5-60.0 [facility] Comment on above: Performed By: #### C BC #### [facility] [address] [place] [address] Dr. María Adorno MANUAL DIFF REQ NO Normal [facility] Comment on above: Performed By: #### C BC #### [facility] [address] [place] [address] Dr. María Adorno MCH (RBC) [Entitic mass] 29.6 pg Normal 26.7-34.0 [facility] Comment on above: Performed By: #### C BC #### [facility] [address] [address] [address] María Adorno MCHC (RBC) [Mass/Vol] 33.1 g/dL Normal 29.9-35.2 [facility] Comment on above: Performed By: #### C BC #### [facility] [address] [address] [address] María Adorno MCV (RBC) [Entitic vol] 89.5 fL Normal 81.0-99.0 [facility] Comment on above: Performed By: #### C BC #### [facility] [address] [address] [address] María Adorno MONO # 1.0 103/ul Critically high 0.3-0.8 [facility] Comment on above: Performed By: #### C BC #### [facility] [address] [place] [address] Dr. María Adorno Monocytes/100 WBC (Bld) 7.8 % Normal 1.7-12.0 [facility] Comment on above: Performed By: #### C BC #### [facility] [address] [place] [address] Dr. María Adorno NEUT # 8.6 103/ul Critically high 1.4-6.5 [facility] Comment on above: Performed By: #### C BC #### [facility] [address] [place] [address] Dr. María Adorno Neutrophils/100 WBC (Bld) 64.2 % Normal 43.0-75.0 [facility] Comment on above: Performed By: #### C BC #### [facility] [address] [address] [address] María Adorno Platelet mean volume (Bld) [Entitic vol] 11.7 fL Normal 9.5-13.5 [facility] Comment on above: Performed By: #### C BC #### [facility] [address] [place] [address] Dr. María Adorno PLT 197 103/ul Normal 150-450 [facility] Comment on above: Performed By: #### C BC #### [facility] [address] [address] [address] María Adorno RBC 4.76 106/ul Normal 4.20-5.40 [facility] Comment on above: Performed By: #### C BC #### [facility] [address] [address] [address] María Adorno WBC 13.3 103/ul Critically high 4.0-11.0 [facility] Comment on above: Performed By: #### C BC #### [facility] [address] [place] [address] Dr. María Adorno CRPon 09-28-2021 CRP 0.3 mg/dL Normal <=1.0 [facility] Comment on above: Performed By: #### C RP, BMP #### [facility] [address] [place] [address] Dr. María Adorno PROF CHEM 8 (BAS METB)on Anion gap [Moles/Vol] 11.6 mmol/L Normal [facility] Comment on above: Performed By: #### C RP, BMP #### [facility] [address] [place] [address] Dr. María Adorno Calcium [Mass/Vol] 9.6 mg/dL Normal 8.5-10.1 [facility] Comment on above: Performed By: #### C RP, BMP #### [facility] [address] [place] [address] Dr. María Adorno Chloride [Moles/Vol] 105 mmol/L Normal 98-107 [facility] Comment on above: Performed By: #### C RP, BMP #### [facility] [address] [place] [address] Dr. María Adorno CO2 [Moles/Vol] 27.6 mmol/L Normal 21.0-32.0 [facility] Comment on above: Performed By: #### C RP, BMP #### [facility] [address] [place] [address] Dr. María Adorno Creatinine [Mass/Vol] 1.12 mg/dL Critically high 0.55-1.02 [facility] Comment on above: Performed By: #### C RP, BMP #### [facility] [address] [address] [address] María Adorno EGFR-AF IRANIAN 60 mL/min/1.73m2 Normal >=60 [facility] Comment on above: Performed By: #### C RP, BMP #### [facility] [address] [address] [address] María Adorno EGFR-NON AF IRANIAN 49 mL/min/1.73m2 Critically low >=60 [facility] Comment on above: Performed By: #### C RP, BMP #### [facility] [address] [address] [address] María Adorno Glucose [Mass/Vol] 151 mg/dL Critically high 74-106 [facility] Comment on above: Performed By: #### C RP, BMP #### [facility] [address] [place] [address] Dr. María Adorno Potassium [Moles/Vol] 4.2 mmol/L Normal 3.5-5.1 [facility] Comment on above: Performed By: #### C RP, BMP #### [facility] [address] [place] [address] Dr. María Adorno Sodium [Moles/Vol] 140 mmol/L Normal 136-145 [facility] Comment on above: Performed By: #### C RP, BMP #### [facility] [address] [place] [address] Dr. María Adorno Urea nitrogen [Mass/Vol] 19.0 mg/dL Critically high 7.0-18.0 [facility] Comment on above: Performed By: #### C RP, BMP #### [facility] [address] [place] [address] Dr. María Adorno Urea nitrogen/Creatinine [Mass ratio] 17.0 mg/mg Normal [facility] Comment on above: Performed By: #### C RP, BMP #### [facility] [address] [place] [address] Dr. María Adorno SED RATE [facility] 2021 SED RATE 47 mm/hr Critically high <=30 [facility] Comment on above: Performed By: #### C RP, BMP #### [facility] [address] [place] [address] Dr. María Adorno CBC AUTO DIFFon 08-18-2021 BASO # 0.1 103/ul Normal 0.0-0.1 [facility] Comment on above: Performed By: #### C RP, BMP #### [facility] [address] [place] [address] Dr. María Adorno Basophils/100 WBC (Bld) 0.7 % Normal 0.2-2.0 [facility] Comment on above: Performed By: #### C RP, BMP #### [facility] [address] [place] [address] Dr. María Adorno EO # 0.3 103/ul Normal 0.0-0.7 [facility] Comment on above: Performed By: #### C RP, BMP #### [facility] [address] [place] [address] Dr. María Adorno Eosinophils/100 WBC (Bld) 2.4 % Normal 0.9-7.0 [facility] Comment on above: Performed By: #### C RP, BMP #### [facility] [address] [place] [address] Dr. María Adorno Erythrocyte distribution width (RBC) [Ratio] 12.4 % Normal 11.0-15.0 [facility] Comment on above: Performed By: #### C RP, BMP #### [facility] [address] [place] [address] Dr. María Adorno Hematocrit (Bld) [Volume fraction] 40.6 % Normal 36.0-48.0 [facility] Comment on above: Performed By: #### C RP, BMP #### [facility] [address] [place] [address] Dr. María Adorno Hemoglobin (Bld) [Mass/Vol] 13.2 g/dL Normal 12.0-16.0 [facility] Comment on above: Performed By: #### C RP, BMP #### [facility] [address] [address] [address] María Adorno IG # 0.04 10e3/ul Critically high 0.00-0.03 [facility] Comment on above: Performed By: #### C RP, BMP #### [facility] [address] [address] [address] María Adorno IG % 0.3 % Normal 0.0-0.5 [facility] Comment on above: Performed By: #### C RP, BMP #### [facility] [address] [place] [address] Dr. María Adorno LYMPH # 3.1 103/ul Normal 1.2-3.8 [facility] Comment on above: Performed By: #### C RP, BMP #### [facility] [address] [place] [address] Dr. María Adorno Lymphocytes/100 WBC (Bld) 25.8 % Normal 20.5-60.0 [facility] Comment on above: Performed By: #### C RP, BMP #### [facility] [address] [place] [address] Dr. María Adorno MANUAL DIFF REQ NO Normal [facility] Comment on above: Performed By: #### C RP, BMP #### [facility] [address] [place] [address] Dr. María Adorno MCH (RBC) [Entitic mass] 29.9 pg Normal 26.7-34.0 [facility] Comment on above: Performed By: #### C RP, BMP #### [facility] [address] [place] [address] Dr. María Adorno MCHC (RBC) [Mass/Vol] 32.5 g/dL Normal 29.9-35.2 [facility] Comment on above: Performed By: #### C RP, BMP #### [facility] [address] [place] [address] Dr. María Adorno MCV (RBC) [Entitic vol] 91.9 fL Normal 81.0-99.0 [facility] Comment on above: Performed By: #### C RP, BMP #### [facility] [address] [place] [address] Dr. María Adorno MONO # 1.1 103/ul Critically high 0.3-0.8 [facility] Comment on above: Performed By: #### C RP, BMP #### [facility] [address] [place] [address] Dr. María Adorno Monocytes/100 WBC (Bld) 9.1 % Normal 1.7-12.0 [facility] Comment on above: Performed By: #### C RP, BMP #### [facility] [address] [place] [address] Dr. María Adorno NEUT # 7.3 103/ul Critically high 1.4-6.5 [facility] Comment on above: Performed By: #### C RP, BMP #### [facility] [address] [place] [address] Dr. María Adorno Neutrophils/100 WBC (Bld) 61.7 % Normal 43.0-75.0 [facility] Comment on above: Performed By: #### C RP, BMP #### [facility] [address] [place] [address] Dr. María Adorno Platelet mean volume (Bld) [Entitic vol] 11.5 fL Normal 9.5-13.5 [facility] Comment on above: Performed By: #### C RP, BMP #### [facility] [address] [place] [address] Dr. María Adorno PLT 198 103/ul Normal 150-450 [facility] Comment on above: Performed By: #### C RP, BMP #### [facility] [address] [place] [address] Dr. María Adorno RBC 4.42 106/ul Normal 4.20-5.40 [facility] Comment on above: Performed By: #### C RP, BMP #### [facility] [address] [place] [address] Dr. María Adorno WBC 11.8 103/ul Critically high 4.0-11.0 [facility] Comment on above: Performed By: #### C RP, BMP #### [facility] [address] [address] [address] María Adorno CRPon 08-18-2021 CRP 1.5 mg/dL Critically high <=1.0 [facility] Comment on above: Performed By: #### B MP, CRP #### [facility] [address] [address] [address] María Adorno PROF CHEM 8 (BAS METB)on Anion gap [Moles/Vol] 12.8 mmol/L Normal [facility] Comment on above: Performed By: #### C RP, BMP #### [facility] [address] [place] [address] Dr. María Adorno Calcium [Mass/Vol] 9.2 mg/dL Normal 8.5-10.1 [facility] Comment on above: Performed By: #### C RP, BMP #### [facility] [address] [place] [address] Dr. María Adorno Chloride [Moles/Vol] 102 mmol/L Normal 98-107 [facility] Comment on above: Performed By: #### C RP, BMP #### [facility] [address] [address] [address] María Adorno CO2 [Moles/Vol] 28.2 mmol/L Normal 21.0-32.0 [facility] Comment on above: Performed By: #### C RP, BMP #### [facility] [address] [place] [address] Dr. María Adorno Creatinine [Mass/Vol] 0.91 mg/dL Normal 0.55-1.02 [facility] Comment on above: Performed By: #### C RP, BMP #### [facility] [address] [place] [address] Dr. María Adorno EGFR-AF IRANIAN >60 Normal >=60 [facility] Comment on above: Performed By: #### C RP, BMP #### [facility] [address] [place] [address] Dr. María Adorno EGFR-NON AF IRANIAN >60 Normal >=60 [facility] Comment on above: Performed By: #### C RP, BMP #### [facility] [address] [address] [address] María Adorno Glucose [Mass/Vol] 150 mg/dL Critically high 74-106 [facility] Comment on above: Performed By: #### C RP, BMP #### [facility] [address] [address] [address] María Adorno Potassium [Moles/Vol] 4.0 mmol/L Normal 3.5-5.1 [facility] Comment on above: Performed By: #### C RP, BMP #### [facility] [address] [address] [address] María Adorno Sodium [Moles/Vol] 139 mmol/L Normal 136-145 [facility] Comment on above: Performed By: #### C RP, BMP #### [facility] [address] [address] [address] María Adorno Urea nitrogen [Mass/Vol] 23.0 mg/dL Critically high 7.0-18.0 [facility] Comment on above: Performed By: #### C RP, BMP #### [facility] [address] [address] [address] María Adorno Urea nitrogen/Creatinine [Mass ratio] 25.3 mg/mg Normal [facility] Comment on above: Performed By: #### C RP, BMP #### [facility] [address] [address] [address] María Adorno Orthopedic Progress Noteon 0 08-10-2021 Orthopedic Progress Note This is a preliminary report only. This report will be final only after practitioner review and authentication has occurred. [facility] Patient: EDVIN TRISTAN [facility] [place] [address] MR#: [id number] PROGRESS NOTE - Orthopedic : 58 Service Date: 08/10/21 1649 Assessment and Plan - ICD10 Problem List 1. Status post lumbar spine surgery for decompression of spinal cord 2. S/P lumbar laminectomy Electronically Signed eSign Date and Time Mark Harp Normal [facility] BASIC MET PANELon 08-08-2021 Anion gap [Moles/Vol] 7 mmol/L Normal 6-18 [facility] Comment on above: Performed By: #### L 500.20861, L500.35805 ####Test performed at: [address] [address] Calcium [Mass/Vol] 8.5 mg/dL Normal 8.5-10.1 [facility] Comment on above: Performed By: #### L 500.21433, L500.64590 ####Test performed at: [address] [address] Chloride [Moles/Vol] 108 mmol/L High 98-107 [facility] Comment on above: Performed By: #### L 500.19825, L500.02541 ####Test performed at: [address] [address] CO2 [Moles/Vol] 29 mmol/L Normal 21-32 [facility] Comment on above: Performed By: #### L 500.44425, L500.94915 ####Test performed at: [address] [address] Creatinine [Mass/Vol] 0.862 mg/dL Normal 0.550-1.020 [facility] Comment on above: Performed By: #### L 500.03692, L500.63688 ####Test performed at: [address] [address] Glucose [Mass/Vol] 123 mg/dL High 70-99 [facility] Comment on above: Result Comment: Fast ing GLUCOSE reference range has been updated per (ADA) [place] Diabetes [employer]'s recommendation. 06/26/2018 Performed By: #### L 500.51061, L500.13331 ####Test performed at: [address] [address] OSM 295 mosm/kg Normal 270-300 [facility] Comment on above: Performed By: #### L 500.69486, L500.67958 ####Test performed at: [address] [address] Potassium [Moles/Vol] 4.4 mmol/L Normal 3.5-5.1 [facility] Comment on above: Performed By: #### L 500.73677, L500.97724 ####Test performed at: [address] [address] Sodium [Moles/Vol] 140 mmol/L Normal 136-145 [facility] Comment on above: Performed By: #### L 500.50342, L500.14975 ####Test performed at: [address] [address] Urea nitrogen [Mass/Vol] 22 mg/dL High 7-18 [facility] Comment on above: Performed By: #### L 500.34413, L500.59405 ####Test performed at: [address] [address] CBC W/DIFFon 08-08-2021 BASO ABS 0.0 K/uL Normal 0.0-0.2 [facility] Comment on above: Performed By: #### L 200.58853 ####Test performed at: [address] [address] Basophils/100 WBC (Bld) 0.2 % Normal [facility] Comment on above: Performed By: #### L 200.83603 ####Test performed at: [address] [address] EOS ABS 0.0 K/uL Normal 0.0-0.5 [facility] Comment on above: Performed By: #### L 200.90138 ####Test performed at: [address] [address] Eosinophils/100 WBC (Bld) 0.2 % Normal [facility] Comment on above: Performed By: #### L 200.40452 ####Test performed at: [address] [address] Erythrocyte distribution width (RBC) [Ratio] 12.6 % Normal 11.5-14.5 [facility] Comment on above: Performed By: #### L 200.94447 ####Test performed at: [address] [address] Hematocrit (Bld) [Volume fraction] 32.5 % Low 36.0-48.0 [facility] Comment on above: Performed By: #### L 200.53423 ####Test performed at: [address] [id number] Hemoglobin (Bld) [Mass/Vol] 10.9 g/dL Low 12.0-15.0 [facility] Comment on above: Performed By: #### L 200.18750 ####Test performed at: [address] [id number] IG % 0.3 % Normal [facility] Comment on above: Performed By: #### L 200.57504 ####Test performed at: [address] [id number] IG ABS 0.04 K/uL Normal 0-0.05 [facility] Comment on above: Performed By: #### L 200.91004 ####Test performed at: [address] [id number] Lymphocytes (Bld) [#/Vol] 2.7 10*3/uL Normal 1.2-3.5 [facility] Comment on above: Performed By: #### L 200.87719 ####Test performed at: [address] [address] Lymphocytes/100 WBC (Bld) 22.4 % Normal [facility] Comment on above: Performed By: #### L 200.95080 ####Test performed at: [address] [address] MCH (RBC) [Entitic mass] 29.9 pg Normal 25.4-34.6 [facility] Comment on above: Performed By: #### L 200.77900 ####Test performed at: [address] [address] MCHC (RBC) [Mass/Vol] 33.5 g/dL Normal 31.5-36.5 [facility] Comment on above: Performed By: #### L 200.44831 ####Test performed at: [address] [address] MCV (RBC) [Entitic vol] 89.3 fL Normal 79.0-98.0 [facility] Comment on above: Performed By: #### L 200.23770 ####Test performed at: [address] [address] MONO ABS 1.1 K/uL High 0.0-1.0 [facility] Comment on above: Performed By: #### L 200.35137 ####Test performed at: [address] [address] Monocytes/100 WBC (Bld) 9.4 % Normal [facility] Comment on above: Performed By: #### L 200.67587 ####Test performed at: [address] [address] NEUTROPHIL ABS 8.1 K/uL High 1.4-6.6 [facility] Comment on above: Performed By: #### L 200.17211 ####Test performed at: [address] [place], [place] [address] Neutrophils/100 WBC (Bld) 67.5 % Normal [facility] Comment on above: Performed By: #### L 200.33219 ####Test performed at: [address] [address] NRBC # 0.000 K/uL Normal 0-0.012 [facility] Comment on above: Performed By: #### L 200.81680 ####Test performed at: [address] [address] NRBC % 0.0 /100 WBC Normal 0-0.2 [facility] Comment on above: Performed By: #### L 200.00790 ####Test performed at: [address] [address] Platelet mean volume (Bld) [Entitic vol] 12.5 fL High 8.7-12.4 [facility] Comment on above: Performed By: #### L 200.19028 ####Test performed at: [address] [address] Platelets (Bld) [#/Vol] 122 10*3/uL Low 140-440 [facility] Comment on above: Performed By: #### L 200.51890 ####Test performed at: [address] [address] RBC (Bld) [#/Vol] 3.64 10*6/uL Normal 3.5-5.5 [facility] Comment on above: Performed By: #### L 200.29535 ####Test performed at: [address] [address] [address] WBC (Bld) [#/Vol] 12.1 10*3/uL High 3.9-11.0 [facility] Comment on above: Performed By: #### L 200.78446 ####Test performed at: [place] [address] Discharge CCD Assessmenton 0 08-08-2021 Discharge CCD Assessment [facility] Patient: EDVIN TRISTAN [address] [place], [place] [id number] MR#: [id number] DISCHARGE CCD ASSESSMENT : 58 Service Date: 08/08/21 112 Discharge CCD Assessment Assessment Patient discharged home to continue pain control, wound care, and exercises. Electronically Signed eSign Date and Time Mark Harp 08/08/211121 Santi Roldan MD Normal [facility] GFR ESTIMATEon 08-08-2021 IF AMER > 60 Normal > 60 [facility] Comment on above: Result Comment: eGFR (Estimated GFR) Units of measure:mL/min/1.73 meters sq. *CALCULATION REVISED 01/20/2015;IDMS-traceable MDRD equation eGFR is derived from the reexpressed MDRD Study equation using the following parameters: serum creatinine, age, gender and race. An eGFR<60 mL/min/1.73m2 for >3 months is consistent with chronic kidney disease. Refer to KDOQI guidelines for clinical interpretation. Performed By: #### L 500.59997, L500.35966 ####Test performed at: [place] [address] IF non-AFR AMER > 60 Normal > 60 [facility] Comment on above: Performed By: #### L 500.18428, L500.19124 ####Test performed at: [place] [address] Internal Med Progress Noteon 08-08-2021 Internal Med Progress Note [facility] Patient: EDVIN TRISTAN [address] [place], [place] [id number] MR#: [id number] PROGRESS NOTE - Internal Medicine : 58 Service Date: 08/08/2116 Subjective Summary of Stay Ms. Tristan is [...] Delivery ROOM AIR 08/09 751 Temp 36.4 08/08 075 Pulse 55 08/08 0752 Resp 16 08/08 075 O2 Flow Rate [...] Agree with above documentation. The [resident's, PA's, RETAIL DISTRICT MANAGER's] assessment and plan reflect my input. Discussed with documenting provider and patient. Plan is as outlined above. Electronically Signed eSign Date and Time Montana Sánchez Donald E. MD 08/08/21 1603 Normal [facility] z PT Inpatient Progress Note on 08-08-2021 z PT Inpatient Progress Note [facility] Patient: EDVIN TRISTAN [facility] [place] [address] MR#: [id number] PT INPATIENT PROGRESS NOTE : 58 Service Date: 08/08/21 1050 Inpatient PT HPI Date of Service 08/08/21 Time In: 1001 Time Out: 1035 Total Treatment Time (Mins) 51 Room Number 534 Current Visit Originally in the patient room from and took the patient for a short walk, patient citing increased pain and would like ACID PUMPER to return after breakfast. ACID PUMPER returned at above stated times for completion [...] Signed eSign Date and Time [place] ACID PUMPER 08/08/21 1101 Norma Diaz PT Normal [facility] Anesthesia Noteon 08-07-2021 Anesthesia Note [facility] Patient: JANAMGEDVIN [address] [place] [address] MR#: [id number] [id number] ANESTHESIA NOTE : Service Date: 08/07/217[address] Post-anesthesia Note Note Patient assessed post operatively [...] Signed eSign Date and Time Jon Pradhan 08/07/21754 Marsha Miller MD Normal [facility] BASIC MET PANELon 08-07-2021 Anion gap [Moles/Vol] 8 mmol/L Normal 6-18 [facility] Comment on above: Performed By: #### L 500.15261, L500.53587 ####Test performed at: [address] [address] Calcium [Mass/Vol] 8.8 mg/dL Normal 8.5-10.1 [facility] Comment on above: Performed By: #### L 500.30700, L500.31142 ####Test performed at: [address] [address] Chloride [Moles/Vol] 109 mmol/L High 98-107 [facility] Comment on above: Performed By: #### L 500.73286, L500.36993 ####Test performed at: [address] [address] CO2 [Moles/Vol] 27 mmol/L Normal 21-32 [facility] Comment on above: Performed By: #### L 500.16832, L500.48984 ####Test performed at: [address] [address] Creatinine [Mass/Vol] 0.967 mg/dL Normal 0.550-1.020 [facility] Comment on above: Performed By: #### L 500.08995, L500.99995 ####Test performed at: [address] [address] Glucose [Mass/Vol] 178 mg/dL High 70-99 [facility] Comment on above: Result Comment: Fast ing GLUCOSE reference range has been updated per (ADA) Canadian Diabetes Association's recommendation. 06/26/2018 Performed By: #### L 500.84386, L500.12093 ####Test performed at: [address] [address] OSM 296 mosm/kg Normal 270-300 [facility] Comment on above: Performed By: #### L 500.01714, L500.63519 ####Test performed at: [address] [address] Potassium [Moles/Vol] 4.5 mmol/L Normal 3.5-5.1 [facility] Comment on above: Performed By: #### L 500.40674, L500.10352 ####Test performed at: [address] [address] Sodium [Moles/Vol] 140 mmol/L Normal 136-145 [facility] Comment on above: Performed By: #### L 500.44015, L500.24727 ####Test performed at: [address] [address] Urea nitrogen [Mass/Vol] 18 mg/dL Normal 7-18 [facility] Comment on above: Performed By: #### L 500.51504, L500.56898 ####Test performed at: [address] [address] CBC W/DIFFon 08-07-2021 BASO ABS 0.0 K/uL Normal 0.0-0.2 [facility] Comment on above: Performed By: #### L 200.72273 #### Test performed at: [address] [address] Basophils/100 WBC (Bld) 0.1 % Normal [facility] Comment on above: Performed By: #### L 200.46461 #### Test performed at: [address] [address] EOS ABS 0.0 K/uL Normal 0.0-0.5 [facility] Comment on above: Performed By: #### L 200.60074 #### Test performed at: [address] [address] Eosinophils/100 WBC (Bld) 0.0 % Normal [facility] Comment on above: Performed By: #### L 200.44163 #### Test performed at: [address] [address] Erythrocyte distribution width (RBC) [Ratio] 12.0 % Normal 11.5-14.5 [facility] Comment on above: Performed By: #### L 200.55770 #### Test performed at: [address] [address] Hematocrit (Bld) [Volume fraction] 35.2 % Low 36.0-48.0 [facility] Comment on above: Performed By: #### L 200.39932 #### Test performed at: [address] [address] Hemoglobin (Bld) [Mass/Vol] 12.1 g/dL Abnormal 12.0-15.0 [facility] Comment on above: Result Comment: Delt a: 14.9 on 08/03/21-8985 Performed By: #### L 200.82231 #### Test performed at: [address], [place] [address] IG % 0.5 % Normal [facility] Comment on above: Performed By: #### L 200.25634 #### Test performed at: [address] [address] IG ABS 0.06 K/uL High 0-0.05 [facility] Comment on above: Performed By: #### L 200.72354 #### Test performed at: [address] [address] Lymphocytes (Bld) [#/Vol] 1.0 10*3/uL Low 1.2-3.5 [facility] Comment on above: Performed By: #### L 200.43456 #### Test performed at: [address] [address] Lymphocytes/100 WBC (Bld) 7.7 % Normal [facility] Comment on above: Performed By: #### L 200.47219 #### Test performed at: [address] [address] MCH (RBC) [Entitic mass] 30.2 pg Normal 25.4-34.6 [facility] Comment on above: Performed By: #### L 200.29955 #### Test performed at: [address] [address] MCHC (RBC) [Mass/Vol] 34.4 g/dL Normal 31.5-36.5 [facility] Comment on above: Performed By: #### L 200.72951 #### Test performed at: [address] [address] MCV (RBC) [Entitic vol] 87.8 fL Normal 79.0-98.0 [facility] Comment on above: Performed By: #### L 200.60110 #### Test performed at: [address] [address] MONO ABS 0.3 K/uL Normal 0.0-1.0 [facility] Comment on above: Performed By: #### L 200.44298 #### Test performed at: [address] [address] Monocytes/100 WBC (Bld) 2.7 % Normal [facility] Comment on above: Performed By: #### L 200.10349 #### Test performed at: [address] [address] NEUTROPHIL ABS 11.0 K/uL High 1.4-6.6 [facility] Comment on above: Performed By: #### L 200.18192 #### Test performed at: [address] [address] Neutrophils/100 WBC (Bld) 89.0 % Normal [facility] Comment on above: Performed By: #### L 200.63540 #### Test performed at: [address] [address] NRBC # 0.000 K/uL Normal 0-0.012 [facility] Comment on above: Performed By: #### L 200.90253 #### Test performed at: [address] [address] NRBC % 0.0 /100 WBC Normal 0-0.2 [facility] Comment on above: Performed By: #### L 200.05350 #### Test performed at: [address] [address] Platelet mean volume (Bld) [Entitic vol] 12.1 fL Normal 8.7-12.4 [facility] Comment on above: Performed By: #### L 200.36149 #### Test performed at: [address] [address] Platelets (Bld) [#/Vol] 140 10*3/uL Normal 140-440 [facility] Comment on above: Performed By: #### L 200.51212 #### Test performed at: [address] [address] RBC (Bld) [#/Vol] 4.01 10*6/uL Normal 3.5-5.5 [facility] Comment on above: Performed By: #### L 200.40739 #### Test performed at: [address] [address] WBC (Bld) [#/Vol] 12.4 10*3/uL High 3.9-11.0 [facility] Comment on above: Performed By: #### L 200.12834 #### Test performed at: [place] [address] GFR ESTIMATEon 08-07-2021 IF AMER > 60 Normal > 60 [facility] Comment on above: Result Comment: eGFR (Estimated GFR) Units of measure:mL/min/1.73 meters sq. *CALCULATION REVISED 01/20/2015;IDMS-traceable MDRD equation eGFR is derived from the reexpressed MDRD Study equation using the following parameters: serum creatinine, age, gender and race. An eGFR<60 mL/min/1.73m2 for >3 months is consistent with chronic kidney disease. Refer to KDOQI guidelines for clinical interpretation. Performed By: #### L 500.83633, L500.91655 ####Test performed at: [address] [address] IF non-AFR AMER 59 Low > 60 [facility] Comment on above: Performed By: #### L 500.46299, L500.43249 ####Test performed at: [address] [address] Internal Med Progress Noteon 08-07-2021 Internal Med Progress Note [facility] Patient: EDVIN TRISTAN [address] [place] [address] MR#: [id number] PROGRESS NOTE - Internal Medicine : 58 [...] Agree with above documentation. The [resident's, PA's, RETAIL DISTRICT MANAGER's] assessment and plan reflect my input. Discussed with documenting provider and patient. Plan is as outlined above. Electronically Signed eSign Date and Time Montana Sánchez (more content not included)... Normal [facility] OT Therapy Recommendationson 08-07-2021 OT Therapy Recommendations [facility] Patient: EDVIN TRISTAN [address] [place] [id number] MR#: [id number] OT THERAPY RECOMMENDATIONS : 58 Service Date: 08/07/21 1323 Therapy Recommendations Therapy Recommendations Recommendations Recommend pt d/c home with increased assist from spouse once medically cleared. Pt able to verbalize and demonstrate precautions and adapted techniques for management of ADLs. Electronically Signed eSign Date and Time Kourtney Singh 08/07/21 1324 Normal [facility] Orthopedic Progress Noteon 0 08-07-2021 Orthopedic Progress Note [facility] Patient: EDVIN TRISTAN [address] [place] [id number] MR#: [id number] PROGRESS NOTE - Orthopedic : 58 Service [...] Ox 96 08/07 699 B/P 106/56 08/07 0700 O2 Delivery NASAL CANNULA 08/07 699 Temp 36.6 08/07 07 Pulse 64 08/07 0700 Resp 18 08/07 0600 O2 Flow Rate 3 / 1803 Intake AND Output Verdana 4d 08/07 [...] Harp 08/07/21 1235 Santi Roldan MD Normal [facility] z OT Inpatient Evaluationon 08-07-2021 z OT Inpatient Evaluation [facility] Patient: EDVIN TRISTAN [address] [place] [address] MR#: [id number] OT INPATIENT EVALUATION : 58 Inpatient OT HPI Date of Service 08/07/21 Time In: 1053 Time Out: 1137 Total Treatment Time (Mins) 42 Visit Reason LUMBAR STENOSIS Surgery Type/Date s/p bilAteral lumbar L 2-L 5 decompressive laminectomy Referral Date 08/06/21 Tx Diagnosis: LOW BACK PAIN Insurance Name 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 Pt has large dog and spouse [...] and cooperativ (more content not included)... Normal [facility] z PT Inpatient Evaluationon 08-07-2021 z PT Inpatient Evaluation [facility] Patient: EDVIN TRISTAN [address] [place] [address] MR#: [id number] PT INPATIENT EVALUATION : 58 Service Date: 08/07/21 1127 Inpatient PT HPI Date of Service 08/07/21 Time In: 0945 Time Out: 1025 Total Treatment Time (Mins) 40 Room Number 534 Visit Reason LUMBAR STENOSIS Surgery Type: [place] L2-S1 decompression lami Surgery Date: 08/06/21 Referral Date 08/06/21 Tx Diagnosis: LOW BACK PAIN Insurance Name [facility] Hospital Course 60 y.o female at [facility] [facility] for above sx d/t lumbar stenosis /c [...] provide some assist upon d/c and her taoist friends may assist /c some meals. Objective [...] ability to (more content not included)... Normal [facility] z PT Inpatient Progress Note on 08-07-2021 z PT Inpatient Progress Note [facility] Patient: EDVIN TRISTAN [address] [place] [address] MR#: [id number] PT INPATIENT PROGRESS NOTE : 58 Service [...] Signed eSign Date and Time [place] ACID PUMPER 08/07/21 1315 Norma Diaz PT Normal [facility] Cardiology Consultationon Cardiology Consultation [facility] Patient: EDVIN TRISTAN [address] [place] [address] MR#: [id number] CONSULTATION - Cardiology : Service Date: 08/06/21 [...] RES, Robert J. MD 08/07/21 1100 Normal [facility] EKGon 08-06-2021 Electrocardiogram Acquired on 08/06/2021 1411 [...] Referred By: QUINCY Confirmed By:BRUNO CLARK MD [id number] 2021 --- [facility] PT NAME: EDVIN TRISTAN MR#: [id number] [address] [place] [address] ACCT: [id number] : 58 EKG REPORT Normal [facility] GLUCOSE METERon 08-06-2021 Glucose [Mass/Vol] 123 mg/dL High 70-99 [facility] Comment on above: Result Comment: Fast ing GLUCOSE reference range has been updated per (ADA) Canadian Diabetes Association's recommendation. 06/26/2018 Performed By: #### L 500.76752 #### Test performed at: [place] [address] GLYCO HEMOon 08-06-2021 HbA1c (Bld) [Mass fraction] 6.1 % Normal [facility] Comment on above: Order Comment: CBN: YES Comments To Phleb: WILL DRAW IN PACU AFTER SURGERY [place]: MAIN Result Comment: Maximino cash Diagnosis HbA1c (%) --------- Diabetic > 6.4 Prediabetes 5.7-6.4 Normal < 5.7 Performed By: #### L 500.97556 #### Test performed at: [place] [address] Internal Medicine Consultati onon 08-06-2021 Internal Medicine Consultation [facility] Patient: EDVIN TRISTAN [address] [place] [address] MR#: [id number] CONSULTATION - Internal Medicine : 58 Service [...] Normal appearance Assessment/Plan Lab Laboratory Tests 08/06 05/06 1000 0829 Chemistry POC Glucose (70 [...] Attending Attest (more content not included)... Normal [facility] OPERATIVE REPORTon OPERATIVE REPORT NAME: EDVIN TRISTAN MR#: [id number] SURGEON: Santi Roldan MD DATE OF SURGERY: 08/06/2021 OPERATIVE REPORT PREOPERATIVE DIAGNOSIS: Stenosis with neurogenic claudication. POSTOPERATIVE DIAGNOSIS: Stenosis with neurogenic claudication. PROCEDURE: Bilateral L2-3, L3-4, L4-5, and L5-S1 decompressive laminectomy. GROUT PUMP OPERATOR: Bettie. PROCEDURE IN DETAIL: After anesthesia, the [...] the traversing L5 root was well decompressed. [facility] PT NAME: EDVIN TRISTAN MR#: [id number] [address] [place] [address] ACCT: [id number] : 58 OPERATIVE REPORT At L3-4, the [...] with st (more content not included)... Normal [facility] Primary Residenton 2 Primary Resident [facility] Pt Name: EDVIN TRISTAN MR#: [id number] [address] [place] [address] ACCT: [id number] [place] [address] : 58 Service Date: 08/06/21 1433 Primary Resident/Call Primary Resident: [id number] [place] After Hours Call: [phone] [employer] Electronically Signed eSign Date and Time Montana Sánchez Resident 08/06/21 1433 Normal [facility] LUMBAR SPINE 2 OR 3 VIEWSon 08-05-2021 LUMBAR SPINE 2 OR 3 VIEWS STUDY: LUMBAR SPINE 2 OR 3 VIEWS; 08/06/2021 12:51 pm INDICATION: L2-S1 DECOMPRESSION, LAMINECTOMY. COMPARISON: None. ACCESSION NUMBER(S): [id number] ORDERING CLINICIAN: Santi Roldan FINDINGS: Intraoperative fluoroscopy lumbar spine for localization. IMPRESSION: As above Normal [facility] CBC W/DIFFon 08-03-2021 BASO ABS 0.1 K/uL Normal 0.0-0.2 [facility] Comment on above: Performed By: #### L 200.56868 #### Test performed at: [address] [address] Basophils/100 WBC (Bld) 0.9 % Normal [facility] Comment on above: Performed By: #### L 200.44041 #### Test performed at: [address] [address] EOS ABS 0.2 K/uL Normal 0.0-0.5 [facility] Comment on above: Performed By: #### L 200.70899 #### Test performed at: [address] [address] Eosinophils/100 WBC (Bld) 3.0 % Normal [facility] Comment on above: Performed By: #### L 200.84633 #### Test performed at: [address] [address] Erythrocyte distribution width (RBC) [Ratio] 12.3 % Normal 11.5-14.5 [facility] Comment on above: Performed By: #### L 200.81375 #### Test performed at: [address] [address] Hematocrit (Bld) [Volume fraction] 44.5 % Normal 36.0-48.0 [facility] Comment on above: Performed By: #### L 200.95527 #### Test performed at: [address] [address] Hemoglobin (Bld) [Mass/Vol] 14.9 g/dL Normal 12.0-15.0 [facility] Comment on above: Performed By: #### L 200.77554 #### Test performed at: [address] [address] IG % 0.3 % Normal [facility] Comment on above: Performed By: #### L 200.82807 #### Test performed at: [address] [address] IG ABS 0.02 K/uL Normal 0-0.05 [facility] Comment on above: Performed By: #### L 200.61872 #### Test performed at: [address] [address] Lymphocytes (Bld) [#/Vol] 2.0 10*3/uL Normal 1.2-3.5 [facility] Comment on above: Performed By: #### L 200.41779 #### Test performed at: [place] [address] Lymphocytes/100 WBC (Bld) 27.0 % Normal [facility] Comment on above: Performed By: #### L 200.56420 #### Test performed at: [address] [address] MCH (RBC) [Entitic mass] 29.7 pg Normal 25.4-34.6 [facility] Comment on above: Performed By: #### L 200.70161 #### Test performed at: [address] [address] MCHC (RBC) [Mass/Vol] 33.5 g/dL Normal 31.5-36.5 [facility] Comment on above: Performed By: #### L 200.28026 #### Test performed at: [address] [address] MCV (RBC) [Entitic vol] 88.8 fL Normal 79.0-98.0 [facility] Comment on above: Performed By: #### L 200.73720 #### Test performed at: [address] [address] MONO ABS 0.7 K/uL Normal 0.0-1.0 [facility] Comment on above: Performed By: #### L 200.66939 #### Test performed at: [address] [address] Monocytes/100 WBC (Bld) 8.9 % Normal [facility] Comment on above: Performed By: #### L 200.43919 #### Test performed at: [address] [address] NEUTROPHIL ABS 4.5 K/uL Normal 1.4-6.6 [facility] Comment on above: Performed By: #### L 200.01986 #### Test performed at: [address] [address] Neutrophils/100 WBC (Bld) 59.9 % Normal [facility] Comment on above: Performed By: #### L 200.66997 #### Test performed at: [address] [address] NRBC # 0.000 K/uL Normal 0-0.012 [facility] Comment on above: Performed By: #### L 200.65726 #### Test performed at: [address] [address] NRBC % 0.0 /100 WBC Normal 0-0.2 [facility] Comment on above: Performed By: #### L 200.71647 #### Test performed at: [address] [address] Platelet mean volume (Bld) [Entitic vol] 12.4 fL Normal 8.7-12.4 [facility] Comment on above: Performed By: #### L 200.43094 #### Test performed at: [address] [address] Platelets (Bld) [#/Vol] 180 10*3/uL Normal 140-440 [facility] Comment on above: Performed By: #### L 200.94068 #### Test performed at: [address] [address] RBC (Bld) [#/Vol] 5.01 10*6/uL Normal 3.5-5.5 [facility] Comment on above: Performed By: #### L 200.67813 #### Test performed at: [address] [address] WBC (Bld) [#/Vol] 7.6 10*3/uL Normal 3.9-11.0 [facility] Comment on above: Performed By: #### L 200.56839 #### Test performed at: [address] [address] CHEST PA/AP & LATERALon CHEST PA/AP & LATERAL STUDY: CHEST PA/AP LATERAL; 08/03/2021 2:07 pm INDICATION: PREOP. COMPARISON: None. ACCESSION NUMBER(S): [id number] ORDERING CLINICIAN: Sari Bueno FINDINGS: The lungs are clear without apparent pleural effusion. Mild cardiomegaly. Otherwise unremarkable mediastinum, lamin, and pulmonary vasculature. IMPRESSION: No active disease in the chest. Normal [facility] COMP META PANELon 08-03-2021 Albumin [Mass/Vol] 3.6 g/dL Normal 3.4-5.0 [facility] Comment on above: Performed By: #### L 500.26145, L500.45224 #### Test performed at: [address] [address] ALK PHOS TOTAL 102 U/L Normal 45-117 [facility] Comment on above: Performed By: #### L 500.67836, L500.94630 #### Test performed at: [address] [address] ALT [Catalytic activity/Vol] 29 U/L Normal 13-61 [facility] Comment on above: Performed By: #### L 500.81126, L500.89112 #### Test performed at: [address] [address] AST [Catalytic activity/Vol] 19 U/L Normal 15-37 [facility] Comment on above: Performed By: #### L 500.55401, L500.74168 #### Test performed at: [address] [address] BILI TOTAL 0.5 mg/dL Normal 0.2-1.0 [facility] Comment on above: Performed By: #### L 500.89961, L500.11025 #### Test performed at: [address] [address] Calcium [Mass/Vol] 9.4 mg/dL Normal 8.5-10.1 [facility] Comment on above: Performed By: #### L 500.37588, L500.44255 #### Test performed at: [address] [address] Chloride [Moles/Vol] 108 mmol/L High 98-107 [facility] Comment on above: Performed By: #### L 500.81052, L500.35217 #### Test performed at: [address] [address] CO2 [Moles/Vol] 29 mmol/L Normal 21-32 [facility] Comment on above: Performed By: #### L 500.48979, L500.55553 #### Test performed at: [address] [address] Creatinine [Mass/Vol] 1.080 mg/dL High 0.550-1.020 [facility] Comment on above: Performed By: #### L 500.57799, L500.98518 #### Test performed at: [address] [address] Glucose [Mass/Vol] 169 mg/dL High 70-99 [facility] Comment on above: Result Comment: Fast ing GLUCOSE reference range has been updated per (ADA) Canadian Diabetes Association's recommendation. 06/26/2018 Performed By: #### L 500.50157, L500.93162 #### Test performed at: [address] [address] Potassium [Moles/Vol] 4.2 mmol/L Normal 3.5-5.1 [facility] Comment on above: Performed By: #### L 500.63520, L500.88930 #### Test performed at: [address] [address] Protein [Mass/Vol] 7.0 g/dL Normal 6.4-8.2 [facility] Comment on above: Performed By: #### L 500.79572, L500.08498 #### Test performed at: [address] [address] Sodium [Moles/Vol] 140 mmol/L Normal 136-145 [facility] Comment on above: Performed By: #### L 500.58249, L500.44419 #### Test performed at: [address] [address] Urea nitrogen [Mass/Vol] 16 mg/dL Normal 7-18 [facility] Comment on above: Performed By: #### L 500.97862, L500.77262 #### Test performed at: [address] [address] CONSULTATION REPORTon 2021 CONSULTATION REPORT NAME: EDVIN TRISTAN MR#: [id number] SPEEDBOAT OPERATOR: Sari Bueno MD DATE OF CONSULTATION: 08/03/2021 [...] am going to do a chest x- [facility] PT NAME: EDVIN TRISTAN MR#: [id number] [address] [place] [address] ACCT: [id number] : 58 CONSULTATION ray, CBC and diff, and a CMP on her and her functional capacity is around 4 METS. Surgical risk is [id number], higher exam is within acceptable limits. Pending the labs, she is cleared for anesthesia with acceptable risk. Thank you for the courtesy of this consultation. SARI BUENO MD MS/MODL/[id number] E/S: Sari Bueno MD 08/04/21 1514 Electronically Signed [facility] PT NAME: EDVIN TRISTAN MR#: [id number] [address] [place] [address] ACCT: [id number] : 58 CONSULTATION Normal [facility] CORONAVIRUSon 08-03-2021 SARS-CoV-2 (COVID-19) RNA MARIELLA+probe Ql [...] the FDA website: https://www.fda.gov/ MedicalDevices/Safet y/ EmergencySituations/ aav572004.htm COVID-19 Negative for COVID-19 (SARS-CoV-2 RNA) Normal [facility] Comment on above: Order Comment: CBN: YES [place]: MAIN COVID Testing: PRE-OP/PROCEDURE SCREEN AGE at Spec DOMI 60 Report age at specimen DOMI? Y First test: YES Employed in Healthcare: NO Symptomatic as defined by CDC: NO Hospitalized for COVID-19? NO ICU: NO Resident in a Congregated Care Setting: NO Order Date: 08/03/21 : Not Performed By: #### M [id number] #### Test performed at: [address] [address] GFR ESTIMATEon 08-03-2021 IF AMER > 60 Normal > 60 [facility] Comment on above: Result Comment: eGFR (Estimated GFR) Units of measure:mL/min/1.73 meters sq. *CALCULATION REVISED 01/20/2015;IDMS-traceable MDRD equation eGFR is derived from the reexpressed MDRD Study equation using the following parameters: serum creatinine, age, gender and race. An eGFR<60 mL/min/1.73m2 for >3 months is consistent with chronic kidney disease. Refer to KDOQI guidelines for clinical interpretation. Performed By: #### L 500.47671, L500.11438 #### Test performed at: [place] [address] IF non-AFR AMER 52 Low > 60 [facility] Comment on above: Performed By: #### L 500.64745, L500.99504 #### Test performed at: [address] [address] COVID Quick Testingon 2020 Result Negative [employer] Other Cult,Urine,CCon 07-25-2017 Cult,Urine,CC Specimen Description .URINE Performed at [address] [place] [address] ([phone] Special Requests .CLEAN CATCH URINE Performed at [address] [place] [address] ([phone] Culture NO SIGNIFICANT GROWTH Performed at [address] [id number] [phone] Report Status FINAL 07/25/2017 Normal [facility] Comment on above: Performed By: #### C LAISHA ####[place] [address] [place] [phone] [place] [address] Progress Noteon 07-25-2017 HIM IP Note OR Network Architect Normal [facility] Urinalysis w/ Microon 2017 ----- Normal [facility] Comment on above: Performed By: #### U AMIC ####[address] [place] [address] Acetaminophen mass conc Negative Normal NEG [facility] Comment on above: Performed By: #### U AMIC ####[address] [place] [address] Bilirubin (direct) Negative Normal NEG [facility] Comment on above: Performed By: #### U AMIC ####[address] [place] [address] Hemoglobin mass conc (Bld) Negative Normal NEG [facility] Comment on above: Performed By: #### U AMIC ####[address] [place] [address] Nitrite,Ur Negative Normal NEG [facility] Comment on above: Performed By: #### U AMIC ####[address] [place] [address] Turbidity TURBID Abnormal CLEAR [facility] Comment on above: Performed By: #### U AMIC ####[address] [place] [address] Urine WBC's 0 TO 2 Normal 0-5 [facility] Comment on above: Performed By: #### U AMIC ####[address] [place] [address] Urine, amorphous sediment presence in sediment 4+ Abnormal NONE [facility] Comment on above: Result Comment: Perf ormed at [address] [place] [address] Performed By: #### U AMIC ####[address] [place] [address] Urine, color YELLOW Normal YEL [facility] Comment on above: Performed By: #### U AMIC ####[address] [place] [address] Urine, epithelial cells in sediment 0 TO 2 Normal 0-25 [facility] Comment on above: Performed By: #### U AMIC ####[address] [place] [address] Urine, erythrocytes None Normal 0-2 [facility] Comment on above: Performed By: #### U AMIC ####[address] [place] [address] Urine, glucose presence Negative Normal NEG [facility] Comment on above: Performed By: #### U AMIC ####[address] [place] [address] Urine, leukocyte esterase presence Negative Normal NEG [facility] Comment on above: Performed By: #### U AMIC ####[address] [place] [address] Urine, pH 6.0 [pH] Normal 5.0-9.0 [facility] Comment on above: Performed By: #### U AMIC ####[address] [place] [address] Urine, protein presence Negative Normal NEG [facility] Comment on above: Performed By: #### U AMIC ####[address] [place] [address] Urine, specific gravity >1.030 High 1.010-1.020 [facility] Comment on above: Performed By: #### U AMIC ####[address] [place] [address] Urobilinogen,Ur Normal Normal NORM [facility] Comment on above: Performed By: #### U AMIC ####[address] [place] [address] Comment NOT REPORTED Normal [facility] Comment on above: Performed By: #### U AMIC ####[address] [place] [address] Epithelial, Renal NOT REPORTED Normal 0 [facility] Comment on above: Performed By: #### U AMIC ####[address] [place] [address] Mucus Strands NOT REPORTED Normal NONE [facility] Comment on above: Performed By: #### U AMIC ####[address] [place] [address] Other Observations NOT REPORTED Normal NREQ [facility] Comment on above: Performed By: #### U AMIC ####[address] [place] [address] Trichomonas NOT REPORTED Normal NONE [facility] Comment on above: Performed By: #### U AMIC ####[address] [place] [address] Urine, bacteria in sediment NOT REPORTED Normal [facility] Comment on above: Performed By: #### U AMIC ####[address] [place] [address] Urine, casts in sediment NOT REPORTED Normal [facility] Comment on above: Performed By: #### U AMIC ####[address] [place] [address] Urine, crystals in sediment NOT REPORTED Normal NONE [facility] Comment on above: Performed By: #### U AMIC ####[address] [place] [address] Urine, yeast presence in sediment NOT REPORTED Normal [facility] Comment on above: Performed By: #### U AMIC ####[address] [place] [address] Cult,Urine,CCon 04-14-2017 Cult,Urine,CC Specimen Description .URINE Performed at [address] [place] [address] Special Requests .CLEAN CATCH URINE Performed at [address] [place] [address] Culture NO SIGNIFICANT GROWTH Performed at [address] [address] Report Status FINAL 04/14/2017 [facility] Comment on above: Performed By: #### C LAISHA ####[address] [phone] [place] [address] Progress Noteon 04-14-2017 HIM IP Note OR Network Architect Normal [facility] Urinalysis w/ Microon 2017 ----- Normal [facility] Comment on above: Performed By: #### U AMIC ####[address] [place] [address] Acetaminophen mass conc Negative Normal NEG [facility] Comment on above: Performed By: #### U AMIC ####[address] [place] [address] Bilirubin (direct) Negative Normal NEG [facility] Comment on above: Performed By: #### U AMIC ####[address] [place] [address] Hemoglobin mass conc (Bld) Negative Normal NEG [facility] Comment on above: Performed By: #### U AMIC ####[address] [place] [address] Nitrite,Ur Negative Normal NEG [facility] Comment on above: Performed By: #### U AMIC ####[address] [place] [address] Turbidity CLEAR Normal CLEAR [facility] Comment on above: Performed By: #### U AMIC ####[address] [place] [address] Urine WBC's 0 TO 2 Normal 0-5 [facility] Comment on above: Performed By: #### U AMIC ####[address] [place] [address] Urine, bacteria in sediment TRACE Abnormal NONE [facility] Comment on above: Result Comment: Perf ormed at [address] [place] [address] Performed By: #### U AMIC ####[address] [place] [address] Urine, color YELLOW Normal YEL [facility] Comment on above: Performed By: #### U AMIC ####[address] [place] [address] Urine, epithelial cells in sediment 2 TO 5 Normal 0-25 [facility] Comment on above: Performed By: #### U AMIC ####[address] [place] [address] Urine, erythrocytes None Normal 0-2 [facility] Comment on above: Performed By: #### U AMIC ####[address] [place] [address] Urine, glucose presence Negative Normal NEG [facility] Comment on above: Performed By: #### U AMIC ####[address] [place] [address] Urine, leukocyte esterase presence Negative Normal NEG [facility] Comment on above: Performed By: #### U AMIC ####[address] [place] [address] Urine, pH 6.5 [pH] Normal 5.0-9.0 [facility] Comment on above: Performed By: #### U AMIC ####[address] [place] [address] Urine, protein presence Negative Normal NEG [facility] Comment on above: Performed By: #### U AMIC ####[address] [place] [address] Urine, specific gravity 1.020 Normal 1.010-1.020 [facility] Comment on above: Performed By: #### U AMIC ####[address] [place] [address] Urobilinogen,Ur Normal Normal NORM [facility] Comment on above: Performed By: #### U AMIC ####[address] [place] [address] Comment NOT REPORTED Normal [facility] Comment on above: Performed By: #### U AMIC ####[address] [place] [address] Epithelial, Renal NOT REPORTED Normal 0 [facility] Comment on above: Performed By: #### U AMIC ####[address] [place] [address] Mucus Strands NOT REPORTED Normal NONE [facility] Comment on above: Performed By: #### U AMIC ####[address] [place] [address] Other Observations NOT REPORTED Normal NREQ [facility] Comment on above: Performed By: #### U AMIC ####[address] [place] [address] Trichomonas NOT REPORTED Normal NONE [facility] Comment on above: Performed By: #### U AMIC ####[address] [place] [address] Urine, amorphous sediment presence in sediment NOT REPORTED Normal NONE [facility] Comment on above: Performed By: #### U AMIC ####[address] [address] [place] [address] Urine, casts in sediment NOT REPORTED Normal [facility] Comment on above: Performed By: #### U AMIC ####[address] [place] [address] Urine, crystals in sediment NOT REPORTED Normal NONE [facility] Comment on above: Performed By: #### U AMIC ####[facility] [place] [address] Urine, yeast presence in sediment NOT REPORTED Normal NONE [facility] Comment on above: Performed By: #### U AMIC ####[address] [place] [address] Vital Signs Date Time Vital Sign Value Performing Clinician Facility 08-07-2024 14:50-0400 Body height 163.83 cm [facility] 08-07-2024 14:50-0400 Body mass index (BMI) [Ratio] 38 kg/m2 [facility] 08-07-2024 14:50-0400 Body weight 102.17 kg [facility] 08-07-2024 14:50-0400 Diastolic blood pressure 73 mm[Hg] [facility] 08-07-2024 14:50-0400 Heart rate 73 /min [facility] 08-07-2024 14:50-0400 Respiratory rate 12 /min [facility] 08-07-2024 14:50-0400 Systolic blood pressure 126 mm[Hg] [facility] 07-02-2024 13:36-0400 Body height 163.83 cm [facility] 07-02-2024 13:36-0400 Body mass index (BMI) [Ratio] 38.5 kg/m2 [facility] 07-02-2024 13:36-0400 Body weight 103.53 kg [facility] 07-02-2024 13:36-0400 Diastolic blood pressure 70 mm[Hg] [facility] 07-02-2024 13:36-0400 Heart rate 69 /min [facility] 07-02-2024 13:36-0400 Respiratory rate 12 /min [facility] 07-02-2024 13:36-0400 Systolic blood pressure 114 mm[Hg] [facility] 10-10-2023 13:27-0400 Body height 163.83 cm [facility] 10-10-2023 13:27-0400 Body mass index (BMI) [Ratio] 39.7 kg/m2 [facility] 10-10-2023 13:27-0400 Body weight 106.65 kg [facility] 10-10-2023 13:27-0400 Diastolic blood pressure 79 mm[Hg] [facility] 10-10-2023 13:27-0400 Heart rate 65 /min [facility] 10-10-2023 13:27-0400 Respiratory rate 12 /min [facility] 10-10-2023 13:27-0400 Systolic blood pressure 129 mm[Hg] [facility] 09-25-2023 15:11-0400 Body height 163.83 cm [facility] 09-25-2023 15:11-0400 Body mass index (BMI) [Ratio] 39.6 kg/m2 [facility] 09-25-2023 15:11-0400 Body weight 106.31 kg [facility] 09-25-2023 15:11-0400 Diastolic blood pressure 79 mm[Hg] [facility] 09-25-2023 15:11-0400 Heart rate 65 /min [facility] 09-25-2023 15:11-0400 Respiratory rate 12 /min [facility] 09-25-2023 15:11-0400 Systolic blood pressure 122 mm[Hg] [facility] 08-25-2023 10:21-0400 Body height 163.83 cm [facility] 08-25-2023 10:21-0400 Body mass index (BMI) [Ratio] 39.2 kg/m2 [facility] 08-25-2023 10:21-0400 Body weight 105.46 kg [facility] 08-25-2023 10:21-0400 Diastolic blood pressure 63 mm[Hg] [facility] 08-25-2023 10:21-0400 Heart rate 61 /min [facility] 08-25-2023 10:21-0400 Respiratory rate 20 /min [facility] 08-25-2023 10:21-0400 Systolic blood pressure 116 mm[Hg] [facility] 08-09-2023 15:10-0400 Body height 163.83 cm [facility] 08-09-2023 15:10-0400 Body mass index (BMI) [Ratio] 39.2 kg/m2 [facility] 08-09-2023 15:10-0400 Body weight 105.29 kg [facility] 08-09-2023 15:10-0400 Diastolic blood pressure 69 mm[Hg] [facility] 08-09-2023 15:10-0400 Heart rate 65 /min [facility] 08-09-2023 15:10-0400 Respiratory rate 20 /min [facility] 08-09-2023 15:10-0400 Systolic blood pressure 127 mm[Hg] [facility] 02-06-2023 15:30-0500 Body height 163.83 cm Ethan Ball Other [facility] Other 02-06-2023 15:30-0500 Body mass index (BMI) [Ratio] 37.24 kg/m2 Ethan Ball Other [facility] Other 02-06-2023 15:30-0500 Body weight 99.97 kg Ethan Ball Other [facility] Other 02-06-2023 15:30-0500 Diastolic blood pressure 68 mm[Hg] Ethan Ball Other [facility] Other 02-06-2023 15:30-0500 Respiratory rate 16 /min Ethan Ball Other [facility] Other 02-06-2023 15:30-0500 Systolic blood pressure 112 mm[Hg] Ethan Ball Other [employer] Other 01-11-2023 11:45-0400 Body height 163.83 cm Ethan Ball Other [employer] Other 01-11-2023 11:45-0400 Body mass index (BMI) [Ratio] 36.74 kg/m2 Ethan Ball Other [employer] Other 01-11-2023 11:45-0400 Body weight 98.61 kg Ethan Ball Other [employer] Other 01-11-2023 11:45-0400 Diastolic blood pressure 75 mm[Hg] Ethan Ball Other [employer] Other 01-11-2023 11:45-0400 Respiratory rate 12 /min Ethan Ball Other [employer] Other 01-11-2023 11:45-0400 Systolic blood pressure 112 mm[Hg] Ethan Ball Other [employer] Other 04-11-2022 16:30-0500 Body height 163.83 cm Ethan Ball Other [employer] Other 04-11-2022 16:30-0500 Body mass index (BMI) [Ratio] 39.78 kg/m2 Ethan Ball Other [employer] Other 04-11-2022 16:30-0500 Body weight 106.78 kg Ethan Ball Other [employer] Other 04-11-2022 16:30-0500 Diastolic blood pressure 74 mm[Hg] Ethan Ball Other [employer] Other 04-11-2022 16:30-0500 Respiratory rate 12 /min Ethan Hines Other [employer] Other 04-11-2022 16:30-0500 Systolic blood pressure 112 mm[Hg] Ethan Hines Other [employer] Other 01-10-2021 13:30-0400 Body temperature 96.7 [degF] Celine Christian Other [employer] Other 01-10-2021 13:30-0400 SaO2% (BldA) [Mass fraction] 97 % Celine Gonzales Other [employer] Other Encounters Encounter Date Encounter Type Care Provider Facility Start: 08-07-2024 End: 08-07-2024 ambulatory [facility] Work Phone: Start: 08-07-2024 End: 08-07-2024 Patient encounter procedure [facility] Work Phone: Start: 08-05-2024 End: 08-05-2024 ambulatory [facility] Work Phone: Start: 08-05-2024 End: 08-05-2024 Patient encounter procedure [facility] Work Phone: Start: 07-02-2024 End: 07-02-2024 ambulatory [facility] Work Phone: Start: 07-02-2024 End: 07-02-2024 Patient encounter procedure [facility] Work Phone: Start: 03-24-2024 Patient encounter status [facility] Start: 10-10-2023 End: 10-10-2023 ambulatory [facility] Work Phone: Start: 10-10-2023 End: 10-10-2023 Patient encounter procedure [facility] Work Phone: Start: 09-25-2023 End: 09-25-2023 ambulatory [facility] Work Phone: Start: 09-25-2023 End: 09-25-2023 Patient encounter procedure [facility] Work Phone: Start: 09-13-2023 End: 09-13-2023 ambulatory [facility] Work Phone: Start: 09-13-2023 End: 09-13-2023 Patient encounter procedure [facility] Work Phone: Start: 08-25-2023 End: 08-25-2023 ambulatory [facility] Work Phone: Start: 08-25-2023 End: 08-25-2023 Patient encounter procedure [facility] Work Phone: Start: 08-09-2023 End: 08-09-2023 ambulatory [facility] Work Phone: Start: 08-09-2023 End: 08-09-2023 Patient encounter procedure [facility] Work Phone: Start: 08-04-2023 Non-patient / Non-visit [facility] Work Phone: Start: 07-28-2023 Non-patient / Non-visit [facility] Work Phone: Start: 04-12-2023 End: 04-12-2023 ambulatory Ethan Hines Other [employer] Other Start: 04-12-2023 Telephone encounter Ethan Hines [facility] Start: 02-06-2023 End: 02-06-2023 ambulatory Ethan Donny Other [employer] Other Start: 02-06-2023 Office outpatient vi sit 15 minutes Ethan Hines [facility] Start: 01-30-2023 End: 01-30-2023 ambulatory Ethan Hines Other [employer] Other Start: 01-30-2023 Telephone encounter Ethan CARTER [facility] Start: 01-26-2023 End: 01-26-2023 ambulatory Ethan Hines Other [employer] Other Start: 01-26-2023 Telephone encounter Ethan Hines [facility] Start: 01-11-2023 End: 01-11-2023 ambulatory Ethan Hines Other [employer] Other Start: 01-11-2023 Encounter for genera l adult medical examination without abnormal findings Ethan Hines [facility] Start: 01-11-2023 Periodic preventive med est patient 40-64yrs Ethan Hines [facility] Start: 01-11-2023 Telephone encounter Ethan CARTER [facility] Start: 10-12-2022 End: 10-13-2022 ambulatory Robin Zelaya [facility] Start: 10-12-2022 End: 10-12-2022 Lab Drop off Robin Zelaya [facility] Start: 09-07-2022 End: 09-07-2022 ambulatory Ethan Hines Other [employer] Other Start: 09-07-2022 Telephone encounter Ethan CARTER [facility] Start: 08-10-2022 End: 08-10-2022 ambulatory Ethan Hines Other [employer] Other Start: 08-10-2022 Office outpatient vi sit 15 minutes Ethan Hines [facility] Start: 08-02-2022 End: 08-03-[address] NONE LISTED REQUEST Facility: Start: 07-04-2022 End: 07-04-2022 ambulatory Ethan Hines Other [employer] Other Start: 07-04-2022 Telephone encounter Ethan Hines [facility] Start: 05-09-2022 End: 05-09-2022 ambulatory Ethan Hines Other [employer] Other Start: 05-09-2022 Telephone encounter Ethan Hines [facility] Start: 04-13-2022 End: 04-13-2022 ambulatory Ethan Donny Other [employer] Other Start: 04-13-2022 Telephone encounter Ethan Hines [facility] Start: 04-11-2022 End: 04-11-2022 ambulatory Ethan Donny Other [employer] Other Start: 04-11-2022 Office outpatient vi sit 25 minutes Ethan Hines [facility] Start: 04-10-2022 End: 04-10-2022 ambulatory Ethan Hines Other [employer] Other Start: 04-10-2022 Telephone encounter Ethan Hines [facility] Start: 04-05-2022 End: 04-06-[address] ETHAN HINES Facility:[facility] Start: 03-16-2022 End: 03-16-[address] ETHAN HINES Facility:[facility] Start: 11-22-2021 End: 11-23-[address] FUNG LISTED VENICE Facility:[facility] Start: 11-18-2021 End: 11-19-[address] ETHAN HINES Facility:[facility] Start: 10-19-2021 End: 10-20-[address] SISSY DASILVA . Facility:[facility] Start: 09-28-2021 End: 09-28-[address] ETHAN HINES Facility:[facility] Start: 08-26-2021 End: 10-22-[address] DOCTOR BE Facility:[facility] Start: 08-18-2021 End: 08-18-[address] ETHAN HINES Facility:[facility] Start: 01-10-2021 Office outpatient vi sit 15 minutes [facility] Start: 07-24-2017 End: 07-25-2017 Ambulatory [facility] Start: 04-13-2017 End: 04-14-2017 Ambulatory [facility]BALDO Wills [facility] Procedures Date Procedure Procedure Detail Performing Clinician Start: 07-24-2017 URINE CULTURE CLEAN CATCH UBALDO LOPEZ Start: 07-24-2017 URINALYSIS WITH MICROSCOPIC UBALDO LOPEZ Start: 04-13-2017 URINE CULTURE CLEAN CATCH UBALDO LOPEZ Start: 04-13-2017 URINALYSIS WITH MICROSCOPIC UBALDO LOPEZ Plan of Treatment Date Care Activity Detail Author US [facility] Payers Date Payer Category Payer Unknown [id number] 2.16.84 [id number] 1959 Unknown [id number] 2.16.84 [id number] 1959 Unknown [id number] 2.16.84 [id number] 1959 Unknown [id number] 2.16.84 [id number] 1959 Unknown [id number] 2.16.84 [id number] 1959 Unknown [id number] 2.16.8 [id number] 1960 Self-pay 1960 Self-pay [id number] 1959 Unknown [id number] Unknown [id number] 2.16.84 [id number] Unknown [id number] 2.16.84 [id number] Unknown [id number] 2.16.84 [id number] Unknown [id number] 2.16.84 [id number] Unknown Other1 (STD) [id number] Social History Date Type Detail Facility Sex Assigned At [facility] Tobacco smoking status No Smokin g Status Entered [facility] Start: 1960 Sex Assigned At Female F [facility] Work Phone: Start: 07-02-2024 End: 08-07-2024 Sex Female (finding) [facility] Clinical Notes 01-10-2021 to 07-02-2024 Note Date & Type Note Facility 07-02-2024 Evaluation note Diagnosis Onset Date Resolution Eustachian tube dysfunction acute July 02, 2024 1:19pm GERD (gastroesophageal reflux disease) acute July 02, 2024 1:19pm Hypertension acute July 02, 2 025 1:19pm Obesity acute July 02 1:19pm Type 2 diabetes mellitus with hyperglycemia acute July 02 1:19pm [facility] Work Phone: [phone]) 294-631604-01-2025 Evaluation note* Diagnosis Onset Date Resolution Status Admit Date Eustachian tube dysfunction acute July 02, 2024 1:19pm GERD (gastroesophageal reflu x disease) acute July 02, 2024 1:19pm Hypertension acute July 02, 2 025 1:19pm Obesity acute July 02 1:19pm Type 2 diabetes mellitus wit h hyperglycemia acute July 02, 2024 1:19pm Abdominal pain acute August 07, 2 025 2:43pm [facility] Work Phone: [phone]) 429-825211-06-2023 Evaluation note* Encounter Date Diagnosis Assessment Notes Treatment Notes Treatment Clinical Notes Feb, Acute bilateral low back pain [...] Lisinopril to 5mg and monitoring BP closely [employer] Other 10-11-2023 Evaluation note* Encounter Date Diagnosis [...] Colon cancer screeni ng (ICD-10 - Z12.11) [employer] Other 05-10-2023 Evaluation note* Encounter Date Diagnosis [...] Pain in left hip (ICD-10 - M25.552) [employer] Other 02-06-2023 Evaluation note* Encounter Date Diagnosis Assessment Notes Treatment Notes Treatment Clinical Notes May, Type 2 diabetes mellitus with hyperglycemia, without long-term current use of insulin (ICD-10 - E11.65) [employer] Other 01-11-2023 Evaluation note* Encounter Date Diagnosis Assessment Notes Treatment Notes Treatment Clinical Notes Apr, Gastroesophageal ref lux disease with esophagitis without hemorrhage (ICD-10 - K21.00) Apr, Type 2 diabetes mellitus with hyperglycemia, without long-term current use of insulin (ICD-10 - E11.65) [employer] Other 01-09-2023 Evaluation note* Encounter Date Diagnosis [...] (ICD-10 - N60.99) Close f/u w/ Oncology [employer] Other 01-08-2023 Evaluation note* Encounter Date Diagnosis Assessment Notes Treatment Notes Treatment Clinical Notes Apr, Type 2 diabetes mellitus with hyperglycemia, without long-term current use of insulin (ICD-10 - E11.65) [employer] Other 05-06-2022 NoteNAME: EDVIN TRISTAN MR#: [id number] ADMIT DATE: 08/06/2021 DISCHARGE DATE: 08/08/2021 DISCHARGE [...] every hour, and perform incentive spirometer [address] [facility] PT NAME: EDVIN TRISTAN MR#: [id number] [address] [address] ACCT: [id number] : 58 DISCHARGE SUMMARY times per hour while awake. She was also advised to get all of her prescriptions filled as soon as possible and continue taking all of her medications as directed and keep all of her outpatient followup appointment as scheduled. She is being discharged back to her home with self-care. MD CARIDAD MILLER/MODL/[id number] E/S: Santi Roldan MD 09/15/21 1121 Electronically Signed [facility] PT NAME: EDVIN TRISTAN MR#: [id number] [address] [place], [place] [address] ACCT: [id number] : 58 [facility] Evaluation note* Encounter Date Diagnosis Assessment Notes [...] Patient care instructions given in writting by [facility] Care At Home document. [facility] Other Evaluation + Plan note No data available for this section [facility] noteNo Information[facility] Other Evaluation note* Diagnosis Onset Date Resolution Status Hypertension acute Nicotine addiction acute Type 2 diabetes mellitus with hyperglycemia acute [facility] Work Phone: Evaluation note* Diagnosis Onset Date Resolution Status Cardiac murmur acute Hypertension acute Nicotine addiction acute Type 2 diabetes mellitus with hyperglycemia acute [facility] Work Phone: Evaluation note* Diagnosis Onset Date Resolution Status Hypertension acute Nicotine addiction acute Type 2 diabetes mellitus with hyperglycemia acute Aphthous stomatitis noneacti ve Odynophagia noneactive [facility] Work Phone: Evaluation note* Diagnosis Onset Date Resolution Status Hypertension acute Nicotine addiction acute Type 2 diabetes mellitus with hyperglycemia acute Aphthous stomatitis noneacti ve Odynophagia noneactive Hypertension acute Nicotine addiction acute Type 2 diabetes mellitus with hyperglycemia acute [facility] Work Phone: Evaluation note* Diagnosis Onset Date Resolution Status Hypertension acute Nicotine addiction acute Type 2 diabetes mellitus with hyperglycemia acute Aphthous stomatitis noneacti ve Odynophagia noneactive Hypertension acute Obesity acute Type 2 diabetes mellitus with hyperglycemia acute [facility] Work Phone: Evaluation noteNo assessment information available [facility] Work Phone: History general Narrative [...] endometrial biopsy Hospitalization History see surgical history [employer] Other Hospital Discharge instructions No data available for this section [facility] No data available for this section [facility] Summary Purpose Family History No Family [...] Obesity Type 2 diabetes mellitus with hyperglycemia Chief Complaint Admit Date Ear Pressure/Dizziness/LightHeaded July 02, 2024 1:19pm Chief Complaint Admit Date Ear Pressure/Dizziness/LightHeaded July 02, 2024 1:19pm UA August 05, 2024 2:56pm Reason for Visit Admit Date Eustachian tube dysfunction July 02 025 1:19pm GERD (gastroesophageal reflux disease) A pril 2024 1:19pm Hypertension July 02, 2024 1:19 pm Obesity July 02, 2024 1:19 pm Type 2 diabetes mellitus with hyperglyce cora July 02, 2024 1:19pm Chief Complaint Admit Date Ear Pressure/Dizziness/LightHeaded July 02, 2024 1:19pm UA August 05, 2024 2:56pm right flank pain August 07, 2024 2:43pm Reason for Visit Admit Date Eustachian tube dysfunction July 02 1:19pm GERD (gastroesophageal reflux disease) A pril 2024 1:19pm Hypertension July 02, 2024 1:19 pm Obesity July 02, 2024 1:19 pm Type 2 diabetes mellitus with hyperglyce cora July 02, 2024 1:19pm Abdominal pain August 07, 2024 2:43pm Additional Source Comments INFORMATION SOURCE (unrecogn ized section and content) DATE CREATED AUTHOR 09/21/2017 [facility] DATE CREATED AUTHOR AUTHOR'S ORGANIZ ATION 09/16/2021 [facility] DATE CREATED AUTHOR AUTHOR'S ORGANIZ ATION 08/03/2022 [facility] DATE CREATED AUTHOR AUTHOR'S ORGANIZ ATION 10/19/2022 [facility] REASON FOR VISIT (unrecogniz ed section and content) #15 MAROON CAR- SINUS, COUGH PRODUCTIVE COUGH , EARS, CHEST CONGESTION, COVID Provider VisitNo Information5 MONTH BJMedicationNo InformationRefill3 month Follow up, congestion sinuses allergiesWeight CheckNo InformationwellnessXray resultsHip injectiontrochanteric bursitis injectionrefill Patient Care team informatio n (unrecognized section and content) Team Status: Active Member Role Status Dates Ethan Hines DO Primary Care Provider Active Team Status: Inactive Member Role Status Dates Ethan Hines DO Primary Care Provide r, Attending Provider Active Start: July 02, 2024 End: July 02, 2024 Team Status: Active Member Role Status Dates [...] Status: Inactive Member Role Status Dates Ethan Ball , DO Primary Care Provide r, Attending [...] October 10, 2023 End: October 10, 2023 Team Status: Inactive Member Role Status Dates Ethan Hines , DO Primary Care Provide r, Attending Provider Active Start: August 05, 2024 End: August 05, 2024 Team Status: Inactive Member Role Status Dates Ethan Hines , DO Primary Care Provide r, Attending Provider Active Start: August 07, 2024 End: August 07, 2024 Goals (unrecognized section and content) Goals may [...] BE BASED ON THE PRIMARY CLINICAL RECORDS. [facility] [employer] [facility]. provides no warranty or guarantee of the accuracy or completeness of information in this document.
[2024-08-13 08:03] LABS: Anion Gap 12.5; BUN Creatinine Ratio 19.6; Calcium 9.4 mg/dL (8.5-10.1); Carbon Dioxide 28.5 mmol/L (21.0-32.0); Chloride 103 mmol/L (98-107); Estimated GFR (African America >60 (>=60 mL/min/1.73m^2); Estimated GFR (Non-African Ame 58 (>=60 mL/min/1.73m^2); Glucose 111 mg/dL (74-106); Sodium 140 mmol/L (136-145)
[2024-08-13 08:07] LABS: Bilirubin Urine NEGATIVE (NEGATIVE); Blood Urine NEGATIVE (NEGATIVE); Clarity Urine CLEAR (CLEAR); Color Urine LT. YELLOW (YELLOW); Glucose Urine UA NEGATIVE (NEGATIVE); Ketones Urine NEGATIVE (NEGATIVE); Leukocyte Esterase Urine SMALL (NEGATIVE); Nitrite Urine NEGATIVE (NEGATIVE); Protein Urine NEGATIVE (NEG/TRACE); Specific Gravity Urine <=1.005 (1.005-1.025); Urobilinogen Urine 0.2 EU/dL (0.2-1.0)
== END 2024-08-13 07:04 | disposition home or self-care (01) ==
LOC: US 07:03
PROVIDERS: PCP Internal Medicine; Visit Provider Internal Medicine
DX: R10.31 Right lower quadrant pain (principal); N28.1 Cyst of kidney, acquired
CPT/HCPCS: 36415; 76775; 80048; 81003

== ENCOUNTER 2024-09-04 14:30 | Outpatient (OUT) | payer OTHER, SELFPAY ==
--- OUTSIDE RECORDS SUMMARY | 2023-07-26 11:00 | XMS_ITS ---
Author Organization The [facility] in [place] Address [address] [place] [address] Care Team Providers Care Oyster Worker Name Role Phone Ethan Hines DO Primary Care Provider James Hughes Unavailable [phone] Allergies Allergen (clinical drug ingredient) Drug/Non Drug [...] Problem Status W/U Status Risk Notes Problem 1293693298375555 Bunionette of right foot (M21.621) Active confirmed Problem 381379348 Other hammer toe(s) (acquired), right foot (M20.41) Active confirmed Problem 785247291 Corns and callosities (L84) Active confirmed Vital Signs Weight 238 lbs 07/26/2023 Height 64 in 07/26/2023 Temperature 98.8 degrees Fahrenheit 07/26/19 Heart Rate 70 /min 07/26/2023 BMI 40.85 kg/m2 07/26/2023 Oximetry 98 % 07/26/2023 Encounters Encounter Location Date Provider Diagnosis [facility] (PODIATRY) [address] [place] [address] [place] [address] 07/26/2023 Peter [facility] Right foot pain M79.671 ; Bunionette of [...] Notes * Shaylee TRISTANPedroOB:1960 (62 yo F)Acc No.[id number]:07/26/2023 New Patient Patient: Charity WOODWARD Provider: Fransisca Landeros DPM, MS :1960 A ge:62 Y S ex:Female Date:07/26/2023 Address:[facility] [address], [place], [id number] Pcp:Ethan Hines, DO Check In:02:53 PM ESTCheck [...] M usculoskeletal: Bone/Joint Symptoms d enies. C shelter Pain d enies.?Leg cramps d enies. N [...] o falls in the past year B [place] ACTION PLAN Above Normal BMI Follow-up D ietary management education, guidance, and counseling * * Sign off status: Completed Visit Status: C HK (Check Out) true * Provider: Fransisca Landeros DPM, MS Date: 0 07/26/2023 Generated for Juan ramey/Domingo/Cornelitting on: 0 09/04/2024 02:32 PM EDT History and Physical Notes * [...]
--- OUTSIDE RECORDS SUMMARY | 2024-09-04 14:32 | XMS_ITS | Clinical Summary ---
Author Organization [facility] Address [address] [place] [address] Phone Care Team Providers Care Cissp Name Role Phone Unavailable Primary Care Provider Unavailabl e Social History Tobacco Use Types Packs/Day Years Used Date Smoking Tobacco: Never Assessed Comments Unknown Sex and Gender Information Value Date Recorded Sex Assigned at Not on file Legal Sex Female 5:47 PM EST Gender Identity Not on file Sexual Orientation Not on file Plan of Treatment Health Maintenance Due Date Last Done Comments CT Colonography 1960 Colonoscopy 1960 Colorectal Cancer Screening 1960 FIT-DNA (Cologuard) 1960 FIT 1960 HIV Screening 1960 Lipid Panel 1960 Sigmoidoscopy 1960 Yearly Adult Physical 1960 MMR Vaccines (1 of 1 - Stand geovany series) 10/23/1960 Hepatitis C Screening 10/23/1977 Cervical Cancer Screening 10/23/1980 HPV/Cotest 10/23/1980 Pap Smear 10/23/1980 DTaP/Tdap/Td Vaccines (1 - Tdap) 10/23/1981 Mammogram 1999 Pneumococcal Vaccine (1 of 1 - PCV) 10/23/2009 Zoster Vaccines (1 of 2) 10/23/2009 COVID-19 Vaccine ( - 2023-2 5 season) 2023 Influenza Vaccine (Season Ended) 2024 RSV High Risk: (Elderly (60+ ) or Population) (1 - 1-dose 75+ series) 10/23/2034 HIB Vaccines Aged Out No longer eligi ble based on patient's age to complete this topic HPV Vaccines Aged Out No longer eligi ble based on patient's age to complete this topic Hepatitis A Vaccines Aged Out No long er eligible based on patient's age to complete this topic Hepatitis B Vaccines Aged Out No long er eligible based on patient's age to complete this topic IPV Vaccines Aged Out No longer eligi ble based on patient's age to complete this topic Meningococcal Vaccine Aged Out No diana naldo eligible based on patient's age to complete this topic Rotavirus Vaccines Aged Out No longer eligible based on patient's age to complete this topic
--- OUTSIDE RECORDS SUMMARY | 2024-09-04 14:32 | XMS_ITS | Clinical Summary ---
Author Organization [facility] Address [address] [place] [address] Care Team Providers Care Cloth Shrinker Name Role Phone Unavailable Primary Care Provider Unavailabl e Social History Tobacco Use Types Packs/Day Years Used Date Smoking Tobacco: Never Assessed Comments Unknown Sex and Gender Information Value Date Recorded Sex Assigned at Not on file Legal Sex Female 8:33 PM EDT Gender Identity Not on file Sexual Orientation Not on file Last Filed Vital Signs Vital Sign Reading Time Taken Comments Blood Pressure 93/59 04/18/2018 12:00 PM EST Pulse - - Temperature - - Respiratory Rate - - Oxygen Saturation - - Inhaled Oxygen Concentration - - Weight - - Height - - Body Mass Index - - Plan of Treatment Not on file Insurance [employer]
--- OUTSIDE RECORDS SUMMARY | 2024-09-04 14:32 | XMS_ITS | Encounter Summary ---
Author Organization [facility] Address [address] [place] [address] Care Team Providers Care Hunter Name Role Phone Ethan Hines DO Primary Care Provider [phone] Reason for Visit * Reason Comments Medication Refill Encounter Details Date Type Department Care Team (Late st Contact Info) Description 01/13/2019 [facility]ill [facility] [address], [address] [place] [id number] Danny Rodriguez MD Medication Refill Social History Tobacco Use Types Packs/Day Years Used Date Smoking Tobacco: Never Smokeless Tobacco: Never Alcohol Use Standard Drinks/Week Comments Not Currently 0 (1 standard drink = 0.6 oz pur e alcohol) rare Comments No Sex and Gender Information Value Date Recorded Sex Assigned at Not on file Legal Sex Female 8:01 AM EST Gender Identity Not on file Sexual Orientation Not on file documented as of this encounter Plan of Treatment Not on file documented as of this encounter Visit Diagnoses Diagnosis Lumbosacral spondylosis without myelopathy documented in this encounter Care Teams Hunter Relationship Specialty Start Date End Date Ethan Hines DO PCP - General Internal Medicine 04/13/17 documented as of this encounter
--- OUTSIDE RECORDS SUMMARY | 2024-09-04 14:32 | XMS_ITS | Clinical Summary ---
Author Organization [facility] Address [address] [place] [address] Care Team Providers Care Information Assurance Officer Name Role Phone Ethan Hines DO Primary Care Provider [phone] Allergies Active Allergy Reactions Criticality Noted Date Comments Sulfamethoxazole-Trimetho prim Diarrhea 04/13/2017 Ciprofloxacin Hcl Nausea Only 04/13/2017 Prednisolone Other (See Comments) 06/13/2018 Muscle cramps Sulfa Antibiotics Diarrhea 04/13/2017 Tramadol Nausea And Vomiting Low 04/13/2017 Medications lisinopril-hydro chlorothiazide (PRINZIDE;ZESTOR ETIC) 10-12.5 MG per tablet 1 tablet daily 7 Active acetaminophen (TYLENOL) 500 MG tablet Take 500 mg by mouth every 6 hours as needed for Pain Active lidocaine (LMX) 4 % creamIndications :Lumbosacral spondylosis without myelopathy Apply a half dollar sized amount to intact skin topically up to twice daily as needed for pain 1 Tube 1 9 Active Additional Information Patient not taking.Reported on 06/10/2019 lisinopril (PRINIVIL;ZESTRI L) 10 MG tablet Take 10 mg by mouth daily Active NABUMETONE PO Take 750 mg by mouth daily Active ibuprofen (ADVIL;MOTRIN) 600 MG tablet Take 1 tablet by mouth 3 times daily 90 tablet 9 Active gabapentin (NEURONTIN) 100 MG capsuleIndicatio ns:Lumbosacral spondylosis without myelopathy TAKE 2 CAPSULES BY MOUTH FOUR TIMES PER DAY 240 capsule 9 Active Active Problems Problem Noted Date Diagnosed Date Renal stone 06/12/2017 Renal colic 06/12/2017 Gross hematuria 06/12/2017 Family History Medical History Relation Name Comments Heart Disease Father High Blood Pressure Father Arthritis Mother High Blood Pressure Mother Relation Name Status Comments Father Mother Alive Social History Tobacco Use Types Packs/Day Years [...] Sign Reading Time Taken Comments Blood Pressure 110/70 06/10/2019 4:13 PM EDT Pulse 80 06/13/2018 2:46 PM EDT Temperature 37 C (98.6 F) 12/14/2018 3:08 PM EDT Respiratory Rate 18 11/20/2018 3:48 PM EDT Oxygen Saturation - - Inhaled Oxygen Concentration - - Weight 106.1 kg (234 lb) 06/10/2019 4:13 PM EDT Height 162.6 cm (5' 4 ) 06/10/2019 4:13 PM EDT Body Mass Index 40.17 06/10/2019 4:13 PM EDT Plan of Treatment Not on file Insurance [employer] Care Teams Information Assurance Officer Relationship Specialty Start Date End Date Ethan Hines DO PCP - General Internal Medicine 04/13/17
--- OUTSIDE RECORDS SUMMARY | 2024-09-04 14:32 | XMS_ITS | Patient Health Record ---
Author Organization [facility] Address [address] [place] [address] Care Team Providers Care Identity Management Consultant Name Role Phone Ethan Hines DO Primary Care Provider Unavaila ble Allergies Allergen (clinical drug ingredient) Drug/Non Drug [...] promethazine Promethazine stomach upset Drug Allergy Active Reason For Referral No Information Medications Medication SIG (Take, Route, Fr equency, [...] Problem Status W/U Status Risk Notes Problem 470172153 Corns and callosities (L84) Active confirmed Problem 383644963 Other hammer toe(s) (acquired), right foot (M20.41) Active confirmed Problem [id number] Bunionette of right foot (M21.621) Active confirmed Plan Of Treatment No Information Insurance Providers Payer Name Payer Address Payer Phone Subscriber Number Group Number Insured Name Patient Relationship to Insured Coverage Start Date Coverage End Date MMO [address] [place], [place] [id number] Charity Smith Self - patient is the insured Medical (General) History Medical History History ICD Code arthritis diabetes hypertension Surgical History Surgery Date(Month/Year) lumbar spine 08/2021 sterotatic breast/lumpectomy 01/2011 torn meniscus
--- NOTE | 2024-09-04 14:34 | CT_ITS ---
The [address] [address] Patient Name: EDVIN TRISTAN MRN: [facility]:[id number] date: 1960 Sex: F Assigned Patient Location: CT Current Patient Location: CT Accession/Order Number: [id number] Exam Date: 09/04/2024 15:38 Report Date: 09/04/2024 15:44 At the request of: WYATT GARCIA DO Procedure: CT abdomen pelvis wo/w con CT Abdomen and Pelvis with and withoutcontrast TECHNIQUE: Axial imaging with 2-D reconstruction.100 cc of Omnipaque [address] exam was performed using one or more the following dose reduction techniques: Automated exposure control, adjustment of the MA and/or Kv according to patient size, or use of the iterative reconstruction technique. COMPARISON: Renal ultrasound 08/13/2024 History: Left renal mass. LIMITATIONS: None LOWER THORAX Unremarkable LIVER: Hepatic steatosis GALLBLADDER: Cholecystectomy clips identified. BILE DUCTS: No dilatation SPLEEN: Unremarkable PANCREAS: Unremarkable ADRENAL GLANDS: Unremarkable KIDNEYS:Punctate right nephrolithiasis. Multiple at least 4 hypodensities of the right kidney measuring up to 17 mm. These likely represent multiple small cysts. Focal left renal scarring. Punctate left nephrolithiasis. No hydronephrosis. AORTA: No abdominal aortic aneurysm identified. Mild atherosclerosis. RETROPERITONEUM: No significant retroperitoneal abnormalities identified. MESENTERY:Unremarkable SMALL BOWEL: The small bowel loops are nondistended. APPENDIX: The appendix is normal. COLON: Unremarkable URINARY BLADDER: Urinary bladder is unremarkable. REPRODUCTIVE SYSTEM: Reproductive structures are unremarkable. PNEUMOPERITONEUM: None PERITONEAL FLUID:None BONY STRUCTURES: Lumbar decompression. Extensive L5-S1 spondylosis. ABDOMINAL WALL: Unremarkable CT/CT abdomen pelvis wo/w con IMPRESSION: At least 4 hypodensities of the left kidney measuring up to 17 mm likely representing small cysts. Consider six-month assessment with CT or MRI of the kidneys with contrast. Impression dictated by: Santi Argueta M.D. 09/04/2024 3:44 PM Dictation Location: [email or web address] Electronically authenticated by: [id number] Y Date: 09/04/2024 15:44
== END 2024-09-04 14:31 | disposition home or self-care (01) ==
LOC: CT 14:30
PROVIDERS: PCP Internal Medicine; Visit Provider Internal Medicine
DX: N28.89 Other specified disorders of kidney and ureter (principal)
CPT/HCPCS: 74178; Q9967

== ENCOUNTER 2024-09-16 14:35 | Outpatient (OUT) | payer OTHER, SELFPAY ==
--- NOTE | 2024-09-16 14:57 | XR_ITS ---
The [place] [id number] Patient Name: EDVIN TRISTAN MRN: [id number] date: 1960 Sex: F Assigned Patient Location: LAB Current Patient Location: LAB Accession/Order Number: [id number] Exam Date: 09/16/2024 15:00 Report Date: 09/16/2024 15:01 At the request of: WYATT GARCIA DO Procedure: XR ankle LT min 3V LEFT ANKLE - 3 views CLINICAL HISTORY: Injury to left ankle on Monday. Now with pain. COMPARISON: None FINDINGS: Soft tissue swelling is present. Cortical irregularity is seen along the lateral malleolus possibly relating to a nondisplaced fracture. Ankle mortise appears intact. Plantar spurring. XR/XR ankle LT min 3V IMPRESSION: QUESTIONABLE NONDISPLACED LATERAL MALLEOLAR FRACTURE. Impression dictated by: Bryan Stroud Jr., DCelyOCely 09/16/2024 3:01 PM Dictation Location: [place] [address] Electronically authenticated by: [id number] Y Date: 09/16/2024 15:01
== END 2024-09-16 14:36 | disposition home or self-care (01) ==
LOC: LAB 14:37
PROVIDERS: PCP Internal Medicine; Visit Provider Internal Medicine
DX: M25.572 Pain in left ankle and joints of left foot (principal); S82.65XA Nondisplaced fracture of lateral malleolus of left fibula, initial encounter for closed fracture
CPT/HCPCS: 73610

== ENCOUNTER 2024-10-24 10:40 | Outpatient (OUT) | payer OTHER, SELFPAY ==
--- OUTSIDE RECORDS SUMMARY | 2023-07-26 11:00 | XMS_ITS ---
Author Organization The [facility] in [place] Address [address] [place] [address] Care Team Providers Care Open Developer Operator Name Role Phone Ethan Hines DO Primary Care Provider James Hughes Unavailable [phone] Allergies Allergen (clinical drug ingredient) Drug/Non Drug Allergy documented on EMR Reaction Allergy Type Onset Date Status cefuroxime Cefuroxime Axetil stomach upset Drug Allergy Active Zofran stomach upset Drug Allergy Act reyna Substance with sulfonamide structure and antibacterial mechanism of action (substance) Sulfa Antibiotics stomach upset Drug Allergy Active tramadol Tramadol stomach upset Drug Allergy Act reyna promethazine Promethazine stomach upset Drug Allergy Active Results Component Value Reference Range Notes XR Foot RT (3 views) * Reviewed date:07/28/2023 10:48:36 AM Interpretation: Performing Lab: Notes/Report: REASON FOR VISIT right foot pain not specified Medications Medication SIG (Take, Route, Fr equency, Duration) Notes Start Date End Date Status Urea 40 % 1 application as nee ded Externally Once a day for 30 days 07/26/2023 Active Lisinopril 5 MG Oral for 30 Days Active Mounjaro 5 MG/0.5ML Subcutaneous for 28 Days Active Social History Tobacco Use: Social History Observation Description Date Details (start date - stop date) Never Smoker NA - NA Tobacco Control (Standard) Question Answer Notes Tobacco use: Nonsmoker Problems Problem Type SNOMED Code ICD Code Onset Dates Problem Status W/U Status Risk Notes Problem 8297853341913075 Bunionette of right foot (M21.621) Active confirmed Problem 920380090 Other hammer toe(s) (acquired), right foot (M20.41) Active confirmed Problem 375448977 Corns and callosities (L84) Active confirmed Vital Signs Temperature 98.8 degrees Fahrenheit 07/26/19 Heart Rate 70 /min 07/26/2023 Height 64 in 07/26/2023 Weight 238 lbs 07/26/2023 BMI 40.85 kg/m2 07/26/2023 Oximetry 98 % 07/26/2023 Encounters Encounter Location Date Provider Diagnosis [facility] (PODIATRY) [address] [place] [address] [place] [address] 07/26/2023 Peter [facility] Right foot pain M79.671 ; Bunionette of right foot M21.621 ; Other hammer toe(s) (acquired), right foot M20.41 and Corns and callosities L84 Assessments Encounter Date Diagnosis (ICD Code) Assessment Notes Treatment Notes Treatment Clinical Notes Section Notes 07/26/2023 Right foot pain (ICD-10 - M79.671) 07/26/2023 Bunionette of right foot (ICD-10 - M21.621) Patient examined and evaluated. All findings discussed with patient all questions answered to patient's satisfaction.Hannah wayne presents today for initial evaluation regarding painful callused area on the lateral aspect of the right fifth MPJ. States been present for a number of months, and feels as though she is walking on a pebble. Has tried softer soled shoes with minimal relief, still having pain with direct pressure to the lesion.Clinical exam and x-ray findings discussed with patient which are consistent with the mild tailor's bunion as well as adductovarus deformity of the right fifth digit and exostosis of the lateral fifth metatarsal head directly underlying the hyperkeratotic lesion.Paring of the callus was performed today with a #15 blade to excise hyperkeratotic tissue down to healthy underlying dermis. Patient tolerated this well expressed relief following the procedure.Educated on routine callus care including urea cream which Rx was dispensed today.Discussed potential surgical intervention in the future including fifth digit derotational arthroplasty and tailor's bunionectomy on her right foot if conservative modalities do not provide adequate relief.She expressed understanding of all that we discussed today left the office today pleased.She follow-up on as-needed basis for routine callus care of her symptoms worsen. She may call with any questions or concerns. 07/26/2023 Other hammer toe(s) (acquired), right foot (ICD-10 - M20.41) 07/26/2023 Corns and callosities (ICD-10 - L84) Plan Of Treatment Medication Medication Name Sig Start Date Stop Date Notes Urea 40 % 1 application as nee ded Externally Once a day for 30 days 07/26/2023 Treatment Notes Assessment Notes Bunionette of right foot Patient examine d and evaluated. All findings discussed with patient all questions answered to patient's satisfaction.Patient presents today for initial evaluation regarding painful callused area on the lateral aspect of the right fifth MPJ. States been present for a number of months, and feels as though she is walking on a pebble. Has tried softer soled shoes with minimal relief, still having pain with direct pressure to the lesion.Clinical exam and x-ray findings discussed with patient which are consistent with the mild tailor's bunion as well as adductovarus deformity of the right fifth digit and exostosis of the lateral fifth metatarsal head directly underlying the hyperkeratotic lesion.Paring of the callus was performed today with a #15 blade to excise hyperkeratotic tissue down to healthy underlying dermis. Patient tolerated this well expressed relief following the procedure.Educated on routine callus care including urea cream which Rx was dispensed today.Discussed potential surgical intervention in the future including fifth digit derotational arthroplasty and tailor's bunionectomy on her right foot if conservative modalities do not provide adequate relief.She expressed understanding of all that we discussed today left the office today pleased.She follow-up on as-needed basis for routine callus care of her symptoms worsen. She may call with any questions or concerns. Progress Notes * Shaylee TRISTANPedroOB:1960 (62 yo F)Acc No.[id number]:07/26/2023 New Patient Patient: Charity WOODWARD Provider: Fransisca Landeros DPM, MS :1960 A ge:62 Y S ex:Female Date:07/26/2023 Address:[facility] [address] [place], [id number] Pcp:Ethan Hines, DO Check In:02:53 PM ESTCheck O ut:03:40 PM EST Subjective: * Chief Complaints: * R ight foot pain not specified * HPI: G eneral: Pt is here for right foot pain. She has pain on her lateral side . It is a bump , she has soaked it and picked at it. It is a possible callus. She does have pain with shoe wear , this even hurts when she isnt in shoes. Her last a1c was something in the 5 range. * ROS: G eneral/Constitutional: Chills d enies. F ever d enies. W eight gain?denies. W eight loss d enies. S kin: Skin Ulcers d enies. S kin lesion(s) d enies. ? C ardiovascular: Difficulty breathing on exertion d enies. L eg cramps?denies. E otoniel d enies. C hest pain d enies. R espiratory: Difficulty breathing d enies. D yspnea d enies.?Cough d enies. G astrointestinal: Diarrhea d enies. N ausea d enies. V omiting?denies. M usculoskeletal: Bone/Joint Symptoms d enies. C maeknna Pain d enies.?Leg cramps d enies. N eurologic: Numbness d enies. T ingling d enies . G ait abnormality d enies. ? H ematology: Anemia D enies. E asy bruising d enies. ? A ll Other Systems: Review of Systems (ROS) S ee HPI for details,All others negative except those mentioned in HPI. * Active Problem List M21.621 Bunionette of right foot Modified On:07/27/2023W/U Status:confirmed M20.41 Other hammer toe(s) (acquired), right foot Modified On:07/27/2023W/U Status:confirmed L84 Corns and callositie s Modified On:07/27/2023/U Status:confirmed * Medical History: * Surgical History: l umbar spine terotatic breast/lumpectomy 01/2011torn meniscus * Hospitalization/Major Diagno stic Procedure: * Family History: family hx: blood clots, heart problems, hypertension. * Social History: T obacco Use: T obacco Control (Standard) T obacco use: N onsmoker * Medications: T akingLisinopril 5 MG Tablet Oral Mounjaro(Tirzepatide) 5 MG/0.5ML Solution Pen-injector Subcutaneous Medication List reviewed and reconciled with the patientTaking Lisinopril 5 MG Tablet Oral Taking Mounjaro(Tirzepatide) 5 MG/0.5ML Solution Pen-injector Subcutaneous Medication List reviewed and reconciled with the patient * Allergies: T ramadol: stomach upset - Side EffectsZofran: stomach upset - Side EffectsCefuroxime Axetil: stomach upset - Side EffectsSulfa Antibiotics: stomach upset - Side EffectsPromethazine: stomach upset - Side Effectsno[Allergies Verified] Objective: * Vitals: W t:238lbs, Ht: 64 in, Temp:98.8F, HR:70/min, BMI:40.85Index, Pain scale:41-10, Oxygen sat %:98%, Ht-cm: 162.56 cm, Wt-k.95 kg. * Examination: P odiatry Exam: MUSCULOSKELETAL: M uscle strength 5/5 for all 4 pedal groups. Ankle subtalar range of motion supple without pain or crepitus. Left first MTP range of motion slightly limited in dorsiflexion and nonpainful. Mild adductovarus deformity of the right fifth digit, palpable tenderness to bony protuberance lateral fifth metatarsal head with overlying focal hyperkeratosis. Compartments soft compressible, no pain with calf or thigh compression.. NEUROLOGICAL: L ight touch and gross sensation intact. Negative Tinel's. VASCULAR: D P and PT pulses strongly palpable. CFT intact. Skin temperature warm and symmetric without focal increase. No erythema edema or ecchymosis.. DERMATOLOGY N o open lesions or signs of acute infection. Focal hyperkeratosis noted to the lateral fifth metatarsal head of the right foot. No signs of underlying ulceration. Diagnostic Testing X -ray: 3 views of the right foot obtained reviewed in office today, demonstrates overall maintained joint spaces which remain congruent. Mild bowing of the fifth metatarsal with tailor's bunion, exostosis of the lateral fifth metatarsal head. Plantar cannula osteophyte noted. No acute fractures or dislocations.. Assessment: * Assessment: 1. B unionette of right foot - M21.621 (Primary) 2 . R ight foot pain - M79.671 3 .?Other hammer toe(s) (acquired), right foot - M20.41 4 . C orns and callosities - L84? Plan: * Treatment: 2. R ight foot pain Start Urea Cream, 40 %, 1 application as needed, Externally, Once a day, 30 days, 1 each, Refills 1. I maging: XR Foot RT (3 views) * (Performed Date - 07/26/2023) * Procedure Codes: * Preventive Medicine: Screenings/Counseling: F ALL RISK SCREENING Fall Risk Assessment: N o falls in the past year B [place] ACTION PLAN Above Normal BMI Follow-up D ietary management education, guidance, and counseling * * Sign off status: Completed Visit Status: C HK (Check Out) true * Provider: Fransisca Landeros DPM, MS Date: 07/26/2023 Generated for Juan ramey/Domingo/Cornelitting on: 0 2024 08:31 AM EDT History and Physical Notes * Examination Category Sub-Category Detail Notes Category Not es Podiatry Exam MUSCULOSKELETAL: Muscle strength 5/5 for all 4 pedal groups. Ankle subtalar range of motion supple without pain or crepitus. Left first MTP range of motion slightly limited in dorsiflexion and nonpainful. Mild adductovarus deformity of the right fifth digit, palpable tenderness to bony protuberance lateral fifth metatarsal head with overlying focal hyperkeratosis. Compartments soft compressible, no pain with calf or thigh compression. NEUROLOGICAL: Light touch and estrada s sensation intact. Negative Tinel's VASCULAR: DP and PT pulses str ongly palpable. CFT intact. Skin temperature warm and symmetric without focal increase. No erythema edema or ecchymosis. DERMATOLOGY No open lesions or s igns of acute infection. Focal hyperkeratosis noted to the lateral fifth metatarsal head of the right foot. No signs of underlying ulceration Diagnostic Testing X-ray: 3 views of th e right foot obtained reviewed in office today, demonstrates overall maintained joint spaces which remain congruent. Mild bowing of the fifth metatarsal with tailor's bunion, exostosis of the lateral fifth metatarsal head. Plantar cannula osteophyte noted. No acute fractures or dislocations.
--- NOTE | 2024-10-24 | XR_ITS ---
The [place] [address] Patient Name: EDVIN TRISTAN MRN: [id number] date: 1960 Sex: F Assigned Patient Location: [facility] Current Patient Location: [facility] Accession/Order Number: [id number] Exam Date: 10/24/2024 11:18 Report Date: 10/24/2024 11:19 At the request of: BURAK GALLAGHER NP Procedure: XR ankle LT min 3V LEFT ANKLE - 3 views CLINICAL HISTORY: S82.65XA nondisplaced fx of lateral malleolus of left fibula COMPARISON: Left ankle series 09/16/2024 FINDINGS: No focal soft tissue abnormality. Ankle mortise appears intact. The lateral malleolar fracture is grossly unchanged. Plantar spurring. XR/XR ankle LT min 3V IMPRESSION: NO SIGNIFICANT CHANGE IN FRACTURE FINDINGS COMPARED TO THE PRIOR STUDY. Impression dictated by: Bryan Stroud Jr., D.O. 10/24/2024 11:19 AM Dictation Location: [place] [address] Electronically authenticated by: [id number] Y Date: 10/24/2024 11:19
--- OUTSIDE RECORDS SUMMARY | 2024-10-24 10:42 | XMS_ITS | Clinical Summary ---
Author Organization [facility] Address [address], [address] [place] [address] Care Team Providers Care Assistant Press Operator Offset Name Role Phone Ethan Hines DO Primary Care Provider [phone] Allergies Active Allergy Reactions Criticality Noted Date [...] Insurance [employer] Care Teams Assistant Press Operator Offset Relationship Specialty Start Date End Date Ethan Hines DO PCP - General Internal Medicine 04/13/17
--- OUTSIDE RECORDS SUMMARY | 2024-10-24 10:42 | XMS_ITS | Patient Health Record ---
Author Organization [facility] [place] Address [address] [place] [address] Care Team Providers Care School Cafeteria Cook Head Name Role Phone Ethna Hines DO Primary Care Provider Unavaila ble [...] Problem Status W/U Status Risk Notes Problem 457471894 Corns and callosities (L84) Active confirmed Problem 971789682 Other hammer toe(s) (acquired), right foot (M20.41) Active confirmed Problem [id number] Bunionette of right foot (M21.621) Active confirmed Plan Of Treatment No Information Insurance Providers Payer Name Payer Address Payer Phone Subscriber Number Group Number Insured Name Patient Relationship to Insured Coverage Start Date Coverage End Date MMO [address] [place], [place] [id number] Charity Smith Self - patient is the insured Medical (General) History Medical History History ICD Code arthritis diabetes hypertension Surgical History Surgery Date(Month/Year) torn meniscus sterotatic breast/lumpectomy 01/2011 lumbar spine 08/2021
--- OUTSIDE RECORDS SUMMARY | 2024-10-24 10:42 | XMS_ITS | Encounter Summary ---
Author Organization [facility] Address [address] [place] [address], [address] [place] [address] Care Team Providers Care Rn Utilization Management Um Name Role Phone Ethan Hines DO Primary Care Provider [phone] Reason for Visit * Reason Comments Medication Refill Encounter Details Date Type Department Care Team (Late st Contact Info) Description 01/13/2019 [facility]ill [facility] [address], [address] [place] [address] Danny Rodriguez MD Medication Refill Social History [...] myelopathy documented in this encounter Care Teams Rn Utilization Management Um Relationship Specialty Start Date End Date Ethan Hines DO PCP - General Internal Medicine 04/13/17 documented as of this encounter
--- OUTSIDE RECORDS SUMMARY | 2024-10-24 10:42 | XMS_ITS | Clinical Summary ---
Author Organization [facility] Address [address] [place] [address] Care Team Providers Care Manager Intern Name Role Phone Unavailable Primary Care Provider [...]
--- OUTSIDE RECORDS SUMMARY | 2024-10-24 10:50 | XMS_ITS | CCD ---
Author Organization [facility] Care Team Providers Care Pain Management Nurse Name Role Phone UBALDO LOPEZ Unavailable Unavailable [...] Primary Care Unavailable REQUEST, DR FUNG LISTED Admitting Unavaila ble REQUEST, DR FUNG LISTED Attending Unavaila ble ETHAN HINES Primary Care Physician [phone] Robin Zelaya Attending Unavailable Robin Zelaya Admitting Unavailable Ethan Hines Primary Care Unavailable Aung Rucker Attending Unavailable Aung Rucker Admitting Unavailable Allergies Allergy Classification Reported Allergen(s) Allergy Type Date of Onset Reaction(s) Facility [facility]on[facility] (1 source) traMADol Drug Allergy 4 [facility] (20 sources) traMADol Drug Allergy 4 [facility] (9 sources) Erythromycin Drug Allergy 5 Unknown Reaction [facility] (1 source) Sulfonamides (Antibiotic) Drug allergy (disorder) 5 [facility] (1 source) traMADol Drug Allergy 5 [facility] (6 sources) Erythromycin Drug Allergy Unknown [facility] Other (1 source) Erythromycin Drug Allergy 5 [facility] (1 source) traMADol Drug Allergy 5 [facility] Medications Current Medications Medication Drug Class(es) Dates [...] 1000 MG PO Three times daily 15 August 25, 2023 12:00am February 27, 2024 1:06pm [...] al RV size/function, no significant valvular disease. 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; 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: [OTH CARE HOME CURRENT DRUG THERAPY] Onset: 08-20-2021 Episodic Other [...] Test Name Value Interpretation Reference Range Facility XR ankle LT min 3V*on 2024 XR ankle LT min 3V* [facility] [address] [place] [address] XRay Report Signed Patient: Edvin Tristan MR#: [id number] 2 : 1960 Acct:[id number] Age/Sex: 63 / F ADM Date: 09/19/24 Loc: [facility] [place] Room: Type: [facility] Attending Dr: Aung Rucker DO Copies to: Aung Rucker DO Ordering Provider: Aung Rucker DO Date of Service: 09/19/24 XR/XR ankle LT min 3V*: M25.572 - Pain in left ankle and joints of left foot LEFT ANKLE - 3 views CLINICAL HISTORY: Follow-up fibular fracture COMPARISON: Left ankle series 09/16/2024 FINDINGS: Soft tissue swelling is noted. Chip fracture lateral malleolus similar configuration to the prior study. Ankle mortise appears intact. Plantar spurring. XR/XR ankle LT min 3V* IMPRESSION: CHIP FRACTURE LATERAL MALLEOLUS. THERE IS ASSOCIATED SOFT TISSUE SWELLING. FINDINGS ARE SIMILAR TO THE PRIOR STUDY. Impression dictated by: Bryan Stroud Jr., D.OCely 09/19/2024 9:52 AM Dictation Location: [place] [address] Transcribed By: [facility] 09/19/24 0952 Dictated By: Bryan Stroud Jr, DO 09/19/24 0951 Signed By: 09/19/24 0952 Normal [facility] Laboratory - Chemistry and C hemistry - challengeon 09-13-2023 Bilirubin Ql (U) Negative [facility] Glucose (U) [Mass/Vol] Negative [facility] Ketones Ql (U) 5 [facility] pH (U) 5.0 [pH] [facility] Specific gravity (U) [Rel density] 1.030 [facility] Urobilinogen (U) [Mass/Vol] 0.2 mg/dL [facility] Laboratory - Specimen inform ationon 09-13-2023 Appearance (U) clear [facility] Color (U) darkyellow [facility] Laboratory - Urinalysison Leukocyte esterase Test strip Ql (U) Negative [facility] Nitrite Ql (U) Negative [facility] Protein Ql (U) + [facility] No Panel Informationon 09-12 Urine Occult Blood Negative [facility] Glucose mean value [Mass/vol ume] in Blood Estimated from glycated hemoglobinon 08-04-2023 Average glucose Estimated from glycated hemoglobin (Bld) [Mass/Vol] 111 mg/dL [facility] Laboratory - Hematology and Cell countson 08-04-2023 HbA1c (Bld) [Mass fraction] 5.5 % 4.5-6.2 [facility] Comment on above: ADA RECOMMENDED LIMI T 4.0 - 6.0ADA THERAPEUTIC TARGET < 7.0ACTION SUGGESTED> 7.0 PAP [id number] 10-18-2022 Cytology report Cyto stain Doc (Cvx/Vag) Note Invalid Interpretation Code [facility] Comment on above: Result Comment: TEST S RESULT FLAG UNITS REF RANGE LAB Clinician Provided Cytology Information Source.............[employer]ix No. of containers..01 ThinPrep Vial DIAGNOSIS: 01 NEGATIVE FOR INTRAEPITHELIAL LESION OR MALIGNANCY. Specimen adequacy: 01 Satisfactory for evaluation. Endocervical and/or squamous metaplastic cells (endocervical component) are present. Performed by: 01 Martha Barron Clinical Liaison (ASCP) . 01 Note: Note 01 The [...] <-Panic Low,>-Panic High,A-Abnormal,AA-Critical Abnormal Performed at: 01 [employer] [id number] Edith Barnes MD, Performed By: #### 3 [id number] #### [facility] [address] [place] [address] HPV 16+18+31+33+35+39+45+ 51+52+56+58+59+66+68 DNA Probe+sig amp Ql (Cvx) Negative Invalid Interpretation Code Negative [facility] Comment on above: Result Comment: This nucleic acid amplification test detects fourteen high-risk HPV types (16,18,31,33,35,39,45,51,52,56,58,59,66,68) without differentiation. Performed at: [employer] [id number] MD Cameron Sharma Performed at: =[facility] [address] [facility] [place] [id number] MD Cameron Sharma Performed By: #### 3 [id number] #### [facility] [address] [place] [address] PAP [id number] 10-13-2022 Collection Technique BRUSH-SPATULA Normal [facility] Comment on above: Performed By: #### 3 [id number] #### [facility] [address] [place] [address] Gynecological Body Site ENDOCERVIX Normal [facility] Comment on above: Performed By: #### 3 [id number] #### [facility] [address] [place] [address] Previous Treatment NONE Normal [facility] Comment on above: Performed By: #### 3 [id number] #### [facility] [address] [place] [address] Physician Orderon 10-12-2022 Physician Order [id number] Normal [facility] GLYCOHEMOGLOBIN A1Con 2022 ADA RECOMMENDATION SEE BELOW Normal [facility] Comment on above: Result Comment: ADA RECOMMENDED LIMIT 4.0 - 6.0 ADA THERAPEUTIC TARGET < 7.0 ACTION SUGGESTED > 7.0 Performed By: #### D ATA1C #### [facility] [address] [place] [address] [address] María Adorno Glucose [Mass/Vol] 114 mg/dL Normal [facility] Comment on above: Performed By: #### D ATA1C #### [facility] [id number] María Adorno HbA1c (Bld) [Mass fraction] 5.6 % Normal 4.5-6.2 [facility] Comment on above: Performed By: #### D ATA1C #### [facility] [address] [place] [address] [address] María Adorno GLYCOHEMOGLOBIN A1Con 2022 ADA RECOMMENDATION SEE BELOW Normal [facility] Comment on above: Result Comment: ADA RECOMMENDED LIMIT 4.0 - 6.0 ADA THERAPEUTIC TARGET < 7.0 ACTION SUGGESTED > 7.0 Performed By: #### D ATA1C #### [facility] [address] [place] [address] Dr. María Adorno Glucose [Mass/Vol] 131 mg/dL Normal [facility] Comment on above: Performed By: #### D ATA1C #### [facility] [address] [place] [address] Dr. María Adorno HbA1c (Bld) [Mass fraction] 6.2 % Normal 4.5-6.2 [facility] Comment on above: Performed By: #### D ATA1C #### [facility] [address] [place] [address] Dr. María Adorno [facility] SARS-CoV-2 (COVID-19) RNA MARIELLA+probe Ql (Unsp spec) Not detected Normal NOT DETECTED [facility] Comment on above: Result Comment: This test is not yet approved or cleared by the [place] FDA. When there are no FDA-approved or cleared tests available, and other criteria are met, FDA can make tests available under an emergency access mechanism called an Emergency Use Authorization (EUA). The EUA for this test is supported by the [employer] Adjuster [employer] Head of Health and Human Service's (HHS's) declaration [...] SARS-CoV-2. Performed By: #### C VDTBH #### [facility] [address] [place] [address] Dr. María Adorno GLYCOHEMOGLOBIN A1Con 2021 ADA RECOMMENDATION SEE BELOW Normal [facility] Comment on above: Result Comment: ADA RECOMMENDED LIMIT 4.0 - 6.0 ADA THERAPEUTIC TARGET < 7.0 ACTION SUGGESTED > 7.0 Performed By: #### D ATA1C #### [facility] [address] [place] [address] Dr. María Adorno Glucose [Mass/Vol] 140 mg/dL Normal [facility] Comment on above: Performed By: #### D ATA1C #### [facility] [address] [place] [address] Dr. María Adorno HbA1c (Bld) [Mass fraction] 6.5 % Critically high 4.5-6.2 [facility] Comment on above: Performed By: #### D ATA1C #### [facility] [address] [place] [address] Dr. María Adorno [facility] CBC AUTO DIFFon 11-18-2021 BASO # 0.1 103/ul Normal 0.0-0.1 [facility] Comment on above: Performed By: #### C RP, BMP #### [facility] [address] [place] [address] Dr. María Adorno Basophils/100 WBC (Bld) 0.9 % Normal 0.2-2.0 [facility] Comment on above: Performed By: #### C RP, BMP #### [facility] [address] [place] [address] Dr. María Adorno EO # 0.3 103/ul Normal 0.0-0.7 [facility] Comment on above: Performed By: #### C RP, BMP #### [facility] [address] [place] [address] Dr. María Adorno Eosinophils/100 WBC (Bld) 3.0 % Normal 0.9-7.0 [facility] Comment on above: Performed By: #### C RP, BMP #### [facility] [address] [place] [address] Dr. María Adorno Erythrocyte distribution width (RBC) [Ratio] 11.9 % Normal 11.0-15.0 [facility] Comment on above: Performed By: #### C RP, BMP #### [facility] [address] [place] [address] Dr. María Adorno Hematocrit (Bld) [Volume fraction] 45.3 % Normal 36.0-48.0 [facility] Comment on above: Performed By: #### C RP, BMP #### [facility] [address] [place] [address] Dr. María Adorno Hemoglobin (Bld) [Mass/Vol] 14.7 g/dL Normal 12.0-16.0 [facility] Comment on above: Performed By: #### C RP, BMP #### [facility] [address] [place] [address] Dr. María Adorno IG # 0.04 10e3/ul Critically high 0.00-0.03 [facility] Comment on above: Performed By: #### C RP, BMP #### [facility] [address] [place] [address] Dr. María Adorno IG % 0.4 % Normal 0.0-0.5 [facility] Comment on above: Performed By: #### C RP, BMP #### [facility] [address] [place] [address] Dr. María Adorno LYMPH # 3.1 103/ul Normal 1.2-3.8 [facility] Comment on above: Performed By: #### C RP, BMP #### [facility] [address] [place] [address] Dr. María Adorno Lymphocytes/100 WBC (Bld) 32.3 % Normal 20.5-60.0 [facility] Comment on above: Performed By: #### C RP, BMP #### [facility] [address] [place] [address] Dr. María Adorno MCH (RBC) [Entitic mass] 28.9 pg Normal 26.7-34.0 [facility] Comment on above: Performed By: #### C RP, BMP #### [facility] [address] [place] [address] Dr. María Adorno MCHC (RBC) [Mass/Vol] 32.5 g/dL Normal 29.9-35.2 [facility] Comment on above: Performed By: #### C RP, BMP #### [facility] [address] [place] [address] Dr. María Adorno MCV (RBC) [Entitic vol] 89.2 fL Normal 81.0-99.0 [facility] Comment on above: Performed By: #### C RP, BMP #### [facility] [address] [place] [address] Dr. María Adorno MONO # 0.8 103/ul Normal 0.3-0.8 [facility] Comment on above: Performed By: #### C RP, BMP #### [facility] [address] [place] [address] Dr. María Adorno Monocytes/100 WBC (Bld) 8.6 % Normal 1.7-12.0 [facility] Comment on above: Performed By: #### C RP, BMP #### [facility] [address] [place] [address] Dr. María Adorno NEUT # 5.3 103/ul Normal 1.4-6.5 [facility] Comment on above: Performed By: #### C RP, BMP #### [facility] [address] [place] [address] Dr. María Adorno Neutrophils/100 WBC (Bld) 54.8 % Normal 43.0-75.0 [facility] Comment on above: Performed By: #### C RP, BMP #### [facility] [address] [place] [address] Dr. María Adorno Platelet mean volume (Bld) [Entitic vol] 12.2 fL Normal 9.5-13.5 [facility] Comment on above: Performed By: #### C RP, BMP #### [facility] [address] [place] [address] Dr. María Adorno PLT 200 103/ul Normal 150-450 [facility] Comment on above: Performed By: #### C RP, BMP #### [facility] [address] [place] [address] Dr. María Adorno RBC 5.08 106/ul Normal 4.20-5.40 [facility] Comment on above: Performed By: #### C RP, BMP #### [facility] [address] [place] [address] Dr. María Adorno WBC 9.7 103/ul Normal 4.0-11.0 [facility] Comment on above: Performed By: #### C RP, BMP #### [facility] [address] [place] [address] Dr. María Adorno [facility] PROFILEon 022 Albumin [Mass/Vol] 3.7 g/dL Normal 3.4-5.0 [facility] Comment on above: Performed By: #### H FPF #### [facility] [address] [place] [address] Dr. María Adorno Albumin/Globulin [Mass ratio] 1.1 {ratio} Normal [facility] Comment on above: Performed By: #### H FPF #### [facility] [address] [place] [address] Dr. María Adorno ALP [Catalytic activity/Vol] 99 U/L Normal 46-116 [facility] Comment on above: Performed By: #### H FPF #### [facility] [address] [place] [address] Dr. María Adorno ALT [Catalytic activity/Vol] 18 U/L Normal 14-59 [facility] Comment on above: Performed By: #### H FPF #### [facility] [address] [place] [address] Dr. María Adorno AST [Catalytic activity/Vol] 18 U/L Normal 15-37 [facility] Comment on above: Performed By: #### H FPF #### [facility] [address] [place] [address] Dr. María Adorno Bilirubin [Mass/Vol] 0.6 mg/dL Normal 0.2-1.0 [facility] Comment on above: Performed By: #### H FPF #### [facility] [address] [place] [address] Dr. María Adorno Calcium [Mass/Vol] 9.3 mg/dL Normal 8.5-10.1 [facility] Comment on above: Performed By: #### H FPF #### [facility] [address] [address] [address] María Adorno Chloride [Moles/Vol] 103 mmol/L Normal 98-107 [facility] Comment on above: Performed By: #### H FPF #### [facility] [address] [address] [address] María Adorno CHOL-HDL RATIO NORM SEE BELOW Normal [facility] Comment on above: Result Comment: 3.3 - 4.4 LOW RISK 4.4 - 7.1 AVERAGE RISK 7.1 - 11.0 MODERATE RISK >11.0 HIGH RISK Performed By: #### H FPF #### [facility] [address] [place] [address] Dr. María Adorno Cholesterol [Mass/Vol] 160 mg/dL Normal <=200 [facility] Comment on above: Performed By: #### H FPF #### [facility] [address] [place] [address] Dr. María Adorno Cholesterol in HDL [Mass/Vol] 40 mg/dL Normal 40-60 [facility] Comment on above: Performed By: #### H FPF #### [facility] [address] [place] [address] Dr. María Adorno Cholesterol in LDL [Mass/Vol] 92.0 mg/dL Normal [facility] Comment on above: Performed By: #### H FPF #### [facility] [address] [address] [address] María Adorno Cholesterol.total/Cho lesterol in HDL [Mass ratio] 4.0 {ratio} Normal [facility] Comment on above: Performed By: #### H FPF #### [facility] [address] [place] [address] Dr. María Adorno CO2 [Moles/Vol] 24.6 mmol/L Normal 21.0-32.0 [facility] Comment on above: Performed By: #### H FPF #### [facility] [address] [address] [address] María Adorno Creatinine [Mass/Vol] 1.00 mg/dL Normal 0.55-1.02 [facility] Comment on above: Performed By: #### H FPF #### [facility] [address] [address] [address] María Adorno Globulin (S) [Mass/Vol] 3.5 g/dL Normal [facility] Comment on above: Performed By: #### H FPF #### [facility] [address] [address] [address] María Adorno Glucose [Mass/Vol] 132 mg/dL Critically high 74-106 [facility] Comment on above: Performed By: #### H FPF #### [facility] [address] [place] [address] Dr. María Adorno HDL NORMAL > or = 60 mg/dl - LOW CARDIOVASCULAR RISK <40 mg/dl - HIGH CARDIOVASCULAR RISK Normal [facility] Comment on above: Performed By: #### H FPF #### [facility] [address] [address] [address] María Adorno LDL CALC NORMAL SEE BELOW Normal [facility] Comment on above: Result Comment: <100 mg/dl OPTIMAL 100 - 129 mg/dl NEAR OR ABOVE OPTIMAL 130 - 159 mg/dl BORDERLINE HIGH 160 - 189 mg/dl HIGH >190 mg/dl VERY HIGH Performed By: #### H FPF #### [facility] [address] [place] [address] Dr. María Adorno Potassium [Moles/Vol] 4.0 mmol/L Normal 3.5-5.1 [facility] Comment on above: Performed By: #### H FPF #### [facility] [address] [address] [address] María Adorno Protein [Mass/Vol] 7.2 g/dL Normal 6.4-8.2 [facility] Comment on above: Performed By: #### H FPF #### [facility] [address] [place] [address] Dr. María Adorno Sodium [Moles/Vol] 138 mmol/L Normal 136-145 [facility] Comment on above: Performed By: #### H FPF #### [facility] [address] [address] [address] María Adorno Triglyceride [Mass/Vol] 140 mg/dL Normal <=150 [facility] Comment on above: Performed By: #### H FPF #### [facility] [address] [address] [address] María Adorno TSH 2.537 uIU/mL Normal 0.358-3.740 [facility] Comment on above: Performed By: #### H FPF #### [facility] [address] [address] [address] María Adorno Urea nitrogen [Mass/Vol] 17.0 mg/dL Normal 7.0-18.0 [facility] Comment on above: Performed By: #### H FPF #### [facility] [address] [address] [address] María Adorno Urea nitrogen/Creatinine [Mass ratio] 17.0 mg/mg Normal [facility] Comment on above: Performed By: #### H FPF #### [facility] [address] [address] [address] María Adorno VLDL CALC 28.0 mg/dL Normal [facility] Comment on above: Performed By: #### H FPF #### [facility] [address] [address] [address] María Adorno MG MAMM SCREEN 3D CHINO CADon 10-19-2021 MG MAMM SCREEN 3D CHINO CAD Patient: EDVIN TRISTAN Exam Date: 10/19/2021 : 1960 Gender:F Ordering : DR ETHAN HINES D.O. Admission #: [id number] Family : Order #: [id number] CLICK HERE TO VIEW EXAM RADIOLOGY REPORT [...] Treatments None Family Cancers None LOCATION: [facility] BREAST COMPOSITION: Heterogeneously dense,which may obscure [...] M.D. on 10/20/2021 at 14:56 Normal [facility] CBC AUTO DIFFon 09-28-2021 BASO # 0.1 103/ul Normal 0.0-0.1 [facility] Comment on above: Performed By: #### C BC #### [facility] [address] [place] [address] Dr. María Adorno Basophils/100 WBC (Bld) 0.8 % Normal 0.2-2.0 [facility] Comment on above: Performed By: #### C BC #### [facility] [address] [place] [address] Dr. María Adorno EO # 0.3 103/ul Normal 0.0-0.7 [facility] Comment on above: Performed By: #### C BC #### [facility] [address] [place] [address] Dr. María Adorno Eosinophils/100 WBC (Bld) 2.5 % Normal 0.9-7.0 [facility] Comment on above: Performed By: #### C BC #### [facility] [address] [place] [address] Dr. María Adorno Erythrocyte distribution width (RBC) [Ratio] 12.1 % Normal 11.0-15.0 [facility] Comment on above: Performed By: #### C BC #### [facility] [address] [place] [address] Dr. María Adorno Hematocrit (Bld) [Volume fraction] 42.6 % Normal 36.0-48.0 [facility] Comment on above: Performed By: #### C BC #### [facility] [address] [place] [address] Dr. María Adorno Hemoglobin (Bld) [Mass/Vol] 14.1 g/dL Normal 12.0-16.0 [facility] Comment on above: Performed By: #### C BC #### [facility] [address] [place] [address] Dr. María Adorno IG # 0.04 10e3/ul Critically high 0.00-0.03 [facility] Comment on above: Performed By: #### C BC #### [facility] [address] [place] [address] Dr. María Adorno IG % 0.3 % Normal 0.0-0.5 [facility] Comment on above: Performed By: #### C BC #### [facility] [address] [place] [address] Dr. María Adorno LYMPH # 3.3 103/ul Normal 1.2-3.8 [facility] Comment on above: Performed By: #### C BC #### [facility] [address] [place] [address] Dr. María Adorno Lymphocytes/100 WBC (Bld) 24.4 % Normal 20.5-60.0 [facility] Comment on above: Performed By: #### C BC #### [facility] [facility] [address] [place] [address] Dr. María Adorno MANUAL DIFF REQ NO Normal [facility] Comment on above: Performed By: #### C BC #### [facility] [address] [place] [address] Dr. María Adorno MCH (RBC) [Entitic mass] 29.6 pg Normal 26.7-34.0 [facility] Comment on above: Performed By: #### C BC #### [facility] [address] [place] [address] Dr. María Adorno MCHC (RBC) [Mass/Vol] 33.1 g/dL Normal 29.9-35.2 [facility] Comment on above: Performed By: #### C BC #### [facility] [address] [place] [address] Dr. María Adorno MCV (RBC) [Entitic vol] 89.5 fL Normal 81.0-99.0 [facility] Comment on above: Performed By: #### C BC #### [facility] [address] [place] [address] Dr. María Adorno MONO # 1.0 103/ul Critically high 0.3-0.8 [facility] Comment on above: Performed By: #### C BC #### [facility] [address] [place] [address] Dr. María Adorno Monocytes/100 WBC (Bld) 7.8 % Normal 1.7-12.0 [facility] Comment on above: Performed By: #### C BC #### [facility] [address] [place] [address] Dr. María Adorno NEUT # 8.6 103/ul Critically high 1.4-6.5 [facility] Comment on above: Performed By: #### C BC #### [facility] [address] [place] [address] Dr. María Adorno Neutrophils/100 WBC (Bld) 64.2 % Normal 43.0-75.0 [facility] Comment on above: Performed By: #### C BC #### [facility] [address] [place] [address] Dr. María Adorno Platelet mean volume (Bld) [Entitic vol] 11.7 fL Normal 9.5-13.5 [facility] Comment on above: Performed By: #### C BC #### [facility] [address] [place] [address] Dr. María Adorno PLT 197 103/ul Normal 150-450 [facility] Comment on above: Performed By: #### C BC #### [facility] [address] [place] [address] Dr. María Adorno RBC 4.76 106/ul Normal 4.20-5.40 [facility] Comment on above: Performed By: #### C BC #### [facility] [address] [place] [address] Dr. María Adorno WBC 13.3 103/ul Critically high 4.0-11.0 [facility] Comment on above: Performed By: #### C BC #### [facility] [address] [place] [address] Dr. María Adorno CRPon 09-28-2021 CRP 0.3 mg/dL Normal <=1.0 [facility] Comment on above: Performed By: #### C RP, BMP #### [facility] [address] [place] [address] Dr. María Adorno PROF CHEM 8 (BAS METB)on Anion gap [Moles/Vol] 11.6 mmol/L Normal [facility] Comment on above: Performed By: #### C RP, BMP #### [facility] [address] [place] [address] Dr. María Adorno Calcium [Mass/Vol] 9.6 mg/dL Normal 8.5-10.1 [facility] Comment on above: Performed By: #### C RP, BMP #### [facility] [address] [place] [address] Dr. María Adorno Chloride [Moles/Vol] 105 mmol/L Normal 98-107 [facility] Comment on above: Performed By: #### C RP, BMP #### [facility] [address] [place] [address] Dr. María Adorno CO2 [Moles/Vol] 27.6 mmol/L Normal 21.0-32.0 [facility] Comment on above: Performed By: #### C RP, BMP #### [facility] [address] [place] [address] Dr. María Adorno Creatinine [Mass/Vol] 1.12 mg/dL Critically high 0.55-1.02 [facility] Comment on above: Performed By: #### C RP, BMP #### [facility] [address] [place] [address] Dr. María Adorno EGFR-AF MOZAMBICAN 60 mL/min/1.73m2 Normal >=60 [facility] Comment on above: Performed By: #### C RP, BMP #### [facility] [address] [address] [address] María Adorno EGFR-NON AF MOZAMBICAN 49 mL/min/1.73m2 Critically low >=60 [facility] Comment on above: Performed By: #### C RP, BMP #### [facility] [address] [address] [address] María Adorno Glucose [Mass/Vol] 151 mg/dL Critically high 74-106 [facility] Comment on above: Performed By: #### C RP, BMP #### [facility] [address] [address] [address] María Adorno Potassium [Moles/Vol] 4.2 mmol/L Normal 3.5-5.1 [facility] Comment on above: Performed By: #### C RP, BMP #### [facility] [address] [place] [address] Dr. María Adorno Sodium [Moles/Vol] 140 mmol/L Normal 136-145 [facility] Comment on above: Performed By: #### C RP, BMP #### [facility] [address] [address] [address] María Adorno Urea nitrogen [Mass/Vol] 19.0 mg/dL Critically high 7.0-18.0 [facility] Comment on above: Performed By: #### C RP, BMP #### [facility] [address] [place] [address] Dr. María Adorno Urea nitrogen/Creatinine [Mass ratio] 17.0 mg/mg Normal [facility] Comment on above: Performed By: #### C RP, BMP #### [facility] [address] [address] [address] María Adorno SED RATE [facility] 2021 SED RATE 47 mm/hr Critically high <=30 [facility] Comment on above: Performed By: #### C RP, BMP #### [facility] [address] [place] [address] Dr. María Adorno CBC AUTO DIFFon 08-18-2021 BASO # 0.1 103/ul Normal 0.0-0.1 [facility] Comment on above: Performed By: #### C RP, BMP #### [facility] [address] [place] [address] Dr. María Adorno Basophils/100 WBC (Bld) 0.7 % Normal 0.2-2.0 [facility] Comment on above: Performed By: #### C RP, BMP #### [facility] [address] [place] [address] Dr. María Adorno EO # 0.3 103/ul Normal 0.0-0.7 [facility] Comment on above: Performed By: #### C RP, BMP #### [facility] [address] [place] [address] Dr. María Adorno Eosinophils/100 WBC (Bld) 2.4 % Normal 0.9-7.0 [facility] Comment on above: Performed By: #### C RP, BMP #### [facility] [address] [place] [address] Dr. María Adorno Erythrocyte distribution width (RBC) [Ratio] 12.4 % Normal 11.0-15.0 [facility] Comment on above: Performed By: #### C RP, BMP #### [facility] [address] [place] [address] Dr. María Adorno Hematocrit (Bld) [Volume fraction] 40.6 % Normal 36.0-48.0 [facility] Comment on above: Performed By: #### C RP, BMP #### [facility] [address] [place] [address] Dr. María Adorno Hemoglobin (Bld) [Mass/Vol] 13.2 g/dL Normal 12.0-16.0 [facility] Comment on above: Performed By: #### C RP, BMP #### [facility] [address] [place] [address] Dr. María Adorno IG # 0.04 10e3/ul Critically high 0.00-0.03 [facility] Comment on above: Performed By: #### C RP, BMP #### [facility] [address] [address] [address] María Adorno IG % 0.3 % Normal 0.0-0.5 [facility] Comment on above: Performed By: #### C RP, BMP #### [facility] [address] [address] [address] María Adorno LYMPH # 3.1 103/ul Normal 1.2-3.8 [facility] Comment on above: Performed By: #### C RP, BMP #### [facility] [address] [address] [address] María Adorno Lymphocytes/100 WBC (Bld) 25.8 % Normal 20.5-60.0 [facility] Comment on above: Performed By: #### C RP, BMP #### [facility] [address] [address] [address] María Adorno MANUAL DIFF REQ NO Normal [facility] Comment on above: Performed By: #### C RP, BMP #### [facility] [address] [address] [address] María Adorno MCH (RBC) [Entitic mass] 29.9 pg Normal 26.7-34.0 [facility] Comment on above: Performed By: #### C RP, BMP #### [facility] [address] [address] [address] María Adorno MCHC (RBC) [Mass/Vol] 32.5 g/dL Normal 29.9-35.2 [facility] Comment on above: Performed By: #### C RP, BMP #### [facility] [address] [address] [address] María Adorno MCV (RBC) [Entitic vol] 91.9 fL Normal 81.0-99.0 [facility] Comment on above: Performed By: #### C RP, BMP #### [facility] [address] [address] [address] María Adorno MONO # 1.1 103/ul Critically high 0.3-0.8 [facility] Comment on above: Performed By: #### C RP, BMP #### [facility] [address] [place] [address] Dr. María Adorno Monocytes/100 WBC (Bld) 9.1 % Normal 1.7-12.0 [facility] Comment on above: Performed By: #### C RP, BMP #### [facility] [address] [place] [address] Dr. María Adorno NEUT # 7.3 103/ul Critically high 1.4-6.5 [facility] Comment on above: Performed By: #### C RP, BMP #### [facility] [address] [place] [address] Dr. María Adorno Neutrophils/100 WBC (Bld) 61.7 % Normal 43.0-75.0 [facility] Comment on above: Performed By: #### C RP, BMP #### [facility] [address] [place] [address] Dr. María Adorno Platelet mean volume (Bld) [Entitic vol] 11.5 fL Normal 9.5-13.5 [facility] Comment on above: Performed By: #### C RP, BMP #### [facility] [address] [place] [address] Dr. María Adorno PLT 198 103/ul Normal 150-450 [facility] Comment on above: Performed By: #### C RP, BMP #### [facility] [address] [place] [address] Dr. María Adorno RBC 4.42 106/ul Normal 4.20-5.40 [facility] Comment on above: Performed By: #### C RP, BMP #### [facility] [address] [place] [address] Dr. María Adorno WBC 11.8 103/ul Critically high 4.0-11.0 [facility] Comment on above: Performed By: #### C RP, BMP #### [facility] [address] [place] [address] Dr. María Adorno CRPon 08-18-2021 CRP 1.5 mg/dL Critically high <=1.0 [facility] Comment on above: Performed By: #### B MP, CRP #### [facility] [address] [place] [address] Dr. María Adorno PROF CHEM 8 (BAS METB)on Anion gap [Moles/Vol] 12.8 mmol/L Normal [facility] Comment on above: Performed By: #### C RP, BMP #### [facility] [address] [place] [address] Dr. María Adorno Calcium [Mass/Vol] 9.2 mg/dL Normal 8.5-10.1 [facility] Comment on above: Performed By: #### C RP, BMP #### [facility] [address] [place] [address] Dr. María Adorno Chloride [Moles/Vol] 102 mmol/L Normal 98-107 [facility] Comment on above: Performed By: #### C RP, BMP #### [facility] [address] [place] [address] Dr. María Adorno CO2 [Moles/Vol] 28.2 mmol/L Normal 21.0-32.0 [facility] Comment on above: Performed By: #### C RP, BMP #### [facility] [address] [place] [address] Dr. María Adorno Creatinine [Mass/Vol] 0.91 mg/dL Normal 0.55-1.02 [facility] Comment on above: Performed By: #### C RP, BMP #### [facility] [address] [place] [address] Dr. María Adorno EGFR-AF MOZAMBICAN >60 Normal >=60 [facility] Comment on above: Performed By: #### C RP, BMP #### [facility] [address] [place] [address] Dr. María Adorno EGFR-NON AF MOZAMBICAN >60 Normal >=60 [facility] Comment on above: Performed By: #### C RP, BMP #### [facility] [address] [place] [address] Dr. María Adorno Glucose [Mass/Vol] 150 mg/dL Critically high 74-106 [facility] Comment on above: Performed By: #### C RP, BMP #### [facility] [address] [address] [address] María Adorno Potassium [Moles/Vol] 4.0 mmol/L Normal 3.5-5.1 [facility] Comment on above: Performed By: #### C RP, BMP #### [facility] [address] [place] [address] Dr. María Adorno Sodium [Moles/Vol] 139 mmol/L Normal 136-145 [facility] Comment on above: Performed By: #### C RP, BMP #### [facility] [address] [place] [address] Dr. María Adorno Urea nitrogen [Mass/Vol] 23.0 mg/dL Critically high 7.0-18.0 [facility] Comment on above: Performed By: #### C RP, BMP #### [facility] [address] [place] [address] Dr. María Adorno Urea nitrogen/Creatinine [Mass ratio] 25.3 mg/mg Normal [facility] Comment on above: Performed By: #### C RP, BMP #### [facility] [address] [place] [address] Dr. María Adorno Orthopedic Progress Noteon 0 08-10-2021 Orthopedic Progress Note This is a preliminary report only. This report will be final only after practitioner review and authentication has occurred. [facility] Patient: EDVIN TRISTAN [address] [place] [address] MR#: [id number] PROGRESS NOTE - Orthopedic : 58 Service Date: 08/10/21 164 Assessment and Plan - ICD10 Problem List 1. Status post lumbar spine surgery for decompression of spinal cord 2. S/P lumbar laminectomy Electronically Signed eSign Date and Time Mark Harp Normal [facility] BASIC MET PANELon 08-08-2021 Anion gap [Moles/Vol] 7 mmol/L Normal 6-18 [facility] Comment on above: Performed By: #### L 500.44618, L500.27591 ####Test performed at: [address] [address] Calcium [Mass/Vol] 8.5 mg/dL Normal 8.5-10.1 [facility] Comment on above: Performed By: #### L 500.38145, L500.14755 ####Test performed at: [address] [address] Chloride [Moles/Vol] 108 mmol/L High 98-107 [facility] Comment on above: Performed By: #### L 500.17905, L500.88841 ####Test performed at: [address] [address] CO2 [Moles/Vol] 29 mmol/L Normal 21-32 [facility] Comment on above: Performed By: #### L 500.77757, L500.53422 ####Test performed at: [address] [address] Creatinine [Mass/Vol] 0.862 mg/dL Normal 0.550-1.020 [facility] Comment on above: Performed By: #### L 500.54301, L500.62559 ####Test performed at: [address] [address] Glucose [Mass/Vol] 123 mg/dL High 70-99 [facility] Comment on above: Result Comment: Fast ing GLUCOSE reference range has been updated per (ADA) Stateless Diabetes [employer]'s recommendation. 06/26/2018 Performed By: #### L 500.39375, L500.28925 ####Test performed at: [address] [address] OSM 295 mosm/kg Normal 270-300 [facility] Comment on above: Performed By: #### L 500.41819, L500.23665 ####Test performed at: [address] [address] Potassium [Moles/Vol] 4.4 mmol/L Normal 3.5-5.1 [facility] Comment on above: Performed By: #### L 500.57237, L500.43868 ####Test performed at: [address] [address] Sodium [Moles/Vol] 140 mmol/L Normal 136-145 [facility] Comment on above: Performed By: #### L 500.13138, L500.00230 ####Test performed at: [address] [address] Urea nitrogen [Mass/Vol] 22 mg/dL High 7-18 [facility] Comment on above: Performed By: #### L 500.95027, L500.60252 ####Test performed at: [address] [address] CBC W/DIFFon 08-08-2021 BASO ABS 0.0 K/uL Normal 0.0-0.2 [facility] Comment on above: Performed By: #### L 200.11533 ####Test performed at: [address] [address] Basophils/100 WBC (Bld) 0.2 % Normal [facility] Comment on above: Performed By: #### L 200.84834 ####Test performed at: [address] [address] EOS ABS 0.0 K/uL Normal 0.0-0.5 [facility] Comment on above: Performed By: #### L 200.50404 ####Test performed at: [address] [address] Eosinophils/100 WBC (Bld) 0.2 % Normal [facility] Comment on above: Performed By: #### L 200.24096 ####Test performed at: [address] [address] Erythrocyte distribution width (RBC) [Ratio] 12.6 % Normal 11.5-14.5 [facility] Comment on above: Performed By: #### L 200.07887 ####Test performed at: [address] [address] Hematocrit (Bld) [Volume fraction] 32.5 % Low 36.0-48.0 [facility] Comment on above: Performed By: #### L 200.43399 ####Test performed at: [address] [address] Hemoglobin (Bld) [Mass/Vol] 10.9 g/dL Low 12.0-15.0 [facility] Comment on above: Performed By: #### L 200.31695 ####Test performed at: [address] [address] IG % 0.3 % Normal [facility] Comment on above: Performed By: #### L 200.65513 ####Test performed at: [address] [address] IG ABS 0.04 K/uL Normal 0-0.05 [facility] Comment on above: Performed By: #### L 200.74349 ####Test performed at: [address] [address] Lymphocytes (Bld) [#/Vol] 2.7 10*3/uL Normal 1.2-3.5 [facility] Comment on above: Performed By: #### L 200.16310 ####Test performed at: [address] [address] Lymphocytes/100 WBC (Bld) 22.4 % Normal [facility] Comment on above: Performed By: #### L 200.18493 ####Test performed at: [address] [address] MCH (RBC) [Entitic mass] 29.9 pg Normal 25.4-34.6 [facility] Comment on above: Performed By: #### L 200.60777 ####Test performed at: [address] [address] MCHC (RBC) [Mass/Vol] 33.5 g/dL Normal 31.5-36.5 [facility] Comment on above: Performed By: #### L 200.43735 ####Test performed at: [address] [address] MCV (RBC) [Entitic vol] 89.3 fL Normal 79.0-98.0 [facility] Comment on above: Performed By: #### L 200.19162 ####Test performed at: [address] [address] MONO ABS 1.1 K/uL High 0.0-1.0 [facility] Comment on above: Performed By: #### L 200.80531 ####Test performed at: [address] [address] Monocytes/100 WBC (Bld) 9.4 % Normal [facility] Comment on above: Performed By: #### L 200.89806 ####Test performed at: [address] [address] NEUTROPHIL ABS 8.1 K/uL High 1.4-6.6 [facility] Comment on above: Performed By: #### L 200.74395 ####Test performed at: [address] [address] Neutrophils/100 WBC (Bld) 67.5 % Normal [facility] Comment on above: Performed By: #### L 200.51655 ####Test performed at: [address] [address] NRBC # 0.000 K/uL Normal 0-0.012 [facility] Comment on above: Performed By: #### L 200.78838 ####Test performed at: [address] [address] NRBC % 0.0 /100 WBC Normal 0-0.2 [facility] Comment on above: Performed By: #### L 200.97202 ####Test performed at: [address] [address] Platelet mean volume (Bld) [Entitic vol] 12.5 fL High 8.7-12.4 [facility] Comment on above: Performed By: #### L 200.58846 ####Test performed at: [address] [address] Platelets (Bld) [#/Vol] 122 10*3/uL Low 140-440 [facility] Comment on above: Performed By: #### L 200.39904 ####Test performed at: [address] [address] RBC (Bld) [#/Vol] 3.64 10*6/uL Normal 3.5-5.5 [facility] Comment on above: Performed By: #### L 200.15684 ####Test performed at: [address] [address] WBC (Bld) [#/Vol] 12.1 10*3/uL High 3.9-11.0 [facility] Comment on above: Performed By: #### L 200.92271 ####Test performed at: [address] [address] Discharge CCD Assessmenton 0 - Discharge CCD Assessment [facility] Patient: EDVIN TRISTAN [address] [place] [address] MR#: [id number] DISCHARGE CCD ASSESSMENT : 58 Service Date: 08/08/211120 Discharge CCD Assessment Assessment Patient discharged home to continue pain control, wound care, and exercises. Electronically Signed eSign Date and Time Mark Harp 08/08/211121 Santi Roldan MD Normal [facility] GFR ESTIMATEon 08-08-2021 IF AMER > 60 Normal > 60 [facility] Comment on above: Result Comment: eGFR (Estimated GFR) Units of measure:mL/min/1.73 meters sq. *CALCULATION REVISED 01/20/2015;IDMS-traceable MDRD equation eGFR is derived from the reexpressed MDRD Study equation using the following parameters: serum creatinine, age, gender and race. An eGFR<60 mL/min/1.73m2 for >3 months is consistent with chronic kidney disease. Refer to KDOQI guidelines for clinical interpretation. Performed By: #### L 500.42794, L500.42583 ####Test performed at: [address] [place] [address] IF non-AFR AMER > 60 Normal > 60 [facility] Comment on above: Performed By: #### L 500.16986, L500.22788 ####Test performed at: [address] [place] [address] Internal Med Progress Noteon 08-08-2021 Internal Med Progress Note [facility] Patient: EDVIN TRISTAN [address] [id number] MR#: [id number] PROGRESS NOTE - Internal Medicine : 58 [...] encounter No acute events Subjective Pt c/o 510 back pain with movement. Still has the [...] Delivery ROOM AIR 08/08 0752 Temp 36.4 08/08 0752 Pulse 55 08/08 0752 Resp 16 [...] Agree with above documentation. The [resident's, PA's, GAMBLING CASHIER's] assessment and plan reflect my input. Discussed with documenting provider and patient. Plan is as outlined above. Electronically Signed eSign Date and Time [place] Sánchez Donald E. MD 08/08/21 1603 Normal [facility] z PT Inpatient Progress Note on 08-08-2021 z PT Inpatient Progress Note [facility] Patient: EDVIN TRISTAN [address] [place] [address] MR#: [id number] PT INPATIENT PROGRESS NOTE : 58 Service Date: 08/08/21 1050 Inpatient PT HPI Date of Service 08/08/21 Time In: 1001 Time Out: 1035 Total Treatment Time (Mins) 51 Room Number 534 Current Visit Originally in the patient room from and took the patient for a short walk, patient citing increased pain and would like MANAGER MAINTENANCE to return after breakfast. MANAGER MAINTENANCE returned at above stated times for completion [...] Signed eSign Date and Time [place] MANAGER MAINTENANCE 08/08/21 1101 Norma Diaz PT Normal [facility] Anesthesia Noteon 08-07-2021 Anesthesia Note [facility] Patient: EDVIN TRISTAN [address] [place] [address] MR#: [id number] ANESTHESIA NOTE : Service Date: 08/07/21 0755 [...] Pradhan 08/07/21 0755 Marsha Miller MD Normal [facility] BASIC MET PANELon 08-07-2021 Anion gap [Moles/Vol] 8 mmol/L Normal -18 [facility] Comment on above: Performed By: #### L 500.04959, L500.37771 ####Test performed at: [address] [address] Calcium [Mass/Vol] 8.8 mg/dL Normal 8.5-10.1 [facility] Comment on above: Performed By: #### L 500.91269, L500.87097 ####Test performed at: [address] [address] Chloride [Moles/Vol] 109 mmol/L High 98-107 [facility] Comment on above: Performed By: #### L 500.59529, L500.24105 ####Test performed at: [address] [address] CO2 [Moles/Vol] 27 mmol/L Normal 21-32 [facility] Comment on above: Performed By: #### L 500.38187, L500.24911 ####Test performed at: [address] [address] Creatinine [Mass/Vol] 0.967 mg/dL Normal 0.550-1.020 [facility] Comment on above: Performed By: #### L 500.04439, L500.24239 ####Test performed at: [address] [address] Glucose [Mass/Vol] 178 mg/dL High 70-99 [facility] Comment on above: Result Comment: Fast ing GLUCOSE reference range has been updated per (ADA) Stateless Diabetes Association's recommendation. 06/26/2018 Performed By: #### L 500.07826, L500.43137 ####Test performed at: [address] [address] OSM 296 mosm/kg Normal 270-300 [facility] Comment on above: Performed By: #### L 500.79413, L500.87169 ####Test performed at: [address] [address] Potassium [Moles/Vol] 4.5 mmol/L Normal 3.5-5.1 [facility] Comment on above: Performed By: #### L 500.44818, L500.52911 ####Test performed at: [address] [address] Sodium [Moles/Vol] 140 mmol/L Normal 136-145 [facility] Comment on above: Performed By: #### L 500.53220, L500.27045 ####Test performed at: [address] [address] Urea nitrogen [Mass/Vol] 18 mg/dL Normal 7-18 [facility] Comment on above: Performed By: #### L 500.65713, L500.86081 ####Test performed at: [address] [address] CBC W/DIFFon 08-07-2021 BASO ABS 0.0 K/uL Normal 0.0-0.2 [facility] Comment on above: Performed By: #### L 200.98727 #### Test performed at: [address] [address] Basophils/100 WBC (Bld) 0.1 % Normal [facility] Comment on above: Performed By: #### L 200.21488 #### Test performed at: [address] [address] EOS ABS 0.0 K/uL Normal 0.0-0.5 [facility] Comment on above: Performed By: #### L 200.84785 #### Test performed at: [address] [address] Eosinophils/100 WBC (Bld) 0.0 % Normal [facility] Comment on above: Performed By: #### L 200.38927 #### Test performed at: [address] [address] Erythrocyte distribution width (RBC) [Ratio] 12.0 % Normal 11.5-14.5 [facility] Comment on above: Performed By: #### L 200.33262 #### Test performed at: [address] [address] Hematocrit (Bld) [Volume fraction] 35.2 % Low 36.0-48.0 [facility] Comment on above: Performed By: #### L 200.81079 #### Test performed at: [address] [address] Hemoglobin (Bld) [Mass/Vol] 12.1 g/dL Abnormal 12.0-15.0 [facility] Comment on above: Result Comment: Delt a: 14.9 on 08/03/21-8115 Performed By: #### L 200.42760 #### Test performed at: [address] [address] IG % 0.5 % Normal [facility] Comment on above: Performed By: #### L 200.49742 #### Test performed at: [address] [address] IG ABS 0.06 K/uL High 0-0.05 [facility] Comment on above: Performed By: #### L 200.97751 #### Test performed at: [address] [address] Lymphocytes (Bld) [#/Vol] 1.0 10*3/uL Low 1.2-3.5 [facility] Comment on above: Performed By: #### L 200.03354 #### Test performed at: [place] [id number] Lymphocytes/100 WBC (Bld) 7.7 % Normal [facility] Comment on above: Performed By: #### L 200.68216 #### Test performed at: [place] [id number] MCH (RBC) [Entitic mass] 30.2 pg Normal 25.4-34.6 [facility] Comment on above: Performed By: #### L 200.07986 #### Test performed at: [address] [address] MCHC (RBC) [Mass/Vol] 34.4 g/dL Normal 31.5-36.5 [facility] Comment on above: Performed By: #### L 200.06133 #### Test performed at: [address] [address] MCV (RBC) [Entitic vol] 87.8 fL Normal 79.0-98.0 [facility] Comment on above: Performed By: #### L 200.66102 #### Test performed at: [address] [address] MONO ABS 0.3 K/uL Normal 0.0-1.0 [facility] Comment on above: Performed By: #### L 200.75913 #### Test performed at: [address] [address] Monocytes/100 WBC (Bld) 2.7 % Normal [facility] Comment on above: Performed By: #### L 200.13158 #### Test performed at: [place] [address] NEUTROPHIL ABS 11.0 K/uL High 1.4-6.6 [facility] Comment on above: Performed By: #### L 200.71100 #### Test performed at: [address] [address] Neutrophils/100 WBC (Bld) 89.0 % Normal [facility] Comment on above: Performed By: #### L 200.20697 #### Test performed at: [place] [address] NRBC # 0.000 K/uL Normal 0-0.012 [facility] Comment on above: Performed By: #### L 200.44013 #### Test performed at: [place] [address] NRBC % 0.0 /100 WBC Normal 0-0.2 [facility] Comment on above: Performed By: #### L 200.16155 #### Test performed at: [address] [address] Platelet mean volume (Bld) [Entitic vol] 12.1 fL Normal 8.7-12.4 [facility] Comment on above: Performed By: #### L 200.75800 #### Test performed at: [address] [address] Platelets (Bld) [#/Vol] 140 10*3/uL Normal 140-440 [facility] Comment on above: Performed By: #### L 200.84665 #### Test performed at: [place] [address] RBC (Bld) [#/Vol] 4.01 10*6/uL Normal 3.5-5.5 [facility] Comment on above: Performed By: #### L 200.16546 #### Test performed at: [place] [address] WBC (Bld) [#/Vol] 12.4 10*3/uL High 3.9-11.0 [facility] Comment on above: Performed By: #### L 200.19227 #### Test performed at: [place] [address] GFR ESTIMATEon 08-07-2021 IF AMER > 60 Normal > 60 [facility] Comment on above: Result Comment: eGFR (Estimated GFR) Units of measure:mL/min/1.73 meters sq. *CALCULATION REVISED 01/20/2015;IDMS-traceable MDRD equation eGFR is derived from the reexpressed MDRD Study equation using the following parameters: serum creatinine, age, gender and race. An eGFR<60 mL/min/1.73m2 for >3 months is consistent with chronic kidney disease. Refer to KDOQI guidelines for clinical interpretation. Performed By: #### L 500.80089, L500.52709 ####Test performed at: [place] [address] IF non-AFR AMER 59 Low > 60 [facility] Comment on above: Performed By: #### L 500.30065, L500.01554 ####Test performed at: [place] [address] Internal Med Progress Noteon 08-07-2021 Internal Med Progress Note [facility] Patient: EDVIN TRISTAN [address] [place] [address] MR#: [id number] PROGRESS NOTE - Internal Medicine : [birth year] Service Date: 08/07/21 0703 Subjective Summary of [...] Agree with above documentation. The [resident's, PA's, GAMBLING CASHIER's] assessment and plan reflect my input. Discussed with documenting provider and patient. Plan is as outlined above. Electronically Signed eSign Date and Time Montana Sánchez (more content not included)... Normal [facility] OT Therapy Recommendationson 08-07-2021 OT Therapy Recommendations [facility] Patient: EDVIN TRISTAN [address] [id number] MR#: [id number] OT THERAPY RECOMMENDATIONS : 58 Service Date: 08/07/21 1323 Therapy Recommendations Therapy Recommendations Recommendations Recommend pt d/c home with increased assist from spouse once medically cleared. Pt able to verbalize and demonstrate precautions and adapted techniques for management of ADLs. Electronically Signed eSign Date and Time Kourtney Singh 08/07/21 1324 Normal [facility] Orthopedic Progress Noteon 0 08-07-2021 Orthopedic Progress Note [facility] Patient: EDVIN TRISTAN [address] [place] [id number] MR#: [id number] PROGRESS NOTE - Orthopedic : 58 Service [...] Intake AND Output Verdana 4d 08/07 2300 / 2300 Intake Total 1250 870 Output Total [...] Harp 08/07/21 1235 Santi Roldan MD Normal [facility] z OT Inpatient Evaluationon 08-07-2021 z OT Inpatient Evaluation [facility] Patient: EDVIN TRISTAN [address] [place] [address] MR#: [id number] OT INPATIENT EVALUATION : 58 Inpatient OT HPI Date of Service 08/07/21 Time In: 1053 Time Out: 1137 Total Treatment Time (Mins) 42 Visit Reason LUMBAR STENOSIS Surgery Type/Date s/p bilAteral lumbar L 2-L 5 decompressive laminectomy Referral Date 08/06/21 Tx Diagnosis: LOW BACK PAIN Insurance Name [facility] Course This is a 60 y/o F [...] and IADLs, 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 Pt has large dog and spouse [...] and cooperativ (more content not included)... Normal [facility] z PT Inpatient Evaluationon 08-07-2021 z PT Inpatient Evaluation [facility] Patient: EDVIN TRISTAN [address] [place] [address] MR#: [id number] PT INPATIENT EVALUATION : 58 Service Date: 08/07/21 1127 Inpatient PT HPI Date of Service 08/07/21 Time In: 0945 Time Out: 1025 Total Treatment Time (Mins) 40 Room Number 534 Visit Reason LUMBAR STENOSIS Surgery Type: [place] L2-S1 decompression lami Surgery Date: 08/06/21 Referral Date 08/06/21 Tx Diagnosis: LOW BACK PAIN Insurance Name [facility] Course 60 y.o female at [facility] for above sx d/t lumbar stenosis [...] provide some assist upon d/c and her jain friends may assist /c some meals. Objective [...] ability to (more content not included)... Normal [facility] z PT Inpatient Progress Note on 08-07-2021 z PT Inpatient Progress Note [facility] Patient: EDVIN TRISTAN [address] [place] [address] MR#: [id number] PT INPATIENT PROGRESS NOTE : 58 Service [...] Signed eSign Date and Time [place] MANAGER MAINTENANCE 08/07/21 1315 EmilyNorma PT Normal [facility] Cardiology Consultationon Cardiology Consultation [facility] Patient: EDVIN TRISTAN [address] [place] [address] MR#: [id number] CONSULTATION - Cardiology : Service Date: 08/06/21 [...] Pulse Ox 100 08/06 713 B/P 117/57 05/06 0714 Temp 36.0 08/06 713 Pulse 68 08/06 0714 Resp 20 08/06 713 Appearance Appearance Appears [...] RES, Robert J. MD 08/07/21 1100 Normal [facility] EKGon 08-06-2021 Electrocardiogram Acquired on [...] Referred By: QUINCY Confirmed By:BRUNO CLARK MD [id number] 2021 --- [facility] PT NAME: EDVIN TRISTAN MR#: [id number] [address] [place] [address] ACCT: [id number] : 58 EKG REPORT Normal [facility] GLUCOSE METERon 08-06-2021 Glucose [Mass/Vol] 123 mg/dL High 70-99 [facility] Comment on above: Result Comment: Fast ing GLUCOSE reference range has been updated per (ADA) Stateless Diabetes Association's recommendation. 06/26/2018 Performed By: #### L 500.69421 #### Test performed at: [place] [address] GLYCO HEMOon 08-06-2021 HbA1c (Bld) [Mass fraction] 6.1 % Normal [facility] Comment on above: Order Comment: CBN: YES Comments To Phleb: WILL DRAW IN PACU AFTER SURGERY [place]: MAIN Result Comment: Maximino cash Diagnosis HbA1c (%) --------- Diabetic > 6.4 Prediabetes 5.7-6.4 Normal < 5.7 Performed By: #### L 500.98892 #### Test performed at: [place] [address] Internal Medicine Consultati onon 08-06-2021 Internal Medicine Consultation [facility] Patient: EDVIN TRISTAN [address] [place], [place] [id number] MR#: [id number] CONSULTATION - Internal Medicine : 58 Service Date: 08/06/21 1433 History of Present Illness Referring Physician Santi Roldan MD Consulted Physician Paulo Pual MD Reason for Consult post op management [...] Attending Attest (more content not included)... Normal [facility] OPERATIVE REPORTon OPERATIVE REPORT NAME: EDVIN TRISTAN MR#: [id number] SURGEON: Santi Roldan MD DATE OF SURGERY: 08/06/2021 OPERATIVE REPORT PREOPERATIVE DIAGNOSIS: Stenosis with neurogenic claudication. POSTOPERATIVE DIAGNOSIS: Stenosis with neurogenic claudication. PROCEDURE: Bilateral L2-3, L3-4, L4-5, and L5-S1 decompressive laminectomy. CAR SALES CONSULTANT: Bettie. PROCEDURE IN DETAIL: After anesthesia, the [...] the traversing L5 root was well decompressed. [facility] PT NAME: EDVIN TRISTAN MR#: [id number] [address] [place] [address] ACCT: [id number] : 58 OPERATIVE REPORT At L3-4, the [...] with st (more content not included)... Normal [facility] Primary Residenton 2 Primary Resident [facility] Pt Name: EDVIN TRISTAN MR#: [id number] [address] [place] [address] ACCT: [id number] [place] [address] : 58 Service Date: 08/06/21 1433 Primary Resident/Call Primary Resident: [id number] [place] After Hours Call: [phone] [employer] Team Electronically Signed eSign Date and Time PleMontana willard Resident 08/06/21 1433 Normal [facility] LUMBAR SPINE 2 OR 3 VIEWSon 08-05-2021 LUMBAR SPINE 2 OR 3 VIEWS STUDY: LUMBAR SPINE 2 OR 3 VIEWS; 08/06/2021 12:51 pm INDICATION: L2-S1 DECOMPRESSION, LAMINECTOMY. COMPARISON: None. ACCESSION NUMBER(S): [id number] ORDERING CLINICIAN: Santi Roldan FINDINGS: Intraoperative fluoroscopy lumbar spine for localization. IMPRESSION: As above Normal [facility] CBC W/DIFFon 08-03-2021 BASO ABS 0.1 K/uL Normal 0.0-0.2 [facility] Comment on above: Performed By: #### L 200.27991 #### Test performed at: [address] [place] [address] [address] Basophils/100 WBC (Bld) 0.9 % Normal [facility] Comment on above: Performed By: #### L 200.37583 #### Test performed at: [address] [address] EOS ABS 0.2 K/uL Normal 0.0-0.5 [facility] Comment on above: Performed By: #### L 200.37338 #### Test performed at: [address] [address] Eosinophils/100 WBC (Bld) 3.0 % Normal [facility] Comment on above: Performed By: #### L 200.02805 #### Test performed at: [address] [address] Erythrocyte distribution width (RBC) [Ratio] 12.3 % Normal 11.5-14.5 [facility] Comment on above: Performed By: #### L 200.86800 #### Test performed at: [address] [address] Hematocrit (Bld) [Volume fraction] 44.5 % Normal 36.0-48.0 [facility] Comment on above: Performed By: #### L 200.27488 #### Test performed at: [address] [address] Hemoglobin (Bld) [Mass/Vol] 14.9 g/dL Normal 12.0-15.0 [facility] Comment on above: Performed By: #### L 200.15641 #### Test performed at: [address] [address] IG % 0.3 % Normal [facility] Comment on above: Performed By: #### L 200.81791 #### Test performed at: [address] [address] IG ABS 0.02 K/uL Normal 0-0.05 [facility] Comment on above: Performed By: #### L 200.10894 #### Test performed at: [address] [address] Lymphocytes (Bld) [#/Vol] 2.0 10*3/uL Normal 1.2-3.5 [facility] Comment on above: Performed By: #### L 200.05287 #### Test performed at: [address] [address] Lymphocytes/100 WBC (Bld) 27.0 % Normal [facility] Comment on above: Performed By: #### L 200.31774 #### Test performed at: [address] [address] MCH (RBC) [Entitic mass] 29.7 pg Normal 25.4-34.6 [facility] Comment on above: Performed By: #### L 200.11036 #### Test performed at: [address] [address] MCHC (RBC) [Mass/Vol] 33.5 g/dL Normal 31.5-36.5 [facility] Comment on above: Performed By: #### L 200.88296 #### Test performed at: [address] [address] MCV (RBC) [Entitic vol] 88.8 fL Normal 79.0-98.0 [facility] Comment on above: Performed By: #### L 200.36443 #### Test performed at: [address] [address] MONO ABS 0.7 K/uL Normal 0.0-1.0 [facility] Comment on above: Performed By: #### L 200.35070 #### Test performed at: [address] [address] Monocytes/100 WBC (Bld) 8.9 % Normal [facility] Comment on above: Performed By: #### L 200.10608 #### Test performed at: [address] [address] NEUTROPHIL ABS 4.5 K/uL Normal 1.4-6.6 [facility] Comment on above: Performed By: #### L 200.22377 #### Test performed at: [address] [address] Neutrophils/100 WBC (Bld) 59.9 % Normal [facility] Comment on above: Performed By: #### L 200.88920 #### Test performed at: [address] [address] NRBC # 0.000 K/uL Normal 0-0.012 [facility] Comment on above: Performed By: #### L 200.50812 #### Test performed at: [address] [address] NRBC % 0.0 /100 WBC Normal 0-0.2 [facility] Comment on above: Performed By: #### L 200.34781 #### Test performed at: [address] [address] Platelet mean volume (Bld) [Entitic vol] 12.4 fL Normal 8.7-12.4 [facility] Comment on above: Performed By: #### L 200.19083 #### Test performed at: [address] [address] Platelets (Bld) [#/Vol] 180 10*3/uL Normal 140-440 [facility] Comment on above: Performed By: #### L 200.83739 #### Test performed at: [address] [address] RBC (Bld) [#/Vol] 5.01 10*6/uL Normal 3.5-5.5 [facility] Comment on above: Performed By: #### L 200.53505 #### Test performed at: [address] [address] WBC (Bld) [#/Vol] 7.6 10*3/uL Normal 3.9-11.0 [facility] Comment on above: Performed By: #### L 200.60284 #### Test performed at: [address] [address] CHEST PA/AP & LATERALon CHEST PA/AP & LATERAL STUDY: CHEST PA/AP LATERAL; 08/03/2021 2:07 pm INDICATION: PREOP. COMPARISON: None. ACCESSION NUMBER(S): [id number] ORDERING CLINICIAN: Sari Bueno FINDINGS: The lungs are clear without apparent pleural effusion. Mild cardiomegaly. Otherwise unremarkable mediastinum, lamin, and pulmonary vasculature. IMPRESSION: No active disease in the chest. Normal [facility] COMP META PANELon 08-03-2021 Albumin [Mass/Vol] 3.6 g/dL Normal 3.4-5.0 [facility] Comment on above: Performed By: #### L 500.18785, L500.87647 #### Test performed at: [address] [address] ALK PHOS TOTAL 102 U/L Normal 45-117 [facility] Comment on above: Performed By: #### L 500.14116, L500.94335 #### Test performed at: [address] [address] ALT [Catalytic activity/Vol] 29 U/L Normal 13-61 [facility] Comment on above: Performed By: #### L 500.29510, L500.45397 #### Test performed at: [address] [address] AST [Catalytic activity/Vol] 19 U/L Normal 15-37 [facility] Comment on above: Performed By: #### L 500.07493, L500.48520 #### Test performed at: [address] [address] BILI TOTAL 0.5 mg/dL Normal 0.2-1.0 [facility] Comment on above: Performed By: #### L 500.45033, L500.50793 #### Test performed at: [address] [address] Calcium [Mass/Vol] 9.4 mg/dL Normal 8.5-10.1 [facility] Comment on above: Performed By: #### L 500.68973, L500.49516 #### Test performed at: [address] [address] Chloride [Moles/Vol] 108 mmol/L High 98-107 [facility] Comment on above: Performed By: #### L 500.30928, L500.18570 #### Test performed at: [address] [address] CO2 [Moles/Vol] 29 mmol/L Normal 21-32 [facility] Comment on above: Performed By: #### L 500.52395, L500.36844 #### Test performed at: [address] [address] Creatinine [Mass/Vol] 1.080 mg/dL High 0.550-1.020 [facility] Comment on above: Performed By: #### L 500.01810, L500.43444 #### Test performed at: [address] [address] Glucose [Mass/Vol] 169 mg/dL High 70-99 [facility] Comment on above: Result Comment: Fast ing GLUCOSE reference range has been updated per (ADA) Stateless Diabetes Association's recommendation. 06/26/2018 Performed By: #### L 500.05453, L500.66406 #### Test performed at: [address] [address] Potassium [Moles/Vol] 4.2 mmol/L Normal 3.5-5.1 [facility] Comment on above: Performed By: #### L 500.51578, L500.38479 #### Test performed at: [address] [address] Protein [Mass/Vol] 7.0 g/dL Normal 6.4-8.2 [facility] Comment on above: Performed By: #### L 500.16974, L500.71183 #### Test performed at: [address] [address] Sodium [Moles/Vol] 140 mmol/L Normal 136-145 [facility] Comment on above: Performed By: #### L 500.81209, L500.58039 #### Test performed at: [place] [id number] Urea nitrogen [Mass/Vol] 16 mg/dL Normal 7-18 [facility] Comment on above: Performed By: #### L 500.65267, L500.74462 #### Test performed at: [place] [id number] CONSULTATION REPORTon 2021 CONSULTATION REPORT NAME: EDVIN TRISTAN MR#: [id number] MANAGER MANUFACTURING: Sari Bueno MD DATE OF CONSULTATION: 08/03/2021 [...] am going to do a chest x- [facility] PT NAME: EDVIN TRISTAN MR#: [id number] [address] [place] [address] ACCT: [id number] : 58 CONSULTATION ray, CBC and diff, and a CMP on her and her functional capacity is around 4 METS. Surgical risk is [id number], higher exam is within acceptable limits. Pending the labs, she is cleared for anesthesia with acceptable risk. Thank you for the courtesy of this consultation. SARI BUENO MD MS/MODL/[id number] E/S: Sari Bueno MD 08/04/21 1514 Electronically Signed [facility] PT NAME: EDVIN TRISTAN MR#: [id number] [address] [place] [address] ACCT: [id number] : 58 CONSULTATION Normal [facility] CORONAVIRUSon 08-03-2021 SARS-CoV-2 (COVID-19) RNA [...] the FDA website: https://www.fda.gov/ MedicalDevices/Safet y/ EmergencySituations/ fvp913395.htm COVID-19 Negative for COVID-19 (SARS-CoV-2 RNA) Normal [facility] Comment on above: Order Comment: CBN: YES [place]: MAIN COVID Testing: PRE-OP/PROCEDURE SCREEN AGE at Spec DOMI 60 Report age at specimen DOMI? Y First test: YES Employed in Healthcare: NO Symptomatic as defined by CDC: NO Hospitalized for COVID-19? NO ICU: NO Resident in a Congregated Care Setting: NO Order Date: 08/03/21 : Not Performed By: #### M 400.64028 #### Test performed at: [place] [address] GFR ESTIMATEon 08-03-2021 IF AMER > 60 Normal > 60 [facility] Comment on above: Result Comment: eGFR (Estimated GFR) Units of measure:mL/min/1.73 meters sq. *CALCULATION REVISED 01/20/2015;IDMS-traceable MDRD equation eGFR is derived from the reexpressed MDRD Study equation using the following parameters: serum creatinine, age, gender and race. An eGFR<60 mL/min/1.73m2 for >3 months is consistent with chronic kidney disease. Refer to KDOQI guidelines for clinical interpretation. Performed By: #### L 500.97428, L500.05509 #### Test performed at: [place] [address] IF non-AFR AMER 52 Low > 60 [facility] Comment on above: Performed By: #### L 500.88293, L500.06252 #### Test performed at: [place] [address] COVID Quick Testingon 2020 Result Negative [employer] Other Cult,Urine,CCon 07-25-2017 Cult,Urine,CC Specimen Description .URINE Performed at [address] [place] [address] ([phone] Special Requests .CLEAN CATCH URINE Performed at [address] [place] [address] ([phone] Culture NO SIGNIFICANT GROWTH Performed at [address] [id number] ([phone] Report Status FINAL 07/25/[address] [facility] Comment on above: Performed By: #### C LAISHA ####[address] [phone] [place] [address] Progress Noteon 07-25-2017 HIM IP Note OR Public Relations Specialist Normal [facility] Urinalysis w/ Microon 2017 ----- Normal [facility] Comment on above: Performed By: #### U AMIC ####[address] [place] [address] Acetaminophen mass conc Negative Normal NEG [facility] Comment on above: Performed By: #### U AMIC ####[address] [place] [address] Bilirubin (direct) Negative Normal NEG [facility] Comment on above: Performed By: #### U AMIC ####[address] [place] [address] Hemoglobin mass conc (Bld) Negative Normal NEG [facility] Comment on above: Performed By: #### U AMIC ####[address] [place] [address] Nitrite,Ur Negative Normal NEG [facility] Comment on above: Performed By: #### U AMIC ####[address] [place] [address] Turbidity TURBID Abnormal CLEAR [facility] Comment on above: Performed By: #### U AMIC ####[address] [place] [address] Urine WBC's 0 TO 2 Normal 0-[address] [facility] Comment on above: Performed By: #### U AMIC ####[address] [place] [address] Urine, amorphous sediment presence in sediment 4+ Abnormal NONE [facility] Comment on above: Result Comment: Perf ormed at [address] [place] [address] Performed By: #### U AMIC ####[address] [place] [address] Urine, color YELLOW Normal YEL [facility] Comment on above: Performed By: #### U AMIC ####[address] [place] [address] Urine, epithelial cells in sediment 0 TO 2 Normal 0-[address] [facility] Comment on above: Performed By: #### U AMIC ####[address] [place] [address] Urine, erythrocytes None Normal 0-[address] [facility] Comment on above: Performed By: #### U AMIC ####[address] [place] [address] Urine, glucose presence Negative Normal NEG [facility] Comment on above: Performed By: #### U AMIC ####[address] [place] [address] Urine, leukocyte esterase presence Negative Normal NEG [facility] Comment on above: Performed By: #### U AMIC ####[address] [place] [address] Urine, pH 6.0 [pH] Normal 5.0-9.[address] [facility] Comment on above: Performed By: #### U AMIC ####[address] [place] [address] Urine, protein presence Negative Normal NEG [facility] Comment on above: Performed By: #### U AMIC ####[address] [place] [address] Urine, specific gravity >1.030 High 1.010-1.[address] [facility] Comment on above: Performed By: #### U AMIC ####[address] [place] [address] Urobilinogen,Ur Normal Normal NORM [facility] Comment on above: Performed By: #### U AMIC ####[address] [place] [address] Comment NOT REPORTED Normal [facility] Comment on above: Performed By: #### U AMIC ####[address] [place] [address] Epithelial, Renal NOT REPORTED Normal [address] [facility] Comment on above: Performed By: #### U AMIC ####[address] [place] [address] Mucus Strands NOT REPORTED Normal NONE [facility] Comment on above: Performed By: #### U AMIC ####[address] [place] [address] Other Observations NOT REPORTED Normal NREQ [facility] Comment on above: Performed By: #### U AMIC ####[address] [place] [address] Trichomonas NOT REPORTED Normal NONE [facility] Comment on above: Performed By: #### U AMIC ####[address] [place] [address] Urine, bacteria in sediment NOT REPORTED Normal NONE [facility] Comment on above: Performed By: #### U AMIC ####[address] [place] [address] Urine, casts in sediment NOT REPORTED Normal [facility] Comment on above: Performed By: #### U AMIC ####[address] [place] [address] Urine, crystals in sediment NOT REPORTED Normal NONE [facility] Comment on above: Performed By: #### U AMIC ####[address] [place] [address] Urine, yeast presence in sediment NOT REPORTED Normal [facility] Comment on above: Performed By: #### U AMIC ####[address] [place] [address] Cult,Urine,CCon 04-14-2017 Cult,Urine,CC Specimen Description .URINE Performed at [address] [place] [address] Special Requests .CLEAN CATCH URINE Performed at [address] [place] [address] Culture NO SIGNIFICANT GROWTH Performed at [id number] [place] [address] Report Status FINAL 04/14/2017 [facility] Comment on above: Performed By: #### C LAISHA ####[address] [phone] [place] [address] Progress Noteon 04-14-2017 HIM IP Note OR Public Relations Specialist [facility] Urinalysis w/ Microon 2017 ----- Normal [facility] Comment on above: Performed By: #### U AMIC ####[address] [place] [address] Acetaminophen mass conc Negative Normal NEG [facility] Comment on above: Performed By: #### U AMIC ####[address] [place] [address] Bilirubin (direct) Negative Normal NEG [facility] Comment on above: Performed By: #### U AMIC ####[address] [place] [address] Hemoglobin mass conc (Bld) Negative Normal NEG [facility] Comment on above: Performed By: #### U AMIC ####[address] [place] [address] Nitrite,Ur Negative Normal NEG [facility] Comment on above: Performed By: #### U AMIC ####[address] [place] [address] Turbidity CLEAR Normal CLEAR [facility] Comment on above: Performed By: #### U AMIC ####[address] [place] [address] Urine WBC's 0 TO 2 Normal 0-[address] [facility] Comment on above: Performed By: #### U AMIC ####[address] [place] [address] Urine, bacteria in sediment TRACE Abnormal NONE [facility] Comment on above: Result Comment: Perf ormed at [address] [place] [address] Performed By: #### U AMIC ####[address] [place] [address] Urine, color YELLOW Normal YEL [facility] Comment on above: Performed By: #### U AMIC ####[address] [place] [address] Urine, epithelial cells in sediment 2 TO 5 Normal 0-[address] [facility] Comment on above: Performed By: #### U AMIC ####[address] [place] [address] Urine, erythrocytes None Normal 0-[address] [facility] Comment on above: Performed By: #### U AMIC ####[address] [place] [address] Urine, glucose presence Negative Normal NEG [facility] Comment on above: Performed By: #### U AMIC ####[address] [place] [address] Urine, leukocyte esterase presence Negative Normal NEG [facility] Comment on above: Performed By: #### U AMIC ####[address] [place] [address] Urine, pH 6.5 [pH] Normal 5.0-9.[address] [facility] Comment on above: Performed By: #### U AMIC ####[address] [place] [address] Urine, protein presence Negative Normal NEG [facility] Comment on above: Performed By: #### U AMIC ####[address] [place] [address] Urine, specific gravity 1.020 Normal 1.010-1.[address] [facility] Comment on above: Performed By: #### U AMIC ####[address] [place] [address] Urobilinogen,Ur Normal Normal NORM [facility] Comment on above: Performed By: #### U AMIC ####[address] [place] [address] Comment NOT REPORTED Normal [facility] Comment on above: Performed By: #### U AMIC ####[address] [place] [address] Epithelial, Renal NOT REPORTED Normal [address] [facility] Comment on above: Performed By: #### U AMIC ####[address] [place] [address] Mucus Strands NOT REPORTED Normal NONE [facility] Comment on above: Performed By: #### U AMIC ####[address] [place] [address] Other Observations NOT REPORTED Normal NREQ [facility] Comment on above: Performed By: #### U AMIC ####[address] [place] [address] Trichomonas NOT REPORTED Normal NONE [facility] Comment on above: Performed By: #### U AMIC ####[address] [place] [address] Urine, amorphous sediment presence in sediment NOT REPORTED Normal NONE [facility] Comment on above: Performed By: #### U AMIC ####[address] [place] [address] Urine, casts in sediment NOT REPORTED Normal [facility] Comment on above: Performed By: #### U AMIC ####[facility] [place] , [place] [address] Urine, crystals in sediment NOT REPORTED Normal NONE [facility] Comment on above: Performed By: #### U AMIC ####[facility] [place] , [place] [address] Urine, yeast presence in sediment NOT REPORTED Normal NONE [facility] Comment on above: Performed By: #### U AMIC ####[address] , [place] [address] Vital Signs Date Time Vital Sign Value Performing Clinician Facility 08-07-2024 14:50-0400 Body height 163.83 cm [facility] 08-07-2024 14:50-0400 Body mass index (BMI) [Ratio] 38 kg/m2 [facility] 08-07-2024 14:50-0400 Body weight 102.17 kg [facility] 08-07-2024 14:50-0400 Diastolic blood pressure 73 mm[Hg] [facility] 08-07-2024 14:50-0400 Heart rate 73 /min [facility] 08-07-2024 14:50-0400 Respiratory rate 12 /min [facility] 08-07-2024 14:50-0400 Systolic blood pressure 126 mm[Hg] [facility] 07-02-2024 13:36-0400 Body height 163.83 cm [facility] 07-02-2024 13:36-0400 Body mass index (BMI) [Ratio] 38.5 kg/m2 [facility] 07-02-2024 13:36-0400 Body weight 103.53 kg [facility] 07-02-2024 13:36-0400 Diastolic blood pressure 70 mm[Hg] [facility] 07-02-2024 13:36-0400 Heart rate 69 /min [facility] 07-02-2024 13:36-0400 Respiratory rate 12 /min [facility] 07-02-2024 13:36-0400 Systolic blood pressure 114 mm[Hg] [facility] 10-10-2023 13:27-0400 Body height 163.83 cm [facility] 10-10-2023 13:27-0400 Body mass index (BMI) [Ratio] 39.7 kg/m2 [facility] 10-10-2023 13:27-0400 Body weight 106.65 kg [facility] 10-10-2023 13:27-0400 Diastolic blood pressure 79 mm[Hg] [facility] 10-10-2023 13:27-0400 Heart rate 65 /min [facility] 10-10-2023 13:27-0400 Respiratory rate 12 /min [facility] 10-10-2023 13:27-0400 Systolic blood pressure 129 mm[Hg] [facility] 09-25-2023 15:11-0400 Body height 163.83 cm [facility] 09-25-2023 15:11-0400 Body mass index (BMI) [Ratio] 39.6 kg/m2 [facility] 09-25-2023 15:11-0400 Body weight 106.31 kg [facility] 09-25-2023 15:11-0400 Diastolic blood pressure 79 mm[Hg] [facility] 09-25-2023 15:11-0400 Heart rate 65 /min [facility] 09-25-2023 15:11-0400 Respiratory rate 12 /min [facility] 09-25-2023 15:11-0400 Systolic blood pressure 122 mm[Hg] [facility] 08-25-2023 10:21-0400 Body height 163.83 cm [facility] 08-25-2023 10:21-0400 Body mass index (BMI) [Ratio] 39.2 kg/m2 [facility] 08-25-2023 10:21-0400 Body weight 105.46 kg [facility] 08-25-2023 10:21-0400 Diastolic blood pressure 63 mm[Hg] [facility] 08-25-2023 10:21-0400 Heart rate 61 /min [facility] 08-25-2023 10:21-0400 Respiratory rate 20 /min [facility] 08-25-2023 10:21-0400 Systolic blood pressure 116 mm[Hg] [facility] 08-09-2023 15:10-0400 Body height 163.83 cm [facility] 08-09-2023 15:10-0400 Body mass index (BMI) [Ratio] 39.2 kg/m2 [facility] 08-09-2023 15:10-0400 Body weight 105.29 kg [facility] 08-09-2023 15:10-0400 Diastolic blood pressure 69 mm[Hg] [facility] 08-09-2023 15:10-0400 Heart rate 65 /min [facility] 08-09-2023 15:10-0400 Respiratory rate 20 /min [facility] 08-09-2023 15:10-0400 Systolic blood pressure 127 mm[Hg] [facility] 02-06-2023 15:30-0500 Body height 163.83 cm Ethan Ball Other [facility] [employer] Other 02-06-2023 15:30-0500 Body mass index (BMI) [Ratio] 37.24 kg/m2 Ethan Ball Other [facility] [employer] Other 02-06-2023 15:30-0500 Body weight 99.97 kg Ethan Ball Other [facility] [employer] Other 02-06-2023 15:30-0500 Diastolic blood pressure 68 mm[Hg] Ethan Ball Other [facility] [employer] Other 02-06-2023 15:30-0500 Respiratory rate 16 /min Ethan Ball Other [facility] [employer] Other 02-06-2023 15:30-0500 Systolic blood pressure 112 mm[Hg] Ethan Ball Other [facility] [employer] Other 01-11-2023 11:45-0400 Body height 163.83 cm Ethan Ball Other [facility] Other 01-11-2023 11:45-0400 Body mass index (BMI) [Ratio] 36.74 kg/m2 Ethan Ball Other [facility] Other 01-11-2023 11:45-0400 Body weight 98.61 kg Ethan Ball Other [facility] Other 01-11-2023 11:45-0400 Diastolic blood pressure 75 mm[Hg] Ethan Ball Other [employer] Other 01-11-2023 11:45-0400 Respiratory rate 12 /min Ethan Ball Other [employer] Other 01-11-2023 11:45-0400 Systolic blood pressure 112 mm[Hg] Ethan Ball Other [employer] Other 04-11-2022 16:30-0500 Body height 163.83 cm Ethan Ball Other [facility] Other 04-11-2022 16:30-0500 Body mass index (BMI) [Ratio] 39.78 kg/m2 Ethan Ball Other [employer] Other 04-11-2022 16:30-0500 Body weight 106.78 kg Ethan Ball Other [facility] Other 04-11-2022 16:30-0500 Diastolic blood pressure 74 mm[Hg] Ethan Ball Other [employer] Other 04-11-2022 16:30-0500 Respiratory rate 12 /min Ethan Ball Other [facility] Other 04-11-2022 16:30-0500 Systolic blood pressure 112 mm[Hg] Ethan Hines Other [facility] Other 01-10-2021 13:30-0400 Body temperature 96.7 [degF] Celine Gonzales Other [facility] Other 01-10-2021 13:30-0400 SaO2% (BldA) [Mass fraction] 97 % Celine Gonzales Other [employer] Other Encounters Encounter Date Encounter Type Care Provider Facility Start: 09-19-2024 End: 09-19-2024 ambulatory Ethan Hines Facility:[facility] Start: 08-07-2024 End: 08-07-2024 ambulatory [facility] Work Phone: Start: 08-07-2024 End: 08-07-2024 Patient encounter procedure [facility] Work Phone: Start: 08-05-2024 End: 08-05-2024 ambulatory [facility] Work Phone: Start: 08-05-2024 End: 08-05-2024 Patient encounter procedure [facility] Work Phone: Start: 07-02-2024 End: 07-02-2024 ambulatory [facility] Work Phone: Start: 07-02-2024 End: 07-02-2024 Patient encounter procedure [facility] Work Phone: Start: 03-24-2024 Patient encounter status [facility] Start: 10-10-2023 End: 10-10-2023 ambulatory [facility] Work Phone: Start: 10-10-2023 End: 10-10-2023 Patient encounter procedure [facility] Work Phone: Start: 09-25-2023 End: 09-25-2023 ambulatory [facility] Work Phone: Start: 09-25-2023 End: 09-25-2023 Patient encounter procedure [facility] Work Phone: Start: 09-13-2023 End: 09-13-2023 ambulatory [facility] Work Phone: Start: 09-13-2023 End: 09-13-2023 Patient encounter procedure [facility] Work Phone: Start: 08-25-2023 End: 08-25-2023 ambulatory [facility] Work Phone: Start: 08-25-2023 End: 08-25-2023 Patient encounter procedure [facility] Work Phone: Start: 08-09-2023 End: 08-09-2023 ambulatory [facility] Work Phone: Start: 08-09-2023 End: 08-09-2023 Patient encounter procedure [facility] Work Phone: Start: 08-04-2023 Non-patient / Non-visit [facility] Work Phone: Start: 07-28-2023 Non-patient / Non-visit [facility] Work Phone: Start: 04-12-2023 End: 04-12-2023 ambulatory Ethan Hines Other [employer] Other Start: 04-12-2023 Telephone encounter Ethan Hines [facility] Start: 02-06-2023 End: 02-06-2023 ambulatory Ethan Donny Other [employer] Other Start: 02-06-2023 Office outpatient vi sit 15 minutes Ethan Hines [facility] Start: 01-30-2023 End: 01-30-2023 ambulatory Ethan Hines Other [employer] Other Start: 01-30-2023 Telephone encounter Ethan CARTER [facility] Start: 01-26-2023 End: 01-26-2023 ambulatory Ethan Hines Other [facility] Other Start: 01-26-2023 Telephone encounter Ethan Hines [facility] Start: 01-11-2023 End: 01-11-2023 ambulatory Ethan Hines Other [facility] Other Start: 01-11-2023 Encounter for genera l adult medical examination without abnormal findings Ethan Hines [facility] Start: 01-11-2023 Periodic preventive med est patient 40-64yrs Ethan Hines [facility] Start: 01-11-2023 Telephone encounter Ethan CARTER [facility] Start: 10-12-2022 End: 10-13-2022 ambulatory Robin Zelaya Facility:[facility] Start: 10-12-2022 End: 10-12-2022 Lab Drop off Robin Zelaya [facility] Start: 09-07-2022 End: 09-07-2022 ambulatory Ethan Hines Other [employer] Other Start: 09-07-2022 Telephone encounter Ethan Hines [facility] Start: 08-10-2022 End: 08-10-2022 ambulatory Ethan Hines Other [employer] Other Start: 08-10-2022 Office outpatient vi sit 15 minutes Ethan Hines [facility] Start: 08-02-2022 End: 08-03-[address] NONE LISTED REQUEST Facility: Start: 07-04-2022 End: 07-04-2022 ambulatory Ethan Hines Other [employer] Other Start: 07-04-2022 Telephone encounter Ethan Hines [facility] Start: 05-09-2022 End: 05-09-2022 ambulatory Ethan Hines Other [employer] Other Start: 05-09-2022 Telephone encounter Ethan Hines [facility] Start: 04-13-2022 End: 04-13-2022 ambulatory Ethan Hines Other [employer] Other Start: 04-13-2022 Telephone encounter Ethan Donny [facility] Start: 04-11-2022 End: 04-11-2022 ambulatory Ethan Hines Other [employer] Other Start: 04-11-2022 Office outpatient vi sit 25 minutes Ethan Hines [facility] Start: 04-10-2022 End: 04-10-2022 ambulatory Ethan Hines Other [employer] Other Start: 04-10-2022 Telephone encounter Ethan Hines [facility] Start: 04-05-2022 End: 04-06-[address] ETHAN [...] Start: 07-24-2017 End: 07-25-2017 Ambulatory [facility] Start: 04-13-2017 End: 04-14-2017 [facility] Procedures Date Procedure Procedure Detail Performing Clinician Start: 07-24-2017 URINE CULTURE CLEAN CATCH UBALDO LOPEZ Start: 07-24-2017 URINALYSIS WITH MICROSCOPIC UBALDO LOPEZ Start: 04-13-2017 URINE CULTURE CLEAN CATCH UBALDO LOPEZ Start: 04-13-2017 URINALYSIS WITH MICROSCOPIC UBALDO LOPEZ Plan of Treatment Date Care Activity Detail Author US Heart [facility] Kidney - [facility] Payers Date Payer Category Payer Unknown [id number] 2.16.84 [id number] 1960 Unknown [id number] 2.16.84 [id number] 1959 Unknown [id number] 2.16.84 [id number] 1959 Unknown [id number] 2.16.84 [id number] 1959 Unknown [id number] 2.16.84 [id number] 1959 Unknown [id number] 2.16.8 [id number] 1960 Self-pay 1960 Self-pay [id number] 1960 Unknown [id number] Unknown [id number] 2.16.84 [id number] Unknown [id number] 2.16.84 [id number] Unknown [id number] 2.16.84 [id number] Unknown [id number] 2.16.84 [id number] Unknown Other1 (STD) [id number] Unknown [id number] 2.16.8 [id number] Social History Date Type Detail Facility Sex Assigned At [facility] Tobacco smoking status No Smokin g Status Entered [facility] Start: 1960 Sex Assigned At Female F [facility] Work Phone: Start: 07-02-2024 End: 08-07-2024 Sex Female (finding) [facility] Clinical Notes 01-10-2021 to 07-02-2024 Note Date & Type Note Facility 07-02-2024 Evaluation note Diagnosis Onset Date Resolution Eustachian tube dysfunction acute July 02, 2024 1:19pm GERD (gastroesophageal reflux disease) acute July 02, 2024 1:19pm Hypertension acute July 02, 2 025 1:19pm Obesity acute July 02 1:19pm Type 2 diabetes mellitus with hyperglycemia acute July 02 1:19pm [facility] Work Phone: 1(917) 204-174804-01-2025 Evaluation note* Diagnosis Onset Date Resolution Status Admit Date Eustachian tube dysfunction acute July 02, 2024 1:19pm GERD (gastroesophageal reflu x disease) acute July 02, 2024 1:19pm Hypertension acute July 02, 2 025 1:19pm Obesity acute July 02 1:19pm Type 2 diabetes mellitus wit h hyperglycemia acute July 02, 2024 1:19pm Abdominal pain acute August 07, 2 025 2:43pm [facility] Work Phone: 1(335) 676-896011-06-2023 Evaluation note* Encounter Date Diagnosis Assessment Notes [...] Lisinopril to 5mg and monitoring BP closely [facility] Other 10-11-2023 Evaluation note* Encounter Date Diagnosis [...] Colon cancer screeni ng (ICD-10 - Z12.11) [facility] Other 05-10-2023 Evaluation note* Encounter Date Diagnosis [...] Pain in left hip (ICD-10 - M25.552) [facility] Other 02-06-2023 Evaluation note* Encounter Date Diagnosis Assessment Notes Treatment Notes Treatment Clinical Notes May, Type 2 diabetes mellitus with hyperglycemia, without long-term current use of insulin (ICD-10 - E11.65) [facility] Other 01-11-2023 Evaluation note* Encounter Date Diagnosis Assessment Notes Treatment Notes Treatment Clinical Notes Apr, Gastroesophageal ref lux disease with esophagitis without hemorrhage (ICD-10 - K21.00) Apr, Type 2 diabetes mellitus with hyperglycemia, without long-term current use of insulin (ICD-10 - E11.65) [facility] Other 01-09-2023 Evaluation note* Encounter Date Diagnosis [...] (ICD-10 - N60.99) Close f/u w/ Oncology [facility] Other 01-08-2023 Evaluation note* Encounter Date Diagnosis Assessment Notes Treatment Notes Treatment Clinical Notes Apr, Type 2 diabetes mellitus with hyperglycemia, without long-term current use of insulin (ICD-10 - E11.65) [facility] Other 05-06-2022 NoteNAME: EDVIN TRISTAN MR#: [id number] ADMIT DATE: 08/06/2021 DISCHARGE DATE: 08/08/2021 DISCHARGE [...] every hour, and perform incentive spirometer 10 [facility] PT NAME: EDVIN TRISTAN MR#: [id number] [address] [place] [id number] ACCT: [id number] : 58 DISCHARGE SUMMARY times per hour while awake. She was also advised to get all of her prescriptions filled as soon as possible and continue taking all of her medications as directed and keep all of her outpatient followup appointment as scheduled. She is being discharged back to her home with self-care. MD CARIDAD MILLER/MODL/[id number] E/S: Santi Roldan MD 09/15/21 1121 Electronically Signed [facility] PT NAME: EDVIN TRISTAN MR#: [id number] [address] [place] [id number] ACCT: [id number] : 58 [facility]* Encounter Date Diagnosis [...] Patient care instructions given in writting by [facility] document. [facility] [facility] Other Evaluation + Plan note No data available for this section [facility] noteNo InformationNortGuthrie [facility] Other Evaluation note* Diagnosis Onset Date Resolution Status Hypertension acute Nicotine addiction acute Type 2 diabetes mellitus with hyperglycemia acute [facility] Work Phone: Evaluation note* Diagnosis Onset Date Resolution Status Cardiac murmur acute Hypertension acute Nicotine addiction acute Type 2 diabetes mellitus with hyperglycemia acute [facility] Work Phone: Evaluation note* Diagnosis Onset Date Resolution Status Hypertension acute Nicotine addiction acute Type 2 diabetes mellitus with hyperglycemia acute Aphthous stomatitis noneacti ve Odynophagia noneactive [facility] Work Phone: Evaluation note* Diagnosis Onset Date Resolution Status Hypertension acute Nicotine addiction acute Type 2 diabetes mellitus with hyperglycemia acute Aphthous stomatitis noneacti ve Odynophagia noneactive Hypertension acute Nicotine addiction acute Type 2 diabetes mellitus with hyperglycemia acute [facility] Work Phone: Evaluation note* Diagnosis Onset Date Resolution Status Hypertension acute Nicotine addiction acute Type 2 diabetes mellitus with hyperglycemia acute Aphthous stomatitis noneacti ve Odynophagia noneactive Hypertension acute Obesity acute Type 2 diabetes mellitus with hyperglycemia acute [facility] Work Phone: Evaluation noteNo assessment information available [facility] Work Phone: History general Narrative - [...] endometrial biopsy Hospitalization History see surgical history [facility] Other Hospital Discharge instructions No data available for this section [facility] No data available for this section [facility] Summary Purpose Family History No Family History Records FoundNo Family History Records FoundNo Family History Records FoundNo Family History Records FoundNo Family History Records Found Advance Directives No Advanced Directives Records Found Advance Directive Response Recorded Date/ Time Advance [...] 02 1:19pm GERD (gastroesophageal reflux disease) A prinara 2024 1:19pm Hypertension July 02, 2024 1:19 [...] 025 1:19pm GERD (gastroesophageal reflux disease) A pri2024 1:19pm Hypertension July 02, 2024 1:19 pm Obesity July 02, 2024 1:19 pm Type 2 diabetes mellitus with hyperglyce cora July 02, 2024 1:19pm Abdominal pain August 07, 2024 2:43pm Additional Source Comments INFORMATION SOURCE (unrecogn ized section and content) DATE CREATED AUTHOR 09/21/2017 [facility] DATE CREATED AUTHOR AUTHOR'S ORGANIZ ATION 09/16/2021 [facility] DATE CREATED AUTHOR AUTHOR'S ORGANIZ ATION 08/03/2022 [facility] DATE CREATED AUTHOR AUTHOR'S ORGANIZ ATION 10/19/2022 [facility] DATE CREATED AUTHOR AUTHOR'S ORGANIZ ATION 10/14/2024 [facility] REASON FOR VISIT (unrecogniz ed section and [...] 2023 Team Status: Inactive Member Role Status Zulma Hines , DO Primary Care Provide r, Attending Provider Active Start: August 05, 2024 End: August 05, 2024 Team Status: Inactive Member Role Status Zulma Hines , DO Primary Care Provide r, [...] BE BASED ON THE PRIMARY CLINICAL RECORDS. [facility]. provides no warranty or guarantee of the accuracy or completeness of information in this document.
== END 2024-10-24 10:41 | disposition home or self-care (01) ==
LOC: RAD 10:40
PROVIDERS: PCP Internal Medicine; Visit Provider Nurse Practitioner Acute Care
DX: S82.65XD Nondisplaced fracture of lateral malleolus of left fibula, subsequent encounter for closed fracture with routine healing (principal)
CPT/HCPCS: 73610

== ENCOUNTER 2024-10-31 13:17 | Outpatient (OUT) | payer OTHER, SELFPAY ==
--- OUTSIDE RECORDS SUMMARY | 2023-07-26 11:00 | XMS_ITS ---
Author Organization [facility] in [place] Address [address] [place] [address] Care Team Providers Care Jewel Sorter Name Role Phone Ethan Hines DO Primary Care Provider James Hughes Unavailable [phone] Allergies Allergen (clinical drug ingredient) Drug/Non Drug [...] Problem Status W/U Status Risk Notes Problem 7015122207922049 Bunionette of right foot (M21.621) Active confirmed Problem 387227357 Other hammer toe(s) (acquired), right foot (M20.41) Active confirmed Problem 030943409 Corns and callosities (L84) Active confirmed Vital Signs Temperature 98.8 degrees Fahrenheit 07/26/19 Heart Rate 70 /min 07/26/2023 Height 64 in 07/26/2023 Weight 238 lbs 07/26/2023 BMI 40.85 kg/m2 07/26/2023 Oximetry 98 % 07/26/2023 Encounters Encounter Location Date Provider Diagnosis [facility] (PODIATRY) [address] [place] [address] [place] [address] 07/26/2023 Peter [facility] Right foot pain M79.671 ; Bunionette of [...] Notes * Shaylee TRISTANPedroOB:1960 (62 yo F)Acc No.[id number]:07/26/2023 New Patient Patient: Charity WOODWARD Provider: Fransisca Landeros DPM, MS :1960 A ge:62 Y S ex:Female Date:07/26/2023 Address:[facility] [address] [place], [id number] Pcp:Ethan Hines, DO Check In:02:53 PM ESTCheck [...] M usculoskeletal: Bone/Joint Symptoms d enies. C makenna Pain d enies.?Leg cramps d enies. N [...] o falls in the past year B [place] ACTION PLAN Above Normal BMI Follow-up D ietary management education, guidance, and counseling * * Sign off status: Completed Visit Status: C HK (Check Out) true * Provider: Fransisca Landeros DPM, MS Date: 0 07/26/2023 Generated for Juan ramey/Domingo/Cornelitting on: 0 10/31/2024 01:20 PM EDT History and Physical Notes * Examination [...]
--- NOTE | 2024-10-31 | MM_ITS ---
Patient Name: EDVIN TRISTAN MR#: [id number] : 1960 Exam Date: 10/31/2024 Ordering Doctor: DR DYANA REINOSO M.D. RADIOLOGY REPORT PROCEDURE: MM TOMOSYNTHESIS SCREENING BI COMPARISON: MM TOMOSYNTHESIS SCREENING BI, 10/26/2023. MM TOMOSYNTHESIS SCREENING BI, 10/20/2022. MG MAMM SCREEN 3D WILL CAD, 10/19/2021. MG MAMM WILL DIAG W CAD DIG, 09/17/2012. INDICATIONS: SCreening for malignant neoplasm Z12.31 Calculator Name NCI Breast Cancer Risk Assessment Tool 5 Year Breast Cancer Risk 4.60% Lifetime Breast Cancer Risk 16.60% Personal Breast Cancer No Personal Ovarian Cancer No Treatments None Family Cancers None LOCATION: [facility] BREAST COMPOSITION: The breasts are heterogeneously dense, which may obscure small masses. FINDINGS: RIGHT BREAST: No significant suspicious finding. Benign-appearing calcifications are present. LEFT BREAST: No significant suspicious finding. Benign-appearing calcifications are present. Similar focal asymmetries are present. DIAGNOSTIC CATEGORY 2--BENIGN FINDING: RECOMMENDATIONS: ROUTINE MAMMOGRAM AND CLINICAL EVALUATION IN 12 MONTHS. PLEASE NOTE: A NORMAL MAMMOGRAM DOES NOT EXCLUDE THE POSSIBILITY OF BREAST CANCER. A CLINICALLY SUSPICIOUS PALPABLE LUMP SHOULD BE BIOPSIED. Dictated by: Dionte Herron MD on 10/31/2024 at 17:43 Approved by: Dionte Herron MD on 10/31/2024 at 17:46
--- OUTSIDE RECORDS SUMMARY | 2024-10-31 13:20 | XMS_ITS | Clinical Summary ---
Author Organization [facility] Address [address] [place] [address] Care Team Providers Care Side Framer Name Role Phone Unavailable Primary Care Provider [...]
--- OUTSIDE RECORDS SUMMARY | 2024-10-31 13:20 | XMS_ITS | Encounter Summary ---
Author Organization [facility] Address [address] [place] [address], [address] [place] [address] Care Team Providers Care Marketing Programs Specialist Name Role Phone Ethan Hines DO Primary Care Provider [phone] Reason for Visit * Reason Comments Medication Refill Encounter Details Date Type Department Care Team (Late st Contact Info) Description 01/13/2019 [facility] [address], [address] [place] [address] Danny Rodriguez MD Medication Refill Social History [...] myelopathy documented in this encounter Care Teams Marketing Programs Specialist Relationship Specialty Start Date End Date Ethan Hines DO PCP - General Internal Medicine 04/13/17 documented as of this encounter
--- OUTSIDE RECORDS SUMMARY | 2024-10-31 13:20 | XMS_ITS | Patient Health Record ---
Author Organization [facility] [place] Address [address] [place] [address] Care Team Providers Care Bottoming Machine Operator Name Role Phone Ethan Hines DO [...] Problem Status W/U Status Risk Notes Problem 628719295 Corns and callosities (L84) Active confirmed Problem 472953941 Other hammer toe(s) (acquired), right foot (M20.41) Active confirmed Problem [id number] Bunionette of right foot (M21.621) Active confirmed Plan Of Treatment No Information Insurance Providers Payer Name Payer Address Payer Phone Subscriber Number Group Number Insured Name Patient Relationship to Insured Coverage Start Date Coverage End Date MMO [address] [place], [place] [id number] Charity Smith Self - patient is the insured Medical (General) History Medical History History ICD Code arthritis diabetes hypertension Surgical History Surgery Date(Month/Year) lumbar spine 08/2021 sterotatic breast/lumpectomy 01/2011 torn meniscus
--- OUTSIDE RECORDS SUMMARY | 2024-10-31 13:20 | XMS_ITS | Clinical Summary ---
Author Organization [facility] Address [address] [place] [address] Phone Care Team Providers Care Shank Breaker Name Role Phone Unavailable Primary Care Provider Unavailabl e Social History Tobacco Use Types Packs/Day Years Used Date Smoking Tobacco: Never Assessed Comments Unknown Sex and Gender Information Value Date Recorded Sex Assigned at Not on file Legal Sex Female 5:47 PM EST Gender Identity Not on file Sexual Orientation Not on file Plan of Treatment Not on file
--- OUTSIDE RECORDS SUMMARY | 2024-10-31 13:20 | XMS_ITS | Clinical Summary ---
Author Organization [facility] Address [address], [address] [place] [address] Care Team Providers Care Engineering Specialist Technician Name Role Phone Ethan Hines DO Primary Care Provider [phone] Allergies Active Allergy Reactions Criticality Noted Date [...] Insurance [employer] Care Teams Engineering Specialist Technician Relationship Specialty Start Date End Date Ethan Hines DO PCP - General Internal Medicine 04/13/17
== END 2024-10-31 13:18 | disposition home or self-care (01) ==
LOC: MAMMO 13:17
PROVIDERS: PCP Internal Medicine; Visit Provider Obstetrics & Gynecology
DX: Z12.31 Encounter for screening mammogram for malignant neoplasm of breast (principal); Z13.820 Encounter for screening for osteoporosis; M85.88 Other specified disorders of bone density and structure, other site
CPT/HCPCS: 77063; 77067; 77080

== ENCOUNTER 2025-04-01 08:11 | Outpatient (OUT) | payer OTHER, SELFPAY ==
--- OUTSIDE RECORDS SUMMARY | 2025-03-31 08:55 | XMS_ITS | Continuity of Care Document ---
Author Organization [facility] Address [address] [place] [address] Phone Care Team Providers Care Blood Bank Technician Name Role Phone Ethan Hines DO Primary Care Provider [phone] Ethan Hines DO Attending Provider Care Teams Patient Care Team Team Status: Active Member Role/Relationship Status Dates Ethan Hines DO Primary Care Provider Active Patient Care Team Team Status: Inactive Member Role/Relationship Status Dates Ethan Hines DO Primary Care Provider Active Start: March 31, 2025 End: March 31enjalou Hines DOAttending ProviderActiveStart: March 31, 2025 End: March 31, 2025 Chief Complaint and Reason for Visit Chief Complaint Admit Date wellness March 31, 2025 1:09pm Reason for Visit Admit Date GERD (gastroesophageal reflux disease) D ec2024 1:09pm Hypertension March 31, 2025 1:09pm Inflammatory polyarthritis March 1:09pm Obesity March 31, 2025 1:09pm Osteopenia March 31, 2025 1:09pm Renal mass, left March 31, 2025 1:09pm Type 2 diabetes mellitus with hyperglyce cora March 31, 2025 1:09pm Wellness examination March 31, 2025 1:09pm Allergies, Adverse Reactions, Alerts Allergen Type Severity Reaction Last Updated Verified Status erythromycin base Allergy Unknown Unknown Reaction D ecember 2024 1:17pm Yes Active tramadol Allergy Unknown rash March 31, 2025 1:17pm Yes Active Social History Smoking Status Unknown if ever smoked Observation Status Observation Response Date of Response Legal Sex Female (finding) Sex Assigned At BirthFemaleJuly 1960 Problems Active Problems Problem Diagnosis/Recorded Date Onset Date Status C omments Inflammatory polyarthritis August 08, 2023 6:13am Unknown Active Type 2 diabetes mellitus with hyperglycemiaMay 2023 6:13amUnknownActive Nondisplaced fracture of lateral malleolus of left fibulaJune 2024 7:08pm UnknownActiveRenal mass, leftMay 2024 3:54pmUnknownActiveUS: 17mm cyst, 9mm hyperechoic mass left kidney - 08/2024,CT: 4 hypo-densities, largest 17mm, cysticleft kidney - 09/2024Wellness examinationDecember 2023 8:50amUnknown ActiveOsteopeniaMay 2023 6:13amUnknownActiveGERD (gastroesophageal reflux disease)August 08, 2023 6:13amUnknownActiveHypertensionMay 2023 6:12amUnknown ActiveEcho: LVEF 60%, normal RV size/function, no significant valvular disease. - 09/2023ObesityApril 2024 1:12pmUnknownActive Medications Medication Status Dose Units Route Directions Qty Days Refills S tart Date Stop Date End Date Reason(s) Instructions Adherence Tirzepatide (Mounjaro) 5 mg/0.5 mL pen injector Discontinued 5 MG SUBCUT every week 2 28 5 July 28, 2023 3:58pm February 27, 2024 12:06pmTirzepatide 5 mg/0.5 mL pen enivzfxsAzjmozajpjyz8WV SUBCUTevery cjsc4068Awolpbe2024 10:19amFebruary 2024 9:59amfor 4 weeksTirzepatide 7.5 mg/0.5 mL pen injectorDiscontinued7.5MGSUBCUTevery May 15, 2024 9:58amMarch 2024 3:30pmfor 4 weeksTirzepatide 10 mg/0.5 mL pen aymcgkwqCrprrgysfanu94TBGUHCRDdjrqy nkbs6279Ufvyx 2024 3:30pmApril 2024 4:29pmfor 4 weeksTirzepatide 12.5 mg/0.5 mL pen injector Jhtpxdomqlfe74.5MGSUBCUTevery oesz0948Lyzvr 14th, 2025 4:28pmMay 2024 2:23pmTirzepatide (Mounjaro) 10 mg/0.5 mL pen kvacqxfoJcvjoilvxduo49KEEKPLQM every oljx5173Btcc 19th, 2025 8:50amSept2024 9:50amTirzepatide 12.5 mg/0.5 mL pen hviglmysYmveqslycmjn28.5MGSUBCUTevery dhap0879Azbegovpm 15th, 2025 9:50amSept2024 9:51amTirzepatide (Mounjaro) 12.5 mg/0.5 mL pen ekrhenesKqdrpynjsgzb75.5MGSUBCUTevery vhfr8936Dcifyhoxy 15th, 2025 9:50am December 17, 2024 2:47pmTirzepatide 10 mg/0.5 mL pen yeeonoblUculdf81AQDMLADL every ocxj4079Psyvybpyf2024 2:47pmComplies with drug therapyTirzepatide (Mounjaro) 5 mg/0.5 mL pen hxisrizoZulfgdoxaigg0MGMWRVUWwbczk weekJuly 27, 2023 11:00pmApril 2023 3:58pmPrednisone 20 mg snezjzTirnltuwelbp63RPIMWe Pnqbtdjy003Dvs 2023 11:00pmNov2023 12:08pm1 tab bid w/ food x 2 days, then qd w/ food x 2 daysValacyclovir 1 gram bxyznoMqvvpdiolgxt6571OQSL Three times qziro3459Hnl 2023 11:00pmFebruary 27, 2024 12:06pm Phentermine (Adipex-P) 37.5 mg ygdynoArvwmfgmixoa37.6DNNFBaskd87823Oqco 2023 11:00pmFebruary 27, 2024 12:05pmObesity Obesity, unspecifiedmust administer 30 minutes before or 1-2 hours after breakfastPrednisone 20 mg jkgwzlTbdhsgmjqhos50CEQK.FFJYIMO99765Rlellhbf 26th, 2024 12:06pmDecember 2023 9:23am20 mg orally; 1 tab bid w/ food x 5 days, then qd w/ food x 5 daysTirzepatide 10 mg/0.5 mL pen kzpmtchdPhzginpghkiu88YV SUBCUTevery dxug6383Tpx2024 2:21pmJune 2024 8:50amFamotidine 20 mg sifwacUrakduunjdsk75DSUVMqjkp dailyMay 2023 11:00pmNovember 2023 12:05pmLisinopril 5 mg kxwxfpYctirbghnnbj8LQJCUhnytKxc 2023 11:00pmDecember 2023 9:50amNabumetone 750 mg ximdwzLzzsnntnqeei686UWMNOygce dailyAugust 08, 2023 11:00pmNovember 2023 12:05pmTirzepatide (Mounjaro) 2.5 mg/0.5 mL pen injectorDiscontinued2.5MGSUBCUTevery ajse9751Knvekpof2023 12:00amJanuary 2024 10:20amfor 4 weeksLisinopril 5 mg yihhhqFenjlu0FIQVIfbfl471547 March 26, 2024 9:50amComplies with drug therapyMeloxicam 15 mg tablet Ynqwutygzqki86FGCRFvfgv97285Avef 2024 11:00pmJuly 2024 9:56am Doxycycline Hyclate 100 mg pzhvdynReerwxfzqhyt537NHCIRmxjb ihmlm1835Ofzasmrrb 2024 11:00pmDecember 2024 1:17pm Vital Signs Vital Reading Result Reference Range Collection Date/Time Height 64.5 [in_i] March 31, 2025 1:72gpSxvynb99.18 kgDece2024 1:20pmHeart Rate76 /vvt27-748UgnccsdyMarch 31, 2025 1:20pmRespiratory rate12 /epn82-00Zfyuvdeu 2024 1:20pmBP Ehqzahdt594 mm[Hg]100-140Decemb2024 1:20pmBP Oqnedutbp23 mm[Hg]60-100December 2024 1:20pmBMI (Body Mass Index)36.1 kg/h4Ukqbkqml2024 1:20pm Advance Directives Advance Directive Response Recorded Date/ Time Advance Directives No May 9:45am Insurance Providers Guarantor Charity Smith Address [address] [place] [address]Hhplozb Info.Home Phone: Payer Group Member ID Coverage Type Subscriber Relationship to Subscriber Effective Date Expiration Date [facility] Jerry Ny Id: [id number] Kryling Id: [id number] [address] [place] [address] Home Phone: Self Encounters Encounter Location(s) Arrival/Admit Date Discharge/Departure Date Discharge/Departure Disposition Provider(s) Departed Physician/ Provider Office Visit -[facility] March 31, 2025 1:09pm March 31, 2025 1:53pm Discharged to home care or self care (routine discharge) Ethan Hines DO Recent Diagnosis Onset Date Admit Date GERD (gastroesophageal reflux disease) Unknown March 31, 2025 1:09pm Hypertension Unknown March 31 025 1:09pm Inflammatory polyarthritis Unknown Decem 2024 1:09pm Obesity Unknown March 31, 025 1:09pm Osteopenia Unknown March 31 025 1:09pm Renal mass, left Unknown March 31, 2025 1:09pm Type 2 diabetes mellitus with hyperglycemia Unkn own March 31, 2025 1:09pm Wellness examination Unknown March 312024 1:09pm Assessments Diagnosis Onset Date Resolution Status Admit Date GERD (gastroesophageal reflux disease) acuteDe2024 1:09pmHypertensionacuteDece2024 1:09pm Inflammatory polyarthritisacutece2024 1:09pmObesityacuteDece2024 1:09pmOsteopeniaacuteDece2024 1:09pmRenal mass, leftacute March 31, 2025 1:09pmType 2 diabetes mellitus with hyperglycemiaacute March 31, 2025 1:09pmWellness examinationacuteDece2024 1:09pm Plan of Treatment Author [facility] 20[facility] 7:28amI have instructed this patient to follow a comprehensive diabetic treatment plan. I have also instructed them to check their feet daily for calluses and nonhealing ulcers. I have instructed them to have a yearly dilated eye examination. I have reviewed their treatment goals: SBP less than 130, LDL less than 100, FBS less than 140, A1C less than 7%. I have instructed them to maintain a home BS log and bring the results to each of their office visits for review. I have explained the importance of routine monitoring of their A1C, Microalbumin and Lipids. I have explained the benefits of well controlled diabetes in preventing micro and macrovascular complications. Continue Mounjaro w/o interuption - titrate upwards for more beneficial weight loss Positive benefits of GLP1/GIP is weight loss, which reduces risk for CVD, LUCILLE, MAFLD and arthritis I have instructed this patient to consume a healthy, low-fat, low-salt diet. I have also encouraged them to continue exercise with weight loss to achieve/maintain a BMI < 30. I have instructed this patient on the correct procedure for obtaining home BP measurements:? - rest for 5 minutes w/o talking. - positioned w/ feet on floor and arms supported. - average best 2/3 readings w/ goal < 135/85. - update office w/ home readings in 2 weeks. Continue Lisinopril without interruption US: 17mm cyst, 9mm hyperechoic mass left kidney - 08/2024, CT: 4 hypo-densities, largest 17mm, cystic left kidney - 09/[address]/MRI in 6mo I have instructed this patient on a low-fat, high-fiber diet.?? I have also instructed them to reduce calories, portions sizes, sweet drinks and snacks.?? I have also recommended they exercise for 30 minutes, 3-5 times weekly. They are aware of the comorbid conditions associated with excessive weight: Diabetes, HTN, Hyperlipidemia, CAD and arthritis. Instructed to continue calcium and vitamin D supplements. Instructed on weight bearing exercises. Monitor w/ DEXA qoy. I have instructed this patient to avoid lying flat after eating.?? I have also recommended to avoid eating 2 hours prior to bedtime.?? They were also informed that smaller, frequent meals may be better tolerated. I have discussed additional treatment options for persistent symptoms, which includes: weight loss, H2 blockers and PPI. I have also instructed them to notify the office with any pain or difficulty swallowing. Referred to Rheum Treatment w/ NSAIDs not recommended due to adverse effects on BP and GFR Trial of DMARDs stopped due to lack of benefit by patient No f/u appt I have instructed this patient on the recommended lifestyle changes, which includes a low fat, high fiber diet along with a regular exercise routine. I have also reviewed the recommended age-appropriate preventive testing for this patient. I have also reviewed the recommended vaccines for their age and risk factors. Future Tests Future scheduled test information is unavailable Pending Tests Pending diagnostic test information is unavailable Future Visits Future appointment information is unavailable Future Procedures Future procedure information is unavailable Future Medications Future medication information is unavailable Patient Instructions Patient instructions are unavailable
--- OUTSIDE RECORDS SUMMARY | 2025-04-01 08:14 | XMS_ITS | Clinical Summary ---
Author Organization [facility] Address [address] [place] [address] Phone Care Team Providers Care Vocal Music Instructor Name Role Phone Unavailable Primary Care Provider Unavailabl e Social History Tobacco UseTypesPacks/DayYears UsedDateSmoking Tobacco: Never Assessed CommentsUnknownSex and Gender InformationValueDate RecordedSex Assigned at Not on fileLegal HzbIgazuv16/25/2022 5:47 PM ESTGender IdentityNot on fileSexual OrientationNot on file Plan of Treatment Not on file
--- OUTSIDE RECORDS SUMMARY | 2025-04-01 08:14 | XMS_ITS | Clinical Summary ---
Author Organization [facility] Address [address] [place] [address] Care Team Providers Care Fibrous Plasterer Name Role Phone Unavailable Primary Care Provider Unavailabl e Social History Tobacco UseTypesPacks/DayYears UsedDateSmoking Tobacco: Never Assessed CommentsUnknownSex and Gender InformationValueDate RecordedSex Assigned at Not on fileLegal EfvSnpfkz14/01/2023 8:33 PM EDTGender IdentityNot on fileSexual OrientationNot on file Last Filed Vital Signs Vital SignReadingTime TakenCommentsBlood Annnasrx81/5901 12:00 PM EST Pulse--Temperature--Respiratory Rate--Oxygen Saturation--Inhaled Oxygen Concentration--Weight--Height--Body Mass Index-- Plan of Treatment Not on file Insurance
--- OUTSIDE RECORDS SUMMARY | 2025-04-01 08:14 | XMS_ITS | Patient Health Record ---
Author Organization [facility] [place] Address [address] [place] [address] Care Team Providers Care Optometry Teacher Name Role Phone Ethan Hines DO Primary Care Provider Unavaila ble Allergies Allergen (clinical drug ingredient) Drug/Non Drug Allergy documented on EMR Reaction Allergy Type Onset Date Status cefuroxime Cefuroxime Axetil stomach upset Drug Allergy ActiveZofranstomach upsetDrug AllergyActiveSubstance with sulfonamide structure and antibacterial mechanism of action (substance)Sulfa Antibioticsstomach upset Drug AllergyActivetramadolTramadolstomach upsetDrug AllergyActivepromethazine Promethazinestomach upsetDrug AllergyActive Reason For Referral No Information Medications Medication SIG (Take, Route, Frequency, Duration) Notes Start Date End Date Status Urea 40 % 1 application as needed External ly Once a day; Duration: 30 days 4ActiveLisinopril 5 MGOral; Duration: 30 DaysActiveMounjaro 5 MG/0.5ML Subcutaneous; Duration: 28 DaysActive Social History Tobacco Use: Social History Observation Description Date Details (start date - stop date) Never Smoker NA - NA Tobacco Control (Standard) Question Answer Notes Tobacco use: Nonsmoker Problems Problem Type SNOMED Code ICD Code Onset Dates Problem Status W/U Status Risk Notes Problem Callosity (252431460) Corns and callositi es (L84) ActiveconfirmedProblemAcquired hammer toe of right foot (6344601155321106)Other hammer toe(s) (acquired), right foot (M20.41)ActiveconfirmedProblemSwelling of first metatarsophalangeal joint of hallux (199468630)Bunionette of right foot (M21.621)Activeconfirmed Plan Of Treatment No Information Insurance Providers Payer Name Payer Address Payer Phone Subscriber Number Group Number Insured Name Patient Relationship to Insured Coverage Start Date Coverage End Date O [address] [place], [place] [id number] Charity Smith Self - patient is the insured Medical (General) History Medical History History ICD Code arthritis diabeteshypertensionSurgical History Surgery Date(Month/Year) lumbar spine 08/2021 sterotatic breast/lumpectomy 01/2011 torn meniscus
--- OUTSIDE RECORDS SUMMARY | 2025-04-01 08:14 | XMS_ITS | Clinical Summary ---
Author Organization [facility] Address [address], [address] [place] [address] Care Team Providers Care Lettuce Cutter Name Role Phone Ethan Hines DO Primary Care Provider [phone] Allergies Active AllergyReactionsCriticalityNoted DateComments Sulfamethoxazole-ZusuqaiuqeueUbrwusvs14/11/2018Ciprofloxacin HclNausea Only 04/13/2017PrednisoloneOther (See Comments)06/13/2018 Muscle cramps Sulfa EyoxvfwjkweHiiwybxr74/11/2018TramadolNausea And QhmsnllqJot85/11/2018 Medications MedicationSigDispense QuantityRefillsLast FilledStart DateEnd DateStatus lisinopril-hydrochlorothiazide (PRINZIDE;ZESTORETIC) 10-12.5 MG per tablet 1 tablet daily03/24/2017Active acetaminophen (TYLENOL) 500 MG tablet Take 500 mg by mouth every 6 hours as needed for PainActive lidocaine (LMX) 4 % cream Indications:Lumbosacral spondylosis without myelopathyApply a half dollar sized amount to intact skin topically up to twice daily as needed for pain 1 Tube Active Additional Information Patient not taking.Reported on 06/10/2019 lisinopril (PRINIVIL;ZESTRIL) 10 MG tablet Take 10 mg by mouth dailyActive NABUMETONE PO Take 750 mg by mouth dailyActive ibuprofen (ADVIL;MOTRIN) 600 MG tablet Take 1 tablet by mouth 3 times daily 90 tablet 12/14/2018Active gabapentin (NEURONTIN) 100 MG capsule Indications:Lumbosacral spondylosis without myelopathyTAKE 2 CAPSULES BY MOUTH FOUR TIMES PER DAY 240 capsule 12/18/2018Active Active Problems ProblemNoted DateDiagnosed DateRenal stone06/12/2017Renal colic06/12/2017Gross ostnyarif06/12/2018 Family History Medical HistoryRelationNameCommentsHeart DiseaseFatherHigh Blood PressureFather ArthritisMotherHigh Blood PressureMotherRelationNameStatusCommentsFatherDeceased MotherAlive Social History Tobacco UseTypesPacks/DayYears UsedDateSmoking Tobacco: NeverSmokeless Tobacco: NeverAlcohol UseStandard Drinks/WeekCommentsNot Currently0 (1 standard drink = 0.6 oz pure alcohol)rareCommentsNoSex and Gender InformationValueDate RecordedSex Assigned at BirthNot on fileLegal LzlEjmbnp62/10/2018 8:01 AM EST Gender IdentityNot on fileSexual OrientationNot on file Last Filed Vital Signs Vital SignReadingTime TakenCommentsBlood Yzxquzvg184/70006/10/2019 4:13 PM EDT Elhhk4506 2:46 PM HDMVmpgqfdrswe22 ??C (98.6 ??F)12/14/2018 3:08 PM EDT Respiratory Byvf0862 3:48 PM EDTOxygen Saturation--Inhaled Oxygen Concentration--Keupjp201.1 kg (234 lb)06/10/2019 4:13 PM CYMEigtmp444.6 cm (5' 4 )06/10/2019 4:13 PM EDTBody Mass Index40.17006/10/2019 4:13 PM EDT Plan of Treatment Not on file Insurance Care Teams Team MemberRelationshipSpecialtyStart DateEnd Date Ethan Hines DO PCP - GeneralInternal Medicine04/13/17
--- OUTSIDE RECORDS SUMMARY | 2025-04-01 08:15 | XMS_ITS | CCD ---
Author Organization [facility] CliniSyga Care Team Providers Care Research And Evaluation Analyst Name Role Phone UBALDO LOPEZ Unavailable Unavailable RADHA, ETHAN Singh Unavailable Unavailable UBALDO LOPEZ Unavailable Unavailable BALL, ETHAN E Unavailable Unavailable Christian Celine Unavailable Ethan Garcia Unavailable RADHA, DR SCHNEIDER Admitting Unavailable BALL, [...] BALL, DR SCHNEIDER Consulting Unavailable ZIEBER, DR JONAH Way Consulting Unavailable MISC, DR CASTRO Admitting [...] ble REQUEST, NONE LISTED Attending Unavaila ble ETHAN GARCIA Primary Care Physician Ethan Garcia DO Primary Care Provider Ethan Garcia DO Attending Provider [phone] Aung Rucker DO Attending Provider Ethan Garcia Primary Care Unavailable Aung Rucker Attending Unavailable Aung Rucker Admitting Unavailable Robin Zelaya Attending Unavailable Robin Zelaya Admitting Unavailable Ethan Garcia DO Primary Care Provider Ethan Garcia DO Attending Provider Allergies Allergy ClassificationReported Allergen(s)Allergy TypeDate of OnsetReaction(s) FacilityOpioid Agonists (1 source)traMADolDrug Rtcaepr94-52-5281fidpScrdwoojbSelect Medical [facility] (20 sources)traMADolDrug Qfhonkj92-34-0162muumMjhcbulfjSelect Medical [facility] (12 sources)ErythromycinDrug Jukcnyb06-21-3924Ohpmvae ReactionThe [facility] (1 source)Sulfonamides (Antibiotic)Drug allergy (disorder)92-57-1726Pcn [facility] (1 source)traMADolDrug Etqpfhr89-05-8715Wyt [facility] Rep[facility] (6 sources)ErythromycinDrug AllergyUnkEgghead InteractiveTemnos Other (1 source)ErythromycinDrug Xlsjhuv66-79-0679PbtazslmqOur [facility] (1 source)traMADolDrug Wenmwby84-60-3294GjqlbvtbkOur [facility] Of [facility] Medications Current Medications MedicationDrug Class(es)DatesSig (Normalized)Sig (Original)0.5 ML tirzepatide 10 MG/ML Auto-Injector [Mounjaro] (12 sources)Start: 72-41-5056stjzoq 5 mg by subcutaneous injection every week Mounjaro 5 MG/0.5ML 5mg Subcutaneous weekly for 28 days Apr, Active inject 5 mg by subcutaneous injection every weekMounjaro 5 MG/0.5ML 5 MG Subcutaneous weekly Activeinject 5 mg by subcutaneous injection every week Mounjaro 5 MG/0.5ML 5 MG Subcutaneous weekly for 28 days Activedoxycycline hyclate 100 mg oral capsule (1 source)Tetracycline-class DrugStart: 45-08-4866wayd 1 capsule by mouth twice dailyDoxycycline Hyclate 100 mg capsule Active 100 MG PO Twice daily 14 10December 11, 2024 12:00am Complies with drug therapylisinopril 5 mg oral tablet (20 sources)Angiotensin Converting Enzyme InhibitorStart: 08-09-2023 End: 26-93-7219fxzv 1 tablet by mouth once dailyLisinopril 5 mg tablet Active 5 MG PO Daily March 26, 2024 10:50am Complies with drug therapytake 1 tablet by mouth every twenty-four hoursLisinopril 5 MG 1 tablet Orally Once a day for 30 days Activetake 0.5 tablet by mouth once dailyLisinopril 10 MG 1/2 tablet Orally Once a day Activetake 1 tablet by mouth once dailyLisinopril 10 MG TAKE 1 TABLET BY MOUTH EVERY DAY ActiveLisinopril ActivemetFORMIN hydrochloride 500 mg oral tablet (14 sources)BiguanideStart: 94-96-9951ueyVCKNKX HCl 500 MG 1 Orally Once a day Apr, Activemounjaro 5 mg/0.5ml solution pen-injector (1 source)inject 5 mg by subcutaneous injection every weekMounjaro 5 MG/0.5ML 5 MG Subcutaneous weekly ActiveTirzepatide (13 sources)Start: 89-72-2719Ypbqyftrikl (Mounjaro) 10 mg/0.5 mL pen injector Active 10 MG SUBCUT every week 2 September 19, 2024 9:50am Complies with drug therapyStart: 08-07-2024 End: 53-27-5563Qfhxucmuiri 10 mg/0.5 mL pen injector Discontinued 10 MG SUBCUT every week 2 August 07, 2024 3:21pm September 19, 2024 9:50amStart: 08-07-2024 Tirzepatide 10 mg/0.5 mL pen injector Active 10 MG SUBCUT every week 2 August 07, 2024 3:21pmStart: 06-10-2024 End: 65-81-1938Jyuanjokewk 10 mg/0.5 mL pen injector Discontinued 10 MG SUBCUT every week 2 June 10, 2024 4:30pm July 15, 2024 5:29pm for 4 weeks Start: 25-19-9923Npdbyvqsypw 10 mg/0.5 mL pen injector Active 10 MG SUBCUT every week 2 June 10, 2024 4:30pm for 4 weeks Completed/Discontinued Medications MedicationDrug Class(es)DatesSig (Normalized)Sig (Original)azithromycin 250 mg oral tablet (8 sources)Macrolide AntimicrobialStart: 84-69-6052Bwffkzrtiqyv 250 MG as directed Orally daily for 5 days August, Not-Taking/PRNfamotidine 20 mg oral tablet (20 sources)Histamine-2 Receptor AntagonistStart: 08-09-2023 End: 34-05-1288ssia 1 tablet by mouth twice dailyFamotidine 20 mg tablet Discontinued 20 MG PO Twice daily August 09, 2023 12:00am February 27, 2024 1:05pmtake 1 tablet by mouth twice daily at breakfastFamotidine 20 MG TAKE 1 TABLET BY MOUTH TWICE DAILY, AT BREAKFAST AND SUPPER Activemeloxicam 15 mg oral tablet (3 sources)Nonsteroidal Anti-inflammatory DrugStart: 09-16-2024 End: 33-14-1096skmy 1 tablet by mouth once dailyMeloxicam 15 mg tablet Discontinued 15 MG PO Daily September 16, 2024 12:00am 2024 10: 56amnabumetone 750 mg oral tablet (13 sources)Nonsteroidal Anti-inflammatory DrugStart: 08-09-2023 End: 91-52-9801qmpd 1 tablet by mouth twice dailyNabumetone 750 mg tablet Discontinued 750 MG PO Twice daily August 09, 2023 12:00am February 27, 2024 1:05pmStart: 56-97-8596widh 750 mg by mouth twice dailyNabumetone 750 MG as directed Orally Twice a day for 30 days Feb, Activephentermine hydrochloride 37.5 mg oral tablet (8 sources)Sympathomimetic Amine AnorecticStart: 09-25-2023 End: 14-38-5475pkss 1 tablet by mouth once daily 30 minutes after breakfast Phentermine (Adipex-P) 37.5 mg tablet Discontinued 37.5 MG PO Daily September 25, 2023 12:00am February 27, 2024 1:05pm must administer 30 minutes before or 1-2 hours after breakfastpredniSONE 20 mg oral tablet (15 sources)Start: 08-25-2023 End: 53-19-4389Sfozlvrbps 20 mg tablet Discontinued 20 MG PO .COMPLEX 15 February 27, 2024 1:06pm March 26, 2024 10:23am 20 mg orally; 1 tab bid w/ food x 5 days, then qd w/ food x 5 daysTirzepatide (20 sources)Start: 04-12-2024 End: 27-99-9651Ofhbugbprmr 5 mg/0.5 mL pen injector Discontinued 5 MG SUBCUT every week 2 April 12, 2024 11:19am May 15, 2024 10:59am for 4 weeksStart: 07-28-2023 End: 99-56-0730Rrljgsvflfh (Mounjaro) 5 mg/0.5 mL pen injector Discontinued 5 MG SUBCUT every week 2 July 28, 2023 4:58pm February 27, 2024 1:06pmStart: 70-46-5540Kpkvqfilsxe (Mounjaro) 5 mg/0.5 mL pen injector Active 5 MG SUBCUT every week 2 July 2744:58pmStart: 07-28-2023 End: 12-05-6223Boedwccvcel (Mounjaro) 5 mg/0.5 mL pen injector Discontinued 5 MG SUBCUT every week July 28, 2023 12:00am July 28, 2023 4:58pmTirzepatide (6 sources)Start: 05-15-2024 End: 05-90-8448Mhzgaolvatj 7.5 mg/0.5 mL pen injector Discontinued 7.5 MG SUBCUT every week 2 May 15, 2024 10:58am June 10, 2024 4:30pm for 4 weeks Tirzepatide (6 sources)Start: 03-26-2024 End: 18-16-7423Xzpnfgvpdxx (Mounjaro) 2.5 mg/0.5 mL pen injector Discontinued 2.5 MG SUBCUT every week 2 March 26, 2024 1:00am April 12, 2024 11:20am for 4 weeksTirzepatide (5 sources)Start: 07-15-2024 End: 54-10-6845Bhgnhzqwqrw 12.5 mg/0.5 mL pen injector Discontinued 12.5 MG SUBCUT every week 2 July 15, 2024 5:28pm August 07, 2024 3:23pmStart: 60-48-7421Lnaolnbpnqe 12.5 mg/0.5 mL pen injector Active 12.5 MG SUBCUT every week 2 July 15, 2024 5:28pmvalACYclovir 1000 mg oral tablet (9 sources)Herpesvirus Nucleoside Analog DNA Polymerase Inhibitor, Herpes Simplex Virus Nucleoside Analog DNA Polymerase Inhibitor, Herpes Zoster Virus Nucleoside Analog DNA Polymerase InhibitorStart: 08-25-2023 End: 20-60-6866Qyfwrwlqbkcz 1 gram tablet Discontinued 1000 MG PO Three times daily 15 08August 25, 2023 12:00am February 27, 2024 1:06pmStart: 08-25-2023 take 1000 mg by mouth three times dailyValacyclovir Active 1000 MG PO Three times daily 15 08August 25, 2023 12:00am Problems Active Problems Problem ClassificationProblemDateDocumented DateEpisodic/ChronicAbdominal pain (4 sources)Abdominal pain; 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: [Unspecified abdominal pain]08-07-2024 EpisodicCalculus of urinary tract (14 sources)Unspecified renal colic; 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: [H/O: urinary stone]Onset: 54-62-3600LdjykxexSbwcthcrdn associated with dizziness or vertigo (4 sources)Benign paroxysmal positional vertigo; 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: [Benign paroxysmal vertigo, unspecified ear]93-33-3233GbjcegddJglpjmpb mellitus with complications (20 sources)Type 2 diabetes mellitus; 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: [Type 2 diabetes mellitus with hyperglycemia]ChronicDiseases of mouth; excluding dental (3 sources)Recurrent oral aphthae; 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: [Oral aphthae]08-25-2023 EpisodicE Codes: Adverse effects of medical drugs (2 sources)Adverse reaction to antidiabetic drug; 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: [Adverse effect of insulin and oral hypoglycemic [antidiabetic] drugs, initial encounter] 60-40-8348FdrivksnGyhzbinkcj disorders (20 sources)Gastro-esophageal reflux disease with esophagitis; 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: [Gastroesophageal reflux disease with esophagitis without hemorrhage]08-08-2023 ChronicEssential hypertension (20 sources)Essential hypertension; 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: [Essential (primary) hypertension]ChronicComment on above:Echo: LVEF 60%, normal RV size/function, no significant valvular disease. - 09/2023Fracture of lower limb (9 sources)Nondisplaced fracture of lateral malleolus of left fibula, initial encounter for closed fracture; 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: [Nondisplaced fracture of lateral malleolus of left fibula]20-54-7971OyyavjonEvakhgkbkhxtn symptoms and ill- defined conditions (3 sources)Dysuria; 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: [Frequency of micturition]Onset: 04-13-2017 EpisodicGout and other crystal arthropathies (4 sources)Acute gout; 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: [Gout, unspecified]51-05-2928DaujqttDsjiq valve disorders (10 sources)Heart murmur; 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: [Cardiac murmur, unspecified]08-09-2023 EpisodicNonmalignant breast conditions (15 sources)Benign mammary dysplasia; 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: [Unspecified benign mammary dysplasia of unspecified breast]EpisodicOther bone disease and musculoskeletal deformities (14 sources)Other specified disorders of bone density and structure, other site; 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: [Osteopenia of lumbar spine]EpisodicOther bone disease and musculoskeletal deformities (13 sources)Osteopenia; 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: [Other specified disorders of bone density and structure, unspecified site]23-96-3302PiunxdzsQgpgr connective tissue disease (4 sources)Pain of right thigh; 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: [Pain in right thigh]09-16-2024 EpisodicOther diseases of kidney and ureters (5 sources)Renal mass; 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: [Other specified disorders of kidney and ureter]28-53-3699ZtlcmlhEnikopn on above:US: 17mm cyst, 9mm hyperechoic mass left kidney - 08/2024,CT: 4 hypo-densities, largest 17mm, cysticleft kidney - 09/2024Other gastrointestinal disorders (3 sources)Dysphagia, unspecified; 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: [Dysphagia, unspecified] 96-30-6636TrinurokGrncj non-traumatic joint disorders (2 sources)Pain in right hipEpisodicOther non-traumatic joint disorders (2 sources)Pain in left hipEpisodicOther non-traumatic joint disorders (4 sources)Ankle pain; 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: [Pain in left ankle and joints of left foot]74-92-4404RvbqzwidRcqaw non-traumatic joint disorders (1 source)Pain in left ankle and joints of left foot; 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: [Pain in left ankle and joints of left foot]Onset: 52-40-3902BebnqmfvEgjmp nutritional; endocrine; and metabolic disorders (20 sources)Obesity; 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: [Obesity, unspecified]84-36-6704UrwomxfFwizj nutritional; endocrine; and metabolic disorders (13 sources)Body mass index 40+ - severely obese; 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: [Body mass index (BMI) 40.0-44.9, adult]ChronicOther nutritional; endocrine; and metabolic disorders (1 source)Body mass index (BMI) 40.0-44.9, adultChronicOther nutritional; endocrine; and metabolic disorders (3 sources)Obesity, unspecified; 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: [Obesity, unspecified]09-25-2023 ChronicOther screening for suspected conditions (not mental disorders or infectious disease) (5 sources)Encounter for screening mammogram for malignant neoplasm of breast; 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: [Encounter for screening for malignant neoplasm of colon]Onset: 34-46-8643SgggmkjsFtjgq upper respiratory disease (14 sources)Seasonal allergic rhinitis; 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: [Other seasonal allergic rhinitis]ChronicOther upper respiratory disease (1 source)Other seasonal allergic rhinitis; 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: [Seasonal allergic rhinitis, unspecified trigger J30.2]Onset: 01-10-2021 Resolved: 06-90-0790MnfgnpqOpzoh upper respiratory infections (1 source)Acute maxillary sinusitis, unspecifiedEpisodicOtitis media and related conditions (5 sources)Dysfunction of eustachian tube; 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: [Unspecified Eustachian tube disorder, unspecified ear]31-95-1388WzybnlezDonytrsjim arthritis and related disease (20 sources)Inflammatory polyarthropathy; 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: [Inflammatory polyarthropathy]ChronicSpondylosis; intervertebral disc disorders; other back problems (14 sources)Lumbosacral spondylosis without myelopathy; 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: [Spondylosis without myelopathy or radiculopathy, lumbar region]ChronicSprains and strains (4 sources)Sprain of calcaneofibular ligament; 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: [Sprain of calcaneofibular ligament of unspecified ankle, initial encounter]09-16-2024 EpisodicSubstance-related disorders (11 sources)Nicotine dependence; 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: [Nicotine dependence, unspecified, uncomplicated]62-05-4525AcdccwbGyjabnyzmxsy (3 sources)CONTACT W/AND (SUSP) EXPOS COVID-19; 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: [CONTACT W/AND (SUSP) EXPOS COVID-19]Onset: 03-19-2022 Past or Other Problems Problem ClassificationProblemDateDocumented DateEpisodic/ChronicEsophageal disorders (10 sources)Esophageal disorders; 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: [Gastroesophageal reflux disease with esophagitis without hemorrhage]Immunizations and screening for infectious disease (1 source)Contact with and (suspected) exposure to other viral communicable diseases; 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: [Contact with and (suspected) exposure to other viral communicable diseases Z20.828]Onset: 01-10-2021 Resolved: 75-47-4143FmtqjdprFcbqh acquired deformities (4 sources)Spondylolisthesis, lumbar region; 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: [SPONDYLOLISTHESIS LUMBAR REGION]Onset: 69-87-7802AvqkjbwfNmbio aftercare (1 source)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; 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: [OTH USP CURRENT DRUG THERAPY]Onset: 24-77-3020RnxshtkzStgqz connective tissue disease (1 source)Pain in right leg; 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: [PAIN IN RIGHT LEG]Onset: 10-12-2021 EpisodicResidual codes; unclassified (2 sources)Other specified postprocedural states; 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: [OTH SPECIFIED POSTPROCEDURAL STATES]Onset: 72-79-5059LdmomjtiFkmzmdhpgob; intervertebral disc disorders; other back problems (7 sources)Dorsalgia, unspecified; 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: [Sciatica, left side]Onset: 07-88-3910VrvkdceqUvvbrogveotv (1 source)CONTACT W/AND (SUSP) EXPOS COVID-19; 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: [CONTACT W/AND (SUSP) EXPOS COVID-19]Onset: 77-41-3653Tttmecqacuub (1 source)Acute bilateral low back pain without sciatica M54.50Urinary tract infections (1 source)Acute cystitis with hematuria; 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: [Acute cystitis with hematuria]Onset: 74-14-1164Vmgrvfmt Results Test NameValueInterpretationReference AprsnWjmvnsbjGuN8r HPLC (Bld) [Mass fraction]Ordered By: Ethan Garcia on 72-39-1238NhY1j (Bld) [Mass fraction]5.4 % [facility] AndersonBasophils Auto (Bld) [#/Vol]Ordered By: Ethan Garcia on 26-42-4921Qihpjopss (Bld) [#/Vol]0.1 10 3/uL0.0-0.1FMercy Health Perrysburg HospitalBasophils/100 WBC Auto (Bld)Ordered By: Ethan Garcia on 46-94-8856Wcqlvklxf/100 WBC (Bld)1.1 %0.2-2.0[facility] Cholesterol in LDL Calc [Mass/Vol]Ordered By: Ethan Garcia on 11-19-2024 Cholesterol in LDL [Mass/Vol]93.6 mg/dLOur Lady Of Mercy Hospital - AndersonComment on above:<100 mg/dl AGKKMCN452-381 mg/dl NEAR OR ABOVE WKKZTKB300-946 mg/dl BORDERLINE ZVHX975-411 mg/dl HIGH>190 mg/dl VERY HIGHCholesterol in VLDL Calc [Mass/Vol]Ordered By: Ethan Garcia on 16-93-7053Jwbjpdxlgat in VLDL [Mass/Vol] 21.4 mg/dLOur Lady Of Mercy Hospital - AndersonEosinophils/100 WBC Auto (Bld)Ordered By: Ethan Garcia on 67-28-3004Niooqphkebu/100 WBC (Bld)4.7 %0.9-7.0[facility] AndersonErythrocyte distribution width Auto (RBC) [Ratio]Ordered By: Ethan Garcia on 21-73-6451Oqwddxrkqjr distribution width (RBC) [Ratio]12.3 %11.0-15.0[facility] AndersonGlobulin Calc (S) [Mass/Vol]Ordered By: Ethan Garcia on 78-26-5213Gaseqdbf (S) [Mass/Vol]3.9 g/dLOur Lady Of Mercy Hospital - AndersonGlomerular filtration rate (GFR) estimation in non- AmericanOrdered By: Ethan Garcia on 81-15-7378RCK/1.73 sq M.predicted among non-blacks MDRD (S/P/Bld) [Vol rate/Area]mL/min/{1.73_m2}>=60 mL/min/1.73m 2 [facility] AndersonHematocrit Auto (Bld) [Volume fraction]Ordered By: Ethan Garcia on 32-25-4500Pamiadothf (Bld) [Volume fraction]46.4 %36.0-48.0 [facility] AndersonHemoglobin [Mass/volume] in BloodOrdered By: Ethan Garcia on 83-78-8823Lafeqnfspd (Bld) [Mass/Vol]15.5 g/dL12.0-16.0 [facility] AndersonLaboratory - Chemistry and Chemistry - challengeOrdered By: Ethan Garcia on 00-78-3760Qavdugq [Mass/Vol]3.8 g/dL 3.4-5.0[facility] AndersonALP [Catalytic activity/Vol]101 U/L 46-116[facility] AndersonALT [Catalytic activity/Vol]18 U/L14-59 [facility] AndersonAST [Catalytic activity/Vol]20 U/L15-37 [facility] AndersonBilirubin [Mass/Vol]0.7 mg/dL0.2-1.0[facility] AndersonCalcium [Mass/Vol]9.7 mg/dL8.5-10.1FMercy Health Perrysburg HospitalChloride [Moles/Vol]106 mmol/L35-632IkumrvwptOur Lady Of Mercy Hospital - AndersonCholesterol [Mass/Vol]160 mg/dL<=200[facility] Cholesterol in HDL [Mass/Vol]45 mg/xM56-34ZciiifmsnOur [facility] Of [facility] Comment on above:> or =60 mg/dl - LOW CARDIOVASCULAR RISK<40 mg/dl - HIGH CARDIOVASCULAR RISKCO2 [Moles/Vol]26.6 mmol/L21.0-32.0[facility] AndersonCreatinine [Mass/Vol]0.85 mg/dL0.55-1.02[facility] GFR/1.73 sq M.predicted MDRD (S/P/Bld) [Vol rate/Area]mL/min/{1.73_m2}>=60 mL/min/1.73m 2FMercy Health Perrysburg HospitalGlucose [Mass/Vol]93 mg/mI43-306 [facility] AndersonPotassium [Moles/Vol]4.3 mmol/L3.5-5.1FMercy Health Perrysburg HospitalProtein [Mass/Vol]7.7 g/dL6.4-8.2FRiverview Health Instituteodium [Moles/Vol]142 mmol/T090-763UlhtdhwvfOur Lady Of Mercy Hospital - AndersonTriglyceride [Mass/Vol]107 mg/dL<=150[facility] AndersonTSH Qn2.668 m[IU]/L0.358-3.740[facility] AndersonUrea nitrogen [Mass/Vol]14.0 mg/dL7.0-18.0[facility] AndersonUrea nitrogen/Creatinine [Mass ratio]16.5 mg/mgOur Lady Of [facility] Laboratory - Hematology and Cell countsOrdered By: Ethan Garcia on 11-19-2024 Immature granulocytes/100 WBC (Bld)0.1 %0.0-0.5FMercy Health Perrysburg Hospital Leukocytes [#/volume] corrected for nucleated erythrocytes in Blood by Automated counOrdered By: Ethan Garcia on 78-56-7532JNL corrected for nucl RBC Auto (Bld) [#/Vol]8.4 10 3/uL4.0-11.0[facility] AndersonLymphocytes Auto (Bld) [#/Vol]Ordered By: Ethan Garcia on 37-03-7706Ylmnjdmcbga (Bld) [#/Vol]2.6 10 3/uL1.2-3.8[facility] AndersonLymphocytes/100 WBC Auto (Bld)Ordered By: Ethan Garcia on 69-19-8252Pkwuifpzxju/100 WBC (Bld)31.5 % 20.5-60.0[facility] AndersonMCH Auto (RBC) [Entitic mass]Ordered By: Ethan Garcia on 94-10-4034SCQ (RBC) [Entitic mass]29.7 pg26.7-34.0[facility] AndersonMCHC Auto (RBC) [Mass/Vol]Ordered By: Ethan Garcia on 16-48-0316GZLD (RBC) [Mass/Vol]33.4 g/dL29.9-35.2FMercy Health Perrysburg HospitalMCV Auto (RBC) [Entitic vol]Ordered By: Ethan Garcai on 33-67-0931TZL (RBC) [Entitic vol]88.9 fL81.0-99.0[facility] AndersonMonocytes Auto (Bld) [#/Vol]Ordered By: Ethan Garcia on 17-66-2423Ohzzcsgiq (Bld) [#/Vol] 0.7 10 3/uL0.3-0.8[facility] AndersonMonocytes/100 WBC Auto (Bld) Ordered By: Ethan Garcia on 45-92-0009Cjmvyjxsg/100 WBC (Bld)8.5 %1.7-12.0 [facility] AndersonNeutrophils Auto (Bld) [#/Vol]Ordered By: Ethan Garcia on 13-39-4952Gcqsslhulnu (Bld) [#/Vol]4.5 10 3/uL1.4-6.5FMercy Health Perrysburg HospitalNeutrophils/100 WBC Auto (Bld)Ordered By: Ethan Garcia on 10-25-2196Ltfpxwwpxar/100 WBC (Bld)54.1 %43.0-75.0[facility] AndersonNo Panel InformationOrdered By: Ethan Garcia on 58-06-5144Gxbflatinaz # (Auto)0.4 10 3/uL0.0-0.7FMercy Health Perrysburg HospitalImmature Granulocyte # (Auto)0.01 10 3/uL0.00-0.03[facility] AndersonPlatelet mean volume Auto (Bld) [Entitic vol]Ordered By: Ethan Garcia on 33-66-2330Cohxmlmd mean volume (Bld) [Entitic vol]12.5 fL9.5-13.5FMercy Health Perrysburg Hospital Platelets Auto (Bld) [#/Vol]Ordered By: Etahn Garcia on 69-16-0781Ebqtfhagz (Bld) [#/Vol]192 10 3/wZ719-760DrvjqsdqeOur Lady Of Mercy Hospital - AndersonRBC Auto (Bld) [#/Vol]Ordered By: Ethan Garcia on 51-53-6665KDG (Bld) [#/Vol]5.22 10 6/uL 4.20-5.40[facility] Columbuserum or plasma albumin/globulin mass ratioOrdered By: Ethan Garcia on 97-40-1142Zcrgbgi/Globulin [Mass ratio]1.0 {ratio}[facility] Columbuserum or plasma anion gap determination Ordered By: Ethan Garcia on 47-51-0103Yibtk gap [Moles/Vol]13.7 mmol/LFRiverview Health Instituteerum or plasma total cholesterol/high density lipoprotein (HDL) cholesterol mass ratOrdered By: Ethan Garcia on 11-19-2024 Cholesterol.total/Cholesterol in HDL [Mass ratio]3.6 {ratio}[facility] AndersonComment on above:3.3 - 4.4 LOW RISK4.4 - 7.1 AVERAGE RISK7.1 - 11.0 MODERATE RISK>11.0 HIGH RISKPAP [id number] 51-22-1553RRV AptimaNegative Invalid Interpretation CodeNegativeOhiohealth Southeastern Medical CenterComment on above: Result Comment: This nucleic acid amplification test detects fourteen high-risk HPV types (16,18,31,33,35,39,45,51,52,56,58,59,66,68) without differentiation. Performed at: [facility] [address] [facility], [place] [id number] MD Cameron Sharma Performed at: =[facility] [address] [facility], [place] [id number] MD Cameron SharmaPerformed By: #### [id number] #### [facility] [address] [place], [place] [address]TKK [id number] Interpretation CodeOhiohealth Southeastern Medical CenterComment on above:Result Comment: TESTS RESULT FLAG UNITS REF RANGE LAB Clinician Provided Cytology Information Source.............[employer] No. of containers..01 ThinPrep Vial DIAGNOSIS: 01 NEGATIVE FOR INTRAEPITHELIAL LESION OR MALIGNANCY. Specimen adequacy: 01 Satisfactory for evaluation. Endocervical and/or squamous metaplastic cells (endocervical component) are present. Performed by: Estuardo Cantu Casting Finisher (ASCP) . 01 Note: Note 01 The [...] <-Panic Low,>-Panic High,A-Abnormal,AA-Critical Abnormal Performed at: 01 [facility] [address] [address] Edith Barnes MD, Rpedsgjvc By: #### [id number] #### [facility] [address] [place] [id number] 32-69-6074Fyzffznhjv TechniqueBRUSH-SPATULANormal [facility] Medical CenterComment on above:Performed By: #### [id number] #### [facility] [address] [place] [id number] Body SiteENDOCERVIXNormalOhiohealth Southeastern Medical CenterComment on above:Performed By: #### [id number] #### [facility] [address] [place] [address] [id number] ankle LT min 3V*on 27-22-0506QG ankle LT min 3V*[facility] [address] [place] [address] XRay Report Signed Patient: Edvin Smith MR#: [id number] 2 : 1960 Acct:[id number] Age/Sex: 63 / F ADM Date: 09/19/24 [place] [facility] [place] Type: [facility] Attending Dr: Aung Rucker DO Copies [...] STUDY. Impression dictated by: Bryan Stroud Jr., DCelyOCely 09/19/2024 9:52 AM Dictation Location: RADIO-PC-22 Transcribed By: [facility] 09/19/24 0952 Dictated By: Bryan Stroud Jr, DO 09/19/24 0951 Signed By: 09/19/[address] [facility] [address] Physician GroupEstimated glomerular filtration rate (GFR) non- Americanon 78-71-7175NZV/1.73 sq M.predicted among non- blacks MDRD (S/P/Bld) [Vol rate/Area]58 mL/min/{1.73_m2}Low>=60 mL/min/1.73m 2 [facility] - Chemistry and Chemistry - challengeon 72-36-6774Evrfasifo Ql (U)NegativeNEGATIVEOur [facility] Of [facility] - AndersonGlucose (U) [Mass/Vol]NegativeNEGATIVEOur [facility] Ketones Ql (U)NegativeNEGATIVEOur [facility] Of [facility] Hospital - AndersonpH (U)6.0 [pH] 5.0-9.0[facility] Columbuspecific gravity (U) [Rel density] <=1.248Swkgasht3.005-1.025[facility] AndersonUrobilinogen Qn (U) 0.2 {Liliana'U}/dL0.2-1.0[facility] AndersonCalcium [Mass/Vol]9.4 mg/dL8.5-10.1FMercy Health Perrysburg HospitalChloride [Moles/Vol]103 mmol/L 98-107[facility] AndersonCO2 [Moles/Vol]28.5 mmol/L21.0-32.0 [facility] AndersonCreatinine [Mass/Vol]0.97 mg/dL0.55-1.02 [facility] AndersonGFR/1.73 sq M.predicted MDRD (S/P/Bld) [Vol rate/Area]mL/min/{1.73_m2}>=60 mL/min/1.73m 2FMercy Health Perrysburg Hospital Glucose [Mass/Vol]111 mg/iZJqbk94-681UtvxnofmbOur Lady Of Mer[facility] Hospital - AndersonPotassium [Moles/Vol]4.0 mmol/L3.5-5.1FRiverview Health Instituteodium [Moles/Vol] 140 mmol/O585-678DrjbdvpvkOur Lady Of Mercy Hospital - AndersonUrea nitrogen [Mass/Vol]19.0 mg/dLHigh7.0-18.0[facility] AndersonUrea nitrogen/Creatinine [Mass ratio]19.6 mg/mgOur [facility] Of [facility] - AndersonLaboratory - Specimen informationon 31-43-4421Ltbjyshxho (U)CLEARCLEARFMercy Health Perrysburg HospitalColor (U)LT. YELLOWYELLOWOur [facility] Of [facility] AndersonLaboratory - Urinalysison 54-71-4488Kngeprbyb esterase Test strip Ql (U)SMALLAbnormalNEGATIVE [facility] AndersonNitrite Ql (U)NegativeNEGATIVEOur [facility] - AndersonProtein Ql (U)NegativeNEG/TRACEOur [facility] Of Mercy Hospital - AndersonNo Panel Informationon 39-75-5026Ygxdk Occult BloodNegativeNEGATIVE [facility] Columbuserum or plasma anion gap determinationon 79-62-8595Xinus gap [Moles/Vol]12.5 mmol/LFMercy Health Perrysburg Hospital Laboratory - Chemistry and Chemistry - challengeon 54-93-5806Upeldcqax Ql (U) NegativeOur [facility] Of [facility] - AndersonGlucose (U) [Mass/Vol]NegativeOur [facility] Of Mer[facility] Hospital - AndersonKetones Ql (U)NegativeOur [facility] pH (U)6.0 [pH][facility] Columbuspecific gravity (U) [Rel density]1.015[facility] AndersonUrobilinogen (U) [Mass/Vol]0.2 mg/dLOur Lady Of Mer[facility] - AndersonLaboratory - Specimen informationon 83-19-3717Gyjiiwsjql (U)cloudyOur Lady Of Mercy Hospital - AndersonColor (U) darkyelRegency Hospital Cleveland EastLaboratory - Urinalysison 08-05-2024 Leukocyte esterase Test strip Ql (U)+[facility] AndersonNitrite Ql (U)NegativeOur [facility] Of Mer[facility] Hospital - AndersonProtein Ql (U)+[facility] AndersonNo Panel Informationon 62-11-3858Rhnbl Occult BloodNegative [facility] AndersonLaboratory - Chemistry and Chemistry - challengeon 88-93-5094Ijylkqgat Ql (U)NegativeOur [facility] Of [facility] Glucose (U) [Mass/Vol]NegativeOur [facility] Of Mer[facility] Hospital - AndersonKetones Ql (U)5 [facility] AndersonpH (U)5.0 [pH][facility] Specific gravity (U) [Rel density]1.030[facility] Urobilinogen (U) [Mass/Vol]0.2 mg/dLOur Lady Of Mercy Hospital - AndersonLaboratory - Specimen informationon 01-38-8723Boxlqogkil (U)clearOur Lady Of Mer[facility] Hospital - AndersonColor (U)darkyelRegency Hospital Cleveland EastLaboratory - Urinalysison 79-15-7724Apuwqctqd esterase Test strip Ql (U)NegativeOur [facility] Of Mer[facility] Hospital - AndersonNitrite Ql (U)NegativeOur [facility] Protein Ql (U)+[facility] AndersonNo Panel Informationon 12-59-4859Ngexu Occult BloodNegativeOur [facility] Of [facility] Hospital - AndersonGlucose mean value [Mass/volume] in Blood Estimated from glycated hemoglobinon 80-99-9945Sqqulxm glucose Estimated from glycated hemoglobin (Bld) [Mass/Vol]111 mg/dLOur Lady Of Mercy Hospital - AndersonLaboratory - Hematology and Cell countson 77-46-9875OnE5j (Bld) [Mass fraction]5.5 %4.5-6.2FMercy Health Perrysburg HospitalComment on above:ADA RECOMMENDED LIMIT 4.0 - 6.0ADA THERAPEUTIC TARGET < 7.0ACTION SUGGESTED> 7.0GLYCOHEMOGLOBIN A1Con 30-61-8748KHR RECOMMENDATIONSEE Knox Community HospitalComment on above:Result Comment: ADA RECOMMENDED LIMIT 4.0 - 6.0 ADA THERAPEUTIC TARGET < 7.0 ACTION SUGGESTED > 7.0Performed By: #### DATA1C #### [facility] [address] [place] [address] Dr. María AdornoGlucose [Mass/Vol]114 mg/dLNoWyandot Memorial HospitalComment on above:Performed By: #### DATA1C #### [facility] [address] [place] [address] Dr. María AdornoHbA1c (Bld) [Mass fraction]5.6 %Normal4.5-6.2The [facility] HospitalComment on above:Performed By: #### DATA1C #### [facility] [address] [place] [address] Dr. María AdornoGLYCOHEMOGLOBIN A1Con 47-46-8806ISE RECOMMENDATIONSEE BELOWNormal The [facility] HospitalComment on above:Result Comment: ADA RECOMMENDED LIMIT 4.0 - 6.0 ADA THERAPEUTIC TARGET < 7.0 ACTION SUGGESTED > 7.0Performed By: #### DATA1C #### [facility] [address] [place] [address] Dr. María AdornoGlucose [Mass/Vol]131 mg/dLNoWyandot Memorial HospitalComment on above:Performed By: #### DATA1C #### [facility] [address] [place] [address] Dr. María ParkA1c (Bld) [Mass fraction]6.2 %Normal4.5-6.2The [facility] HospitalComment on above:Performed By: #### DATA1C #### [facility] [address] [place] [address] Dr. María Ahumadavid-19 PCR (CVDTBH)on 66-30-1951YPBO-CoV-2 (COVID-19) RNA MARIELLA+probe Ql (Unsp spec)Not detectedNormalNOT DETECTEDThe [facility] Comment on above:Result Comment: This test is not yet approved or cleared by the [place] FDA. When there are no FDA-approved or cleared tests available, and other criteria are met, FDA can make tests available under an emergency access mechanism called an Emergency Use Authorization (EUA). The EUA for this test is supported by the [place] of Health and Human Service's (HHS's) declaration that circumstances exist to justify the emergency use of in vitro diagnostics for the detection and/or diagnosis of the virus that causes COVID- 19. This EUA will remain in effect (meaning [...] of clinical signs and symptoms consistent with SARS-CoV-2.Performed By: #### CVDTBH #### [facility] [address] [place] [address] Dr. María AdornoGLYCOHEMOGLOBIN A1Con 93-45-2164TNY RECOMMENDATIONSEE BELOWNormal The [facility] HospitalComment on above:Result Comment: ADA RECOMMENDED LIMIT 4.0 - 6.0 ADA THERAPEUTIC TARGET < 7.0 ACTION SUGGESTED > 7.0Performed By: #### DATA1C #### [facility] [address] [place] [address] Dr. María AdornoGlucose [Mass/Vol]140 mg/dLNormalThe [facility] HospitalComment on above:Performed By: #### DATA1C #### [facility] [address] [place] [address] Dr. María AdornoHbA1c (Bld) [Mass fraction]6.5 %Critically high4.5-6.2The [facility] HospitalComment on above:Performed By: #### DATA1C #### [facility] [address] [place] [address] Dr. María Antoine FAIR CBC AUTO DIFFon [id number] #0.1 103/ulNormal 0.0-0.1The [facility] HospitalComment on above:Performed By: #### CRP, BMP #### [facility] [address] [place] [address] Dr. María AdornoBasophils/100 WBC (Bld)0.9 %Normal0.2-2.0The [facility] Comment on above:Performed By: #### CRP, BMP #### [facility] [address] [address] [address] María Ortiz #0.3 103/ulNormal0.0-0.7The [facility] HospitalComment on above: Performed By: #### CRP, BMP #### [facility] [address] [place] [address] Dr. María Roachosinophils/100 WBC (Bld)3.0 %Normal0.9-7.0The [facility] Comment on above:Performed By: #### CRP, BMP #### [facility] [address] [place] [address] Dr. María Roachrythrocyte distribution width (RBC) [Ratio]11.9 %Dhugll00.0-15.0 The [facility] HospitalComment on above:Performed By: #### CRP, BMP #### [facility] [address] [place] [address] Dr. María AdornoHematocrit (Bld) [Volume fraction]45.3 %Hrtbdw58.0-48.0The Farwell HospitalComment on above:Performed By: #### CRP, BMP #### [facility] [address] [place] [address] Dr. María AdornoHemoglobin (Bld) [Mass/Vol]14.7 g/rJNjermt46.0-16.0The [facility] HospitalComment on above:Performed By: #### CRP, BMP #### [facility] [address] [place] [address] Dr. María Storm #0.04 10e3/ulCritically high0.00-0.03The [facility] Comment on above:Performed By: #### CRP, BMP #### [facility] [address] [place] [address] Dr. María Storm %0.4 %Normal0.0-0.5The [facility] HospitalComment on above: Performed By: #### CRP, BMP #### [facility] [address] [place] [address] Dr. María Diop #3.1 103/ulNormal1.2-3.8The [facility] HospitalComment on above:Performed By: #### CRP, BMP #### [facility] [address] [place] [address] Dr. María Dentmphocytes/100 WBC (Bld)32.3 %Dfcfhb99.5-60.0The [facility] HospitalComment on above:Performed By: #### CRP, BMP #### [facility] [address] [place] [address] Dr. María Chaudhry (RBC) [Entitic mass]28.9 eyEvwxxo16.7-34.0The [facility] HospitalComment on above:Performed By: #### CRP, BMP #### [facility] [address] [place] [address] Dr. María Chaudhry (RBC) [Mass/Vol]32.5 g/kZPalblz50.9-35.2The [facility] HospitalComment on above:Performed By: #### CRP, BMP #### [facility] [address] [place] [address] Dr. María Hamilton (RBC) [Entitic vol]89.2 tBDhjjii78.0-99.0The [facility] HospitalComment on above:Performed By: #### CRP, BMP #### [facility] [address] [place] [address] Dr. María Evangelista #0.8 103/ulNormal0.3-0.8The [facility] HospitalComment on above:Performed By: #### CRP, BMP #### [facility] [address] [place] [address] Dr. María Padronocytes/100 WBC (Bld)8.6 %Normal1.7-12.0The [facility] Comment on above:Performed By: #### CRP, BMP #### [facility] [address] [place] [address] Dr. María Campos #5.3 103/ulNormal1.4-6.5The [facility] HospitalComment on above:Performed By: #### CRP, BMP #### [facility] [address] [place] [address] Dr. María Marcialutrophils/100 WBC (Bld)54.8 %Svxuws55.0-75.0The [facility] on above:Performed By: #### CRP, BMP #### [facility] [address] [place] [address] Dr. María Valdeslet mean volume (Bld) [Entitic vol]12.2 fLNormal9.5-13.5The [facility] on above:Performed By: #### CRP, BMP #### [facility] [address] [place] [address] Dr. María AdornoPLT200 103/giRjduiq377-275Gsa [facility] on above: Performed By: #### CRP, BMP #### [facility] [address] [place] [address] Dr. María AdornoRBC5.08 106/ulNormal4.20-5.40The [facility] on above:Performed By: #### CRP, BMP #### [facility] [address] [place] [address] Dr. María AdornoWBC9.7 103/ulNormal4.0-11.0The [facility] on above: Performed By: #### CRP, BMP #### [facility] [address] [place] [address] Dr. María AdornoHEALTHFAIR PROFILEon 01-26-7873Jyqwkjt [Mass/Vol]3.7 g/dLNormal 3.4-5.0The [facility] on above:Performed By: #### HFPF #### [facility] [address] [place] [address] Dr. María AdornoAlbumin/Globulin [Mass ratio]1.1 {ratio}NormalThe [facility] on above:Performed By: #### HFPF #### [facility] [address] [place] [address] Dr. María ParraP [Catalytic activity/Vol]99 U/YKhdbsx08-768Jup [facility] on above:Performed By: #### HFPF #### [facility] [address] [address] [address] María ParraT [Catalytic activity/Vol]18 U/ERzwlhx75-38VbcNorwalk Memorial HospitalComhutzel women's hospital on above:Performed By: #### HFPF #### [facility] [address] [address] [address] María AdornoAST [Catalytic activity/Vol]18 U/FUyrbee95-14Mwz [facility] HospitalComment on above:Performed By: #### HFPF #### [facility] [address] [place] [address] Dr. María AdornoBilirubin [Mass/Vol]0.6 mg/dLNormal0.2-1.0[facility] Comment on above:Performed By: #### HFPF #### [facility] [address] [place] [address] Dr. María AdornoCalcium [Mass/Vol]9.3 mg/dLNormal8.5-10.1[facility] Comment on above:Performed By: #### HFPF #### [facility] [address] [place] [address] Dr. María AdornoChloride [Moles/Vol]103 mmol/LCfqfbn59-873BpiNorwalk Memorial Hospital Comment on above:Performed By: #### HFPF #### [facility] [address] [place] [address] Dr. María AdornoCHOL-HDL RATIO [facility]field HospitalComment on above:Result Comment: 3.3 - 4.4 LOW RISK 4.4 - 7.1 AVERAGE RISK 7.1 - 11.0 MODERATE RISK >11.0 HIGH RISKPerformed By: #### HFPF #### [facility] [address] [place] [address] Dr. María AdornoCholesterol [Mass/Vol]160 mg/dLNormal<=200[facility] Comment on above:Performed By: #### HFPF #### [facility] [address] [place] [address] Dr. María AdornoCholesterol in HDL [Mass/Vol]40 mg/vOIjfezz18-08Jtz [facility] HospitalComment on above:Performed By: #### HFPF #### [facility] [address] [place] [address] Dr. María AdornoCholesterol in LDL [Mass/Vol]92.0 mg/dLNoWyandot Memorial HospitalComment on above:Performed By: #### HFPF #### [facility] [address] [place] [address] Dr. María AdornoCholesterol.total/Cholesterol in HDL [Mass ratio]4.0 {ratio} NormalThe [facility] HospitalComment on above:Performed By: #### HFPF #### [facility] [address] [place] [address] Dr. María AdornoCO2 [Moles/Vol]24.6 mmol/VMflqdr98.0-32.0The [facility] Comment on above:Performed By: #### HFPF #### [facility] [address] [place] [address] Dr. María AdornoCreatinine [Mass/Vol]1.00 mg/dLNormal0.55-1.02The [facility] HospitalComment on above:Performed By: #### HFPF #### [facility] [address] [place] [address] Dr. María AdornoGlobulin (S) [Mass/Vol]3.5 g/dLNoWyandot Memorial HospitalComment on above:Performed By: #### HFPF #### [facility] [address] [place] [address] Dr. María AdornoGlucose [Mass/Vol]132 mg/dLCritically pcqk11-010Bgf [facility] HospitalComment on above:Performed By: #### HFPF #### [facility] [address] [place] [address] Dr. María Bauer NORMAL> or = 60 mg/dl - LOW CARDIOVASCULAR RISK <40 mg/dl - HIGH CARDIOVASCULAR RISKNoWyandot Memorial HospitalComment on above:Performed By: #### HFPF #### [facility] [address] [place] [address] Dr. María AdornoLDL CALC NORMALSEE BELOWAdena Fayette Medical CenterComment on above:Result Comment: <100 mg/dl OPTIMAL 100 - 129 mg/dl NEAR OR ABOVE OPTIMAL 130 - 159 mg/dl BORDERLINE HIGH 160 - 189 mg/dl HIGH >190 mg/dl VERY HIGH Performed By: #### HFPF #### [facility] [address] [address] [address] María AdornoPotassium [Moles/Vol]4.0 mmol/LNormal3.5-5.1The [facility] Comment on above:Performed By: #### HFPF #### [facility] [address] [address] [address] María AdornoProtein [Mass/Vol]7.2 g/dLNormal6.4-8.2The [facility] Comment on above:Performed By: #### HFPF #### [facility] [address] [address] [address] María AdornoSodium [Moles/Vol]138 mmol/HInyyiz842-203Nzu [facility] Comment on above:Performed By: #### HFPF #### [facility] [address] [address] [address] María AdornoTriglyceride [Mass/Vol]140 mg/dLNormal<=150The [facility] Comment on above:Performed By: #### HFPF #### [facility] [address] [address] [address] María AdornoTSH2.537 uIU/mLNormal0.358-3.740The [facility] HospitalComment on above:Performed By: #### HFPF #### [facility] [address] [address] [address] María AdornoUrea nitrogen [Mass/Vol]17.0 mg/dLNormal7.0-18.0The [facility] HospitalComment on above:Performed By: #### HFPF #### [facility] [address] [address] [address] María AdornoUrea nitrogen/Creatinine [Mass ratio]17.0 mg/mgNoWyandot Memorial HospitalComment on above:Performed By: #### HFPF #### [facility] [address] [address] [address] María AdornoVLDL CALC28.0 mg/dLNoWyandot Memorial HospitalComment on above: Performed By: #### HFPF #### [facility] [address] [address] [address] María AdornoMG MAMM SCREEN 3D CHINO CADon 82-86-2443HV MAMM SCREEN 3D CHINO CAD Patient: EDVIN SMITH Exam Date: 10/19/2021 : 1960 Gender:F Ordering : DR ETHAN GARCIA D.O. Admission #: [id number] Family : Order #: [id number] CLICK HERE TO VIEW EXAM RADIOLOGY REPORT [...] Treatments None Family Cancers None LOCATION: [facility] BREAST COMPOSITION: Heterogeneously dense,which may obscure [...] PALPABLE LUMP SHOULD BE BIOPSIED. Dictated by: Jonah Mcqueen M.D. on 10/20/2021 at 14:50 Approved by: Jonah Mcqueen M.D. on 10/20/2021 at 14:56[facility] AUTO DIFFon [id number] #0.1 103/ulNormal0.0-0.1The [facility] on above:Performed By: #### CBC #### [facility] [address] [address] [address] María AdornoBasophils/100 WBC (Bld)0.8 %Normal0.2-2.0[facility] Comment on above:Performed By: #### CBC #### [facility] [address] [address] [address] María Ortiz #0.3 103/ulNormal0.0-0.7The [facility] HospitalComment on above: Performed By: #### CBC #### [facility] [address] [place] [address] Dr. María Roachosinophils/100 WBC (Bld)2.5 %Normal0.9-7.0The [facility] Comment on above:Performed By: #### CBC #### [facility] [address] [place] [address] Dr. María Roachrythrocyte distribution width (RBC) [Ratio]12.1 %Bimxaq40.0-15.0 The [facility] HospitalComment on above:Performed By: #### CBC #### [facility] [address] [place] [address] Dr. María AdornoHematocrit (Bld) [Volume fraction]42.6 %Hzsijt41.0-48.0The [facility] HospitalComment on above:Performed By: #### CBC #### [facility] [address] [place] [address] Dr. María AdornoHemoglobin (Bld) [Mass/Vol]14.1 g/kHDgauga72.0-16.0The [facility] HospitalComment on above:Performed By: #### CBC #### [facility] [address] [place] [address] Dr. María Storm #0.04 10e3/ulCritically high0.00-0.03The [facility] Comment on above:Performed By: #### CBC #### [facility] [address] [place] [address] Dr. María Storm %0.3 %Normal0.0-0.5The [facility] HospitalComment on above: Performed By: #### CBC #### [facility] [address] [address] [address] María Diop #3.3 103/ulNormal1.2-3.8The [facility] HospitalComment on above:Performed By: #### CBC #### [facility] [address] [address] [address] María Hannonhocytes/100 WBC (Bld)24.4 %Wgjhtq82.5-60.0The [facility] HospitalComment on above:Performed By: #### CBC #### [facility] [address] [address] [address] María Sharma DIFF REQNONormalThe [facility] HospitalComment on above: Performed By: #### CBC #### [facility] [address] [address] [address] María Mccord (RBC) [Entitic mass]29.6 rpZxppri42.7-34.0The [facility] HospitalComment on above:Performed By: #### CBC #### [facility] [address] [address] [address] María Chaudhry (RBC) [Mass/Vol]33.1 g/kKAzegod19.9-35.2The [facility] HospitalComment on above:Performed By: #### CBC #### [facility] [address] [address] [address] María Chaudhry (RBC) [Entitic vol]89.5 zUUuhbix56.0-99.0The [facility] HospitalComment on above:Performed By: #### CBC #### [facility] [address] [address] [address] María Evangelista #1.0 103/ulCritically high0.3-0.8The [facility] Comment on above:Performed By: #### CBC #### [facility] [address] [address] [address] María Padronocytes/100 WBC (Bld)7.8 %Normal1.7-12.0The [facility] Comment on above:Performed By: #### CBC #### [facility] [address] [address] [address] María Campos #8.6 103/ulCritically high1.4-6.5The [facility] Comment on above:Performed By: #### CBC #### [facility] [address] [place] [address] Dr. María Marcialutrophils/100 WBC (Bld)64.2 %Iyvtpp54.0-75.0[facility] HospitalComment on above:Performed By: #### CBC #### [facility] [address] [place] [address] Dr. María De La Torre mean volume (Bld) [Entitic vol]11.7 fLNormal9.5-13.5The [facility] HospitalComment on above:Performed By: #### CBC #### [facility] [address] [place] [address] Dr. María AdornoPLT197 103/nfHiddxv126-878Fzz [facility] HospitalComment on above: Performed By: #### CBC #### [facility] [address] [place] [address] Dr. María AdornoRBC4.76 106/ulNormal4.20-5.40The [facility] HospitalComment on above:Performed By: #### CBC #### [facility] [address] [place] [address] Dr. María AdornoWBC13.3 103/ulCritically high4.0-11.0[facility] HospitalComment on above:Performed By: #### CBC #### [facility] [address] [place] [address] Dr. María Oh 85-26-7464IZV0.3 mg/dLNormal<=1.0The [facility] Comment on above:Performed By: #### CRP, BMP #### [facility] [address] [place] [address] Dr. María AdornoPROF CHEM 8 (BAS METB)on 87-70-0171Ygven gap [Moles/Vol]11.6 mmol/LNormalThe [facility] HospitalComment on above:Performed By: #### CRP, BMP #### [facility] [address] [place] [address] Dr. María AdornoCalcium [Mass/Vol]9.6 mg/dLNormal8.5-10.1[facility] Comment on above:Performed By: #### CRP, BMP #### [facility] [address] [address] [address] María AdornoChloride [Moles/Vol]105 mmol/FYornof65-588EttNorwalk Memorial Hospital Comment on above:Performed By: #### CRP, BMP #### [facility] [address] [place] [address] Dr. aMría AdornoCO2 [Moles/Vol]27.6 mmol/ICjsiwf57.0-32.0[facility] Comment on above:Performed By: #### CRP, BMP #### [facility] [address] [place] [address] Dr. María AdornoCreatinine [Mass/Vol]1.12 mg/dLCritically high0.55-1.02The [facility] HospitalComment on above:Performed By: #### CRP, BMP #### [facility] [address] [place] [address] Dr. Daniel ChangEGFR-AF PTRRKPOB32 mL/min/1.81w8Ptymta>=60[facility] Comment on above:Performed By: #### CRP, BMP #### [facility] [address] [place] [address] Dr. María RoachGFR-NON AF ECPXPWAC79 mL/min/1.33y1Qohzfxigud low>=60The [facility] HospitalComment on above:Performed By: #### CRP, BMP #### [facility] [address] [place] [address] Dr. María AdornoGlucose [Mass/Vol]151 mg/dLCritically rhta77-163Fxj [facility] HospitalComment on above:Performed By: #### CRP, BMP #### [facility] [address] [address] [address] María AdornoPotassium [Moles/Vol]4.2 mmol/LNormal3.5-5.1The [facility] Comment on above:Performed By: #### CRP, BMP #### [facility] [address] [place] [address] Dr. María Easleydium [Moles/Vol]140 mmol/WZyhcai553-601Cok [facility] Comment on above:Performed By: #### CRP, BMP #### [facility] [address] [place] [address] Dr. María AdornoUrea nitrogen [Mass/Vol]19.0 mg/dLCritically high7.0-18.0The [facility] HospitalComment on above:Performed By: #### CRP, BMP #### [facility] [address] [place] [address] Dr. María Benavides nitrogen/Creatinine [Mass ratio]17.0 mg/mgNormalThe [facility] HospitalComment on above:Performed By: #### CRP, BMP #### [facility] [address] [place] [address] Dr. María Felix RATE WESTERGRENon 39-31-8446IJL RATE47 mm/hrCritically high <=30The [facility] HospitalComment on above:Performed By: #### CRP, BMP #### [facility] [address] [place] [address] Dr. María Mustafa AUTO DIFFon 93-16-6828ZKMD #0.1 103/ulNormal0.0-0.1The [facility] HospitalComment on above:Performed By: #### CRP, BMP #### [facility] [address] [place] [address] Dr. María AdornoBacesarphils/100 WBC (Bld)0.7 %Normal0.2-2.0The [facility] Comment on above:Performed By: #### CRP, BMP #### [facility] [address] [place] [address] Dr. Daniel ChangEO #0.3 103/ulNormal0.0-0.7The [facility] HospitalComment on above: Performed By: #### CRP, BMP #### [facility] [address] [place] [address] Dr. María Roachosinophils/100 WBC (Bld)2.4 %Normal0.9-7.0The [facility] Comment on above:Performed By: #### CRP, BMP #### [facility] [address] [place] [address] Dr. María Roachrythrocyte distribution width (RBC) [Ratio]12.4 %Louhun09.0-15.0 The [facility] HospitalComment on above:Performed By: #### CRP, BMP #### [facility] [address] [place] [address] Dr. María AdornoHematocrit (Bld) [Volume fraction]40.6 %Wlprdq58.0-48.0The [facility] HospitalComment on above:Performed By: #### CRP, BMP #### [facility] [address] [place] [address] Dr. María AdornoHemoglobin (Bld) [Mass/Vol]13.2 g/gKMmunob56.0-16.0The [facility] HospitalComment on above:Performed By: #### CRP, BMP #### [facility] [address] [place] [address] Dr. María Storm #0.04 10e3/ulCritically high0.00-0.03The [facility] Comment on above:Performed By: #### CRP, BMP #### [facility] [address] [place] [address] Dr. María Storm %0.3 %Normal0.0-0.5The [facility] HospitalComment on above: Performed By: #### CRP, BMP #### [facility] [address] [place] [address] Dr. María Diop #3.1 103/ulNormal1.2-3.8The [facility] HospitalComment on above:Performed By: #### CRP, BMP #### [facility] [address] [place] [address] Dr. María Dentmphocytes/100 WBC (Bld)25.8 %Nrijbv47.5-60.0The [facility] HospitalComment on above:Performed By: #### CRP, BMP #### [facility] [address] [place] [address] Dr. María Sharma DIFF REQNONormalThe [facility] HospitalComment on above: Performed By: #### CRP, BMP #### [facility] [address] [place] [address] Dr. María Chaudhry (RBC) [Entitic mass]29.9 rfDbencd41.7-34.0The [facility] HospitalComment on above:Performed By: #### CRP, BMP #### [facility] [address] [place] [address] Dr. María Chaudhry (RBC) [Mass/Vol]32.5 g/rTZxfkys65.9-35.2The [facility] HospitalComment on above:Performed By: #### CRP, BMP #### [facility] [address] [place] [address] Dr. María Chaudhry (RBC) [Entitic vol]91.9 eBNxdpvs05.0-99.0The [facility] HospitalComment on above:Performed By: #### CRP, BMP #### [facility] [address] [place] [address] Dr. María Evangelista #1.1 103/ulCritically high0.3-0.8ThSal[facility] Comment on above:Performed By: #### CRP, BMP #### [facility] [address] [place] [address] Dr. María Padronocytes/100 WBC (Bld)9.1 %Normal1.7-12.0[facility] Comment on above:Performed By: #### CRP, BMP #### [facility] [address] [place] [address] Dr. María Campos #7.3 103/ulCritically high1.4-6.5The [facility] Comment on above:Performed By: #### CRP, BMP #### [facility] [address] [address] [address] María AdornoNeutrophils/100 WBC (Bld)61.7 %Uqmpjl43.0-75.0The [facility] HospitalComment on above:Performed By: #### CRP, BMP #### [facility] [address] [address] [address] María De La Torre mean volume (Bld) [Entitic vol]11.5 fLNormal9.5-13.5The [facility] HospitalComment on above:Performed By: #### CRP, BMP #### [facility] [address] [address] [address] María AdornoPLT198 103/cvHguynz518-248Jnw [facility] HospitalComment on above: Performed By: #### CRP, BMP #### [facility] [address] [place] [address] Dr. María AdornoRBC4.42 106/ulNormal4.20-5.40The [facility] HospitalComment on above:Performed By: #### CRP, BMP #### [facility] [address] [place] [address] Dr. María AdornoWBC11.8 103/ulCritically high4.0-11.0The [facility] HospitalComhutzel [facility] on above:Performed By: #### CRP, BMP #### [facility] [address] [place] [address] Dr. María Oh 00-46-6111SBV8.5 mg/dLCritically high<=1.0The [facility] HospitalComment on above:Performed By: #### BMP, CRP #### [facility] [address] [place] [address] Dr. María Raya CHEM 8 (BAS METB)on 79-44-6133Jytyq gap [Moles/Vol]12.8 mmol/LNormalThe [facility] HospitalComment on above:Performed By: #### CRP, BMP #### [facility] [address] [place] [address] Dr. María AdornoCalcium [Mass/Vol]9.2 mg/dLNormal8.5-10.1The [facility] Comment on above:Performed By: #### CRP, BMP #### [facility] [address] [place] [address] Dr. María AdornoChloride [Moles/Vol]102 mmol/XWkvjbm69-501Zwm [facility] Comment on above:Performed By: #### CRP, BMP #### [facility] [address] [place] [address] Dr. María AdornoCO2 [Moles/Vol]28.2 mmol/UJogzeh61.0-32.0The [facility] Comment on above:Performed By: #### CRP, BMP #### [facility] [address] [place] [address] Dr. María AdornoCreatinine [Mass/Vol]0.91 mg/dLNormal0.55-1.02The [facility] HospitalComment on above:Performed By: #### CRP, BMP #### [facility] [address] [place] [address] Dr. María RoachGFR-AF HUNGARIAN>60Normal>=60The [facility] HospitalComment on above:Performed By: #### CRP, BMP #### [facility] [address] [place] [address] Dr. María RoachGFR-NON AF HUNGARIAN>60Normal>=60The [facility] HospitalComment on above:Performed By: #### CRP, BMP #### [facility] [address] [place] [address] Dr. María AdornoGlucose [Mass/Vol]150 mg/dLCritically lave29-915Ioj [facility] HospitalComment on above:Performed By: #### CRP, BMP #### [facility] [address] [place] [address] Dr. María AdornoPotassium [Moles/Vol]4.0 mmol/LNormal3.5-5.1The [facility] Comment on above:Performed By: #### CRP, BMP #### [facility] [address] [place] [address] Dr. María AdornoSodium [Moles/Vol]139 mmol/TFirfhl122-095Mmv [facility] Comment on above:Performed By: #### CRP, BMP #### [facility] [address] [address] [address] María Benavides nitrogen [Mass/Vol]23.0 mg/dLCritically high7.0-18.0[facility] Memorial HospitalComment on above:Performed By: #### CRP, BMP #### [facility] [address] [address] [address] María Benavides nitrogen/Creatinine [Mass ratio]25.3 mg/mgNormalThe [facility] HospitalComment on above:Performed By: #### CRP, BMP #### [facility] [address] [address] [address] María AdornoOrthopedichapis Progress Noteon 34-20-2494Liftfqjoga Progress NoteThis is a preliminary report only. This report will be final only after practitioner review and authentication has occurred. [facility] Patient: EDVIN SMITH [address] [place] [address] MR#: [id number] PROGRESS NOTE - Orthopedic : 58 Service Date: 08/10/21 1649 Assessment and Plan - ICD10 Problem List 1. Status post lumbar spine surgery for decompression of spinal cord 2. S/P lumbar laminectomy Electronically Signed eSign Date and Time Mark Harp. [facility] HospitalBASIC MET PANELon 13-70-3699Ungaj gap [Moles/Vol]7 mmol/LNormal6-18St. [facility] HospitalComment on above:Performed By: #### L500.81957, L500.69656 ####Test performed at: [address] [address]Calcium [Mass/Vol]8.5 mg/dLNormal8.5-10.1St. [facility] HospitalComment on above:Performed By: #### L500.90506, L500.04119 ####Test performed at: [facility], [place] [address]Cbssznnw [Moles/Vol]108 mmol/UQxsz71-379Fx. [facility] HospitalComment on above:Performed By: #### L500.44520, L500.59480 ####Test performed at: [address] [address] [place], [place] [address]PC0 [Moles/Vol]29 mmol/FQahhet51-26Cx. [facility] Comment on above:Performed By: #### L500.62481, L500.29961 ####Test performed at: [address] [address] [place], [place] [address] Creatinine [Mass/Vol]0.862 mg/dLNormal0.550-1.020St. [facility] HospitalComment on above:Performed By: #### L500.31806, L500.38429 ####Test performed at: [address] [address] [place], [place] [address]Llubfus [Mass/Vol]123 mg/rBFwuf27-91Ax. [facility] Comment on above:Result Comment: Fasting GLUCOSE reference range has been updated per (ADA) [place] [employer]'s recommendation. 06/26/2018Performed By: #### L500.79891, L500.23218 ####Test performed at: [address] [address] [place], [place] [address]IDB761 mosm/ehOilomo684-760Fk. [facility] HospitalComment on above:Performed By: #### L500.31542, L500.20992 ####Test performed at: [address] [address] [place], [place] [address]Csotjpokm [Moles/Vol]4.4 mmol/LNormal3.5-5.1St. [facility] HospitalComment on above:Performed By: #### L500.30129, L500.33598 ####Test performed at: [address] [address]Urpeex [Moles/Vol]140 mmol/BRwxctq736-330Wh. [facility] HospitalComment on above:Performed By: #### L500.73508, L500.74547 ####Test performed at: [address] [address]Zmhy nitrogen [Mass/Vol]22 mg/dLHigh7-18St. [facility] HospitalComment on above:Performed By: #### L500.60790, L500.48198 ####Test performed at: [address] [address]VYC W/DIFFon 53-57-8865JMCW ABS0.0 K/uLNormal0.0-0.2St. [facility] HospitalComment on above:Performed By: #### L200.65101 ####Test performed at: [address] [address]Poaedxgyj/100 WBC (Bld)0.2 %NormalSt. [facility] Regional HospitalComment on above:Performed By: #### L200.55651 ####Test performed at: [address] [address] EOS ABS0.0 K/uLNormal0.0-0.5St. [facility] HospitalComment on above: Performed By: #### L200.46994 ####Test performed at: [address] [address]Nlextvkjwrw/100 WBC (Bld)0.2 % NormalSt. [facility] Regional HospitalComment on above:Performed By: #### L200.39532 ####Test performed at: [address] [address]Mhrligsieuk distribution width (RBC) [Ratio]12.6 % Rhwqkn14.5-14.5St. [facility] HospitalComment on above:Performed By: #### L200.60756 ####Test performed at: [address] [address]Kzpgwckwwk (Bld) [Volume fraction]32.5 %Low 36.0-48.0St. [facility] HospitalComment on above:Performed By: #### L200.64638 ####Test performed at: [address] [address]Sqebgybwlb (Bld) [Mass/Vol]10.9 g/dLLow12.0-15.0 [facility] CenterComment on above:Performed By: #### L200.34860 ####Test performed at: [address] [address]HY %0.3 %NormalSt. [facility] HospitalComment on above:Performed By: #### L200.59669 ####Test performed at: [address] [address]RR ABS0.04 K/uLNormal 0-0.05St. [facility] HospitalComment on above:Performed By: #### L200.88487 ####Test performed at: [address] [address]Plqikgnzpvf (Bld) [#/Vol]2.7 10*3/uLNormal1.2-3.5 [facility] CenterComment on above:Performed By: #### L200.75107 ####Test performed at: [address] [address]Plawkcxhcnu/100 WBC (Bld)22.4 %NormalSt. [facility] Regional HospitalComment on above:Performed By: #### L200.96584 ####Test performed at: [address] [address] MCH (RBC) [Entitic mass]29.9 zaLfznyq16.4-34.6St. [facility] Comment on above:Performed By: #### L200.89027 ####Test performed at: [address] [address]KHMM (RBC) [Mass/Vol]33.5 g/eKVektgy07.5-36.5St. [facility] Comment on above:Performed By: #### L200.22345 ####Test performed at: [address] [address]IZV (RBC) [Entitic vol]89.3 nFXpnxfq93.0-98.0St. [facility] HospitalComment on above:Performed By: #### L200.48521 ####Test performed at: [address] [address]ODJD ABS1.1 K/uLHigh 0.0-1.0St. [facility] HospitalComment on above:Performed By: #### L200.89242 ####Test performed at: [address] [address]Phgeohiaa/100 WBC (Bld)9.4 %NormalSt. [facility] Regional HospitalComment on above:Performed By: #### L200.30158 ####Test performed at: [address] [address]AWEMUJBNJA ABS8.1 K/uLHigh1.4-6.6St. [facility] Comment on above:Performed By: #### L200.90929 ####Test performed at: [address] [address] Neutrophils/100 WBC (Bld)67.5 %NormalSt. [facility] Regional HospitalComment on above:Performed By: #### L200.64272 ####Test performed at: [address] [address]UTXF #0.000 K/uL Normal0-0.012St. [facility] HospitalComment on above:Performed By: #### L200.30117 ####Test performed at: [address] [address]XVNC %0.0 /100 WBCNormal0-0.2St. [facility] HospitalComment on above:Performed By: #### L200.47611 ####Test performed at: [address] [address]Iyvhwkkv mean volume (Bld) [Entitic vol]12.5 fLHigh8.7-12.4St. [facility] HospitalComment on above:Performed By: #### L200.58807 ####Test performed at: [address] [address]Vmwukdyev (Bld) [#/Vol]122 10*3/eDQab204-294Th. [facility] HospitalComment on above:Performed By: #### L200.75309 ####Test performed at: [address] [address] RBC (Bld) [#/Vol]3.64 10*6/uLNormal3.5-5.5St. [facility] Comment on above:Performed By: #### L200.22752 ####Test performed at: [address] [address]SSG (Bld) [#/Vol]12.1 10*3/uLHigh3.9-11.0St. [facility] HospitalComment on above:Performed By: #### L200.41388 ####Test performed at: [address] [address]Xnwcxylmk CCD Assessment on 31-05-7809Shkhpjvsw CCD AssessmentSt. [facility] Patient: EDVIN SMITH [address] [place] [id number] MR#: [id number] DISCHARGE CCD ASSESSMENT : 58 Service Date: 08/08/21 1121 Discharge CCD Assessment Assessment Patient discharged home to continue pain control, wound care, and exercises. Electronically Signed eSign Date and Time Mark Harp 08/08/21 1122 Santi RoldanalSt. [facility] Regional HospitalGFR ESTIMATEon 14-77-1782ZZ AMER> 60Normal> 60St. [facility] HospitalComment on above:Result Comment: eGFR (Estimated GFR) Units of measure:mL/min/1.73 meters sq. *CALCULATION REVISED 01/20/2015;IDMS-traceable MDRD equation eGFR is derived from the reexpressed MDRD Study equation using the following parameters: serum creatinine, age, gender and race. An eGFR<60 mL/min/1.73m2 for >3 months is consistent with chronic kidney disease. Refer to KDOQI guidelines for clinical interpretation.Performed By: #### L500.19146, L500.03355 ####Test performed at: [address] [address]IF non-AFR AMER> 60Normal> 60St. [facility] HospitalComment on above:Performed By: #### L500.52024, L500.75909 ####Test performed at: [address] [address]Internal Med Progress Noteon 72-42-2332Vegnwpeg Med Progress NoteSt. [facility] Patient: EDVIN SMITH [address] [place] [address] MR#: [id number] PROGRESS NOTE - Internal Medicine : 58 Service Date: 08/08/21 0716 Subjective Summary of Stay Ms. Smith is a 60 y/o F with a PMHx of HTN, GERD and S/p cholecystectomy who is now s /p bilteral lumbar L 2-L 5 decompressive laminectomy POD# 2. Pt has [address] with 160 cc drained for the past 24 hrs. Has no wilson. She was able to get out of [...] 16 08/08 0752 O2 Flow Rate 3 06 1803 Intake AND Output Verdana 4d 08/08 [...] Sensation Intact Psych/Mental Status Mental Status NL Assessment/Plan-Internal Med Problem List 1. Status post lumbar [...] cc drain for past 24 hrs. No Wilson * Labs: Hgb 12.4 -> 10.9 , [...] Central Line? No Does Patient have a [place]? No *Attending Attestation Attending Attestation Attending Attestation All pertinent elements of history and physical exam were confirmed by me. Agree with above documentation. The [resident's, PA's, THRILL PERFORMER's] assessment and plan reflect my input. Discussed with documenting provider and patient. Plan is as outlined above. Electronically Signed eSign Date and Time [place] Donald E. MD 08/08/21 1603NormalSt. [facility] Regional Hospitalz PT Inpatient Progress Noteon 08-08-2021z PT Inpatient Progress NoteSt. [facility] Patient: EDVIN SMITH [address] [place] [address] MR#: [id number] PT INPATIENT PROGRESS NOTE : 58 Service Date: 08/08/21 1050 Inpatient PT HPI Date of Service 08/08/21 Time In: 1001 Time Out: 1035 Total Treatment Time (Mins) 51 Room Number 534 Current Visit Originally in the patient room from and took the patient for a short walk, patient citing increased pain and would like TAKE AWAY MAN to return after breakfast. TAKE AWAY MAN returned at above stated times for completion [...] Signed eSign Date and Time [place] TAKE AWAY MAN 08/08/21 1101 Norma Diaz PTNormalSt. [facility] Regional HospitalAnesthesia Noteon 39-73-3748Wbesdebdlr NoteSt. [facility] Patient: EDVIN SMITH [address] [place] [address] MR#: [id number] ANESTHESIA NOTE : Service Date: 08/07/21 0755 [...] and Time Jon Pradhan 08/07/21 0755 Marsha MilleralSmargarita. [facility] HospitalBASIC MET PANELon 68-45-8001Amvtv gap [Moles/Vol]8 mmol/LNormal6-18St. [facility] HospitalComment on above:Performed By: #### L500.91214, L500.20951 ####Test performed at: [address] [address]Jjebhvw [Mass/Vol]8.8 mg/dLNormal8.5-10.1St. [facility] HospitalComment on above:Performed By: #### L500.18276, L500.67365 ####Test performed at: [address] [address]Qowiyrbb [Moles/Vol]109 mmol/QOczx50-474On. [facility] HospitalComment on above:Performed By: #### L500.03614, L500.75788 ####Test performed at: [address] [address]LA2 [Moles/Vol]27 mmol/SAwavpr01-55Aj. [facility] Comment on above:Performed By: #### L500.84787, L500.04195 ####Test performed at: [address] [address] Creatinine [Mass/Vol]0.967 mg/dLNormal0.550-1.020St. [facility] HospitalComment on above:Performed By: #### L500.92943, L500.86984 ####Test performed at: [address] [address]Upgkiyf [Mass/Vol]178 mg/kSNcvc38-18Lf. [facility] Comment on above:Result Comment: Fasting GLUCOSE reference range has been updated per (ADA) [place] [employer]'s recommendation. 06/26/2018Performed By: #### L500.27891, L500.87050 ####Test performed at: [address] [address]HYO365 mosm/byWvmyvk528-822Yr. [facility] HospitalComment on above:Performed By: #### L500.08524, L500.16316 ####Test performed at: [address] [address]Usbgflyml [Moles/Vol]4.5 mmol/LNormal3.5-5.1St. [facility] HospitalComment on above:Performed By: #### L500.35027, L500.31960 ####Test performed at: [address] [address]Ipakkc [Moles/Vol]140 mmol/XOtozcw486-971Ds. [facility] HospitalComment on above:Performed By: #### L500.74936, L500.72524 ####Test performed at: [address] [address]Pady nitrogen [Mass/Vol]18 mg/dLNormal7-18St. [facility] HospitalComment on above:Performed By: #### L500.76263, L500.72610 ####Test performed at: [address] [address]OKX W/DIFFon 32-38-9734JSPW ABS0.0 K/uLNormal0.0-0.2St. [facility] HospitalComment on above:Performed By: #### L200.68283 #### Test performed at: [address] [address]Uimdbunky/100 WBC (Bld)0.1 %NormalSt. [facility] Regional HospitalComment on above:Performed By: #### L200.58799 #### Test performed at: [address] [address]ZHR ABS0.0 K/uLNormal0.0-0.5St. [facility] HospitalComment on above:Performed By: #### L200.45316 #### Test performed at: [address] [address]Vbtlavdyzkm/100 WBC (Bld)0.0 %NormalSt. [facility] Regional HospitalComment on above:Performed By: #### L200.05812 #### Test performed at: [address] [address]Puegprxmvjl distribution width (RBC) [Ratio]12.0 %Normal 11.5-14.5St. [facility] HospitalComment on above:Performed By: #### L200.89300 #### Test performed at: [address] [address]Poefuegyxt (Bld) [Volume fraction]35.2 %Low36.0-48.0St. [facility] HospitalComment on above:Performed By: #### L200.53670 #### Test performed at: [address] [address]Jsjrchwiof (Bld) [Mass/Vol]12.1 g/qDTtuafgzr95.0-15.0St. [facility] HospitalComment on above:Result Comment: Delta: 14.9 on 08/03/21-1355Performed By: #### L200.84242 #### Test performed at: [address] [address]SS %0.5 %NormalSt. [facility] Regional HospitalComment on above:Performed By: #### L200.20080 #### Test performed at: [place] [address] ABS0.06 K/uLHigh0-0.05St. [facility] Comment on above:Performed By: #### L200.24134 #### Test performed at: [address] [place] [address]Lymphocytes (Bld) [#/Vol]1.0 10*3/uLLow1.2-3.5St. [facility] HospitalComment on above:Performed By: #### L200.67038 #### Test performed at: [address] [address]Kylfotuqgwp/100 WBC (Bld)7.7 %NormalSt. [facility] HospitalComment on above:Performed By: #### L200.84895 #### Test performed at: [address] (RBC) [Entitic mass]30.2 abOiodum53.4-34.6St. [facility] Regional HospitalComment on above:Performed By: #### L200.78506 #### Test performed at: [place] [id number] (RBC) [Mass/Vol]34.4 g/nGYfiulp48.5-36.5St. [facility] HospitalComment on above:Performed By: #### L200.35973 #### Test performed at: [place] [id number] (RBC) [Entitic vol]87.8 fFAamtxu26.0-98.0St. [facility] HospitalComment on above:Performed By: #### L200.12080 #### Test performed at: [address] [address]OAYZ ABS0.3 K/uLNormal0.0-1.0St. [facility] HospitalComment on above:Performed By: #### L200.32529 #### Test performed at: [address] [address]Lttnvmvkw/100 WBC (Bld)2.7 %NormalSt. Ridgecrest Regional HospitalComment on above:Performed By: #### L200.45950 #### Test performed at: [address] [address]XFPLMHZAIU ABS11.0 K/uLHigh1.4-6.6St. [facility] HospitalComment on above:Performed By: #### L200.73227 #### Test performed at: [address] [address]Rwitrkqwqdi/100 WBC (Bld)89.0 %NormalSt. Ridgecrest Regional HospitalComment on above:Performed By: #### L200.37119 #### Test performed at: [address] [address]ZRJU #0.000 K/uLNormal0-0.012St. [facility] HospitalComment on above:Performed By: #### L200.35257 #### Test performed at: [address] [address]KIEI %0.0 /100 WBCNormal0-0.2St. [facility] HospitalComment on above:Performed By: #### L200.39402 #### Test performed at: [address] [address]Dpcsyerh mean volume (Bld) [Entitic vol]12.1 fLNormal 8.7-12.4St. [facility] HospitalComment on above:Performed By: #### L200.51492 #### Test performed at: [address] [address]Rbmpatubq (Bld) [#/Vol]140 10*3/wDYuobfx242-637Id. [facility] HospitalComment on above:Performed By: #### L200.18757 #### Test performed at: [address] [address]VDM (Bld) [#/Vol]4.01 10*6/uLNormal3.5-5.5St. [facility] HospitalComment on above:Performed By: #### L200.22423 #### Test performed at: [address] [address]MBS (Bld) [#/Vol]12.4 10*3/uLHigh3.9-11.0St. [facility] HospitalComment on above:Performed By: #### L200.53273 #### Test performed at: [address] [address]GNV ESTIMATEon 32-38-4413ZR AMER> 60Normal> 60St. [facility] HospitalComment on above:Result Comment: eGFR (Estimated GFR) Units of measure:mL/min/1.73 meters sq. *CALCULATION REVISED 01/20/2015;IDMS-traceable MDRD equation eGFR is derived from the reexpressed MDRD Study equation using the following parameters: serum creatinine, age, gender and race. An eGFR<60 mL/min/1.73m2 for >3 months is consistent with chronic kidney disease. Refer to KDOQI guidelines for clinical interpretation.Performed By: #### L500.81476, L500.39771 ####Test performed at: [address] [address]DU non-AFR JFKK51Mun> 60[facility] Comment on above:Performed By: #### L500.70494, L500.25476 ####Test performed at: [place] [address] [place], [place] [address] Internal Med Progress Noteon 18-99-1784Oszvzunl Med Progress NoteSt. [facility] Patient: EDVIN SMITH [address] [place] [id number] MR#: [id number] PROGRESS NOTE - Internal Medicine : 59 Service Date: 08/07/21 07 Subjective Summary of Stay Ms. Smith is a 60 y/o F with a PMHx of HTN, GERD and S/p cholecystectomy who is now s /p bilteral lumbar L 2-L 5 decompressive laminectomy POD# 1. Pt has [address] with 30 cc drained overnight, wilson was removed. She was able to get out of bed and amultate last nign. Escobar an episode of vomiting, butthis morning she denied any nausea. C/o post op pain /. There were no cardiac events on the [...] Delivery NASAL CANNULA 08/07 699 Temp 36.6 05/07 0700 Pulse 64 05/07 0700 Resp 18 08/07 0700 O2 Flow Rate 3 08/06 1803 Intake [...] POC Glucose (70 - 99 mg/dL) 123 Assessment/Plan-Internal Med Problem List 1. Status post lumbar [...] surgical drains in situ, minmal discharge. No Wilson * labs: Hgb 14.9 -> 12.4, leukocytes [...] Central Line? No Does Patient have a Wilson? No *Attending Attestation Attending Attestation Attending Attestation All pertinent elements of history and physical exam were confirmed by me. Agree with above documentation. The [resident's, PA's, THRILL PERFORMER's] assessment and plan reflect my input. Discussed with documenting provider and patient. Plan is as outlined above. Electronically Signed eSign Date and Time [place] Fult[place] (more content not included)...NormalSt. Ridgecrest Regional HospitalOT Therapy Recommendationson 14-89-2559NM Therapy RecommendationsSt. [facility] Patient: EDVIN SMITH [address] [place] [id number] MR#: [id number] OT THERAPY RECOMMENDATIONS : 58 Service Date: 08/07/21 1323 Therapy Recommendations Therapy Recommendations Recommendations Recommend pt d/c home with increased assist from spouse once medically cleared. Pt able to verbalize and demonstrate precautions and adapted techniques for management of ADLs. Electronically Signed eSign Date and Time Kourtney Singh 08/07/21 1324NormalSt. [facility] Orthopedic Progress Noteon 18-69-8196Gaavslllrm Progress NoteSt. [facility] Patient: EDVIN SMITH [address] [place] [id number] MR#: [id number] PROGRESS NOTE - Orthopedic : 58 Service [...] Result Date Time Pulse Ox 96 08/07 0700 B/P 106/56 08/07 0700 O2 Delivery NASAL CANNULA 08/07 699 Temp 36.6 08/07 07 Pulse 64 08/07 07 Resp 18 08/07 [...] and Time Mark Harp 08/07/21 1235 Santi RoldanalSmargarita. [facility] Hospitalz OT Inpatient Evaluationon 08-07-2021z OT Inpatient EvaluationSt. 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 Pt has large dog and spouse [...] pleasant, alert, and cooperativ (more content not included)...Normal [facility] PT Inpatient Evaluationon 08-07-2021z PT Inpatient EvaluationSt. [facility] Patient: EDVIN SMITH [address] [place] [address] MR#: [id number] PT INPATIENT EVALUATION : 58 Service Date: 08/07/21 1127 Inpatient PT HPI Date of Service 08/07/21 Time In: 0945 Time Out: 1025 Total Treatment Time (Mins) 40 Room Number 534 Visit Reason LUMBAR STENOSIS Surgery Type: [place] L2-S1 decompression lami Surgery Date: 08/06/21 Referral Date 08/06/21 Tx Diagnosis: LOW BACK PAIN Insurance Name [facility] Hospital Course 60 y.o female at [facility] for above sx d/t lumbar stenosis /c [...] provide some assist upon d/c and her mandaeism friends may assist /c some meals. Objective [...] pt demonstrates ability to (more content not included)...NormalSt. Ridgecrest Regional Hospitalz PT Inpatient Progress Noteon 08-07-2021z PT Inpatient Progress NoteSt. [facility] Patient: EDVIN SMITH [address] [place] [address] MR#: [id number] PT INPATIENT PROGRESS NOTE : 59 Service [...] Signed eSign Date and Time [place] TAKE AWAY MAN 08/07/21 1315 Norma Diaz PTNormalSt. [facility]st Regional HospitalCardiology Consultationon 38-75-0068Irqqtagrax ConsultationSt. [facility] Patient: EDVIN SMITH [address] [place] [address] MR#: [id number] CONSULTATION - Cardiology : Service Date: 08/06/21 [...] Action: Continued on 08/06/21 1500 by [place] FULTON Review of Systems Review of Systems Constitutional [...] Cassandra Caruso RES, Robert J. MD 08/07/[address] [facility] 30-17-5613PfitkdsbvsfskqwwpTlltocvf on 08/06/2021 1411 Vent. Rate : 101 [...] Referred By: QUINCY Confirmed By:BRUNO CLARK MD [id number] 2021 --- [facility] PT NAME: EDVIN SMITH MR#: [id number] [address] [place] [address] ACCT: [id number] : 58 EKG REPORTNormalStGoleta Valley Cottage HospitalGLUCOSE METERon 08-06-2021 Glucose [Mass/Vol]123 mg/pUAqeb86-35SyGoleta Valley Cottage HospitalComment on above:Result Comment: Fasting GLUCOSE reference range has been updated per (ADA) [place] [employer]'s recommendation. 06/26/2018Performed By: #### L500.84209 #### Test performed at: [place] [address]GLYCO HEMOon 75-96-1095VnS4g (Bld) [Mass fraction]6.1 % NormalContra Costa Regional Medical CenterComment on above:Order Comment: CBN: YES Comments To Phleb: WILL DRAW IN PACU AFTER SURGERY [place]: MAINResult Comment: Suggested Diagnosis HbA1c (%) --------- Diabetic > 6.4 Prediabetes 5.7-6.4 Normal < 5.7Performed By: #### L500.97479 #### Test performed at: [place] [address]Internal Medicine Consultationon 34-54-9299Evbdkqfi Medicine ConsultationStGoleta Valley Cottage Hospital Patient: EDVIN SMITH [address] [place] [address] MR#: [id number] CONSULTATION - Internal Medicine : 59 Service [...] minimal, has [address], wilson in place. Pt is borderline tachycardic, and [...] Action: Continued on 08/06/21 1500 by [place] FULTON Review of Systems Review of Systems Constitutional [...] Attending Attestation Attending Attest (more content not included)...NormalSt. Ridgecrest Regional HospitalOPERATIVE REPORTon 53-52-3632DSQXSUMBE REPORTNAME: EDVIN SMITH MR#: [id number] SURGEON: Santi Roldan MD DATE OF SURGERY: 08/06/2021 OPERATIVE REPORT PREOPERATIVE DIAGNOSIS: Stenosis with neurogenic claudication. POSTOPERATIVE DIAGNOSIS: Stenosis with neurogenic claudication. PROCEDURE: Bilateral L2-3, L3-4, L4-5, and L5-S1 decompressive laminectomy. STONE BELT SANDER: Bettie. PROCEDURE IN DETAIL: After anesthesia, the [...] the traversing L5 root was well decompressed. [facility] PT NAME: EDVIN SMITH MR#: [id number] [address] [place] [address] ACCT: [id number] : 58 OPERATIVE REPORT At L3-4, the [...] was decompressed with st (more content not included)...NormalSt. Ridgecrest Regional HospitalPrimary Residenton 42-21-3632Mjzmbqo ResidentST. [facility] Pt Name: EDVIN SMITH MR#: [id number] [address] [place] [address] ACCT: [id number] [place] [address] : 58 Service Date: 08/06/21 1433 Primary Resident/Call Primary Resident: [id number] [place] After Hours Call: [phone] Blue Team Electronically Signed eSign Date and Time [place] F[place] Resident 08/06/21 1433NormalSt. Ridgecrest Regional HospitalLUMBAR SPINE 2 OR 3 VIEWSon 31-16-2821YQWLFA SPINE 2 OR 3 VIEWSSTUDY: LUMBAR SPINE 2 OR 3 VIEWS; 08/06/2021 12:51 pm INDICATION: L2-S1 DECOMPRESSION, LAMINECTOMY. COMPARISON: None. ACCESSION NUMBER(S): [id number] ORDERING CLINICIAN: Santi Roldan FINDINGS: Intraoperative fluoroscopy lumbar spine for localization. IMPRESSION: As aboveNormalSt. [facility] W/DIFFon 49-11-0126UKCJ ABS 0.1 K/uLNormal0.0-0.2St. [facility] HospitalComment on above: Performed By: #### L200.83972 #### Test performed at: [address] [address]Tydmnlequ/100 WBC (Bld)0.9 %NormalSt. [facility]crest Regional HospitalComment on above:Performed By: #### L200.05075 #### Test performed at: [address] [address]IPS ABS0.2 K/uLNormal0.0-0.5St. [facility] Regional HospitalComment on above:Performed By: #### L200.35796 #### Test performed at: [address] [address]Bnajzjktjsz/100 WBC (Bld)3.0 %NormalSt. Ridgecrest Regional HospitalComment on above:Performed By: #### L200.83046 #### Test performed at: [address] [address]Hxxfaowimvd distribution width (RBC) [Ratio]12.3 %Normal 11.5-14.5St. [facility] Regional HospitalComment on above:Performed By: #### L200.08626 #### Test performed at: [address] [address]Rldkzanojc (Bld) [Volume fraction]44.5 %Emujtt57.0-48.0St. [facility] Regional HospitalComment on above:Performed By: #### L200.27604 #### Test performed at: [address] [address]Gslwrcazff (Bld) [Mass/Vol]14.9 g/sYVpxmrc28.0-15.0St. [facility] Regional HospitalComment on above:Performed By: #### L200.33605 #### Test performed at: [address] [address]CG %0.3 %NormalSt. [facility]st Regional HospitalComment on above:Performed By: #### L200.31194 #### Test performed at: [place] [address]IG ABS0.02 K/uLNormal0-0.05St. [facility] HospitalComment on above:Performed By: #### L200.43981 #### Test performed at: [address] [address]Qndowqhuwka (Bld) [#/Vol]2.0 10*3/uLNormal1.2-3.5St. [facility] Regional HospitalComment on above:Performed By: #### L200.54949 #### Test performed at: [address] [address]Uqdeufvgtky/100 WBC (Bld)27.0 %NormalSt. [facility]st Regional HospitalComment on above:Performed By: #### L200.74663 #### Test performed at: [place] [id number] (RBC) [Entitic mass]29.7 ciFynquy75.4-34.6St. [facility] Regional HospitalComment on above:Performed By: #### L200.09569 #### Test performed at: [address] [address]RUCZ (RBC) [Mass/Vol]33.5 g/wVXwqtmb12.5-36.5St. [facility] HospitalComment on above:Performed By: #### L200.24762 #### Test performed at: [address] [address]NSD (RBC) [Entitic vol]88.[address]RGzpjyx99.0-98.0St. [facility] Regional HospitalComment on above:Performed By: #### L200.58651 #### Test performed at: [address] [address]AOAM ABS0.7 K/uLNormal0.0-1.0St. [facility] HospitalComment on above:Performed By: #### L200.52714 #### Test performed at: [address] [address]Loipvznrs/100 WBC (Bld)8.9 %NormalSt. [facility]st Regional HospitalComment on above:Performed By: #### L200.25934 #### Test performed at: [address] [address]UMVEOZKXZM ABS4.5 K/uLNormal1.4-6.6St. [facility] HospitalComment on above:Performed By: #### L200.34198 #### Test performed at: [address] [address]Vlxvzfchuqw/100 WBC (Bld)59.9 %NormalSt. [facility]st Regional HospitalComment on above:Performed By: #### L200.03235 #### Test performed at: [address] [address]HOFH #0.000 K/uLNormal0-0.012St. [facility] HospitalComment on above:Performed By: #### L200.47272 #### Test performed at: [address] [address]WLJJ %0.0 /100 WBCNormal0-0.2St. [facility] HospitalComment on above:Performed By: #### L200.12815 #### Test performed at: [address] [address]Jnxsrrdu mean volume (Bld) [Entitic vol]12.4 fLNormal 8.7-12.4St. [facility] HospitalComment on above:Performed By: #### L200.13220 #### Test performed at: [address] [address]Kgmxdeoeq (Bld) [#/Vol]180 10*3/cOYodpme353-885Bz. [facility] HospitalComment on above:Performed By: #### L200.16179 #### Test performed at: [address] [address]CMZ (Bld) [#/Vol]5.01 10*6/uLNormal3.5-5.5St. [facility] HospitalComment on above:Performed By: #### L200.95771 #### Test performed at: [address] [address]MUR (Bld) [#/Vol]7.6 10*3/uLNormal3.9-11.0St. [facility] HospitalComment on above:Performed By: #### L200.35539 #### Test performed at: [address] [address]LYAFD PA/AP & LATERALon 09-11-4340VQZBZ PA/AP & LATERAL STUDY: CHEST PA/AP LATERAL; 08/03/2021 2:07 pm INDICATION: PREOP. COMPARISON: None. ACCESSION NUMBER(S): [id number] ORDERING CLINICIAN: Sari Oden FINDINGS: The lungs are clear without apparent pleural effusion. Mild cardiomegaly. Otherwise unremarkable mediastinum, lamin, and pulmonary vasculature. IMPRESSION: No active disease in the chest.NormalSt. Ridgecrest Regional HospitalCOMP META PANELon 31-75-9666Jkobeys [Mass/Vol]3.6 g/dLNormal3.4-5.0St. [facility] HospitalComment on above:Performed By: #### L500.95101, L500.11905 #### Test performed at: [address] [address]RFJ PHOS NRPIH221 U/EUuqycq49-067Aa. [facility] HospitalComment on above:Performed By: #### L500.44407, L500.49303 #### Test performed at: [address] [address]KPS [Catalytic activity/Vol]29 U/QQhjscf72-16Nh. [facility] HospitalComment on above:Performed By: #### L500.15355, L500.11244 #### Test performed at: [address] [address]ICD [Catalytic activity/Vol]19 U/VMwervy26-94Vs. [facility] HospitalComment on above:Performed By: #### L500.84783, L500.13709 #### Test performed at: [address] [address]QKAB TOTAL0.5 mg/dLNormal0.2-1.0St. [facility] HospitalComment on above:Performed By: #### L500.54267, L500.77051 #### Test performed at: [address] [address]Zgylgdq [Mass/Vol]9.4 mg/dLNormal8.5-10.1St. [facility] HospitalComment on above:Performed By: #### L500.96490, L500.59593 #### Test performed at: [address] [address]Smoxzzfc [Moles/Vol]108 mmol/VCaxf08-572Jj. [facility] HospitalComment on above:Performed By: #### L500.66189, L500.17222 #### Test performed at: [address] [address]QS6 [Moles/Vol]29 mmol/XFrqfdq77-50Pf. [facility] HospitalComment on above:Performed By: #### L500.07170, L500.35759 #### Test performed at: [address] [address]Dcrkxjeuvz [Mass/Vol]1.080 mg/dLHigh0.550-1.020St. [facility] HospitalComment on above:Performed By: #### L500.97028, L500.30738 #### Test performed at: [address] [address]Yodgcsk [Mass/Vol]169 mg/bVGdaq05-74Xk. [facility] HospitalComment on above:Result Comment: Fasting GLUCOSE reference range has been updated per (ADA) [place] Diabetes [employer]'s recommendation. 06/26/2018Performed By: #### L500.01835, L500.63337 #### Test performed at: [address] [address]Cucbhklqo [Moles/Vol]4.2 mmol/LNormal3.5-5.1St. [facility] HospitalComment on above:Performed By: #### L500.35094, L500.08180 #### Test performed at: [address] [address]Bgpyzut [Mass/Vol]7.0 g/dLNormal6.4-8.2St. [facility] HospitalComment on above:Performed By: #### L500.03063, L500.21422 #### Test performed at: [address] [address]Ckufav [Moles/Vol]140 mmol/XPbyqtu525-590Mi. [facility] HospitalComment on above:Performed By: #### L500.59584, L500.20033 #### Test performed at: [facility] [address] [place] [address]Flhz nitrogen [Mass/Vol]16 mg/dLNormal7-18St. [facility] HospitalComment on above:Performed By: #### L500.98242, L500.23132 #### Test performed at: [place] [address] [address]JBZEHJPJAAWN REPORTon 06-17-2096LBNFCDGJERUY REPORTNAME: EDVIN SMITH MR#: [id number] TRACTOR DRIVER TEAMSTER: Sari Oden MD DATE OF CONSULTATION: 08/03/2021 CONSULTATION HISTORY OF PRESENT ILLNESS: Ms. Smith is a 60-year-old female and I have [...] am going to do a chest x- [facility] PT NAME: EDVIN SMITH MR#: [id number] [address] [place], [place] [address] ACCT: [id number] : 58 CONSULTATION ray, CBC and diff, and a CMP on her and her functional capacity is around 4 METS. Surgical risk is uokl-yi-vcplfrpv, higher exam is within acceptable limits. Pending the labs, she is cleared for anesthesia with acceptable risk. Thank you for the courtesy of this consultation. SARI ODEN MD MS/MODL/[id number] E/S: Sari Oden MD 08/04/21 1514 Electronically Signed [facility] PT NAME: EDVIN SMITH MR#: [id number] [address] [place], [place] [address] ACCT: [id number] : 58 CONSULTATIONNormalSt. [facility]st Regional HospitalCORONAVIRUSon 08-03-2021 SARS-CoV-2 (COVID-19) RNA MARIELLA+probe Ql (Unsp spec)Methodology: PCR Negative results do not preclude SARS-CoV-2 [...] labeling are available on the FDA website: https://www.fda.gov/MedicalDevices/Safety/ EmergencySituations/dpf119984.htm COVID-19 Negative for COVID-19 (SARS-CoV-2 RNA)NormalContra Costa Regional Medical CenterComment on above:Order Comment: CBN: YES [place]: MAIN COVID Testing: PRE-OP/PROCEDURE SCREEN AGE at Spec DOMI 60 Report age at specimen DOMI? Y First test: YES Employed in Healthcare: NO Symptomatic as defined by CDC: NO Hospitalized for COVID-19? NO ICU: NO [facility] NO Order Date: 08/03/21 : Not Performed By: #### M400.21202 #### Test performed at: [address] [address]VNP ESTIMATEon 56-20-8710TM AMER> 60Normal> 60St. [facility] Regional HospitalComment on above:Result Comment: eGFR (Estimated GFR) Units of measure:mL/min/1.73 meters sq. *CALCULATION REVISED 01/20/2015;IDMS-traceable MDRD equation eGFR is derived from the reexpressed MDRD Study equation using the following parameters: serum creatinine, age, gender and race. An eGFR<60 mL/min/1.73m2 for >3 months is consistent with chronic kidney disease. Refer to KDOQI guidelines for clinical interpretation.Performed By: #### L500.16631, L500.58076 #### Test performed at: [address] [address]FG non-AFR ATJZ55Agq> 60StGoleta [facility] Cott[facility] Hospital Comment on above:Performed By: #### L500.45467, L500.26061 #### Test performed at: [address] [address]NZHKE Quick Testingon 53-33-8530PdsnhbJhkbjuqiFuoqu Appiny Other Cult,Urine,CCon 28-55-7564Hyhu,Urine,CCSpecimen Description .URINE Performed at [address] [place] [address] Special Requests .CLEAN CATCH URINE Performed at [address] [place] [address] Culture NO SIGNIFICANT GROWTH Performed at [place] [address] [place] [address] Report Status FINAL 07/25/2017NormalSt. Mary'S Medical Center, [facility]ont[facility] CampusComment on above:Performed By: #### CCUC ####[address] [phone] [place] [address] Progress Noteon 49-43-5677SZS IP Note OR TranscriptionNormalSt. Mary'[facility], [facility] CampusUrinalysis w/ Microon 07-24-2017----- NormalMercy Mayo HospitalComment on above:Performed By: #### UAMIC ####[address] [place] [address] Acetaminophen mass concNegativeNormalNEGSt. Mary'S Medical Center, [facility] CampusComment on above:Performed By: #### UAMIC ####[address] [place] [address] Bilirubin (direct)NegativeNormalNEGAdams County Regional Medical Center Hospital Comment on above:Performed By: #### UAMIC ####[address] [place] [address] Hemoglobin mass conc (Bld)Negative NormalNEGSt. Mary'S Medical Center, [facility] CampusComment on above:Performed By: #### UAMIC ####[address] [place] [address] Nitrite,UrNegativeNormalNEGAdams County Regional Medical Center HospitalComment on above:Performed By: #### UAMIC ####[address] [place] [address] TurbidityTURBIDAbnormalCLEARMercy Mayo HospitalComment on above:Performed By: #### UAMIC ####[address] [place] [address] Urine WBC's0 TO 6Cxagcw5-8DujnjSt. Mary'[facility] Comment on above:Performed By: #### UAMIC ####[address] [place] [address] Urine, amorphous sediment presence in sediment4+AbnormalNONEMercy Mayo HospitalComment on above:Result Comment: Performed at [address] [place] [address] Performed By: #### UAMIC ####[address] [place] [address] Urine, colorYELLOWNormalYSouthwest General Health Center Comment on above:Performed By: #### UAMIC ####[address] [place] [address] Urine, epithelial cells in sediment0 TO 2Srvqnz7-48Amnqd Sharon HospitalComment on above:Performed By: #### UAMIC ####[address] [place] [address] Urine, erythrocytesNoneNormal0-2Mercy Mayo HospitalComment on above:Performed By: #### UAMIC ####[address] [place] [address] Urine, glucose presenceNegativeNormalNEGSt. Mary'[facility] Comment on above:Performed By: #### UAMIC ####[address] [place] [address] Urine, leukocyte esterase presence NegativeNormalNEGSt. Mary'S Medical Center, [facility] CampusComment on above:Performed By: #### UAMIC ####[address] [place] [address] Urine, pH6.0 [pH]Normal5.0-9.0[facility] HospitalComment on above:Performed By: #### UAMIC ####[address] [place] [address] Urine, protein presenceNegativeNormalNEGAdams County Regional Medical Center HospitalComment on above: Performed By: #### UAMIC ####[address] [place] [address] Urine, specific gravity>1.203Ttrt4.010-1.020[facility] HospitalComment on above:Performed By: #### UAMIC ####[address] [place] [address] Urobilinogen,UrNormalNormalNORM [facility] HospitalComment on above:Performed By: #### UAMIC ####[address] [place] [address] CommentNOT REPORTED NormalMercy Mayo HospitalComment on above:Performed By: #### UAMIC ####[address] [place], [place] [address] Epithelial, Renal NOT EETPYMHKVutqjo3Gqyzt Tiffin HospitalComment on above:Performed By: #### UAMIC ####[address] [place] [address] Mucus StrandsNOT REPORTEDNormalNONEMey Mayo HospitalComment on above: Performed By: #### UAMIC ####[address] [place] [address] Other ObservationsNOT REPORTEDNormalNREQAdams County Regional [facility] Comment on above:Performed By: #### UAMIC ####[address] [place] [address] TrichomonasNOT REPORTEDNormalNONEMeEncompass Health Rehabilitation Hospital HospitalComment on above:Performed By: #### UAMIC ####[address] , [place] [id number], bacteria in sedimentNOT REPORTEDChristianaCare HospitalComment on above:Performed By: #### UAMIC ####[address] , [place] [phone], casts in sedimentNOT REPORTEDNormSumma Health Akron Campus HospitalComment on above:Performed By: #### UAMIC ####[address] [place] [address] Urine, crystals in sedimentNOT REPORTEDNoBeebe Healthcare HospitalComment on above:Performed By: #### UAMIC ####[address] , [place] [phone], yeast presence in sedimentNOT REPORTEDNoBeebe Healthcare HospitalComment on above:Performed By: #### UAMIC ####[address] [place] [address] Cult,Urine,CCon 60-61-0351Zspz,Urine,CCSpecimen Description .URINE Performed at [address] [place] [address] Special Requests .CLEAN CATCH URINE Performed at [address] [place] [address] Culture NO SIGNIFICANT GROWTH Performed at [address] [address] Report Status FINAL 04/14/2017NoUniversity Hospitals Beachwood Medical CenterComment on above:Performed By: #### CCUC ####[address] [phone] [place] [address] Progress Noteon 40-81-4550IYK IP Note OR TranscriptionNormalAdams County Regional Medical Center HospitalUrinalysis w/ Microon 04-13-2017----- NormalMercy Mayo HospitalComment on above:Performed By: #### UAMIC ####[address] [place] [address] Acetaminophen mass concNegativeNormalNEGAdams County Regional Medical Center HospitalComment on above:Performed By: #### UAMIC ####[address] [place] [address] Bilirubin (direct)NegativeNormalNEGSt. Mary'S [facility] Comment on above:Performed By: #### UAMIC ####[address] [place] [address] Hemoglobin mass conc (Bld)Negative NormalNEGSt. Mary'S Medical Center, Ironton CampusComment on above:Performed By: #### UAMIC ####[address] [place] [address] Nitrite,UrNegativeNormalNEGAdams County Regional Medical Center HospitalComment on above:Performed By: #### UAMIC ####[address] [place] [address] TurbidityCLEARNormalCLEARSt. Mary'S Medical Center, Ironton CampusComment on above:Performed By: #### UAMIC ####[address] [place] [address] Urine WBC's0 TO 1Ppzptt1-5IjpugSt. Mary'[facility] Comment on above:Performed By: #### UAMIC ####[address] [place] [address] Urine, bacteria in sedimentTRACE AbnormalNONEMeVeterans Administration Medical CenterComment on above:Result Comment: Performed at [address] [place] [address] Performed By: #### UAMIC ####[address] [place] [address] Urine, colorYELLOWNormalYHolmes County Joel [facility]omerene Memorial Hospital HospitalComment on above:Performed By: #### UAMIC ####[address] [place] [address] Urine, epithelial cells in sediment2 TO 5Normal 0-25Mercy Mayo HospitalComment on above:Performed By: #### UAMIC ####[address] [place] [address] Urine, erythrocytesNoneNormal0-2Mercy Mayo HospitalComment on above:Performed By: #### UAMIC ####[address] [place] [address] Urine, glucose presenceNegativeNormalNEGAdams County Regional Medical Center Hospital Comment on above:Performed By: #### UAMIC ####[address] [place] [address] Urine, leukocyte esterase presence NegativeNormalNEGAdams County Regional Medical Center HospitalComment on above:Performed By: #### UAMIC ####[address] [place] [address] Urine, pH6.5 [pH]Normal5.0-9.0[facility] HospitalComment on above:Performed By: #### UAMIC ####[address] [place] [address] Urine, protein presenceNegativeNormalNEGAdams County Regional Medical Center HospitalComment on above: Performed By: #### UAMIC ####[address] [place] [address] Urine, specific gravity1.008Gienuq1.010-1.020[facility] HospitalComment on above:Performed By: #### UAMIC ####[address] [place] [address] Urobilinogen,UrNormalNormalNORM [facility] HospitalComment on above:Performed By: #### UAMIC ####[address] [place] [address] CommentNOT REPORTED NormalMercy Mayo HospitalComment on above:Performed By: #### UAMIC ####[address] [place] [address] Epithelial, Renal NOT YONAQMVRNhsbye4Cdpqa Mayo HospitalComment on above:Performed By: #### UAMIC ####[address] [place] [address] Mucus StrandsNOT REPORTEDNormalNONEMercy Mayo HospitalComment on above: Performed By: #### UAMIC ####[address] [place] [address] Other ObservationsNOT REPORTEDNormalNREQAdams County Regional [facility] Center Hospital Comment on above:Performed By: #### UAMIC ####[address] [place] [address] TrichomonasNOT REPORTEDNormalNONEMercy Mayo HospitalComment on above:Performed By: #### UAMIC ####[address] [place] [address] Urine, amorphous sediment presence in sedimentNOT REPORTEDNormalNONEMercy Mayo HospitalComment on above:Performed By: #### UAMIC ####[address] [place] [address] Urine, casts in sedimentNOT REPORTEDNormalMercy Mayo HospitalComment on above:Performed By: #### UAMIC ####[address] [place] [address] Urine, crystals in sedimentNOT REPORTEDNormalNONEMercy Mayo HospitalComment on above:Performed By: #### UAMIC ####[address] [place] [address] Urine, yeast presence in sedimentNOT REPORTEDNormalNONEMercy Mayo HospitalComment on above:Performed By: #### UAMIC ####[address] [place] [address] Vital Signs Date TimeVital SignValuePerforming FefmqcmpyTwxjikqf67-36-0750 08:42-0400Body xyoheg630.83 cmBenjamin Ball DO Work Phone: 1(419)[address] [place], [place] 7375809-10-2025 08:42-0400 Body mass index (BMI) [Ratio]36.5 kg/i2Aefaaegj Ball DO Work Phone: 1(419)[address] [place], [place] 7375809-10-2025 08:42-0400 Body pfnanz74.03 kgBenjamin Ball DO Work Phone: 1(419)[address] [place], [place] 7375809-10-2025 08:42-0400 Diastolic blood ulwobono29 mm[Hg]Ethan Ball DO Work Phone: 1(419)[address] [place], [place] 7375809-10-2025 08:42-0400 Heart rate73 /minBenjamin Ball DO Work Phone: 1(419)[address] [place], [place] 7375809-10-2025 08:42-0400 Respiratory rate12 /minBenjamin Ball DO Work Phone: 1(419)[address] [place], [place] 7375809-10-2025 08:42-0400 Systolic blood dfaqrvqc743 mm[Hg]Ethan Ball DO Work Phone: 1(419)[address] [place], [place] 7375808-27-2025 15:16-0400 Body eannbn472.83 cmBenjamin Ball DO Work Phone: 1(419)[address] [place], [place] 7375808-27-2025 15:16-0400 Body mass index (BMI) [Ratio]36.6 kg/j6Mpfqhqta Ball DO Work Phone: 1(419)[address] [place], [place] 7375808-27-2025 15:16-0400 Body whldgu81.42 kgBenjamin Ball DO Work Phone: 1(419)[address] [place], [place] 7375808-27-2025 15:16-0400 Diastolic blood ylqiezzv46 mm[Hg]Ethan Ball DO Work Phone: 1(419)[address] [place], [place] 7375808-27-2025 15:16-0400 Heart rate75 /minBenjamin Ball DO Work Phone: 1419)[address] [place], [place] 7375808-27-2025 15:16-0400 Respiratory rate12 /minBenjamin Ball DO Work Phone: 1419)[address] [place], [place] 7375808-27-2025 15:16-0400 Systolic blood nfrvjjej340 mm[Hg]Ethan Ball DO Work Phone: 1(419)[address] [place], [place] 7375806-19-2025 08:20-0400 Body yrsksu184.83 cmBenjamin Ball DO Work Phone: 1419)[address] [place], [place] 7375806-19-2025 08:20-0400 Body mass index (BMI) [Ratio]37.7 kg/x1Hiqmvrfq Ball DO Work Phone: 1419)[address] [place], [place] 7375806-19-2025 08:20-0400 Body asvpya711.2 kgBenjamin Ball DO Work Phone: 1(419)[address] [place], [place] 7375806-16-2025 13:59-0400 Body rbooec105.83 cmBenjamin Ball DO Work Phone: 1(419)[address] [place], [place] 7375806-16-2025 13:59-0400 Body mass index (BMI) [Ratio]37.8 kg/e7Nouilxtx Ball DO Work Phone: 1(419)[address] [place], [place] 7375806-16-2025 13:59-0400 Body bhznaa079.37 kgBenjamin Ball DO Work Phone: 1(419)[address] [place], [place] 7375806-16-2025 13:59-0400 Diastolic blood wvjhzlli20 mm[Hg]Ethan Ball DO Work Phone: 1(419)[address] [place], [place] 7375806-16-2025 13:59-0400 Heart rate70 /minBenjamin Ball DO Work Phone: 1(419)[address] [place], [place] 7375806-16-2025 13:59-0400 Respiratory rate12 /minBenjamin Ball DO Work Phone: [facility]06-16-2025 13:59-0400 Systolic blood rbpnvdle801 mm[Hg]Ethan Ball DO Work Phone: [facility]05-07-2025 14:50-0400 Body ialydo225.83 cmOur [facility]05-07-2025 14:50-0400Body mass index (BMI) [Ratio]38 kg/u1XawqmeghvOur [facility] Of [facility]05-07-2025 14:50-0400Body .17 kgOur [facility]05-07-2025 14:50-0400Diastolic blood tuwcfxod90 mm[Hg][facility] 08-07-2024 14:50-0400Heart rate73 /[facility] 08-07-2024 14:50-0400Respiratory rate12 /[facility] 08-07-2024 14:50-0400Systolic blood iwqiuzwb567 mm[Hg][facility]04-01-2025 13:36-0400Body ofbuae848.83 cmOur [facility]04-01-2025 13:36-0400Body mass index (BMI) [Ratio]38.5 kg/p8JchjhzequOur [facility] Of [facility]04-01-2025 13:36-0400Body xilnpz092.53 [facility]04-01-2025 13:36-0400Diastolic blood qudqhbuw72 mm[Hg] [facility]04-01-2025 13:36-0400Heart rate69 /[facility]04-01-2025 13:36-0400Respiratory rate12 /[facility]04-01-2025 13:36-0400Systolic blood affnctqp320 mm[Hg] [facility]07-09-2024 13:27-0400Body lwvryn862.83 cm [facility]07-09-2024 13:27-0400Body mass index (BMI) [Ratio]39.7 kg/m9LvzqrojerOur [facility] Of [facility]07-09-2024 13:27-0400Body lztuku179.65 [facility]07-09-2024 13:27-0400Diastolic blood kqyybbwt76 mm[Hg][facility]07-09-2024 13:27-0400 Heart rate65 /[facility]07-09-2024 13:27-0400 Respiratory rate12 /[facility]07-09-2024 13:27-0400 Systolic blood mm[Hg][facility]06-24-2024 15:0400Body .83 cmOur [facility]06-24-2024 15:11-0400Body mass index (BMI) [Ratio]39.6 kg/t9DnuqdzzbbOur [facility] Of [facility]06-24-2024 15:0400Body .31 kgOur [facility] 09-25-2023 15:110400Diastolic blood oxdobamx67 mm[Hg][facility]06-24-2024 15:110400Heart rate65 /[facility] 09-25-2023 15:0400Respiratory rate12 /[facility] 09-25-2023 15:110400Systolic blood ohjupsut037 mm[Hg][facility]05-24-2024 10:0400Body ztpcid924.83 cmOur [facility]05-24-2024 10:0400Body mass index (BMI) [Ratio]39.2 kg/i7UmjgbtrpkOur [facility] Of [facility]05-24-2024 10:0400Body khemik345.46 kgOur [facility]05-24-2024 10:0400Diastolic blood vkagqcga77 mm[Hg] [facility]05-24-2024 10:0400Heart rate61 /[facility]05-24-2024 10:0400Respiratory rate20 /[facility]05-24-2024 10:0400Systolic blood mm[Hg] [facility]05-08-2024 15:100400Body zxuxay833.83 cm [facility]05-08-2024 15:100400Body mass index (BMI) [Ratio]39.2 kg/q8FllgmjsctOur [facility] Of [facility]05-08-2024 15:10-0400Body zedjku144.29 kgOur [facility]05-08-2024 15:10-0400Diastolic blood rityiouv16 mm[Hg][facility]05-08-2024 15:10-0400 Heart rate65 /[facility]05-08-2024 15:10-0400 Respiratory rate20 /[facility]05-08-2024 15:10-0400 Systolic blood vtgozpvc901 mm[Hg][facility]11-06-2023 15:30-0500Body .83 cmBenjamin Ball Other [employer] Other [id number] 15:30-0500Body mass index (BMI) [Ratio] 37.24 kg/w8Hzzdmbec Ball Other [employer] Other 11-06-2023 15:30-0500Body upbbzy38.97 kgBenjamin Ball Other [employer] Other 11-06-2023 15:30-0500Diastolic blood gxhabkqy46 mm[Hg] Ethan Ball Other [employer] Other 11-06-2023 15:30-0500Respiratory rate16 /minBenjamin Ball Other [employer] Other 11-06-2023 15:30-0500Systolic blood gyraqkgz158 mm[Hg] Ethan Ball Other [employer] Other 10-11-2023 11:45-0400Body .83 cmBenjamin Ball Other [employer] Other 10-11-2023 11:45-0400Body mass index (BMI) [Ratio] 36.74 kg/m0Sqwhecvd Ball Other [employer] Other 10-11-2023 11:45-0400Body ltxuef75.61 kgBenjamin Ball Other [employer] Other 10-11-2023 11:45-0400Diastolic blood rbcjqwzi02 mm[Hg] Ethan Ball Other [employer] Other 10-11-2023 11:45-0400Respiratory rate12 /minBenjamin Ball Other [employer] Other 10-11-2023 11:45-0400Systolic blood uxgfxiki552 mm[Hg] Ethan Ball Other [employer] Other 01-09-2023 16:30-0500Body pjagym549.83 cmBenjamin Ball Other [employer] Other 01-09-2023 16:30-0500Body mass index (BMI) [Ratio] 39.78 kg/r7Yqrjehxb Ball Other [employer] Other 01-09-2023 16:30-0500Body owowyc710.78 kgBenjamin Ball Other [employer] Other 01-09-2023 16:30-0500Diastolic blood gnfajksk95 mm[Hg] Ethan Ball Other [employer] Other 01-09-2023 16:30-0500Respiratory rate12 /minBenjamin Ball Other [employer] Other 01-09-2023 16:30-0500Systolic blood mwfguslk792 mm[Hg] [facility] [employer] Other 10-10-2021 13:30-0400Body ukbonnysfrz52.7 [degF] Celine Gonzales [facility] Other 10-10-2021 13:30-6513PkD0% (BldA) [Mass fraction]97 % Celine Gonzales Other [employer] Other Encounters Encounter DateEncounter TypeCare ProviderFacilityStart: 12-11-2024 End: 35-79-7520bkjcfhchacKomncjhe Ball DO Work Phone: [facility] Work Phone: Start: 12-11-2024 End: 82-33-7325Krrksah encounter procedureBenjamin Ball DO-[facility] Work Phone: Start: 11-27-2024 End: 40-43-6267docthsfvzzPborqmws Ball DO Work Phone: [facility] Work Phone: Start: 11-27-2024 End: 66-79-9870Vznghek encounter procedureBenjamin Ball DO-[facility] Work Phone: Start: 24-26-9104Bxh-patient / Non-visitBenjamin Ball DO-[employer] Work Phone: Start: 10-28-2024 End: 50-82-7369izfdlfteuhLmzck Jayde KastenFacility:FTMCStart: 2024 End: 84-47-5814wuidajxrhtZqfcdyup Ball DO Work Phone: [facility] Work Phone: Start: 2024 End: 60-85-7170Ykcnicm encounter procedureAung Moore Alka CARTY-[facility] Work Phone: Start: 05-50-2813Yxtafht encounter procedureAung Lópezley -[facility]oStart: 09-19-2024 End: 17-72-8527Uvvpwxn encounter procedureAung Rucker DO-[facility] Work Phone: Start: 09-19-2024 End: 56-37-8771rqkrsouawjVpospmyj BallFacility:[facility] Start: 09-16-2024 End: 35-33-8882Mtjgfeu encounter procedureBenanthony Garcia DO-[facility] Work Phone: Start: 04-24-5501Zrn-patient / Non-visitBelyssa Radha DO-[facility] Work Phone: Start: 08-07-2024 End: 63-22-9169iyftgrpanvKpmkkivpxMet[facility]Health [facility] Work Phone: Start: 08-07-2024 End: 41-30-2371Pjjwcmr encounter procedureFircarilion [facility] Work Phone: Start: 08-05-2024 End: 72-61-2434zpufadjiuqEthvepyhgMetroHealth [facility] Work Phone: Start: 08-05-2024 End: 06-96-7763Qgpkpcv encounter procedureFirsaige Physician Group-[facility] Work Phone: Start: 07-02-2024 End: 31-46-2753oosiiezbylBxwcdgmalMetroHealth [facility] Work Phone: Start: 07-02-2024 End: 71-92-6980Lyieohb encounter procedureFirpreets Physician Group-[facility] Work Phone: Start: 01-56-6844Tvikjjs encounter statusSelect Medical Specialty Hospital - Columbustart: 10-10-2023 End: 44-49-5360olpysygnmwGooajkgakMetroHealth [facility] Work Phone: Start: 10-10-2023 End: 72-91-4907Blrglrm encounter procedureFirelands Physician Group-[facility] Work Phone: Start: 09-25-2023 End: 95-53-6038ynllcfmoszTyfbdwjrlMetroHealth [facility] Work Phone: Start: 09-25-2023 End: 37-06-4438Kdwzmnz encounter procedureFirelands Physician Group-[facility] Work Phone: Start: 09-13-2023 End: 81-90-0314gpjxzzyqagZnalrqgizMetroHealth [facility] Work Phone: Start: 09-13-2023 End: 26-65-0369Nqklzxj encounter procedureFirelands Physician Group-[facility] Work Phone: Start: 08-25-2023 End: 07-38-8319kvpqnexmuxOlamfcrktMetroHealth [facility] Work Phone: Start: 08-25-2023 End: 89-72-0413Yozeuup encounter procedureFirelands Physician Group-[facility] Work Phone: Start: 08-09-2023 End: 01-53-6830kyhyxcqytdPxqmcxazoMetroHealth [facility] Work Phone: Start: 08-09-2023 End: 89-58-3846Jaqcqtp encounter procedureFirelands Physician Group-[facility] Work Phone: Start: 60-34-5731Jga-patient / Non-visitFirelands Physician Group-[facility] Work Phone: Start: 20-57-0798Ilf-patient / Non-visitFirelands Physician Group-[facility] Work Phone: Start: 04-12-2023 End: 93-85-2360qpmwpkivllRiracfcd Radha Other [facility] Other Start: 95-14-0279Lxqrqnarb encounterBenjamin BallFPG Ball Medical ClinicStart: 02-06-2023 End: 89-28-6978evggkaghcpVctolqls Ball Other [employer] Other Start: 53-53-4794Rgtvzt outpatient visit 15 minutes Ethan BallFPG Ball Medical ClinicStart: 01-30-2023 End: 23-37-9485ecxpkgomonDhnfxvhu Ball Other [employer] Other Start: 19-82-6197Ptqvicqoe encounterBenjamin BallFPG [facility] ClinicStart: 01-26-2023 End: 24-86-5303uchfimpjxxZqwydnwq Ball Other [employer] Other Start: 69-35-8219Idoaxgzzx encounterBenjamin BallFPG [facility] ClinicStart: 01-11-2023 End: 74-73-6319fyzmwmdmkpYivesdce Ball Other [employer] Other Start: 05-34-3943Gcfhxcsjr for general adult medical examination without abnormal findingsBenjamin BallFPG [facility] Medical ClinicStart: 33-54-3529Zfkaryxg preventive med est patient 40-64yrsBenjamin BallFPG [facility] Medical ClinicStart: 92-51-2574Bfvhddbvm encounterBenjamin BallFPG [facility] ClinicStart: 10-12-2022 End: 41-47-1158Kwv Drop offJames D Nathalie [facility] Start: 09-07-2022 End: 48-72-6962smguofibhrWkdbnqqf Ball Other [employer] Other Start: 10-21-5999Njgbvecuc encounterBenjamin BallFPG [facility] ClinicStart: 08-10-2022 End: 43-95-4637ezagqczpuvDrkrlrto Ball Other [employer] Other Start: 58-09-0329Bxfvmt outpatient visit 15 minutes Ethan BallFPG [facility] ClinicStart: 08-02-2022 End: 93-86-9199eopgiyayepYD NONE LISTED REQUESTFacility:W2Tohqa: 07-04-2022 End: 57-21-6559wqjpryeabgDwkfzdzg Ball Other [employer] Other Start: 07-02-3929Swjaabkej encounterBenjamin BallFP[facility] ClinicStart: 05-09-2022 End: 11-07-7027bwphbbnsujWselyevl Ball Other [employer] Other Start: 71-97-8276Kdpbacxdc encounterBenjamin BallFP[facility] ClinicStart: 04-13-2022 End: 16-40-2127axlpmvoaxyYxotxszh Ball Other [employer] Other Start: 08-59-5017Rvqywdggu encounterBenjamin BallFP[facility] ClinicStart: 04-11-2022 End: 84-56-8841fiigrireppJzvujazc Ball Other [employer] Other Start: 28-76-5772Athalk outpatient visit 25 minutes Ethan BallFP[facility] ClinicStart: 04-10-2022 End: 81-55-8844bwpoumrjmdWhuryhbl Ball Other [employer] Other Start: 84-71-5360Zyjwpfcly encounterBenjamin BallFPG [facility] ClinicStart: 04-05-2022 End: 03-11-0160zhmxfspklpHI ETHAN BALLFacility:M9Glcxd: 03-16-2022 End: 81-65-7977xkzngnbxtiKG ETHAN BALLFacility:Z5Pbgxi: 11-22-2021 End: 10-65-1665nlhuaixievUM NONE LISTED REQUESTFacility:T7Cfyif: 11-18-2021 End: 48-82-7160nykdwutcktHR ETHAN BALLFacility:X9Hmcdi: 10-19-2021 End: 45-34-9429aucxiefgylDZ SISSY DASILVA .Facility:A5Pjjuj: 09-28-2021 End: 28-78-8869zbqdjhwhjdGR ETHAN BALLFacility:J7Okomz: 08-26-2021 End: 72-24-2117sxlarsashkQX DOCTOR MISCFacility:V8Qqale: 08-18-2021 End: 15-87-9284vldblpleezPU ETHAN BALLFacility:L3Mfboe: 36-60-8995Jxhztu outpatient visit [address] [facility] ClydeStart: 07-24-2017 End: 99-27-4418RlzfpcjpmgJKJZWLFLarkin Community Hospital [facility] HospitalStart: 04-13-2017 End: 79-24-8265KlxhlzxwhrUVEVOUHWillapa Harbor Hospital Procedures DateProcedureProcedure DetailPerforming ClinicianStart: 23-11-3604V-ray of left ankleBenjamin Ball DO Work Phone: Start: 96-59-2587QBKJX CULTURE CLEAN CATCHBETHANY PARSELLStart: 22-50-8906CPCPSDSMUC WITH MICROSCOPICBETHANY PARSELLStart: 67-22-2700HDELV CULTURE CLEAN CATCHBETHANY PARSELLStart: 59-13-8655RPGZIJWVFV WITH MICROSCOPICBETHANY PARSELL Plan of Treatment DateCare ActivityDetailAuthorStart: 38-25-7151N-ray of left ankleXR ankle LT min 3V*[facility] Columbustart: 09-98-3943OF Ankle - left GE 3 Views [facility]US Heart TransthoracicOur [facility] Of [facility] - AndersonUS Kidney - bilateralOur [facility] - AndersonXR Ankle - left GE 3 ViewsMayo Clinic Florida Payers DatePayer CategoryPayerPolicy [id number] [id number] 2.16.840.1.164640.3.57[id number] 2.0.1.771139.3.57[id number] 2.840.1.222493.3.57[id number] 2..0.1.043572.3.579.2.08782-43-1521Vocm-dif17-57-3813Pdsl-[id number] [id number] 2.16840.1.411250.3.579.2.593Unknown [id number] 2.16840.1.0[id number] 2.16.840.1.6[id number] 2.840.1.522959.3.579.2.593Unknown Other1 (STD)[id number] 2.840.1.427020.3.579.2.531 Social History DateTypeDetailFacilitySex Assigned At [facility]Today [facility] smoking statusNo Smoking Status [facility]: 23-86-7089Zcy Assigned At [facility]Today [facility] smoking status NHISUnknown if ever smokedPromedica F[facility] Work Phone: Start: 07-02-2024 End: 45-98-0341JjyPhhvwi (finding)[facility] Clinical Notes 01-10-2021 to 09-16-2024 Note Date & SmmqJqmvQdftvnee09-63-9273 Evaluation note* Diagnosis Onset Date Resolution Status Admit Date Ankle pain, left deletedJune 2024 1:54pmRight thigh paindeletedJune 2024 1:54pmSprain of ankle, calcaneofibular ligamentdeletedJune 2024 1:54pmNondisplaced fracture of lateral malleolus of left fibulaacuteJune 2024 7:38am Nondisplaced fracture of lateral malleolus of left fibulaacuteJuly 2024 10:39amGERD (gastroesophageal reflux disease)acuteAugust 2024 2:45pm HypertensionacuteAugust 2024 2:45pmInflammatory polyarthritisacuteAugust 2024 2:45pmObesityacuteAugust 2024 2:45pmOsteopeniaacuteAugust 2024 2:45pmRenal mass, leftacuteAugust 2024 2:45pmType 2 diabetes mellitus with hyperglycemiaacuteAugust 2024 2:45pm [facility] Work Phone: 1([phone]) 122-222905-07-2025 Evaluation note* Diagnosis Onset Date Resolution Status Admit Date Abdominal pain acuteMay 2024 2:43pmAdverse reaction to antidiabetic drugacuteMay 2024 2:43pmType 2 diabetes mellitus with hyperglycemiaacuteMay 2024 2:43pmAnkle pain, leftacuteJune 2024 1:54pmRight thigh painacuteJune 2024 1:54pm Sprain of ankle, calcaneofibular ligamentacuteJune 2024 1:54pmNondisplaced fracture of lateral malleolus of left fibulaacuteJune 2024 7:38am Nondisplaced fracture of lateral malleolus of left fibulaacuteJuly 2024 10:39am [facility] Work Phone: 1(853) 977-329904-01-2025 Evaluation note* Diagnosis Onset Date Resolution Status Admit Date Eustachian tube dysfunction acuteApril 2024 1:19pmGERD (gastroesophageal reflux disease)acuteApril 2024 1:19pmHypertensionacuteApril 2024 1:19pmObesityacuteApril 2024 1:19pmType 2 diabetes mellitus with hyperglycemiaacuteApril 2024 1:19pm [facility] Work Phone: 1(516) 617-772704-01-2025 Evaluation note* Diagnosis Onset Date Resolution Status Admit Date Eustachian tube dysfunction acuteApril 2024 1:19pmGERD (gastroesophageal reflux disease)acuteApril 2024 1:19pmHypertensionacuteApril 2024 1:19pmObesityacuteApril 2024 1:19pmType 2 diabetes mellitus with hyperglycemiaacuteApril 2024 1:19pm Abdominal painacuteMay 2024 2:43pm [facility] Work Phone: 1(271) 183-499311-06-2023 Evaluation note* Encounter Date Diagnosis Assessment Notes Treatment Notes Treatment Clinical Notes Feb, Acute bilateral low back pain wi thout sciatica (ICD-10 - M54.50) The patient is instructed to avoid bending, twisting or lifting. They are to use intermittent heat and ice as needed. They may schedule a massage or gentle manipulation. They may safely use Tylenol as needed. Instructed to use Salon Pas patches at bedtime. Instructed to use Tylenol 1000mg tid Initiate Nabumetone bid for next two weeks Feb,Type 2 diabetes mellitus with hyperglycemia, without long-term current use of insulin (ICD-10 - E11.65)This patient is following a comprehensive diabetic treatment [...] as cause of back pain. - unlikely Feb,rimary hypertension (ICD-10 - I10)This patient is instructed to consume a healthy, low-fat, low-salt diet. They are also encouraged to continue exercise to achieve/maintain a normal BMI. DIscussed lowering her Lisinopril to 5mg and monitoring BP closely [facility] Other 10-11-2023 Evaluation note* Encounter Date Diagnosis Assessment Notes Treatment Notes Treatment Clinical Notes Jan, Primary hypertension (ICD-10 - I 10) This patient is instructed to consume a healthy, low-fat, low-salt diet. They are also encouraged to continue exercise to achieve/maintain a normal BMI. Jan,Wellness examination (ICD-10 - Z00.00)Healthy diet and exercise. Reviewed age-appropriate preventive testing recommended. Jan,Type 2 diabetes mellitus with hyperglycemia, without long-term current use of insulin (ICD-10 - E11.65)This patient is following a comprehensive diabetic treatment [...] Microalbumin, Dilated eye exam and Foot exam Jan,astroesophageal reflux disease with esophagitis without hemorrhage (ICD-10 - K21.00)Diet instructions: Smaller portions, avoid eating and laying flat, avoid eating or drinking prior to bedtime. Weight loss. Jan,Osteopenia of lumbar spine (ICD-10 - M85.88)Continue Ca and Vit D supplements along w/ weight bearing exercises. Jan,typical lobular hyperplasia (ALH) of breast (ICD-10 - N60.99) Instructed patient on monthly SBE and yearly mammograms. Jan,ain in right hip (ICD-10 - M25.551)Continue ROM exercises, ice/heat and Voltaren Gel XR to assess joint space Jan,ain in left hip (ICD-10 - M25.552)Continue ROM exercises, ice/heat and Voltaren Gel XR to assess joint space Jan,olon cancer screening (ICD-10 - Z12.11) [facility] Other 05-10-2023 Evaluation note* Encounter Date Diagnosis Assessment Notes Treatment Notes Treatment Clinical Notes August, Type 2 diabetes angelique itus with hyperglycemia, without long-term current use of [...] which are reviewed at the office visit. August,cute non-recurrent maxillary sinusitis (ICD-10 - J01.00)Instructed to use Robitussin or Mucinex for cough, saline or Flonase NS for congestion, Tylenol forpain and fever. August,ain in right hip (ICD-10 - M25.551)Heat/ice and Tylenol Continue w/ weight reduction Recheck at IP visit August,ain in left hip (ICD-10 - M25.552) [facility] Other 02-06-2023 Evaluation note* Encounter Date Diagnosis Assessment Notes Treatment Notes Treatment Clinical Notes May, Type 2 diabetes angelique itus with hyperglycemia, without long-term current use of insulin (ICD-10 - E11.65) [facility] Other 01-11-2023 Evaluation note* Encounter Date Diagnosis Assessment Notes Treatment Notes Treatment Clinical Notes Apr, Gastroesophageal ref lux disease with esophagitis without hemorrhage (ICD-10 - K21.00) Apr,Type 2 diabetes mellitus with hyperglycemia, without long-term current use of insulin (ICD-10 - E11.65) [facility] Other 01-09-2023 Evaluation note* Encounter Date Diagnosis Assessment Notes Treatment Notes Treatment Clinical Notes Apr, Type 2 diabetes angelique itus with hyperglycemia, without long-term current use of [...] which are reviewed at the office visit. Apr,rimary hypertension (ICD-10 - I10)This patient is instructed to consume a healthy, low-fat, low-salt diet. They are also encouraged to continue exercise to achieve/maintain a normal BMI. Apr,Morbid obesity with BMI of 40.0-44.9, adult (ICD-10 - Z68.41)This patient has been instructed on a low-fat, high-fiber diet. They are instructed to reduce calories, portion sizes and snacks. It is recommended that they exercise for 30 minutes, 3-5 times weekly. Apr,astroesophageal reflux disease with esophagitis without hemorrhage (ICD-10 - K21.00)Diet instructions: Smaller portions, avoid eating and laying flat, avoid eating or drinking prior to bedtime. Weight loss. Apr,egenerative arthritis of lumbar spine (ICD-10 - M47.816)The patient is instructed to avoid bending, twisting or lifting. They are to use intermittent heat and ice as needed. They may schedule a massage or gentle manipulation. They may safely use Tylenol as needed. Apr,Inflammatory polyarthropathy (ICD-10 - M06.4)ROM exercises, Voltaren Gel as needed Apr,typical lobular hyperplasia (ALH) of breast (ICD-10 - N60.99)Close f/u w/ Oncology [facility] Other 01-08-2023 Evaluation note* Encounter Date Diagnosis Assessment Notes Treatment Notes Treatment Clinical Notes Apr, Type 2 diabetes angelique itus with hyperglycemia, without long-term current use of insulin (ICD-10 - E11.65) [facility] Other 05-06-2022 NoteNAME: EDVIN SMITH MR#: [id number] ADMIT DATE: 08/06/2021 DISCHARGE DATE: 08/08/2021 DISCHARGE [...] every hour, and perform incentive spirometer 10 [facility] PT NAME: EDVIN SMITH MR#: [id number] [address] [place], [place] [id number] ACCT: [id number] : 58 DISCHARGE SUMMARY times per hour while awake. She was also advised to get all of her prescriptions filled as soon as possible and continue taking all of her medications as directed and keep all of her outpatient followup appointment as scheduled. She is being discharged back to her home with self-care. MD CARIDAD MILLER/SALOME/[id number] E/S: Santi Roldan MD 09/15/21 1121 Electronically Signed [facility] PT NAME: EDVIN SMITH MR#: [id number] [address] [place] [address] ACCT: [id number] : 58 DISCHARGE SUMMARY[facility] Evaluation note* Encounter Date Diagnosis Assessment Notes Treatment Notes Treatment Clinical Notes Jan, Contact with and (iglesias spected) exposure to other viral communicable diseases (ICD-10 [...] is performed too soon. It is recommended thateven if results are negative and you have [...] or environmental symptoms. Patient did become upset. Jan,easonal allergic rhinitis, unspecified trigger (ICD-10 - J30.2) Take OTC allrgy medications as directed.. Use saline nasal spray may help with symptom relief. Follow up with primary care provider if symptoms persist as a therapy plan may need to be made. Jan,Other Additional time spent conducting pre-visit phone call, screening for symptoms, instructions on social distancing, application and removal of PPE, and cleaning of examination room, equipment and supplies was preformed. Patient education given for testing methodology and results. Patient care instructions given in writting by [facility] Care At Home document. [facility] [employer] Other Evaluation + Plan note No data available for this section [facility] HospitalEvaluation noteNo InformationNortHoly [facility] [employer] Other Evaluation note* Diagnosis Onset Date Resolution Status Hypertension acuteNicotine addictionacuteType 2 diabetes mellitus with hyperglycemiaacute [facility] Work Phone: Evaluation note* Diagnosis Onset Date Resolution Status Cardiac murmur acuteHypertensionacuteNicotine addictionacuteType 2 diabetes mellitus with hyperglycemiaacute [facility] Work Phone: Evaluation note* Diagnosis Onset Date Resolution Status Hypertension acuteNicotine addictionacuteType 2 diabetes mellitus with hyperglycemiaacute Aphthous stomatitisnoneactiveOdynophagianoneactive [facility] Work Phone: Evaluation note* Diagnosis Onset Date Resolution Status Hypertension acuteNicotine addictionacuteType 2 diabetes mellitus with hyperglycemiaacute Aphthous stomatitisnoneactiveOdynophagianoneactiveHypertensionacuteNicotine addictionacuteType 2 diabetes mellitus with hyperglycemiaacute [facility] Work Phone: Evaluation note* Diagnosis Onset Date Resolution Status Hypertension acuteNicotine addictionacuteType 2 diabetes mellitus with hyperglycemiaacute Aphthous stomatitisnoneactiveOdynophagianoneactiveHypertensionacuteObesityacute Type 2 diabetes mellitus with hyperglycemiaacute [facility] Work Phone: Evaluation noteNo assessment information available [facility] Work Phone: History general Narrative - Reported* Type Description Date Medical History Atypical lobular hyperplasia (AL H) of breast Medical HistoryGastroesophageal reflux disease with esophagitis without hemorrhageMedical HistoryH/O renal calculiMedical HistoryInflammatory polyarthropathyMedical HistoryDegenerative arthritis of lumbar spineMedical HistoryMorbid obesity with BMI of 40.0-44.9, adultMedical HistoryObesity (BMI 30.0-34.9)Medical HistoryOsteopenia of lumbar spineMedical HistoryControlled type 2 diabetes mellitus with hyperglycemiaSurgical Historydecompression laminectomy of lumbar spineSurgical Historyendometrial biopsySurgical History partial mastectomySurgical Historyright breast biopsySurgical History cholecystectomySurgical Historyendometrial biopsyHospitalization Historysee surgical history [facility] Other Hospital Discharge instructions No data available for this section [facility] HospitalProgress note No data available for this section [facility] HospitalReason for referral (narrative)No reason for referral information availablePromedica F[facility] Work Phone: Summary Purpose Family History No Family History Records FoundNo Family History Records FoundNo Family History Records FoundNo Family History Records FoundNo Family History Records FoundNo Family History Records Found Advance Directives Advance Directive Response Recorded Date/ Time Advance Directives No May 10:45am Chief Complaint and Reason for Visit Chief Complaint Amb Documentation discuss diabetic medicationReason for VisitHypertension Nicotine addiction Type 2 diabetes mellitus with hyperglycemia Chief Complaint Amb Documentation discuss diabetic medication swollen tounge, dysphagiaReason for VisitCardiac murmur Hypertension Nicotine addiction Type 2 diabetes mellitus with hyperglycemia Chief Complaint Amb Documentation discuss diabetic medication swollen tounge, dysphagia UAReason for VisitHypertension Nicotine addiction Type 2 diabetes mellitus with hyperglycemia Aphthous stomatitis Odynophagia Chief Complaint Amb Documentation discuss diabetic medication swollen tounge, dysphagia UA medication discussionReason for VisitHypertension Nicotine addiction Type 2 diabetes mellitus with hyperglycemia Aphthous stomatitis Odynophagia Hypertension Nicotine addiction Type 2 diabetes mellitus with hyperglycemia Chief Complaint Amb Documentation discuss diabetic medication swollen tounge, dysphagia UA medication discussion Dizziness, Ear painReason for VisitHypertension Nicotine addiction Type 2 diabetes mellitus with hyperglycemia Aphthous stomatitis Odynophagia Hypertension Obesity Type 2 diabetes mellitus with hyperglycemia Chief Complaint Admit Date Ear Pressure/Dizziness/LightHeaded July 02, 2024 1:19pm Chief Complaint Admit Date Ear Pressure/Dizziness/LightHeaded July 02, 2024 1:19pm UA August 05, 2024 2:56pm Reason for Visit Admit Date Eustachian tube dysfunction July 02, 2 025 1:19pm GERD (gastroesophageal reflux disease) A [...] Visit Admit Date Eustachian tube dysfunction July 02, 2 025 1:19pm GERD (gastroesophageal reflux disease) A pri2024 1:19pm Hypertension July 02, 2024 1:19 pm Obesity July 02, 2024 1:19 pm Type 2 diabetes mellitus with hyperglyce cora July 02, 2024 1:19pm Abdominal pain August 07, 2024 2:43pm Chief Complaint Admit Date UA August 05, 2024 2:56pm right flank pain August 07, 2024 2:43pm ankle pain after fall September 16, 2024 1: 54pm M25.572 September 19, 2024 7:[address] RADHA BERRIOS ANKLE FX WX [facility] September 19, 2024 7:38am AP/OBLIQUE/LATERAL 2024 8:12 am 5 WEEKS 2024 10:3 9am Reason for Visit Admit Date Abdominal pain August 07, 2024 2:43pm Adverse reaction to antidiabetic drug Ma y 2024 2:43pm Type 2 diabetes mellitus with hyperglyce cora August 07, 2024 2:43pm Ankle pain, left September 16, 2024 1:54 pm Right thigh pain September 16, 2024 1:54 pm Sprain of ankle, calcaneofibular ligamen t September 16, 2024 1:54pm Nondisplaced fracture of lateral malleol us of left fibula September 19, 2024 7:38am Nondisplaced fracture of lateral malleol us of left fibula 2024 10:39am Chief Complaint Admit Date ankle pain after fall September 16, 2024 1: 54pm M25.572 September 19, 2024 7:[address] RADHA BERRIOS ANKLE FX WX [facility] September 19, 2024 7:38am 5 WEEKS 2024 10:3 9am 4 month f/u November 27, 2024 2: 45pm Reason for Visit Admit Date Ankle pain, left September 16, 2024 1:54 pm Right thigh pain September 16, 2024 1:54 pm Sprain of ankle, calcaneofibular ligamen t September 16, 2024 1:54pm Nondisplaced fracture of lateral malleol us of left fibula September 19, 2024 7:38am Nondisplaced fracture of lateral malleol us of left fibula 2024 10:39am GERD (gastroesophageal reflux disease) A ugust 2024 2:45pm Hypertension November 27, 2024 2: 45pm Inflammatory polyarthritis November 27, 2024 2:45pm Obesity November 27, 2024 2: 45pm Osteopenia November 27, 2024 2: 45pm Renal mass, left November 27, 2024 2: 45pm Type 2 diabetes mellitus with hyperglyce cora November 27, 2024 2:45pm Chief Complaint Admit Date ankle pain after fall September 16, 2024 1: 54pm M25.572 September 19, 2024 7:[address] GARCIA LT ANKLE FX WX [facility] September 19, 2024 7:38am 5 WEEKS 2024 10:3 9am 4 month f/u November 27, 2024 2: 45pm URI December 11, 2024 8:37am Additional Source Comments INFORMATION SOURCE (unrecogn ized section and content) DATE CREATED AUTHOR 09/21/2017 [facility] DATE CREATED AUTHOR AUTHOR'S ORGANIZ ATION 09/16/2021 [facility] DATE CREATED AUTHOR AUTHOR'S ORGANIZ ATION 08/03/2022 [facility] DATE CREATED AUTHOR AUTHOR'S ORGANIZ ATION 10/25/2024 [facility] DATE CREATED AUTHOR AUTHOR'S ORGANIZ ATION 10/30/2024 [facility] DATE CREATED AUTHOR AUTHOR'S ORGANIZ ATION 11/06/2024 [facility] REASON FOR VISIT (unrecogniz ed section and content) #15 MAROON CAR- SINUS, COUGH PRODUCTIVE COUGH , EARS, CHEST CONGESTION, COVID Provider VisitNo Information5 MONTH BJMedicationNo InformationRefill3 month Follow up, congestion sinuses allergiesWeight CheckNo InformationwellnessXray resultsHip injectiontrochanteric bursitis injectionrefill Patient Care team informatio n (unrecognized section and content) Team Status: Active Member Role Status Dates Ethan Garcia , DO Primary Care Provider Active Team Status: Inactive Member Role Status Dates Ethan Garcia , DO Primary Care Provide r, Attending Provider Active Start: July 02, 2024 End: July 02, 2024 Team Status: Active Member Role Status Dates Ethan Garcia , DO Primary Care Provider Active Start: July 28, 2023 Nakia Tirado MERRITTGrupo ProviderActiveStart: July 28, 2023 Team Status: Active Member Role Status Dates Ethan Garcia , DO Primary Care Provide r, Attending Provider Active Start: August 04, 2023 Team Status: Inactive Member Role Status Dates Ethan Garcia , DO Primary Care Provide r, Attending Provider Active Start: August 09, 2023 End: August 09, 2023 Team Status: Inactive Member Role Status Dates Ethan Garcia , DO Primary Care Provide r, Attending Provider Active Start: August 25, 2023 End: August 25, 2023 Team Status: Inactive Member Role Status Dates Ethan Garcia , DO Primary Care Provide r, Attending Provider Active Start: September 13, 2023 End: September 13, 2023 Team Status: Inactive Member Role Status Dates Ethan Garcia , DO Primary Care Provide r, Attending Provider Active Start: September 25, 2023 End: September 25, 2023 Team Status: Inactive Member Role Status Zulma Garcia , DO Primary Care Provide r, Attending Provider Active Start: October 10, 2023 End: October 10, 2023 Team Status: Inactive Member Role Status Zulma Garcia , DO Primary Care Provide r, Attending Provider Active Start: August 05, 2024 End: August 05, 2024 Team Status: Inactive Member Role Status Zulma Garcia DO Primary Care Provide r, Attending Provider Active Start: August 07, 2024 End: August 07, 2024 Team Status: Inactive Member Role Status Dates Ethan Garcia DO Primary Care Provider Active Start: August 05, 2024 End: August 05nieves Garcia DOAttending ProviderActiveStart: August 05, 2024 End: August 05, 2024 Team Status: Inactive Member Role Status Dates Ethan Garcia , DO Primary Care Provider Active Start: August 07, 2024 End: August 07nieves Garcia DOAttending ProviderActiveStart: August 07, 2024 End: August 07, 2024 Team Status: Active Member Role Status Dates Ethan Garcia Primary Care Provider Active Start: August 13, 2024 Ethan Garcia , DOAttending ProviderActiveStart: August 13, 2024 Team Status: Inactive Member Role Status Dates Ethan Garcia Primary Care Provider Active Start: September 16, 2024 End: September 16seanlou Garcia DOAttending ProviderActiveStart: September 16, 2024 End: September 16, 2024 Team Status: Inactive Member Role Status Dates Ethan Garcia Primary Care Provider Active Start: September 19, 2024 End: September 19, 2024Aung Rucker DOAttending ProviderActiveStart: September 19, 2024 End: September 19, 2024 Team Status: Active Member Role Status Dates Ethan Garcia Primary Care Provider Active Start: 2024 Aung Rucker DOAttending ProviderActiveStart: 2024 Team Status: Inactive Member Role Status Dates Ethan Garcia Primary Care Provider Active Start: 2024 End: October 24, 2024Aung Rucekr DOAttending ProviderActiveStart: 2024 End: 2024 Team Status: Active Member Role Status Dates Ethan Garcia Primary Care Provider Active Start: November 19, 2024 Ethan Garcia DOAttending ProviderActiveStart: November 19, 2024 Team Status: Inactive Member Role Status Dates Ethan Garcia Primary Care Provider Active Start: November 27, 2024 End: November 27entonlou Radha , DOAttending ProviderActiveStart: November 27, 2024 End: November 27, 2024 Team Status: Inactive Member Role Status Dates Ethan Garcia Primary Care Provider Active Start: December 11, 2024 End: December 11seanlou Garcia , DOAttending ProviderActiveStart: December 11, 2024 End: December 11, 2024 Goals (unrecognized section and content) Goals [...] BE BASED ON THE PRIMARY CLINICAL RECORDS. [employer] [facility]. provides no warranty or guarantee of the accuracy or completeness of information in this document.
[2025-04-01 08:30] LABS: Estimated GFR (African America >60 (>=60 mL/min/1.73m^2); Estimated GFR (Non-African Ame 60 (>=60 mL/min/1.73m^2)
--- NOTE | 2025-04-01 08:56 | CT_ITS ---
The [address] [address] Patient Name: EDVIN TRISTAN MRN: [id number] date: 1960 Sex: F Assigned Patient Location: LAB Current Patient Location: LAB Accession/Order Number: [id number] Exam Date: 04/01/2025 08:46 Report Date: 04/01/2025 11:45 At the request of: WYATT GARCIA DO Procedure: CT abdomen pelvis wo/w con CT ABDOMEN AND PELVIS WITHOUT AND WITH INTRAVENOUS CONTRAST CLINICAL DATA: Follow-up left renal mass COMPARISON: 09/04/2024 Spiral images were obtained through the abdomen pelvis before and after intravenous administration of 100 mL of Omnipaque 300. This CT exam was performed using one or more following dose reduction techniques: Automated exposure control, adjustment of the mA and/or kV according to patient size, or use of iterative reconstruction technique. Limited cuts through the lung bases show minor atelectasis or scarring adjacent to the dome of the left hemidiaphragm. There is minor bilateral perinephric fibrofatty stranding. Precontrast, there is a 3 mm stone at the midpole on the right and a 2 mm stone at the superior pole on the left. No ureteral or bladder stones are noted. There is a hypodense nodular area at the superior pole of left kidney measuring approximately 17 mm in size. Following contrast administration, the renal nephrograms are symmetric. The hypodensity at the superior pole on the left does not enhance suggesting a cyst. There are a couple additional potential tiny left renal cysts and minor scarring. No renal mass lesions are seen on the right. There is no hydronephrosis. The urinary bladder is poorly distended however no obvious abnormalities are noted. Fatty infiltration of liver is present. The gallbladder is surgically absent. No common duct stones are noted. The spleen, pancreas and adrenal glands show no acute findings. The abdominal aorta is normal caliber and there is minor atherosclerotic plaque. Tiny lymph nodes are present. There is no ascites. The small bowel loops within normal limits for caliber. There is a small amount of colonic stool, predominantly on the right. Postoperative and degenerative changes are again visualized at the spine. Images through the pelvis show no dilated small bowel though there are couple loops that contain fluid. No appendiceal inflammation is present. The distal colon is decompressed. No diverticular disease is noted. The uterus is slightly dextroverted. No adnexal cysts are seen. There is no ascites. CT/CT abdomen pelvis wo/w con IMPRESSION: FATTY LIVER. BILATERAL NEPHROLITHIASIS, WITHOUT OBSTRUCTION. SMALL LEFT RENAL CYSTS. UNDER DISTENDED URINARY BLADDER, WITHOUT OBVIOUS ABNORMALITY. NO ACUTE FINDINGS. Impression dictated by: Olga Rodriguez M.D. 04/01/2025 11:45 AM Dictation Location: [facility] HOSPITALWikiCell Designs Electronically authenticated by: [id number] Y Date: 04/01/2025 11:45
== END 2025-04-01 08:12 | disposition home or self-care (01) ==
LOC: LAB 08:11
PROVIDERS: Pathology Anatomic Pathology & Clinical Pathology; PCP Internal Medicine; Visit Provider Internal Medicine
DX: N28.89 Other specified disorders of kidney and ureter (principal); K76.0 Fatty (change of) liver, not elsewhere classified; N20.0 Calculus of kidney
CPT/HCPCS: 36415; 74178; 82565; Q9967